=== PATIENT | female | born 1940 | race American Indian/Alaskan Native ===

== ENCOUNTER → 2020-09-19 13:24 | Outpatient (BNVA) | payer MEDICARE, SELFPAY | PROVIDERS: Visit Provider Orthopaedic Surgery | DX: M65.341 Trigger finger, right ring finger (principal); M65.351 Trigger finger, right little finger | CPT/HCPCS: 99202 ==

== ENCOUNTER 2020-12-08 14:17 | Outpatient (REF) | payer MEDICARE, SELFPAY ==
[2020-12-08 15:20] LABS: MANUAL DIFF FLAG NO
[2020-12-08 15:27] LABS: Basophils Percent Auto 0.2 % (0-2); Eosinophils Absolute Auto 0.1 X10*3/uL (0.0-0.4); Eosinophils Percent Auto 1.1 % (0-4); Hemoglobin 10.5 g/dl (12.0-16.0); Imm Gran Abs Auto 0.03 X10*3/uL (0.00-0.03); Imm Gran Pct Auto 0.4 % (0.0-0.4); Lymphocytes Percent Auto 23.7 % (20-40); Mean Corpuscular HGB Conc 31.8 g/dl (31.0-35.0); Mean Corpuscular Hemoglobin 29.5 pg (27.0-33.0); Mean Corpuscular Volume 92.7 fL (80-98); Mean Platelet Volume 10.6 fL (9.4-12.3); Monocytes Absolute Auto 0.6 X10*3/uL (0.1-1.2); Neutrophils Absolute Auto 5.8 X10*3/uL (2.0-8.3); Neutrophils Percent Auto 67.6 % (45-73); Platelet Count 305 X10*3/uL (160-400); Red Blood Count 3.56 X10*6/uL (4.20-5.50); Red Cell Distribution Width 13.3 % (11.0-16.0); White Blood Count 8.5 X10*3/uL (4.8-10.8)
[2020-12-08 16:13] LABS: Anion Gap 11 (12-20); Blood Urea Nitrogen 22 mg/dL (9-16); Calcium 9.2 mg/dL (8.4-10.2); Carbon Dioxide 27 mmol/L (22-29); Chloride 102 mmol/L (96-108); Estimated Glomerular Filt Rate 39; Magnesium 1.9 mg/dL (1.6-2.6); Phosphorus 3.7 mg/dL (2.7-4.5); Potassium 4.8 mmol/L (3.3-5.1); Sodium 135 mmol/L (135-145)
[2020-12-08 16:36] LABS: Vitamin D 25-OH Total 32.1 ng/mL (>30)
[2020-12-08 17:02] LABS: Glucose Urine UA >=1000 MG/DL (NEG); Leukocyte Esterase Urine NEG (NEG); Nitrite Urine NEG (NEG); Urine Blood NEG (NEG); Urine Ketones NEG (NEG); Urine Protein NEG (NEG-TRACE)
[2020-12-08 17:03] LABS: Appearance Urine CLEAR; Color Urine YELLOW
[2020-12-08 17:13] LABS: Creatinine Urine 53.33 mg/dL; Total Protein Urine Random < 7 mg/dL (<12)
[2020-12-08 17:27] LABS: Squamous Epithelial Cell Urine TRACE /LPF
[2020-12-08 17:29] LABS: Renal w Reflex Lab Use Only Order verified
== END 2020-12-08 14:18 | disposition home or self-care (01) ==
LOC: HO.LAB 14:17
PROVIDERS: Absent Provider Internal Medicine Nephrology; PCP Family Medicine; Visit Provider Student in an Organized Health Care Education/Training Program
DX: M19.042 Primary osteoarthritis, left hand (principal); M19.041 Primary osteoarthritis, right hand; M65.321 Trigger finger, right index finger; I12.9 Hypertensive chronic kidney disease with stage 1 through stage 4 chronic kidney disease, or unspecified chronic kidney disease; N18.30 Chronic kidney disease, stage 3 unspecified; E11.22 Type 2 diabetes mellitus with diabetic chronic kidney disease; E11.21 Type 2 diabetes mellitus with diabetic nephropathy; Z79.899 Other long term (current) drug therapy
CPT/HCPCS: 36415; 80051; 81001; 81003; 82040; 82043; 82306; 82310; 82565; 83735; 84100; 84155; 84156; 84520; 85025; 99202

== ENCOUNTER 2021-03-29 11:47 | Outpatient (REF) | payer MEDICARE, SELFPAY ==
--- NOTE | ~2021-03-29 | MM_ITS ---
EXAMINATION: MM SCREENING DIGITAL BREAST TOMOSYNTHESIS, BILATERAL CLINICAL INFORMATION: Screening. Asymptomatic. The lifetime risk of breast cancer based on the Tyrer-Cuzick Model is 2%. COMPARISON: Mammography: 01/06/2020, 07/01/2018, 06/27/2017 TECHNIQUE: Digital breast tomosynthesis is performed in both the craniocaudal and mediolateral oblique views along with computer-aided detection (CAD). Synthesized 2D images are generated from the tomosynthesis. FINDINGS: There are scattered areas of fibroglandular density (ACR BI-RADS breast composition Category b). There are no significant masses, abnormal calcifications, or other abnormalities. Parenchymal pattern is similar to prior exams. No developing density. No significant changes. MM/MM tomosynthesis screening BI IMPRESSION: No mammographic evidence of malignancy. ASSESSMENT: BI-RADS 1: Negative RECOMMENDATION: Routine annual mammography screening. This patient's information was entered into a reminder system with a target due date for their next mammogram.
--- NOTE | ~2021-03-29 | MM_ITS ---
EXAMINATION: BONE DENSITOMETRY CLINICAL INDICATION: Other disorders of bone density. COMPARISON: Previous BD dated 07/04/2012 and baseline BD dated 11/22/2009. TECHNIQUE: Using a Drivable DXA System (software version: 13.1) manufactured by [employer], dual-energy x-ray absorptiometry was performed of the lumbar spine and left hip. The images are of good technical quality. Summary results are attached. FINDINGS: AP SPINE L1-L4: Current: BMD 1.053 g/cm2, Z-score 0.5, T-score -1.1, osteopenia, 0.2% decrease from previous, 4.8% increase from baseline (<5% change is not significant). Prior: BMD 1.055 g/cm2. Baseline: BMD 1.005 g/cm2. LEFT FEMUR, NECK: Current: BMD 0.821 g/cm2, Z-score 0.4, T-score -1.6, osteopenia. Prior: BMD 0.887 g/cm2. Baseline: BMD 0.892 g/cm2. LEFT FEMUR, TOTAL: Current: BMD 0.980 g/cm2, Z-score 1.5, T-score -0.2, normal, 2.9% decrease from previous, 3.5% decrease from baseline (<5% change is not significant). Prior: BMD 1.009 g/cm2. Baseline: BMD 1.016 g/cm2. IDENTIFIED RISK FACTORS: Menopause. HISTORY OF FRACTURE: None listed. MEDICATIONS: Calcium supplements or multivitamin, vitamin D. MM/XR DEXA axial skeleton IMPRESSION: 1. DIAGNOSIS: Osteopenia based on the lowest T-score value of -1.6 in the femoral neck applying World Health Organization criteria. 2. 10-YEAR FRACTURE RISK PREDICTION, FRAX: Major osteoporotic fracture (clinical spine, forearm, hip or shoulder) 7.6%. Hip fracture 1.7%. 3. Treatment Recommendations: NOF guidelines recommend consideration for treatment in postmenopausal women and men age 50 and older presenting with the following: -A hip or vertebral (clinical or morphometric) fracture. -T-score less than or equal to -2.5 at the femoral neck or spine after appropriate evaluation to exclude secondary causes. -Low bone mass at the hip or spine and a 10-year fracture probability by FRAX of greater than or equal to 3% for hip fracture or greater than or equal to 20% for major osteoporotic fracture based on the [place] adapted WHO algorithm. 4. Other Recommendations: All treatment decisions require clinical judgment and consideration of individual patient factors, including patient preferences, comorbidities, previous drug use, risk factors not captured in the FRAX model (e.g. frailty, falls, vitamin D deficiency, increased bone turnover, interval significant decline in bone density) and possible under or overestimation of fracture risk by FRAX. Additional medical evaluation for secondary cause of low bone mineral density may be appropriate. FUTURE SCAN RECOMMENDATION: People with diagnosed cases of osteoporosis or at high risk for fracture should have regular bone mineral density tests. For patients eligible for Medicare, routine testing is allowed once every 2 years. The testing frequency can be increased to one year for patients who have rapidly progressing disease, those who are receiving or discontinuing medical therapy to restore bone mass, or have additional risk factors.
== END 2021-03-29 11:48 | disposition home or self-care (01) ==
LOC: HO.MAMMO 11:47
PROVIDERS: Visit Provider Family Medicine
DX: Z12.31 Encounter for screening mammogram for malignant neoplasm of breast (principal); Z13.820 Encounter for screening for osteoporosis; M85.80 Other specified disorders of bone density and structure, unspecified site; Z78.0 Asymptomatic menopausal state; Z79.899 Other long term (current) drug therapy
CPT/HCPCS: 77063; 77067; 77080

== ENCOUNTER 2021-11-16 13:38 | Outpatient (REF) | payer OTHER, SELFPAY ==
[2021-11-16 14:00] LABS: MANUAL DIFF FLAG NO
[2021-11-16 14:07] LABS: Basophils Percent Auto 0.3 % (0-2); Eosinophils Absolute Auto 0.1 X10*3/uL (0.0-0.4); Eosinophils Percent Auto 1.1 % (0-4); Hematocrit 36.9 % (37.0-47.0); Hemoglobin 11.8 g/dl (12.0-16.0); Imm Gran Abs Auto 0.04 X10*3/uL (0.00-0.03); Imm Gran Pct Auto 0.4 % (0.0-0.4); Lymphocytes Absolute Auto 1.9 X10*3/uL (1.2-4.9); Lymphocytes Percent Auto 19.6 % (20-40); Mean Corpuscular Hemoglobin 28.9 pg (27.0-33.0); Mean Corpuscular Volume 90.4 fL (80.0-98.0); Mean Platelet Volume 10.4 fL (9.4-12.3); Monocytes Absolute Auto 0.5 X10*3/uL (0.1-1.2); Monocytes Percent Auto 5.6 % (2-11); Platelet Count 310 X10*3/uL (160-400); Red Blood Count 4.08 X10*6/uL (4.20-5.50); Red Cell Distribution Width 12.3 % (11.0-16.0); White Blood Count 9.6 X10*3/uL (4.8-10.8)
[2021-11-16 14:30] LABS: Appearance Urine CLEAR; Color Urine YELLOW; Glucose Urine UA >=1000 MG/DL (NEG); Leukocyte Esterase Urine NEG (NEG); Nitrite Urine NEG (NEG); Specific Gravity - Urine 1.015 (1.005-1.025); Urine Blood NEG (NEG); Urine Ketones 5 MG/DL (NEG); Urine Protein NEG (NEG-TRACE)
[2021-11-16 14:33] LABS: Albumin Level 3.8 g/dL (3.5-5.0); Anion Gap 16 (12-20); Blood Urea Nitrogen 23 mg/dL (9-16); Calcium 9.4 mg/dL (8.4-10.2); Carbon Dioxide 23 mmol/L (22-29); Chloride 99 mmol/L (96-108); Estimated Glomerular Filt Rate 32; Magnesium 1.8 mg/dL (1.6-2.6); Phosphorus 3.9 mg/dL (2.7-4.5); Potassium 4.8 mmol/L (3.3-5.1); Sodium 133 mmol/L (135-145)
[2021-11-16 14:54] LABS: Vitamin D 25-OH Total 49.4 ng/mL (>30)
[2021-11-16 15:00] LABS: Creatinine Urine 87.04 mg/dL; Microalbum/Creatinine Ratio Ur 28.7 ug/mg cr; Protein/Creatinine Ratio, Ur 0.17 (<0.2); RBC Urine 0 /HPF (0); Renal Epithelial Cells Urine 2+ /LPF; Squamous Epithelial Cell Urine 1+ /LPF; Total Protein Urine Random 15 mg/dL (<12)
[2021-11-17 12:11] LABS: Calcium (PTHI) 9.5 mg/dL (8.6-10.4); PTHI 43 pg/mL (16-77)
== END 2021-11-16 13:39 | disposition home or self-care (01) ==
LOC: HO.LAB 13:38
PROVIDERS: PCP Family Medicine; Visit Provider Internal Medicine Nephrology
DX: N18.31 Chronic kidney disease, stage 3a (principal); E11.21 Type 2 diabetes mellitus with diabetic nephropathy; N25.0 Renal osteodystrophy
CPT/HCPCS: 36415; 80051; 81001; 82040; 82043; 82306; 82310; 82565; 83735; 83970; 84100; 84156; 84520; 85025; 87086

== ENCOUNTER 2022-03-12 09:43 | Outpatient (REF) | payer OTHER, SELFPAY ==
--- NOTE | ~2022-03-12 | XR_ITS ---
EXAMINATION: XR SHOULDER, LEFT CLINICAL INFORMATION: Left posterior shoulder pain. COMPARISON: None. TECHNIQUE: AP external rotation, Grashey, scapular Y, and axillary views of the left shoulder. FINDINGS: Bones are osteopenic. Mild glenohumeral osteoarthritis with marginal osteophytes at the glenoid rim. There is [id number] acromioclavicular osteoarthritis. Prominent anterior subacromial spur is noted. Degenerative spondylosis is present in the thoracic spine. XR/XR shoulder LT min 2V IMPRESSION: Mild glenohumeral and [id number] acromioclavicular osteoarthritis Prominent anterior subacromial spur, predisposing to subacromial impingement.
== END 2022-03-12 09:44 | disposition home or self-care (01) ==
LOC: HO.XRAY 09:43
PROVIDERS: PCP Family Medicine; Visit Provider Family Medicine
DX: M25.512 Pain in left shoulder (principal)
CPT/HCPCS: 73030

== ENCOUNTER 2022-04-02 12:57 | Outpatient (REF) | payer OTHER, SELFPAY ==
--- NOTE | ~2022-04-02 | MM_ITS ---
EXAMINATION: MM SCREENING DIGITAL BREAST TOMOSYNTHESIS, BILATERAL CLINICAL INFORMATION: Screening. Asymptomatic. The lifetime risk of breast cancer based on the Tyrer-Cuzick Model is 2%. COMPARISON: Mammography: 03/29/2021, 01/06/2020, 07/01/2018. TECHNIQUE: Digital breast tomosynthesis is performed in both the craniocaudal and mediolateral oblique views along with computer-aided detection (CAD). Synthesized 2D images are generated from the tomosynthesis. FINDINGS: There are scattered areas of fibroglandular density (ACR BI-RADS breast composition Category b). There are no significant masses, abnormal calcifications, or other abnormalities. Parenchymal pattern is similar to prior studies. No architectural abnormality. The axilla and skin contours are unremarkable. MM/MM tomosynthesis screening BI IMPRESSION: No mammographic evidence of malignancy. ASSESSMENT: BI-RADS 1: Negative RECOMMENDATION: Routine annual mammography screening. This patient's information was entered into a reminder system with a target due date for their next mammogram.
== END 2022-04-02 12:58 | disposition home or self-care (01) ==
LOC: HO.MAMMO 12:57
PROVIDERS: PCP Family Medicine; Visit Provider Family Medicine
DX: Z12.31 Encounter for screening mammogram for malignant neoplasm of breast (principal)
CPT/HCPCS: 77063; 77067

== ENCOUNTER → 2022-04-13 13:06 | Outpatient (BNVA) | payer OTHER, SELFPAY | PROVIDERS: PCP Family Medicine; Visit Provider Physician Assistant | DX: M19.012 Primary osteoarthritis, left shoulder (principal); M75.82 Other shoulder lesions, left shoulder | CPT/HCPCS: 99212; J1020 ==

== ENCOUNTER → 2022-08-13 12:57 | Outpatient (BNVA) | payer OTHER, SELFPAY | PROVIDERS: PCP Family Medicine; Referring Provider Family Medicine; Visit Provider Internal Medicine Cardiovascular Disease | DX: I25.5 Ischemic cardiomyopathy (principal); I25.10 Atherosclerotic heart disease of native coronary artery without angina pectoris | CPT/HCPCS: 93005; 99202 ==

== ENCOUNTER 2022-08-15 09:11 | Outpatient (REF) | payer OTHER, SELFPAY ==
[2022-08-15 10:06] LABS: Anion Gap 14 (12-20); Blood Urea Nitrogen 21 mg/dL (9-16); Carbon Dioxide 25 mmol/L (22-29); Chloride 107 mmol/L (96-108); Cholesterol 248 mg/dL; Estimated Glomerular Filt Rate 36; Glucose Random 166 mg/dL (60-115); HDL Cholesterol 38 mg/dL; LDL Cholesterol Calculated 176 mg/dl; Potassium 4.6 mmol/L (3.3-5.1); Sodium 141 mmol/L (135-145); Triglycerides 172 mg/dL
[2022-08-15 10:11] LABS: B Type Natriuretic Peptide 510 pg/mL (<100)
[2022-08-16 14:44] LABS: CRP High Sensitivity 4.7 mg/L
== END 2022-08-15 09:12 | disposition home or self-care (01) ==
LOC: HO.LAB 09:11
PROVIDERS: PCP Family Medicine; Visit Provider Internal Medicine Cardiovascular Disease
DX: E78.5 Hyperlipidemia, unspecified (principal); I25.10 Atherosclerotic heart disease of native coronary artery without angina pectoris; I25.5 Ischemic cardiomyopathy
CPT/HCPCS: 36415; 80048; 80061; 83880; 86141

== ENCOUNTER → 2022-08-28 15:06 | Outpatient (REF) | payer OTHER, SELFPAY ==
--- NOTE | 2022-08-28 15:09 | CA_ITS ---
Transthoracic Echocardiogram Patient (Last, First, Middle): Veronique Westfall A Gender: Female Date of : 1940 Age: 82 Procedure Date: 08/28/2022 Procedure Type: Transthoracic Echocardiogram Location: OP Height: 152.4 cm Weight: 70.31 kg BSA: 1.67 m2 Heart Rate: bpm BP: 118 / 60 mmHg Offset Plate Maker: Referring MD: Blade Vargas MD Factory Worker: Blade Vargas MD Symptoms: I25.5 - Ischemic cardiomyopathy Study Quality: Fair, Good w Definity ECG Rhythm: Sinus Conclusions: - 1. Severe LV systolic dysfunction with LVEF of 15-20% with LAD territory wall motion abnormality consistent with prior myocardial infarction, consistent with ischemic cardiomyopathy with impaired relaxation filling pattern 2. Mild aortic regurgitation 3. Normal RV systolic pressure 4. No gross pericardial effusion Findings Procedure Information Contrast agent, definity, is being given per protocol without apparent complications. Left Ventricle Normal left ventricular cavity size. There is normal left ventricular wall thickness. The left ventricular systolic function is severely decreased. The visually estimated ejection fraction is between 15-20%. Spectral Doppler is indicative of an impaired relaxation filling pattern. E/E prime ratio is between 8 and 15 consistent with indeterminate filling pressures. There is no evidence of a thrombus in the left ventricle. Wall Motion Rest Echo Findings The basal anterior and basal anteroseptal segments are hypokinetic. The apical anterior, apical inferior, mid anterior, apical lateral, apical septum, mid inferoseptal, and mid anteroseptal segments are akinetic. The apex segment is dyskinetic. All other scored wall segments showed normal motion. Right Ventricle Normal right ventricular cavity size and systolic function. Atria The left atrium is normal in size. There is no evidence of interatrial shunt. The right atrium is normal in size. Aortic Valve The aortic valve structure and function is likely normal. There is no aortic valve stenosis. There is mild aortic valve regurgitation. Mitral Valve There is mild anterior and posterior mitral leaflet thickening. Pulmonic Valve The pulmonic valve was not well visualized. Tricuspid Valve Likely normal tricuspid valve structure and function. There is trace tricuspid valve regurgitation. The right ventricular systolic pressure is normal. Normal right atrial pressure. There is no evidence of pulmonary hypertension. Great Vessels All visible segments of the aorta are normal in size. The pulmonary artery was not well visualized. Venous The inferior vena cava is normal in size and collapses greater than 50% with inspiration. Pericardium/Pleural There is no evidence of pericardial effusion. Prior Study Comparison No prior study available for comparison. Measurements 2D Linear Measurements IVSd: 1.04 0.6-0.9/0.6-1.0 cm LVIDd: 4.16 3.9-5.3/4.2-5.9 cm LVIDd Index: 2.49 2.4-3.2/2.2-3.1 cm/m2 LVIDs: 3.83 2.0-3.6 cm LVPWd: 0.93 0.7-1.1 cm Ao Root: 2.70 2.1-3.5 cm LA Diam: 3.10 2.7-3.8/3.0-4.0 cm LAIDs Index: 1.86 1.5-2.3 cm/m2 LV Mass: 164.57 67-162/88-224 g LV Mass Index: 98.55 43-95/49-115 g/m2 LVOT Diam: 1.90 3.0+(-)1.3 cm 2D Systolic Function EF 4C: 19.70 >55% EF 2C: 20.80 >55% EF BiP: 17.50 >55% Mitral Valve MV Pk E: 0.58 MV PK A: 1.10 MV Decel Time: 107.00 E/A: 0.50 E'Lateral: 4.03 E'Medial: 4.46 E/E' Med: 13.00 E/E' Lat: 14.40 PHT: 31.00 MVA PHT: 7.10 Decel [place]: 5.45 Aortic Valve AoV Pk Td: 1.17 AoV Mn Td: 0.76 AoV VTI: 0.24 AoV Pk Grad: 5.00 Aov Mn Grad: 3.00 IFEOMA Cont.VTI: 1.50 AI Pk Td: 3.85 AI [place]: 4.98 LVOT LVOT Pk Td: 0.66 LVOT Mn Td: 0.43 LVOT VTI: 0.13 LVOT Pk Grad: 2.00 LVOT Mn Grad: 1.00 LVOT Diam: 1.90 LVOT Area: 2.84 Diastolic Function MV Pk E: 0.58 MV Pk A: 1.10 E/A: 0.50 E'Medial: 4.46 E/E' Med: 13.00 E' Laterial: 4.03 E/E' Lat: 14.40 Right Ventricle TAPSE (mm): 18.00 TVS' Td: 10.00 Tricuspid Valve TR Pk Td: 2.02 TR Pk Grad: 16.00 RA Press: 3.00 RVSP: 19.00 Great Vessels Aorta Ao Root-2D: 2.70 2.0-3.7 cm Ao Asc: 2.90 2.1-3.4 cm Pulmonary Valve PV Pk Td: 0.93 Peak PV Grad: 3.00 Updated in Other Vendor System with Status of Final Blade Vargas MD electronically signed on 08/29/2022 9:37:37 AM with status of Final
== END ==
LOC: HO.CARD 15:06
PROVIDERS: PCP Family Medicine; Visit Provider Internal Medicine Cardiovascular Disease
DX: I25.5 Ischemic cardiomyopathy (principal)
CPT/HCPCS: 93306; Q9957

== ENCOUNTER → 2022-09-07 14:57 | Outpatient (BNVA) | payer OTHER, SELFPAY | PROVIDERS: PCP Family Medicine; Visit Provider Internal Medicine Cardiovascular Disease ==

== ENCOUNTER → 2022-09-20 15:09 | Outpatient (BNVA) | payer OTHER, SELFPAY | PROVIDERS: PCP Family Medicine; Referring Provider Family Medicine; Visit Provider Internal Medicine Cardiovascular Disease | DX: I25.5 Ischemic cardiomyopathy (principal); I25.10 Atherosclerotic heart disease of native coronary artery without angina pectoris | CPT/HCPCS: 93005; 99212 ==

== ENCOUNTER 2022-10-04 11:55 | Outpatient (REF) | payer OTHER, SELFPAY ==
[2022-10-04 12:51] LABS: Anion Gap 15 (12-20); Blood Urea Nitrogen 25 mg/dL (9-16); Calcium 9.3 mg/dL (8.4-10.2); Carbon Dioxide 21 mmol/L (22-29); Chloride 110 mmol/L (96-108); Cholesterol 173 mg/dL; Estimated Glomerular Filt Rate 28; Glucose Random 211 mg/dL (60-115); HDL Cholesterol 36 mg/dL; LDL Cholesterol Calculated 108 mg/dl; Potassium 5.1 mmol/L (3.3-5.1); Sodium 141 mmol/L (135-145); Triglycerides 147 mg/dL
[2022-10-04 12:58] LABS: B Type Natriuretic Peptide 322 pg/mL (<100)
== END 2022-10-04 11:56 | disposition home or self-care (01) ==
LOC: HO.LAB 11:55
PROVIDERS: Visit Provider Internal Medicine Cardiovascular Disease
DX: I25.5 Ischemic cardiomyopathy (principal); I25.10 Atherosclerotic heart disease of native coronary artery without angina pectoris
CPT/HCPCS: 36415; 80048; 80061; 83880

== ENCOUNTER 2023-01-01 15:06 | Outpatient (AMB) | payer OTHER, SELFPAY ==
[2022-11-29 12:51] VITALS: BP 118/58; BP 118/64
[2022-12-24 12:41] VITALS: BP 110/44; BMI 29.1
--- NOTE | 2023-01-01 15:08 | A.OFFVIS_ITS ---
Intake Vital Signs 01/01/23 15:09 Height 5 ft Weight 156 lb 8.451 oz BMI 30.6 BP 110/70 Blood Pressure Location Lt brachial Position Sitting Pulse 92 Intake Visit Reasons: 3 mth f/up Intake Note: 3 month follow-up feeling good Nuclear Worker Technician Required: Yes Nuclear Worker Technician Name: Adnres viera Director Of Consulting Services: Director Of Consulting Services Present Accompanied by: Family/Other Allergies procaine [From NOVOCAIN] Allergy (Severe, Verified 04/13/22 13:14) SWELLING LOCALIZED TO INJECTION SITE alirocumab [From Praluent Pen] Allergy (Mild, Verified 01/01/23 15:18) Itching Aspirin Allergy (Unknown, Uncoded 04/13/22 13:14) rash full strength Aspirin Allergy (Unknown, Uncoded 04/13/22 13:14) rash Medication List - Last Reconciled 01/01/23 by Blade Vargas MD acetaminophen 325 mg PO QID PRN albuterol sulfate 4 mg PO TID aspirin (Adult Aspirin Regimen) 81 mg PO DAILY baclofen 5 mg PO BID PRN bisacodyl 5 mg PO BEDTIME carvedilol (Coreg) 3.125 mg PO BID diclofenac sodium 75 mg PO BID 30 days dulaglutide (Trulicity) 0.75 mg subcut QWEEK empagliflozin (Jardiance) 10 mg PO DAILY metformin 500 mg PO DAILY rosuvastatin 40 mg PO QAM sacubitril-valsartan 49-51 mg (Entresto) 1 tab PO BID sertraline (Zoloft) 25 mg PO DAILY ticagrelor (Brilinta) 90 mg PO BID 90 days tramadol 50 mg PO DAILY HPI HPI Comments History of Present Illness Details Veronique comes for follow-up. History was obtained with help of a certified office services assistant. Patient is doing well. Since cardiac rehab, she feels stronger. She denies any heart failure symptoms. Denies any anginal symptoms. No lightheadedness, palpitations, syncope. Taking all her medications. Could not tolerate Praluent therapy, air conditioning technician generalized itchiness. This has resolved since stopping the injections. [facility] Medical History Active asthma Anxiety CAD (coronary artery disease) High cholesterol Hypertension Surgical History Stented coronary artery Social History Patient Tobacco Use Status: Never used Tobacco e-Cigarette/Vaping Use: Never Used Current occupational status: retired and disabled Current occupation: rt hand Review of Systems Const Denies chills, Denies fatigue, Denies fever(s), Denies frequent falls, Denies weakness, Denies weight gain and Denies weight loss ENT Denies dizziness Card Denies chest pain, Denies leg edema, Denies lightheadedness, Denies palpitations, Denies dyspnea, Denies dyspnea on exertion, Denies orthopnea and Denies other (loss of consciousness) Resp Denies cough, Denies dyspnea and Denies dyspnea on exertion GI Denies hematochezia and Denies change in stool character Musc Denies abnormal gait, Denies muscle weakness, Denies numbness, Denies radiating pain into limb and Denies tingling Neuro Denies Abnormal speech present, Denies abnormal gait, Denies dizziness, Denies frequent falls, Denies numbness, Denies tingling and Denies weakness Endo Denies fatigue and Denies palpitations Physical Exam Vital Signs: Last Vital Signs Pulse 92 01/01/23 15:09 BP 110/70 01/01/23 15:09 BMI result Body Mass Index 30.6 Const General: cooperative, comfortable, no acute distress, alert, awake and Physically active Nutritional Appearance: well nourished and overweight Orientation/consciousness: patient oriented x3 Limitations: no limitations HEENT Head: Yes normocephalic and Yes atraumatic Neck Neck: Yes trachea midline, Yes supple and Yes no JVD Resp Effort & Inspection: normal respiratory effort Auscultation: clear to auscultation bilaterally Cardio Jugular venous distension: no JVD Palpation: abnormal PMI displaced PMI Rate: regular rate Rhythm: regular rhythm Heart sounds: S1 normal heart sound present, S2 normal heart sound present, no click, no gallops, no murmurs and no rubs GI Auscultation: normal bowel sounds Skin General skin exam: no rashes or lesions noted Neuro General: patient oriented x3 and no focal motor deficits Speech: No Abnormal speech present Extrem General: Yes no clubbing, cyanosis or edema Assessment & Plan Assessment & Plan (1) Ischemic cardiomyopathy: Code(s): I25.5 - Ischemic cardiomyopathy Plan: Severe ischemic cardiomyopathy without any overt signs of heart failure. She is doing well from that perspective. Signs and symptoms of heart failure were discussed. Continue current neurohormonal modulation with Entresto, carvedilol and Jardiance therapy. Advised to avoid salt loading. Continue to maintain activity level as tolerated. We discussed about placement of ICD for primary prevention. She declines placement of ICD understanding risk of sudden cardiac that. Both the daughters were present and accompanying her understands well. (2) CAD (coronary artery disease): Comment: Status post anterior STEMI, April 2022 with LAD stent Code(s): I25.10 - Atherosclerotic heart disease of [place] coronary artery without angina pectoris Plan: CAD status post anterior STEMI with LAD stent with drug-eluting stent. Continue dual antiplatelet therapy total for 1 year. Continue aggressive blood pressure control which is currently well optimized advised to maintain activity level as tolerated. Could not tolerate any lipid lowering therapy with side effects to both statins and PCSK9 inhibitor therapy. Will follow up in the clinic in 6 months time. Coding Level of Care Code Est Pt Level 4 (43478) Diagnoses Ischemic cardiomyopathy I25.5 CAD (coronary artery disease) I25.10
[2023-01-01 15:09] VITALS: BP 110/70; PULSE 92; BMI 30.6
== END 2023-01-01 15:29 | disposition home or self-care (01) ==
PROVIDERS: Visit Provider Internal Medicine Cardiovascular Disease
DX: I25.5 Ischemic cardiomyopathy (principal); I25.10 Atherosclerotic heart disease of native coronary artery without angina pectoris
CPT/HCPCS: 99214

== ENCOUNTER → 2023-01-01 15:06 | Outpatient (BNVA) | payer OTHER, SELFPAY ==
[2022-11-29 12:51] VITALS: BP 118/58; BP 118/64
[2022-12-24 12:41] VITALS: BP 110/44; BMI 29.1
== END ==
PROVIDERS: Visit Provider Internal Medicine Cardiovascular Disease
DX: I25.5 Ischemic cardiomyopathy (principal); I25.10 Atherosclerotic heart disease of native coronary artery without angina pectoris
CPT/HCPCS: 99212

== ENCOUNTER → 2023-01-11 10:02 | Outpatient (REF) | payer OTHER, SELFPAY ==
[2022-11-29 12:51] VITALS: BP 118/58; BP 118/64
[2022-12-24 12:41] VITALS: BP 110/44; BMI 29.1
--- NOTE | ~2023-01-11 | NM_ITS ---
Myocardial perfusion study Indication: Atherosclerotic cardiovascular disease to evaluate for myocardial ischemia Technique: The patient was brought in for a Lexiscan perfusion study on 01/11/2023. Patient performed low-level exercise and was injected 0.4 mg of Lexiscan intravenously. Within a minute of injection, 25 mCi of sestamibi was given intravenously. Images were obtained using the SPECT gamma camera interlaced with the gating device. Images were obtained in supine position. Resting perfusion study was performed on 01/14/2023. Patient was administered 25 mCi of sestamibi intravenously at rest. Images were then obtained in supine position. Images obtained with and without CT attenuation. Total DLP 138 mGy-cm. Images were processed with the software and compared side to side in short axis, horizontal long axis and vertical long axis views. Findings: The stress perfusion study showed non attenuated images show moderately large area of absent uptake in the mid to distal anterior, apical and inferoapical wall of the LV myocardium with severely reduced uptake in the inferoseptum as well as distal septum showing absent uptake.. The gated study shows reduced LV systolic function with calculated LVEF of 42%. LV cavity is mildly dilated size. The gated study shows absent wall thickening and contraction of distal anterior, apical and inferoapical wall of the LV myocardium segments. Resting study shows no change in perfusion pattern compared to stress perfusion study. Gating at rest reveals distal anterior and apical wall motion abnormality with ejection fraction at 43%. The findings are consistent with no evidence reversible ischemia with transmural infarct of moderate to large area of mid to distal anterior, apical and inferoapical as well as distal septal wall of the LV myocardium with nontransmural infarct of the atrial septum of the LV myocardium. NM/NM cardiolite stress test Impression: 1. Myocardial perfusion imaging study shows infarct in the LAD territory without reversible ischemia 2. Gated LVEF is 42% 3. Transient ischemic dilatation not present EKG is nondiagnostic for ischemia
--- NOTE | 2023-01-11 10:09 | CA_ITS ---
Acquisition Time: 2023-01-11 10:20:50 Total Exercise Time: 00:02:52 Test Indications: CAD Medications: SEE H Protocol: ALISHA Max HR: 137 BPM 97% of Pred: 140 BPM Max BP: 142/058 mmHG Max Work Load: 4.6 METS Exercise stress test exercise 2 min 52 sec of Alisha protocol achieivng 95% MPHR briskly, request to stop as she could not go anymore due to fatuge and right jaw pain 3-4/10, without anginal symptoms, without arrhythmias, brisk heart rate response, with normotensive response to exercise, with non-diagostic EKGs. Jaw pain resolved with 8 mins 30 sec of recovery. Test changed to pharmacological stress test with Lexiscan injection while sitting and kicking her legs, without anginal symptoms, without arrhythmias, with normotensive response to injection, with non-diagnostic EKGs. Amionophylline 75mg IVP given to reverse Lexiscan. Nuclear images pending. Test reviewed with Dr. Vargas. Referred By: Blade Vargas Overread By: Kasandra Kingston
== END ==
LOC: HO.CARD 10:02
PROVIDERS: PCP Family Medicine; Visit Provider Internal Medicine Cardiovascular Disease
DX: R07.9 Chest pain, unspecified (principal); I25.10 Atherosclerotic heart disease of native coronary artery without angina pectoris; I25.5 Ischemic cardiomyopathy
CPT/HCPCS: 78452; 93017; A9500; J0280; J2785

== ENCOUNTER → 2023-01-11 10:09 | Outpatient (BNV) | payer OTHER, SELFPAY ==
[2022-11-29 12:51] VITALS: BP 118/58; BP 118/64
[2022-12-24 12:41] VITALS: BP 110/44; BMI 29.1
== END ==
PROVIDERS: PCP Family Medicine; Visit Provider Nurse Practitioner
DX: I25.10 Atherosclerotic heart disease of native coronary artery without angina pectoris (principal)
CPT/HCPCS: 78452; 93016; 93018

== ENCOUNTER 2023-01-16 13:10 | Outpatient (REF) | payer OTHER, SELFPAY ==
[2022-11-29 12:51] VITALS: BP 118/58; BP 118/64
[2022-12-24 12:41] VITALS: BP 110/44; BMI 29.1
[2023-01-16 16:20] LABS: Estimated Average Glucose 180 mg/dL; Hemoglobin A1c % 7.9 %
[2023-01-16 16:34] LABS: Anion Gap 15 (12-20); Blood Urea Nitrogen 17 mg/dL (9-16); Calcium 9.2 mg/dL (8.4-10.2); Carbon Dioxide 22 mmol/L (22-29); Chloride 107 mmol/L (96-108); Estimated Glomerular Filt Rate 32; Glucose Random 315 mg/dL (60-115); Potassium 4.6 mmol/L (3.3-5.1); Sodium 139 mmol/L (135-145)
== END 2023-01-16 13:11 | disposition home or self-care (01) ==
LOC: HO.HHCL 13:10
PROVIDERS: Visit Provider Family Medicine
DX: E11.22 Type 2 diabetes mellitus with diabetic chronic kidney disease (principal); N18.30 Chronic kidney disease, stage 3 unspecified
CPT/HCPCS: 36415; 80048; 83036

== ENCOUNTER 2023-04-08 13:45 | Outpatient (REF) | payer OTHER, SELFPAY ==
[2022-11-29 12:51] VITALS: BP 118/58; BP 118/64
[2022-12-24 12:41] VITALS: BMI 29.1
[2023-03-08 13:00] VITALS: BP 90/48
== END 2023-04-08 13:46 | disposition home or self-care (01) ==
LOC: HO.MAMMO 13:45
PROVIDERS: PCP Family Medicine; Visit Provider Family Medicine
DX: Z12.31 Encounter for screening mammogram for malignant neoplasm of breast (principal)
CPT/HCPCS: 77063; 77067

== ENCOUNTER → 2023-04-08 13:45 | Outpatient (BNV) | payer OTHER, SELFPAY ==
[2022-11-29 12:51] VITALS: BP 118/58; BP 118/64
[2022-12-24 12:41] VITALS: BMI 29.1
[2023-04-08 14:16] VITALS: BP 110/60
== END ==
PROVIDERS: PCP Family Medicine; Visit Provider Radiology Diagnostic Radiology
DX: Z12.31 Encounter for screening mammogram for malignant neoplasm of breast (principal)
CPT/HCPCS: 77063; 77067

== ENCOUNTER 2023-05-03 14:09 | Outpatient (REF) | payer OTHER, SELFPAY ==
[2022-11-29 12:51] VITALS: BP 118/58; BP 118/64
[2022-12-24 12:41] VITALS: BMI 29.1
[2023-04-08 14:16] VITALS: BP 110/60
[2023-05-03 14:26] LABS: MANUAL DIFF FLAG NO
[2023-05-03 15:23] LABS: Basophils Percent Auto 0.4 % (0-2); Eosinophils Absolute Auto 0.2 X10*3/uL (0.0-0.4); Hemoglobin 11.4 g/dl (12.0-16.0); Imm Gran Abs Auto 0.05 X10*3/uL (0.00-0.03); Imm Gran Pct Auto 0.5 % (0.0-0.4); Lymphocytes Absolute Auto 2.2 X10*3/uL (1.2-4.9); Lymphocytes Percent Auto 21.6 % (20-40); Mean Corpuscular HGB Conc 31.7 g/dl (31.0-35.0); Mean Corpuscular Hemoglobin 28.9 pg (27.0-33.0); Mean Corpuscular Volume 91.1 fL (80.0-98.0); Mean Platelet Volume 11.8 fL (9.4-12.3); Monocytes Absolute Auto 0.7 X10*3/uL (0.1-1.2); Monocytes Percent Auto 6.9 % (2-11); Neutrophils Absolute Auto 6.8 x10*3/uL (2.0-8.3); Neutrophils Percent Auto 68.6 % (45-73); Platelet Count 294 X10*3/uL (160-400); Red Blood Count 3.95 X10*6/uL (4.20-5.50); Red Cell Distribution Width 12.5 % (11.0-16.0)
[2023-05-03 15:39] LABS: Appearance Urine Clear; Color Urine Yellow; Glucose Urine UA Negative (Negative); Leukocyte Esterase Urine Moderate (2+) (Negative); Nitrite Urine Negative (Negative); UMIC TRIGGER UA YES; Urine Blood Negative (Negative); Urine Ketones Negative (Negative); Urine Protein Negative (Neg-Trace)
[2023-05-03 15:41] LABS: Bacteria Urine Trace (None Seen); Hyaline Casts Urine 0-2 /LPF (0-2); RBC Urine 0-2 /HPF (0-2); WBC Urine >50 /HPF (0-5)
[2023-05-03 15:54] LABS: Albumin Level 3.8 g/dL (3.5-5.0); Anion Gap 10 (12-20); Blood Urea Nitrogen 24 mg/dL (9-16); Calcium 9.1 mg/dL (8.4-10.2); Carbon Dioxide 26 mmol/L (22-29); Chloride 106 mmol/L (96-108); Estimated Glomerular Filt Rate 42; Magnesium 1.9 mg/dL (1.6-2.6); Phosphorus 3.6 mg/dL (2.7-4.5); Potassium 4.3 mmol/L (3.3-5.1); Sodium 138 mmol/L (135-145)
[2023-05-03 16:03] LABS: Creatinine Urine 91.61 mg/dL; Microalbum/Creatinine Ratio Ur 20.7 ug/mg cr (<30); Protein/Creatinine Ratio, Ur 0.13 (<0.2); Total Protein Urine Random 12 mg/dL (<12)
[2023-05-06 11:53] LABS: Calcium (PTHI) 9.2 mg/dL (8.6-10.4); PTHI 64 pg/mL (16-77)
== END 2023-05-03 14:10 | disposition home or self-care (01) ==
LOC: HO.LAB 14:09
PROVIDERS: PCP Family Medicine; Visit Provider Internal Medicine Nephrology
DX: N18.4 Chronic kidney disease, stage 4 (severe) (principal); E11.21 Type 2 diabetes mellitus with diabetic nephropathy; N25.0 Renal osteodystrophy; R82.90 Unspecified abnormal findings in urine
CPT/HCPCS: 36415; 80051; 81001; 82040; 82043; 82306; 82310; 82565; 82570; 83735; 83970; 84100; 84156; 84520; 85025; 87086

== ENCOUNTER 2023-05-21 12:08 | Outpatient (REF) | payer OTHER, SELFPAY ==
[2022-11-29 12:51] VITALS: BP 118/58; BP 118/64
[2022-12-24 12:41] VITALS: BMI 29.1
[2023-04-08 14:16] VITALS: BP 110/60
[2023-05-21 13:27] LABS: MANUAL DIFF FLAG NO
[2023-05-21 13:33] LABS: Basophils Percent Auto 0.3 % (0-2); Eosinophils Absolute Auto 0.1 X10*3/uL (0.0-0.4); Eosinophils Percent Auto 1.3 % (0-4); Hematocrit 35.4 % (37.0-47.0); Hemoglobin 11.4 g/dl (12.0-16.0); Imm Gran Abs Auto 0.04 X10*3/uL (0.00-0.03); Imm Gran Pct Auto 0.4 % (0.0-0.4); Lymphocytes Percent Auto 21.5 % (20-40); Mean Corpuscular HGB Conc 32.2 g/dl (31.0-35.0); Mean Corpuscular Hemoglobin 29.6 pg (27.0-33.0); Mean Corpuscular Volume 91.9 fL (80.0-98.0); Mean Platelet Volume 11.3 fL (9.4-12.3); Monocytes Absolute Auto 0.7 X10*3/uL (0.1-1.2); Monocytes Percent Auto 7.3 % (2-11); Neutrophils Absolute Auto 6.3 x10*3/uL (2.0-8.3); Neutrophils Percent Auto 69.2 % (45-73); Platelet Count 259 X10*3/uL (160-400); Red Blood Count 3.85 X10*6/uL (4.20-5.50); Red Cell Distribution Width 12.3 % (11.0-16.0); White Blood Count 9.1 X10*3/uL (4.8-10.8)
[2023-05-21 13:41] LABS: Estimated Average Glucose 200 mg/dL; Hemoglobin A1c % 8.6 % (<6.0)
[2023-05-21 14:25] LABS: Alanine Aminotransferase 8 U/L (0-31); Albumin Level 3.9 g/dL (3.5-5.0); Alkaline Phosphatase 96 U/L (39-117); Anion Gap 13 (12-20); Aspartate Amino Transferase 11 U/L (5-31); Bilirubin Direct 0.1 mg/dL (0.0-0.5); Bilirubin Total 0.5 mg/dL (0.0-1.0); Blood Urea Nitrogen 23 mg/dL (9-16); Calcium 9.2 mg/dL (8.4-10.2); Carbon Dioxide 22 mmol/L (22-29); Chloride 107 mmol/L (96-108); Cholesterol 249 mg/dL (<200); Estimated Glomerular Filt Rate 38; Free T4 (Free Thyroxine) 0.91 ng/dL (0.71-1.85); Glucose Random 188 mg/dL (60-115); HDL Cholesterol 38 mg/dL (>40); LDL Cholesterol Calculated 180 mg/dL (<100); Potassium 4.1 mmol/L (3.3-5.1); Sodium 138 mmol/L (135-145); Thyroid Stimulating Hormone 1.75 uIU/mL (0.32-4.0); Total Protein 7.6 g/dL (6.5-8.0); Triglycerides 156 mg/dL (<150); Vitamin D 25-OH Total 47.2 ng/mL (>30)
[2023-05-21 14:36] LABS: Creatinine Urine 241.66 mg/dL; Microalbum/Creatinine Ratio Ur 11.5 ug/mg cr (<30)
== END 2023-05-21 12:09 | disposition home or self-care (01) ==
LOC: HO.HHCL 12:08
PROVIDERS: Visit Provider Family Medicine
DX: E11.22 Type 2 diabetes mellitus with diabetic chronic kidney disease (principal); N18.30 Chronic kidney disease, stage 3 unspecified
CPT/HCPCS: 36415; 80048; 80061; 80076; 82043; 82306; 82570; 83036; 84439; 84443; 85025

== ENCOUNTER 2023-07-11 14:52 | Outpatient (AMB) | payer OTHER, SELFPAY ==
[2022-11-29 12:51] VITALS: BP 118/58; BP 118/64
[2022-12-24 12:41] VITALS: BP 110/44; BMI 29.1
[2023-04-08 14:16] VITALS: BP 110/60
[2023-07-11 15:05] VITALS: BP 142/70; PULSE 96; BMI 31.9
--- NOTE | 2023-07-11 15:05 | MHC.OFFVIS ---
Intake Vital Signs 07/11/23 15:05 Height 5 ft Weight 163 lb 2.273 oz BMI 31.9 BP 142/70 H Blood Pressure Location Lt brachial Position Sitting Pulse 96 Intake Visit Reasons: 6 MON FUP Intake Note: 6 month follow-up feeling good Screen Printing Equipment Setter Required: Yes Screen Printing Equipment Setter Name: Dominic viera Supervisor Propellant Charge Loading: Supervisor Propellant Charge Loading Present Accompanied by: Daughter Allergies procaine [From NOVOCAIN] Allergy (Severe, Verified 04/13/22 13:14) SWELLING LOCALIZED TO INJECTION SITE alirocumab [From Praluent Pen] Allergy (Mild, Verified 01/01/23 15:18) Itching Aspirin Allergy (Unknown, Uncoded 04/13/22 13:14) rash full strength Aspirin Allergy (Unknown, Uncoded 04/13/22 13:14) rash Medication List - Last Reconciled 07/11/23 by Blade Vargas MD acetaminophen 325 mg PO QID PRN albuterol sulfate 4 mg PO TID amlodipine 2.5 mg PO DAILY aspirin (Adult Aspirin Regimen) 81 mg PO DAILY baclofen 5 mg PO BID PRN bisacodyl 5 mg PO BEDTIME canagliflozin (Invokana) 100 mg PO DAILY dulaglutide (Trulicity) 0.75 mg subcut QWEEK metformin 500 mg PO DAILY metoprolol tartrate 25 mg PO BID pioglitazone (Actos) 45 mg PO DAILY rosuvastatin 40 mg PO QAM sertraline (Zoloft) 25 mg PO DAILY spironolactone 25 mg PO DAILY ticagrelor (Brilinta) 90 mg PO BID 90 days tramadol 50 mg PO DAILY HPI HPI Comments History of Present Illness Details Veronique comes for follow-up, accompanied by her daughter. History was obtained with help of a certified maintenance specialist. Compared to last time a lot of her medications are change. She has no longer on Entresto carvedilol or Jardiance. These were changed as per her by the member service specialist. I am not clear. Probably related to elevated creatinine. However as per the daughter she is doing better. She has been more active. She denies any exertional chest pain or shortness of breath. No heart failure symptoms. As per the daughter the blood pressure is also better controlled at this point in time. [facility] Medical History CAD (coronary artery disease) Anxiety High cholesterol Hypertension Active asthma Surgical History Stented coronary artery Social History Patient Tobacco Use Status: Never used Tobacco e-Cigarette/Vaping Use: Never Used Current occupational status: retired and disabled Current occupation: rt hand Review of Systems Const Denies chills, Denies fatigue, Denies fever(s), Denies frequent falls, Denies weakness, Denies weight gain and Denies weight loss ENT Denies dizziness Card Denies chest pain, Denies leg edema, Denies lightheadedness, Denies palpitations, Denies dyspnea, Denies dyspnea on exertion, Denies orthopnea and Denies other (loss of consciousness) Resp Denies cough, Denies dyspnea and Denies dyspnea on exertion GI Denies hematochezia and Denies change in stool character Musc Denies abnormal gait, Denies muscle weakness, Denies numbness, Denies radiating pain into limb and Denies tingling Neuro Denies Abnormal speech present, Denies abnormal gait, Denies dizziness, Denies frequent falls, Denies numbness, Denies tingling and Denies weakness Endo Denies fatigue and Denies palpitations Physical Exam Vital Signs: Last Vital Signs Pulse 96 07/11/23 15:05 BP 142/70 H 07/11/23 15:05 BMI result Body Mass Index 31.9 Const General: cooperative, comfortable, no acute distress, alert, awake and Physically active Nutritional Appearance: well nourished and overweight Orientation/consciousness: patient oriented x3 Limitations: no limitations HEENT Head: Yes normocephalic and Yes atraumatic Neck Neck: Yes trachea midline, Yes supple and Yes no JVD Resp Effort & Inspection: normal respiratory effort Auscultation: clear to auscultation bilaterally Cardio Jugular venous distension: no JVD Palpation: abnormal PMI displaced PMI Rate: regular rate Rhythm: regular rhythm Heart sounds: S1 normal heart sound present, S2 normal heart sound present, no click, no gallops, no murmurs and no rubs GI Auscultation: normal bowel sounds Skin General skin exam: no rashes or lesions noted Neuro General: patient oriented x3 and no focal motor deficits Speech: No Abnormal speech present Extrem General: Yes no clubbing, cyanosis or edema Assessment & Plan Assessment & Plan (1) Ischemic cardiomyopathy: Code(s): I25.5 - Ischemic cardiomyopathy Plan: Patient with severe ischemic cardiomyopathy due to anterior myocardial infarction with no signs or symptoms of heart failure. She has not on ideal neurohormonal modulation at this point time. Will discuss with Nephrology about changing her medications. I would like to switch her metoprolol to carvedilol as well as incentive spironolactone pursue Entresto therapy. This was discussed with the patient. Will discuss with Nephrology for further management plan. She is clinically without any signs or symptoms of heart failure. Advised to continue monitor daily weights and avoidance of salt loading. Monitor blood pressure at home. Maintain activity level as tolerated. They continued to decline ICD placement. (2) CAD (coronary artery disease): Comment: Status post anterior STEMI, April 2022 with LAD stent Code(s): I25.10 - Atherosclerotic heart disease of [place] coronary artery without angina pectoris Plan: CAD status post anterior STEMI with drug-eluting stent to LAD. More than a year since her stent. Will discontinue dual antiplatelet therapy continue lifelong aspirin therapy beyond that. Advised to continue high-intensity statin therapy with target goal LDL less than 70 mg/dL. Continue maintain activity level as tolerated. Will follow up in the clinic in 6 months time, sooner p.r.n.. Thank you for allowing me to partake in her care Medications: Discontinued ticagrelor (Brilinta) You need to take this daily to keep your stent in your heart open Discontinued Reason: Doctor's Order 90 mg PO BID 90 days 180 tabs 2RF Coding Level of Care Code Est Pt Level 4 (55139) Diagnoses Ischemic cardiomyopathy I25.5 CAD (coronary artery disease) I25.10
== END 2023-07-11 15:32 | disposition home or self-care (01) ==
PROVIDERS: PCP Family Medicine; Visit Provider Internal Medicine Cardiovascular Disease
DX: I25.5 Ischemic cardiomyopathy (principal); I25.10 Atherosclerotic heart disease of native coronary artery without angina pectoris
CPT/HCPCS: 99214

== ENCOUNTER → 2023-07-11 14:52 | Outpatient (BNVA) | payer OTHER, SELFPAY ==
[2022-11-29 12:51] VITALS: BP 118/58; BP 118/64
[2022-12-24 12:41] VITALS: BMI 29.1
[2023-04-08 14:16] VITALS: BP 110/60
== END ==
PROVIDERS: PCP Family Medicine; Visit Provider Internal Medicine Cardiovascular Disease
DX: I25.5 Ischemic cardiomyopathy (principal); I25.10 Atherosclerotic heart disease of native coronary artery without angina pectoris
CPT/HCPCS: 99212

== ENCOUNTER 2023-08-28 13:30 | Outpatient (RCR) | payer OTHER, SELFPAY ==
[2022-11-29 12:51] VITALS: BP 118/58; BP 118/64
[2022-12-24 12:41] VITALS: BMI 29.1
[2023-04-08 14:16] VITALS: BP 110/60
== END 2023-11-18 07:30 | disposition home or self-care (01) ==
LOC: HO.CR 13:30
PROVIDERS: PCP Family Medicine; Visit Provider Internal Medicine Cardiovascular Disease
DX: I25.5 Ischemic cardiomyopathy (principal); Z95.2 Presence of prosthetic heart valve; Z95.5 Presence of coronary angioplasty implant and graft
CPT/HCPCS: 93798

== ENCOUNTER 2023-11-28 15:06 | Outpatient (REF) | payer OTHER, SELFPAY ==
[2022-11-29 12:51] VITALS: BP 118/58; BP 118/64
[2022-12-24 12:41] VITALS: BMI 29.1
[2023-04-08 14:16] VITALS: BP 110/60
[2023-11-28 16:14] LABS: Anion Gap 10 (12-20); Blood Urea Nitrogen 29 mg/dL (9-16); Calcium 9.1 mg/dL (8.4-10.2); Carbon Dioxide 26 mmol/L (22-29); Chloride 102 mmol/L (96-108); Estimated Glomerular Filt Rate 29; Glucose Random 449 mg/dL (60-115); Potassium 4.8 mmol/L (3.3-5.1); Sodium 133 mmol/L (135-145)
== END 2023-11-28 15:07 | disposition home or self-care (01) ==
LOC: HO.HHCL 15:06
PROVIDERS: Visit Provider Family Medicine
DX: E11.22 Type 2 diabetes mellitus with diabetic chronic kidney disease (principal); N18.32 Chronic kidney disease, stage 3b; N18.30 Chronic kidney disease, stage 3 unspecified
CPT/HCPCS: 36415; 80048

== ENCOUNTER 2023-12-23 14:49 | Outpatient (AMB) | payer OTHER, SELFPAY ==
[2022-11-29 12:51] VITALS: BP 118/58; BP 118/64
[2022-12-24 12:41] VITALS: BMI 29.1
[2023-04-08 14:16] VITALS: BP 110/60
--- NOTE | 2023-12-23 14:55 | A.OFFVIS_ITS ---
Vital Signs 12/23/23 14:56 Height 5 ft Weight 160 lb 14.999 oz BMI 31.4 BP 114/68 Blood Pressure Location Lt brachial Position Sitting Pulse 92 Pulse Source Monitor Intake Visit Reasons: f/up Intake Note: PT IS HERE FOR FOLLOW UP WITH EKG PT FEELS GOOD It Security Consultant Required: Yes It Security Consultant Name: JEREMI [id number] Allergies procaine [From NOVOCAIN] Allergy (Severe, Verified 04/13/22 13:14) SWELLING LOCALIZED TO INJECTION SITE alirocumab [From Praluent Pen] Allergy (Mild, Verified 01/01/23 15:18) Itching Aspirin Allergy (Unknown, Uncoded 04/13/22 13:14) rash full strength Aspirin Allergy (Unknown, Uncoded 04/13/22 13:14) rash Medication List - Last Reconciled 12/23/23 by Blade Vargas MD acetaminophen 325 mg PO QID PRN albuterol sulfate 4 mg PO TID aspirin (Adult Aspirin Regimen) 81 mg PO DAILY baclofen 5 mg PO BID PRN bisacodyl 5 mg PO BEDTIME carvedilol 3.125 mg PO BID empagliflozin (Jardiance) 25 mg PO DAILY fluticasone propionate 50 mcg/actuation (Flonase Allergy Relief) 1 spray intranasal DAILY glipizide 5 mg PO BID ketotifen fumarate 0.025%(0.035%) ([facility]) 1 drp ophthalmic (eye) BID melatonin 5 mg PO BEDTIME PRN nitroglycerin 0.4 mg sublingual Q5M PRN rosuvastatin 40 mg PO QAM sacubitril-valsartan 49-51 mg (Entresto) 1 tab PO BID semaglutide 1 mg subcut QWEEK sertraline (Zoloft) 25 mg PO DAILY tramadol 50 mg PO DAILY HPI Comments Details: Veronique comes for follow-up, accompanied by her daughter. History was obtained with help of raw stock drier tender. Patient has been doing well from cardiac perspective. Very functional at home. Denies any exertional chest pain or shortness of gilberto th. Says she takes all her medications. Denies any orthopnea PND, leg edema. No prolonged palpitations, lightheadedness, syncope. [facility] Medical History CAD (coronary artery disease) Anxiety High cholesterol Hypertension Active asthma Surgical History Stented coronary artery Social History Patient Tobacco Use Status: Never used Tobacco e-Cigarette/Vaping Use: Never Used Current occupational status: retired and disabled Current occupation: rt hand Review of Systems Const Denies weakness ENT Denies dizziness Card Denies chest pain, Denies chest pain with activity, Denies syncope, Denies rapid heart rate, Denies pedal edema, Denies edema, Denies leg edema, Denies lightheadedness, Denies palpitations, Denies dyspnea, Denies dyspnea on exertion and Denies orthopnea Resp Denies cough, Denies dyspnea and Denies dyspnea on exertion GI Denies hematochezia and Denies change in stool character Musc Denies abnormal gait, Denies muscle cramps, Denies muscle weakness, Denies num bness, Denies radiating pain into limb and Denies tingling Neuro Denies Abnormal speech present, Denies abnormal gait, Denies dizziness, Denies syncope, Denies numbness, Denies tingling and Denies weakness Endo Denies palpitations Physical Exam Vital Signs: Last Vital Signs Pulse 92 12/23/23 14:56 BP 114/68 12/23/23 14:56 BMI result Body Mass Index 31.4 Const General: cooperative, comfortable, no acute distress, alert, awake and Ph ysically active Nutritional Appearance: well nourished and overweight Orientation/consciousness: patient oriented x3 Limitations: no limitations HEENT Head: Yes normocephalic and Yes atraumatic Neck Neck: Yes trachea midline, Yes supple and Yes no JVD Resp Effort & Inspection: normal respiratory effort Auscultation: clear to auscultation bilaterally Cardio Jugular venous distension: no JVD Palpation: abnormal PMI displaced PMI Rate: regular rate Rhythm: regular rhythm Heart sounds: S1 normal heart sound present, S2 normal heart sound present, no click, no gallops, no murmurs and no rubs GI Auscultation: normal bowel sounds Skin General skin exam: no rashes or lesions noted Neuro General: patient oriented x3 and no focal motor deficits Speech: No Abnormal speech present Extrem General: Yes no clubbing, cyanosis or edema Office Procedures EKG Details: EKG shows normal sinus rhythm with low-voltage QRS with poor R-[place] [id number], Complete Assessment & Plan Assessment & Plan (1) CAD (coronary artery disease): Comment: Status post anterior STEMI, April 2022 with LAD stent Code(s): I25.10 - Atherosclerotic heart disease of [place] coronary artery without angina pectoris Category: Medical Plan: CAD with anterior STEMI with no current symptoms. Her risk factors well optimized. Continue lifelong low-dose aspirin therapy. Continue aggressive blood pressure control which is currently well optimized. Continue high- intensity statin therapy with target goal LDL less than 70 mg/dL. Advise at least annual lipid check. Continue aggressive diabetes management goal hemoglobin A1c less than 7% being followed through your office. Encouraged to continue to participate in physical activity as tolerated. Advised to call me with any new symptoms. (2) Ischemic cardiomyopathy: Code(s): I25.5 - Ischemic cardiomyopathy Category: Medical Plan: Severe ischemic cardiomyopathy without any overt signs of heart failure. Continue current neurohormonal modulation with Entresto as well as carvedilol therapy. Signs and symptoms of heart failure were discussed. Importance of medical therapy was discussed. Advised to maintain activity level as tolerated. Follow-up echocardiogram near future. She has refused ICD therapy. Will follow up in the clinic in 6 months time, sooner p.r.n.. Thank you for allowing me to partake in the care Coding Level of Care Code Est Pt Level 4 (86631) Diagnoses CAD (coronary artery disease) I25.10 Ischemic cardiomyopathy I25.5 CPT Codes EKG - CPT: 60056-[id number], Complete ([id number])
[2023-12-23 14:56] VITALS: BP 114/68; PULSE 92; BMI 31.4
== END 2023-12-23 15:20 | disposition home or self-care (01) ==
PROVIDERS: PCP Family Medicine; Visit Provider Internal Medicine Cardiovascular Disease
DX: I25.10 Atherosclerotic heart disease of native coronary artery without angina pectoris (principal); I25.5 Ischemic cardiomyopathy
CPT/HCPCS: 93010; 99214

== ENCOUNTER → 2023-12-23 14:49 | Outpatient (BNVA) | payer OTHER, SELFPAY ==
[2022-11-29 12:51] VITALS: BP 118/58; BP 118/64
[2022-12-24 12:41] VITALS: BMI 29.1
[2023-04-08 14:16] VITALS: BP 110/60
== END ==
PROVIDERS: PCP Family Medicine; Visit Provider Internal Medicine Cardiovascular Disease
DX: I25.10 Atherosclerotic heart disease of native coronary artery without angina pectoris (principal); I25.5 Ischemic cardiomyopathy; I25.2 Old myocardial infarction; Z79.82 Long term (current) use of aspirin
CPT/HCPCS: 93005; 99212

== ENCOUNTER → 2024-01-07 13:01 | Outpatient (REF) | payer OTHER, SELFPAY ==
[2022-11-29 12:51] VITALS: BP 118/58; BP 118/64
[2022-12-24 12:41] VITALS: BMI 29.1
[2023-04-08 14:16] VITALS: BP 110/60
--- NOTE | 2024-01-07 13:04 | CA_ITS ---
Transthoracic Echocardiogram Patient (Last, First, Middle): Veronique Westfall A Gender: Female Date of : 1940 Age: 83 Procedure Date: 01/07/2024 Procedure Type: Transthoracic Echocardiogram Location: OP Height: 152.4 cm Weight: 75.3 kg BSA: 1.72 m2 Heart Rate: bpm BP: 118 / 68 mmHg Auto Detailer: Referring MD: Blade Vargas MD Symptoms: I25.5 - Ischemic cardiomyopathy Study Quality: Adequate ECG Rhythm: Sinus Conclusions: - The left ventricular systolic function is severely decreased. The visually estimated ejection fraction is between 15-20%. - The inferoseptal wall, the apex, apical inferior, basal inferior, apical septum, and mid anteroseptal segments are akinetic. 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 - No obvious valvular pathology seen on this study. Findings Procedure Information Contrast agent, definity, is being given per protocol without apparent complications. Left Ventricle Normal left ventricular cavity size. The left ventricular systolic function is severely decreased. The visually estimated ejection fraction is between 15-20%. There is evidence of regional wall motion abnormalities. Evidence suggests grade I (mild) diastolic dysfunction. There is mild septal and mild basal asymmetric hypertrophy. Wall Motion Rest Echo Findings The inferoseptal wall, the apex, apical inferior, basal inferior, apical septum, and mid anteroseptal segments are akinetic. Right Ventricle Normal right ventricular cavity size. There is low normal right ventricular systolic function. Atria Both atria are normal in size. Aortic Valve There is a normal trileaflet aortic valve. There is no aortic valve stenosis. There is trace (trivial) aortic valve regurgitation. Mitral Valve The mitral valve appears normal. There is no mitral valve regurgitation. There is no mitral valve stenosis. Pulmonic Valve The pulmonic valve is likely normal. Tricuspid Valve Normal tricuspid valve structure. There is no tricuspid valve regurgitation. Tricuspid regurgitation envelope is inadequate for calculation of right ventricular systolic pressure. Great Vessels The asc aorta is normal in size. Venous The inferior vena cava is normal in size and collapses greater than 50% with inspiration. Pericardium/Pleural There is no evidence of pericardial effusion. Prior Study Comparison No significant change compared to prior study dated: 08/28/2022. Recommendations, Care & Conclusions No obvious valvular pathology seen on this study. Measurements 2D Linear Measurements IVSd: 1.05 0.6-0.9/0.6-1.0 cm LVIDd: 4.34 3.9-5.3/4.2-5.9 cm LVIDd Index: 2.52 2.4-3.2/2.2-3.1 cm/m2 LVIDs: 3.40 2.0-3.6 cm LVPWd: 0.98 0.7-1.1 cm Ao Root: 2.90 2.1-3.5 cm LA Diam: 2.80 2.7-3.8/3.0-4.0 cm LAIDs Index: 1.63 1.5-2.3 cm/m2 LV Mass: 183.92 67-162/88-224 g LV Mass Index: 106.93 43-95/49-115 g/m2 LVOT Diam: 2.00 3.0+(-)1.3 cm 2D Systolic Function EF 4C: 28.10 >55% EF 2C: 23.20 >55% EF BiP: 24.20 >55% Mitral Valve MV Pk E: 0.83 MV PK A: 1.20 MV Decel Time: 94.00 E/A: 0.70 E'Lateral: 4.46 E'Medial: 5.22 E/E' Med: 15.90 E/E' Lat: 18.60 PHT: 28.00 MVA PHT: 7.86 Decel Lares: 8.81 Aortic Valve AoV Pk Td: 1.20 AoV Mn Td: 0.81 AoV VTI: 0.27 AoV Pk Grad: 6.00 Aov Mn Grad: 3.00 IFEOMA Cont.VTI: 1.90 LVOT LVOT Pk Td: 0.69 LVOT Mn Td: 0.49 LVOT VTI: 0.16 LVOT Pk Grad: 2.00 LVOT Mn Grad: 1.00 LVOT Diam: 2.00 LVOT Area: 3.14 Diastolic Function MV Pk E: 0.83 MV Pk A: 1.20 E/A: 0.70 E'Medial: 5.22 E/E' Med: 15.90 E' Laterial: 4.46 E/E' Lat: 18.60 Right Ventricle TAPSE (mm): 16.00 TVS' Td: 10.00 Tricuspid Valve TR Pk Td: 2.00 TR Pk Grad: 16.00 RA Press: 3.00 RVSP: 19.00 Great Vessels Aorta Ao Root-2D: 2.90 2.0-3.7 cm Ao Asc: 2.90 2.1-3.4 cm Pulmonary Valve PV Pk Td: 0.99 Peak PV Grad: 4.00 Updated in Other Vendor System with Status of Final Kevyn Becker MD electronically signed on 01/08/2024 10:44:11 AM with status of Final
== END ==
LOC: HO.CARD 13:01
PROVIDERS: PCP Family Medicine; Visit Provider Internal Medicine Cardiovascular Disease
DX: I25.5 Ischemic cardiomyopathy (principal)
CPT/HCPCS: 93306; Q9957

== ENCOUNTER → 2024-01-07 13:04 | Outpatient (BNV) | payer OTHER, SELFPAY ==
[2022-11-29 12:51] VITALS: BP 118/58; BP 118/64
[2022-12-24 12:41] VITALS: BMI 29.1
[2023-04-08 14:16] VITALS: BP 110/60
== END ==
PROVIDERS: PCP Family Medicine; Visit Provider Internal Medicine
DX: I25.5 Ischemic cardiomyopathy (principal); I42.2 Other hypertrophic cardiomyopathy; R93.1 Abnormal findings on diagnostic imaging of heart and coronary circulation
CPT/HCPCS: 93306

== ENCOUNTER → 2024-04-09 13:15 | Outpatient (BNV) | payer OTHER, SELFPAY ==
[2022-11-29 12:51] VITALS: BP 118/58; BP 118/64
[2022-12-24 12:41] VITALS: BMI 29.1
[2023-04-08 14:16] VITALS: BP 110/60
== END ==
PROVIDERS: PCP Family Medicine; Visit Provider Internal Medicine
DX: Z12.31 Encounter for screening mammogram for malignant neoplasm of breast (principal)
CPT/HCPCS: 77063; 77067

== ENCOUNTER 2024-04-09 13:23 | Outpatient (REF) | payer OTHER, SELFPAY ==
[2022-11-29 12:51] VITALS: BP 118/58; BP 118/64
[2022-12-24 12:41] VITALS: BMI 29.1
[2023-04-08 14:16] VITALS: BP 110/60
--- NOTE | ~2024-04-09 | MM_ITS ---
EXAMINATION: MM SCREENING DIGITAL BREAST TOMOSYNTHESIS, BILATERAL CLINICAL INFORMATION: Screening. Asymptomatic. COMPARISON: Mammography: Comparison is made with available priors TECHNIQUE: Digital breast mammography with tomosynthesis is performed in both the craniocaudal and mediolateral oblique views along with computer-aided detection (CAD). FINDINGS: The breasts are heterogeneously dense, which may obscure small masses (ACR BI-RADS breast composition Category c). There are no significant masses, abnormal calcifications, or other abnormalities. MM/MM tomosynthesis screening BI IMPRESSION: No mammographic evidence of malignancy. ASSESSMENT: BI-RADS BI-RADS 1 - Negative RECOMMENDATION: Routine annual mammography screening. 1 year F/U This examination should not preclude the clinical evaluation of a suspicious palpable abnormality. This patient's information was entered into a reminder system with a target due date for their next mammogram. Electronically signed by: Keila Reid DO 04/20/2024 04:15 PM [facility]
== END 2024-04-09 13:24 | disposition home or self-care (01) ==
LOC: HO.MAMMO 13:23
PROVIDERS: PCP Family Medicine; Visit Provider Family Medicine
DX: Z12.31 Encounter for screening mammogram for malignant neoplasm of breast (principal)
CPT/HCPCS: 77063; 77067

== ENCOUNTER 2024-05-07 12:12 | Outpatient (REF) | payer OTHER, SELFPAY ==
[2022-11-29 12:51] VITALS: BP 118/58; BP 118/64
[2022-12-24 12:41] VITALS: BMI 29.1
[2023-04-08 14:16] VITALS: BP 110/60
--- NOTE | ~2024-05-07 | XR_ITS ---
EXAMINATION: XR WRIST, LEFT CLINICAL INFORMATION: L wrist pain and swelling COMPARISON: Radiographs 04/01/2019 TECHNIQUE: PA, lateral, oblique, and scaphoid views of the left wrist. FINDINGS: The scapholunate interval is widened and there is prominent degenerative change of the radius scaphoid articulation suggesting a chronic scapholunate ligament tear. No acute abnormality. 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 No acute osseous abnormality. 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 Electronically signed by: Jose Billy MD 05/07/2024 04:39 PM [facility]
== END 2024-05-07 12:13 | disposition home or self-care (01) ==
LOC: HO.HHCX 12:12
PROVIDERS: Visit Provider Family Medicine
DX: M25.532 Pain in left wrist (principal)
CPT/HCPCS: 73110

== ENCOUNTER 2024-05-25 13:43 | Outpatient (AMB) | payer OTHER, SELFPAY ==
[2022-11-29 12:51] VITALS: BP 118/58; BP 118/64
[2022-12-24 12:41] VITALS: BMI 29.1
[2023-04-08 14:16] VITALS: BP 110/60
--- NOTE | 2024-05-25 13:50 | A.OFFVIS_ITS ---
Vital Signs 05/25/24 13:51 Height 5 ft Weight 158 lb 11.725 oz BMI 31.0 BP 122/64 Blood Pressure Location Lt brachial Position Sitting Pulse 88 Pulse Source Pulse Oximeter Intake Visit Reasons: 6 mth f/up Labourers Required: Yes Labourers Name: [facility] [place] Allergies procaine [From NOVOCAIN] Allergy (Severe, Verified 04/13/22 13:14) SWELLING LOCALIZED TO INJECTION SITE alirocumab [From Praluent Pen] Allergy (Mild, Verified 01/01/23 15:18) Itching Aspirin Allergy (Unknown, Uncoded 04/13/22 13:14) rash full strength Aspirin Allergy (Unknown, Uncoded 04/13/22 13:14) rash Medication List - Last Reconciled 05/25/24 by Blade Vargas MD acetaminophen 325 mg PO QID PRN albuterol sulfate 4 mg PO TID aspirin (Adult Aspirin Regimen) 81 mg PO DAILY baclofen 5 mg PO BID PRN bisacodyl 5 mg PO BEDTIME carvedilol 3.125 mg PO BID empagliflozin (Jardiance) 25 mg PO DAILY fluticasone propionate 50 mcg/actuation (Flonase Allergy Relief) 1 spray intranasal DAILY glipizide 5 mg PO BID ketotifen fumarate 0.025%(0.035%) ([facility]) 1 drp ophthalmic (eye) BID melatonin 5 mg PO BEDTIME PRN nitroglycerin 0.4 mg sublingual Q5M PRN rosuvastatin 40 mg PO QAM sacubitril-valsartan 49-51 mg (Entresto) 1 tab PO BID semaglutide 1 mg subcut QWEEK sertraline (Zoloft) 25 mg PO DAILY tramadol 50 mg PO DAILY HPI Comments Details: Veronique comes for follow-up. Patient denies any new cardiac symptoms. History was obtained with help of aerial photograph interpreter in the room. Patient was accompanied by her daughter. She has no new cardiac symptoms. Denies any exertional chest pain. Denies any shortness of breath, orthopnea, PND, leg edema. No palpitations, lightheadedness, syncope. She takes all her medications she was. She says she remains very active and able to do activity of daily living without any clear limitations. [facility] Medical History CAD (coronary artery disease) Anxiety High cholesterol Hypertension Active asthma Surgical History Stented coronary artery Social History Patient Tobacco Use Status: Never used Tobacco e-Cigarette/Vaping Use: Never Used Current occupational status: retired and disabled Current occupation: rt hand Review of Systems Const Denies weakness ENT Denies dizziness Card Denies chest pain, Denies chest pain with activity, Denies syncope, Denies rapid heart rate, Denies pedal edema, Denies edema, Denies leg edema, Denies lightheadedness, Denies palpitations, Denies dyspnea, Denies dyspnea on exertion and Denies orthopnea Resp Denies cough, Denies dyspnea and Denies dyspnea on exertion GI Denies hematochezia and Denies change in stool character Musc Denies abnormal gait, Denies muscle cramps, Denies muscle weakness, Denies numbness, Denies radiating pain into limb and Denies tingling Neuro Denies Abnormal speech present, Denies abnormal gait, Denies dizziness, Denies syncope, Denies numbness, Denies tingling and Denies weakness Endo Denies palpitations Physical Exam Vital Signs: Last Vital Signs Pulse 88 05/25/24 13:51 BP 122/64 05/25/24 13:51 BMI result Body Mass Index 31.0 Const General: cooperative, comfortable, no acute distress, alert, awake and Physically active Nutritional Appearance: well nourished and overweight Orientation/consciousness: patient oriented x3 Limitations: no limitations HEENT Head: Yes normocephalic and Yes atraumatic Neck Neck: Yes trachea midline, Yes supple and Yes no JVD Resp Effort & Inspection: normal respiratory effort Auscultation: clear to auscultation bilaterally Cardio Jugular venous distension: no JVD Palpation: abnormal PMI displaced PMI Rate: regular rate Rhythm: regular rhythm Heart sounds: S1 normal heart sound present, S2 normal heart sound present, no click, no gallops, no murmurs and no rubs GI Auscultation: normal bowel sounds Skin General skin exam: no rashes or lesions noted Neuro General: patient oriented x3 and no focal motor deficits Speech: No Abnormal speech present Extrem General: Yes no clubbing, cyanosis or edema Assessment & Plan Assessment & Plan (1) Ischemic cardiomyopathy: Code(s): I25.5 - Ischemic cardiomyopathy Category: Medical Plan: Severe ischemic cardiomyopathy without any signs or symptoms of heart failure at this point time. She is functionally doing well. At this point time will continue with neurohormonal modulation with carvedilol, Jardiance as well as Entresto. Her elevated creatinine is concerning. Will suggest repeat blood work at this point time. If there remained stable, will refer to Nephrology. Signs and symptoms of heart failure were discussed. We discussed about again need for ICD therapy and she declines. (2) CAD (coronary artery disease): Comment: Status post anterior STEMI, April 2022 with LAD stent Code(s): I25.10 - Atherosclerotic heart disease of [place] coronary artery without angina pectoris Category: Medical Plan: CAD status post anterior STEMI with LAD stent. Continue aggressive medical therapy. Continue low-dose aspirin therapy for life. Continue high-intensity statin therapy, target goal LDL less than 70 mg/dL. Blood pressure is currently well optimized. Diabetes management as per your office. Will follow up in the clinic in 6 months time, sooner p.r.n.. Thank you for allowing me to partake in her care Orders: Orders Basic Metabolic Panel Today I25.5 - Ischemic cardiomyopathy Coding Level of Care Code Est Pt Level 4 (14192) Diagnoses Ischemic cardiomyopathy I25.5 CAD (coronary artery disease) I25.10
[2024-05-25 13:51] VITALS: BP 122/64; PULSE 88; BMI 31.0
== END 2024-05-25 14:14 | disposition home or self-care (01) ==
PROVIDERS: PCP Family Medicine; Visit Provider Internal Medicine Cardiovascular Disease
DX: I25.5 Ischemic cardiomyopathy (principal); I25.10 Atherosclerotic heart disease of native coronary artery without angina pectoris
CPT/HCPCS: 99214

== ENCOUNTER 2024-06-30 06:18 | Outpatient (REF) | payer OTHER, SELFPAY ==
[2022-11-29 12:51] VITALS: BP 118/58; BP 118/64
[2022-12-24 12:41] VITALS: BMI 29.1
[2023-04-08 14:16] VITALS: BP 110/60
--- NOTE | 2024-06-30 | EMG_ITS ---
Right median and ulnar motor and sensory studies were performed. Right radial sensory and median and lateral antecubital brachial sensory studies were performed and paraspinal muscles were tested with a needle. IMPRESSION: Mild to moderate right median neuropathy across carpal tunnel. MD NAYELI Harrison/SANTHOSH / [id number]
== END 2024-06-30 06:19 | disposition home or self-care (01) ==
LOC: HO.NEURO 06:18
PROVIDERS: PCP Family Medicine; Visit Provider Family Medicine
DX: R29.898 Other symptoms and signs involving the musculoskeletal system (principal)
CPT/HCPCS: 95886; 95910

== ENCOUNTER 2024-11-26 10:43 | Outpatient (REF) | payer OTHER, SELFPAY ==
[2022-11-29 12:51] VITALS: BP 118/58; BP 118/64
[2022-12-24 12:41] VITALS: BMI 29.1
[2023-04-08 14:16] VITALS: BP 110/60
--- OUTSIDE RECORDS SUMMARY | 2024-11-26 12:33 | XMS_ITS | Clinical Summary ---
Author Organization [facility] Facility Address [address] [place] [id number] Care Team Providers Care Commercial Manager Name Role Phone Unavailable Primary Care Provider Unavailabl e Allergies Active Allergy Reactions Criticality Noted Date Comments Aspirin Other (see comments) 12/06/2020 Medications sertraline (ZOLOFT) 25 MG tablet Take 1 tablet by mouth 1 (one) time each day Active aspirin (ST RAFFAELE) 81 MG EC tablet Take 1 tablet by mouth 1 (one) time each day Active Melatonin Maximum Strength 5 MG tablet TOME NORMA TABLETA POR V A ORAL 2 TO 3 HOURS BEFORE BEDTIME 1 Active FREESTYLE LITE test strip TEST BLOOD SUGARS TWICE A DAY 1 Active docusate sodium (COLACE) 100 MG capsule TOME NORMA C PSULA DOS VECES AL D A 1 Active Calcium + Vitamin D3 600-5 MG-MCG tablet TOME NORMA TABLETA DOS VECES AL D A 1 Active traMADol (ULTRAM) 50 MG tablet Take 50 mg by mouth every 6 (six) hours if needed for moderate pain Active Rosuvastatin Calcium 40 MG capsule sprinkle Take 40 mg by mouth 1 (one) time each day Active Dulaglutide 3 MG/0.5ML solution pen-injector Inject under the skin Active baclofen (LIORESAL) 10 MG tablet Take 10 mg by mouth in the morning and 10 mg in the evening and 10 mg before bedtime. Active fluticasone (FLONASE) 50 MCG/ACT nasal spray Administer 1 spray into each nostril 1 (one) time each day Active Empagliflozin (Jardiance) 25 MG tablet Take 10 mg by mouth 1 (one) time each day in the morning Active ticagrelor (Brilinta) 90 MG tablet Take 90 mg by mouth in the morning and 90 mg in the evening. Active carvedilol (COREG) 3.125 MG tablet Take 3.125 mg by mouth in the morning and 3.125 mg in the evening. Take with meals. Active sacubitril-vals roddy (Entresto) 49-51 MG per tablet Take 1 tablet by mouth in the morning and 1 tablet in the evening. Active glipiZIDE (GLUCOTROL) 5 MG tablet Take 5 mg by mouth 4 Active Active Problems Problem Noted Date Diagnosed Date Type 1 diabetes mellitus wit h diabetic chronic kidney disease 03/12/2024 Chronic kidney disease, stage 4 (severe) 023 Chronic systolic heart failure 05/22/2022 Ischemic cardiomyopathy 05/22/2022 Old myocardial infarction 05/22/2022 Stage 3b chronic kidney disease 07/10/2021 Stage 3a chronic kidney disease 12/20/2020 Renal osteodystrophy 12/20/2020 Chronic kidney disease stage 3 12/06/2020 Essential hypertension 12/06/2020 Renal disorder due to type 2 diabetes mellitus 0 12/06/2020 Dizziness 11/13/2017 Alopecia 05/04/2015 Gastroesophageal reflux disease 05/04/2015 Hyperlipidemia 05/04/2015 Mixed urinary incontinence 05/04/2015 Osteoarthritis 05/04/2015 Type 2 diabetes mellitus 05/04/2015 Encounters Date Type Department Care Team Description 11/09/2024 Orders Only [facility] [address] [place] [address] Aristides Huizar MD Stage 3b chronic kidney disease (HCC); Renal osteodystrophy from Last 3 Months Immunizations Immunization Administration Dates Next Due Hepatitis B 11/15/2016,11/24/2015,08/04/2015 Influenza Split 05/12/2013,07/15/2012 Influenza, Quadrivalent, Preservative Free 08/15 Influenza, Quadrivalent, With Preservative 05/04 Influenza, Unspecified 03/20/2011 Pneumococcal Conjugate 13-Valent 08/15/2016 Pneumococcal Polysaccharide 05/04/2015, 1 Td 04/17/2001 Tdap 11/18/2012 Zoster 11/24/2015 Family History Medical History Relation Comments Diabetes Child 1 Kidney disease Child 2 Hypertension Sibling Relation Status Comments Child 1 Child 2 Sibling Social History Tobacco Use Types Packs/Day Years Used Date Smoking Tobacco: Never Alcohol Use Standard Drinks/Week Comments No 0 (1 standard drink = 0.6 oz pur e alcohol) Comments Unknown Sex and Gender Information Value Date Recorded Sex Assigned at Not on file Legal Sex Female 4:48 PM EST Gender Identity Not on file Sexual Orientation Not on file Last Filed Vital Signs Vital Sign Reading Time Taken Comments Blood Pressure 120/66 03/12/2024 2:05 PM EDT Pulse 66 03/12/2024 2:05 PM EDT Temperature - - Respiratory Rate - - Oxygen Saturation 98% 03/12/2024 2:05 PM EDT Inhaled Oxygen Concentration - - Weight 74.6 kg (164 lb 6.4 oz) 03/12/2024 2:05 P M EDT Height 152.4 cm (5') 07/24/2018 12:00 PM EST Body Mass Index 32.11 07/24/2018 12:00 PM EST Plan of Treatment Upcoming Encounters Date Type Department Care Team (Late st Contact Info) Description 01/04/2025 1:45 PM EDT Office Visit [facility] [address] [place] [address] Aristides Huizar MD [address] [facility] [address] [place] [address] Health Maintenance Due Date Last Done Comments Diabetes: Ophthalmology Exam 07/17/2020 Diabetes: Pedal Pulse Checked 07/17/2020 Diabetes: Sensory Foot Exam 07/17/2020 Diabetes: Visual Foot Exam 07/17/2020 Diabetes: Hemoglobin A1C 12/23/2024 025, 01/09/2024, 10/07/2023, Additional history exists Influenza Vaccine (Season Ended) 2025 08/15/2016, 05/04/2015, 05/12/2013, Additional history exists Pneumococcal Vaccine: 50+ Years Completed 08/15/2016, 05/04/2015, 04/17/2001 Pneumococcal Vaccine: Peds (0 to 5 Years) and At-Risk Patients (6 to 49 Years) Discontinued 08/15/2016, 05/04/2015, 04/17/2001 Hepatitis B Vaccine Aged Out 11/15/2016, 11/24/2015, 08/04/2015 No longer eligible based on patient's age to complete this topic Insurance (A2793) ([id number])
[2024-11-26 13:27] LABS: Hematocrit 39.8 % (37.0-47.0); Hemoglobin 12.5 g/dl (12.0-16.0); Mean Corpuscular HGB Conc 31.4 g/dl (31.0-35.0); Mean Corpuscular Hemoglobin 28.9 pg (27.0-33.0); Mean Corpuscular Volume 92.1 fL (80.0-98.0); Mean Platelet Volume 12.3 fL (9.4-12.3); Platelet Count 275 X10*3/uL (160-400); Red Blood Count 4.32 X10*6/uL (4.20-5.50); Red Cell Distribution Width 12.9 % (11.0-16.0); White Blood Count 9.2 X10*3/uL (4.8-10.8)
[2024-11-26 13:36] LABS: Estimated Average Glucose 194 mg/dL; Hemoglobin A1c % 8.4 % (<6.0)
[2024-11-26 13:45] LABS: Alanine Aminotransferase 14 U/L (0-31); Alkaline Phosphatase 75 U/L (39-117); Anion Gap 10 (12-20); Aspartate Amino Transferase 17 U/L (5-31); Bilirubin Direct 0.2 mg/dL (0.0-0.5); Bilirubin Total 0.4 mg/dL (0.0-1.0); Blood Urea Nitrogen 30 mg/dL (9-16); Calcium 9.1 mg/dL (8.4-10.2); Carbon Dioxide 24 mmol/L (22-29); Chloride 111 mmol/L (96-108); Cholesterol 182 mg/dL (<200); Estimated Glomerular Filt Rate 34; Glucose Random 183 mg/dL (60-115); HDL Cholesterol 35 mg/dL (>40); Iron 66 mcg/dL (30-160); LDL Cholesterol Calculated 126 mg/dL (<100); Percent Iron Saturation 24 % (15-50); Potassium 4.9 mmol/L (3.3-5.1); Sodium 140 mmol/L (135-145); Total Iron Binding Capacity 270 mcg/dL (228-428); Total Protein 7.4 g/dL (6.5-8.0); Triglycerides 108 mg/dL (<150); Unsaturated Iron Binding 204 ug/dL
[2024-11-26 13:48] LABS: Creatinine Urine 269.04 mg/dL; Microalbum/Creatinine Ratio Ur 14.1 ug/mg cr (<30)
[2024-11-26 14:05] LABS: Ferritin 78 ng/mL (10-250); Free T4 (Free Thyroxine) 1.04 ng/dL (0.71-1.85); Vitamin D 25-OH Total 44.6 ng/mL (>30)
[2024-11-26 14:14] LABS: Folate 8.1 ng/mL (> or = 4.0); Vitamin B12 456 pg/mL (200-900)
== END 2024-11-26 10:44 | disposition home or self-care (01) ==
LOC: HO.HHCL 10:43
PROVIDERS: Visit Provider Family Medicine
DX: E11.22 Type 2 diabetes mellitus with diabetic chronic kidney disease (principal); N18.30 Chronic kidney disease, stage 3 unspecified
CPT/HCPCS: 36415; 80048; 80061; 80076; 82043; 82306; 82570; 82607; 82728; 82746; 83036; 83540; 84439; 84443; 85027; 99212

== ENCOUNTER 2024-11-26 13:49 | Outpatient (AMB) | payer OTHER, SELFPAY ==
[2022-11-29 12:51] VITALS: BP 118/58; BP 118/64
[2022-12-24 12:41] VITALS: BMI 29.1
[2023-04-08 14:16] VITALS: BP 110/60
--- NOTE | 2024-11-26 14:09 | MHC.OFFVIS ---
Vital Signs 11/26/24 14:10 Height 5 ft Weight 169 lb 12.095 oz BMI 33.1 BP 130/80 Blood Pressure Location Lt brachial Position Sitting Pulse 88 Intake Visit Reasons: 6 mth f/up Intake Note: 6 month follow-up feeling good Customer Account Specialist Required: Yes Customer Account Specialist Services: Customer Account Specialist Present Customer Account Specialist Name: sanket Estevez Odd Piece Checker: Odd Piece Checker Present Accompanied by: Family/Other Allergies procaine [From NOVOCAIN] Allergy (Severe, Verified 04/13/22 13:14) SWELLING LOCALIZED TO INJECTION SITE alirocumab [From Praluent Pen] Allergy (Mild, Verified 01/01/23 15:18) Itching Aspirin Allergy (Unknown, Uncoded 04/13/22 13:14) rash full strength Aspirin Allergy (Unknown, Uncoded 04/13/22 13:14) rash Medication List - Last Reconciled 11/26/24 by Blade Vargas MD acetaminophen 325 mg PO QID PRN albuterol sulfate 4 mg PO TID aspirin (Adult Aspirin Regimen) 81 mg PO DAILY baclofen 5 mg PO BID PRN bisacodyl 5 mg PO BEDTIME carvedilol 3.125 mg PO BID empagliflozin (Jardiance) 25 mg PO DAILY fluticasone propionate 50 mcg/actuation (Flonase Allergy Relief) 1 spray intranasal DAILY glipizide 5 mg PO BID ketotifen fumarate 0.025%(0.035%) ([facility]) 1 drp ophthalmic (eye) BID melatonin 5 mg PO BEDTIME PRN nitroglycerin 0.4 mg sublingual Q5M PRN rosuvastatin 40 mg PO QAM sacubitril-valsartan 49-51 mg (Entresto) 1 tab PO BID sertraline (Zoloft) 25 mg PO DAILY tirzepatide (Mounjaro) 2.5 mg subcut QWEEK tramadol 50 mg PO DAILY HPI Comments Details: Veronique comes for follow-up, accompanied by her daughter. History was obtained with help of engineer byproduct. She has been doing well from cardiac perspective. She has no symptoms of angina. Denies any heart failure symptoms. Remains active. Denies any worsening shortness of breath. No orthopnea, PND, leg edema. Taking all her medications. No lightheadedness, syncope, prolonged palpitations. [facility] Medical History CAD (coronary artery disease) Anxiety High cholesterol Hypertension Active asthma Surgical History Stented coronary artery Social History Patient Tobacco Use Status: Never used Tobacco e-Cigarette/Vaping Use: Never Used Current occupational status: retired and disabled Current occupation: rt hand Review of Systems Const Denies chills, Denies fatigue, Denies fever(s), Denies frequent falls, Denies weakness, Denies weight gain and Denies weight loss ENT Denies dizziness Card Denies chest pain, Denies leg edema, Denies lightheadedness, Denies palpitations, Denies dyspnea, Denies dyspnea on exertion, Denies orthopnea and Denies other (loss of consciousness) Resp Denies cough, Denies dyspnea and Denies dyspnea on exertion GI Denies hematochezia and Denies change in stool character Musc Denies abnormal gait, Denies muscle weakness, Denies numbness, Denies radiating pain into limb and Denies tingling Neuro Denies Abnormal speech present, Denies abnormal gait, Denies dizziness, Denies frequent falls, Denies numbness, Denies tingling and Denies weakness Endo Denies fatigue and Denies palpitations Physical Exam Vital Signs: Last Vital Signs Pulse 88 11/26/24 14:10 BP 130/80 11/26/24 14:10 BMI result Body Mass Index 33.1 Const General: cooperative, comfortable, no acute distress, alert, awake and Physically active Nutritional Appearance: well nourished and overweight Orientation/consciousness: patient oriented x3 Limitations: no limitations HEENT Head: Yes normocephalic and Yes atraumatic Neck Neck: Yes trachea midline, Yes supple and Yes no JVD Resp Effort & Inspection: normal respiratory effort Auscultation: clear to auscultation bilaterally Cardio Jugular venous distension: no JVD Palpation: abnormal PMI displaced PMI Rate: regular rate Rhythm: regular rhythm Heart sounds: S1 normal heart sound present, S2 normal heart sound present, no click, no gallops, no murmurs and no rubs GI Auscultation: normal bowel sounds Skin General skin exam: no rashes or lesions noted Neuro General: patient oriented x3 and no focal motor deficits Speech: No Abnormal speech present Extrem General: Yes no clubbing, cyanosis or edema Assessment & Plan Assessment & Plan (1) Ischemic cardiomyopathy: Code(s): I25.5 - Ischemic cardiomyopathy Category: Medical Plan: Ischemic cardiomyopathy with severe LV systolic dysfunction related to anterior myocardial infarction. At this point time she has no signs or symptoms of heart failure. Continue current neurohormonal modulation with Entresto as well as carvedilol therapy. Continue Jardiance therapy. Signs and symptoms of heart failure were discussed. Encouraged to continue maintain activity level as tolerated. Advised to call me with worsening symptoms. (2) CAD (coronary artery disease): Comment: Status post anterior STEMI, April 2022 with LAD stent Code(s): I25.10 - Atherosclerotic heart disease of pala coronary artery without angina pectoris Category: Medical Plan: CAD with anterior STEMI with LAD stent. Currently not having any symptoms. Continue aspirin therapy. Continue high-intensity statin therapy with target goal LDL less than 70 mg/dL. Encouraged to maintain activity level. Advised to call me with any symptoms. Will follow up in the clinic in 6 months time, sooner p.r.n.. Thank you for allowing me to partake in her care Coding Level of Care Code Est Pt Level 4 (42627) Complex EM visit Add On G2211 Diagnoses Ischemic cardiomyopathy I25.5 CAD (coronary artery disease) I25.10
[2024-11-26 14:10] VITALS: BP 130/80; PULSE 88; BMI 33.1
== END 2024-11-26 14:29 | disposition home or self-care (01) ==
LOC: HO.HCS 13:50
PROVIDERS: PCP Family Medicine; Visit Provider Internal Medicine Cardiovascular Disease
DX: I25.5 Ischemic cardiomyopathy (principal); I25.10 Atherosclerotic heart disease of native coronary artery without angina pectoris
CPT/HCPCS: 99214; G2211

== ENCOUNTER 2024-12-23 21:47 | Inpatient (IN) | payer OTHER, SELFPAY ==
[2022-11-29 12:51] VITALS: BP 118/58; BP 118/64
[2022-12-24 12:41] VITALS: BMI 29.1
[2023-04-08 14:16] VITALS: BP 110/60
[2024-12-23] VITALS (12 sets, daily range): BP systolic 125–218; BP diastolic 71–107; PULSE 106–132; RESP 15–31; TEMP 32–36.7; O2SAT 67–100; BMI 33.1
--- NOTE | ~2024-12-23 | CT_ITS ---
CLINICAL HISTORY: ams CT head without contrast Comparison: None provided Findings: 3.5 cm area of rendon-white differentiation loss left temporal lobe image 17. Mild atrophy like change. The visualized paranasal sinuses and mastoid air cells are normal. The orbits are unremarkable. No skull fracture. 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 This document has been electronically signed by: Maya Enriquez MD on 12/24/2024 01:48:20
--- NOTE | ~2024-12-23 | US_ITS ---
EXAMINATION: BILATERAL CAROTID ULTRASOUND WITH DOPPLER HISTORY: stroke COMPARISON: There are no prior studies available for comparison. TECHNIQUE: Real time and Color and Spectral doppler ultrasonography of the carotid and vertebral arteries was performed in multiple planes. FINDINGS: No significant plaque is identified. VERTEBRAL FLOW DIRECTION: Antegrade bilaterally. PEAK SYSTOLIC VELOCITIES (in cm/sec): RIGHT: CCA: Prox: 80.1 Dist: 71.4 ICA: Prox: 60.3 Mid: 77.3 Dist: 109 ICA/CCA Ratio: 1.36 ECA: 103 Peak ICA end diastolic velocity (EDV): 19.3 LEFT: CCA: Prox: 78.3 Dist: 61.9 ICA: Prox: 52.7 Mid: 79.1 Dist: 80.1 ICA/CCA Ratio: 1.03 ECA: 82.1 Peak ICA end diastolic velocity (EDV): 18.7 US/US carotid duplex BI IMPRESSION: Unremarkable carotid ultrasound. No hemodynamically significant stenosis. Electronically signed by: George Parker MD 12/24/2024 08:53 AM EDT
--- NOTE | ~2024-12-23 | XR_ITS ---
CLINICAL HISTORY: diff breathing 1 view chest x-ray Comparison: None provided Findings: There are perihilar patchy opacities throughout both lungs. Normal size heart. No acute fracture. NG tube beyond the inferior margin of the exam. IMPRESSION: 1. Perihilar lung opacities bilaterally. Consider edema. 2. ET tube 3.5 cm above the sean. This document has been electronically signed by: Maya Enriquez MD on 12/23/2024 22:59:33
--- NOTE | ~2024-12-23 | CT_ITS ---
CLINICAL HISTORY: sob CT angiography chest with contrast. 3D Postprocessing. Comparison: None provided Findings: Heart size at the upper limits. Hepatic venous reflux of IV contrast suggesting right heart dysfunction. The thoracic aorta is normal caliber. No acute pulmonary embolus. The visualized thyroid and mediastinum are unremarkable. NG tube in the body of stomach. ET tube 2 cm above the sean. Large right and moderate left pleural effusions. Perihilar ground-glass and patchy lung opacities. Cholecystectomy. No acute fractures. IMPRESSION: 1. No acute pulmonary embolus. 2. Findings suggesting heart failure. Recommend follow-up. 3. Additional findings as above. This document has been electronically signed by: Maya Enriquez MD on 12/24/2024 01:54:36
--- NOTE | 2024-12-23 21:50 | ECG_ITS ---
Test Reason : DYSPNEA Blood Pressure : */* mmHG Vent. Rate : 138 BPM Atrial Rate : 138 BPM P-R Int : 112 ms QRS Dur : 84 ms QT Int : 372 ms P-R-T Axes : 52 -2 45 degrees QTcB Int : 563 ms Sinus tachycardia Nonspecific ST and T wave abnormality Abnormal ECG When compared with ECG of 02-Mar-2017 22:05, Vent. rate has increased by [address] now depressed in Inferior leads T wave inversion now evident in Lateral leads Referred By: Generic ED Physician Electronically Signed By: Nino Clifton
[2024-12-23 22:10] LABS: Hematocrit 42.2 % (37.0-47.0); Hemoglobin 13.2 g/dl (12.0-16.0); Imm Gran Abs Auto 0.06 X10*3/uL (0.00-0.03); Imm Gran Pct Auto 0.4 % (0.0-0.4); Lymphocytes Absolute Auto 5.9 X10*3/uL (1.2-4.9); Mean Corpuscular HGB Conc 31.3 g/dl (31.0-35.0); Mean Corpuscular Hemoglobin 28.9 pg (27.0-33.0); Mean Corpuscular Volume 92.5 fL (80.0-98.0); NRBC Abs Auto 0.000 X10*3/uL (0.0-0.012); NRBC Pct Auto 0.0 /100WBC (0.0-0.2); Platelet Count 280 X10*3/uL (160-400); Red Blood Count 4.56 X10*6/uL (4.20-5.50); SCAN SMEAR FLAG 1; White Blood Count 16.9 X10*3/uL (4.8-10.8)
[2024-12-23 22:14] LABS: MANUAL DIFF FLAG SCAN
[2024-12-23 22:15] LABS: INTERNATIONAL NORM RATIO 1.0 (0.9-1.1); Prothrombin Time 10.9 SEC (10.9-12.4)
--- NOTE | 2024-12-23 22:18 | ED.AMS ---
HPI - Altered Mental Status General Chief Complaint: Respiratory Arrest Stated Complaint: difficulty breathing, diabetic Time Seen by Provider: 12/23/24 21:58 History of Present Illness HPI narrative: Patient is a 84-year-old female with a history of ischemic cardiomyopathy history of coronary artery disease history of having stents in the past. Has a low ejection fraction of 15-20% in the past. Presents today with having increasing shortness of breath. Sent in in extremis. Unable to obtain history. Family member does not know her past medical history. Related Data Home Medications ?Medication ?Instructions ?Recorded ?Confirmed acetaminophen 325 mg capsule 325 mg PO QID PRN 09/19/20 11/26/24 albuterol sulfate 4 mg tablet 4 mg PO TID 09/19/20 11/26/24 bisacodyl 5 mg tablet,delayed 5 mg PO BEDTIME 09/19/20 11/26/24 release tramadol 50 mg tablet 50 mg PO DAILY 09/19/20 11/26/24 baclofen 10 mg tablet 5 mg PO BID PRN muscle spasm 04/13/22 11/26/24 rosuvastatin 40 mg tablet 40 mg PO QAM 08/13/22 11/26/24 empagliflozin 25 mg tablet 25 mg PO DAILY 11/05/23 11/26/24 (Jardiance) fluticasone propionate 50 1 spray intranasal DAILY 11/05/23 11/26/24 mcg/actuation nasal spray,suspension (Flonase Allergy Relief) glipizide 5 mg tablet 5 mg PO BID 11/05/23 11/26/24 ketotifen fumarate 0.025 % (0.035 1 drp ophthalmic (eye) BID 11/05/23 11/26/24 %) eye drops ([facility]) melatonin 5 mg tablet 5 mg PO BEDTIME PRN 11/05/23 11/26/24 nitroglycerin 0.4 mg sublingual 0.4 mg sublingual Q5M PRN 11/05/23 11/26/24 tablet sertraline 25 mg tablet (Zoloft) 25 mg PO DAILY 11/05/23 11/26/24 tirzepatide 2.5 mg/0.5 mL 2.5 mg subcut QWEEK 11/26/24 11/26/24 subcutaneous pen injector (Pedro) Previous Rx's ?Medication ?Instructions ?Recorded carvedilol 3.125 mg tablet 3.125 mg PO BID #180 tabs 02/04/24 sacubitril 49 mg-valsartan 51 mg 1 tab PO BID #180 tabs 05/04/24 tablet (Entresto) aspirin 81 mg tablet,delayed 81 mg PO DAILY #90 tabs 05/05/24 release (Adult Aspirin Regimen) ezetimibe 10 mg tablet 10 mg PO DAILY #30 tabs 11/27/24 Allergies Allergy/AdvReac Type Severity Reaction Status Date / Time procaine (From NOVOCAIN) Allergy Severe SWELLING Verified 12/23/24 22:19 LOCALIZED TO INJECTION SITE alirocumab (From Praluent Allergy Mild Itching Verified 12/23/24 22:19 Pen) Aspirin Allergy Unknown rash Uncoded 04/13/22 13:14 full strength Aspirin Allergy Unknown rash Uncoded 04/13/22 13:14 Review of Systems Review of Systems: Unable to obtain review of systems secondary to patient's condition PMFSH Past Medical History Medical History CAD (coronary artery disease) Anxiety High cholesterol Hypertension Active asthma Surgical History Stented coronary artery Social History Social History Patient Tobacco Use Status: Never used Tobacco e-Cigarette/Vaping Use: Never Used Advance Directives: No Advance Directives Information Provided: Yes Current occupational status: retired and disabled Current occupation: rt hand Physical Exam ED Vital Signs: Vital Signs - 24 hr 12/23/24 21:52 12/23/24 22:00 12/23/24 22:00 Pulse Rate 132 H 132 H Respiratory Rate 15 15 Blood Pressure 218/105 H 218/105 H Pulse Oximetry 67 L 100 100 Oxygen Delivery Method Room Air Mechanical Ventilation Mechanical Ventilation Fraction of Inspired Oxygen 12/23/24 22:12 12/23/24 22:16 12/23/24 22:36 Pulse Rate Respiratory Rate Blood Pressure 208/107 H 171/92 H Pulse Oximetry Oxygen Delivery Method Fraction of Inspired Oxygen 100 12/23/24 22:44 12/23/24 22:47 12/23/24 23:02 Pulse Rate 106 H 109 H Respiratory Rate 31 H Blood Pressure 162/86 H 153/82 H 162/90 H Pulse Oximetry 99 Oxygen Delivery Method Mechanical Ventilation Fraction of Inspired Oxygen 12/23/24 23:12 Pulse Rate 111 H Respiratory Rate 29 H Blood Pressure 125/71 Pulse Oximetry 92 Oxygen Delivery Method Mechanical Ventilation Fraction of Inspired Oxygen BMI result Body Mass Index 33.1 Toxic appearing female about ready to code Appearance: Pale cyanotic Eyes: Pupils equal, round and reactive to light. ENT: Pharynx normal. Neck: Normal inspection. Neck supple. No lymph nodes noted. No crepitus CVS: Normal heart rate and rhythm. Pulses normal. Normal S1 and S2 Respiratory: Positive breath sounds on bagging Abdomen: Soft nontender Skin: Skin warm and dry. Normal skin color. Normal skin turgor. Extremities: No lower extremity edema. Cyanotic Neuro: Minimal respiratory drive no response to painful stimuli Medications Administered Generic Name Dose Route Start Last Admin Trade Name Freq PRN Reason Stop Dose Admin Propofol 1,000 mg in 100 mls @ 0 mls/hr 12/23/24 22:15 12/23/24 22:44 Diprivan IVCONT 108.37 mcg/kg/min .Q0M JN 50 mls/hr Protocol Titration Per Protocol Nitroglycerin/Dextrose 100 mg in 250 mls @ 0 mls/hr 12/23/24 22:15 12/23/24 22:47 Nitroglycerin/D5w IVCONT 20 mcg/min .Q0M JN 3 mls/hr Protocol Administration Per Protocol Dexmedetomidine HCl 400 mcg in 100 mls @ 0 mls/hr 12/24/24 00:15 12/24/24 00:14 Precedex IVCONT 1 mcg/kg/hr .Q0M JN 19.23 mls/hr Protocol Administration Per Protocol Sodium Bicarbonate 100 meq 12/24/24 01:00 12/24/24 00:09 Sodium Bicarbonate 8.4% 50 Meq/50 Ml Syringe IVPUSH 12/24/24 01:01 100 meq ONCE ONE Administration Discontinued Medications Generic Name Dose Route Start Last Admin Trade Name Freq PRN Reason Stop Dose Admin Furosemide 40 mg 12/23/24 22:08 12/23/24 22:36 Furosemide 40 Mg/4 Ml Vial IVPUSH 12/23/24 22:09 40 mg ONCE ONE Administration Protocol Cefepime HCl 2 gm in 50 mls @ 100 mls/hr 12/23/24 23:19 12/24/24 00:26 Maxipime IV 12/23/24 23:48 100 mls/hr ONCE ONE Administration Medical Decision Making Medical Decision Making MDM Narrative: Extreme shortness of breath cyanotic diaphoretic. Noted to have a low O2 sat in the 60s and 70s. Sugar was over 100 there is no evidence for hypoglycemia. Because of patient's respiratory status she was immediately intubated using RSI technique. Please see procedure note. Patient's chest x-ray by my interpretation showed evidence for congestive heart failure with bilateral infiltrates noted. ET tube to be in place. OG tube in place. Patient's blood pressure this is a 200/100. Lasix and nitro drip started for congestive heart failure. Blood culture and lactate was obtained. Although patient's history not consistent with sepsis more consistent with congestive heart failure respiratory failure. My interpretation is blood gas showed a pH of 7.0. With a pCO2 about 70. This is consistent with acute respiratory failure. Patient will be placed on the ventilator. With increased PEEP for likely congestive heart failure. Lasix nitro given. Will monitor very carefully. Patient's case discussed with family. Will be going to the intensive care unit. We consider sepsis. Patient did have an elevated white count we think more likely from stress. Lactate was 9. I think that is more from stress and respiratory failure. Nevertheless patient has profound congestive heart failure I do not feel comfortable giving patient IV fluids. Lasix was given. We will nevertheless cover her with cefepime. I discussed this with the derrick boat lever operator team agree with plan. Awaiting electrolytes to determine if we can do in the additional CTA to rule out the possibility of PE. Patient is in critical condition. Differential Diagnosis Differential Diagnoses: The differential diagnosis associated with the presentation includes Congestive heart failure, pneumonia respiratory failure intracranial bleed Admission/Observation Consideration of admission/observation: Escalation of care including admission/observation considered Consult Healthcare Provider Management of the patient was discussed with: Regulatory Affairs Director (Career Law Clerk) Lab Data [facility] Lab Attestation statement: I reviewed the patient's lab results. 12/23/24 22:01 12/23/24 22:01 Labs: Lab Results 12/23/24 12/23/24 12/23/24 Range/Units 22:01 22:09 22:11 WBC 16.9 H (4.8-10.8) X10*3/uL RBC 4.56 (4.20-5.50) X10*6/uL Hgb 13.2 (12.0-16.0) g/dl Hct 42.2 (37.0-47.0) % MCV 92.5 (80.0-98.0) fL MCH 28.9 (27.0-33.0) pg MCHC 31.3 (31.0-35.0) g/dl RDW 12.4 (11.0-16.0) % Plt Count 280 (160-400) X10*3/uL MPV 11.9 (9.4-12.3) fL Immature Gran % (Auto) 0.4 (0.0-0.4) % Neut % (Auto) 55.2 (45-73) % Lymph % (Auto) 35.2 (20-40) % Power % (Auto) 7.3 (2-11) % Eos % (Auto) 1.7 (0-4) % Baso % (Auto) 0.2 (0-2) % Lymph # (Auto) 5.9 H (1.2-4.9) X10*3/uL Power # (Auto) 1.2 (0.1-1.2) X10*3/uL Eos # (Auto) 0.3 (0.0-0.4) X10*3/uL Baso # (Auto) 0.0 (0.0-0.2) X10*3/uL Abs Immat Gran (auto) 0.06 H (0.00-0.03) X10*3/uL Absolute Neuts (auto) 9.3 H (2.0-8.3) x10*3/uL Absolute Nucleated RBC 0.000 (0.0-0.012) X10*3/uL Nucleated RBC % (auto) 0.0 (0.0-0.2) /100WBC Smear Tech's Comments VERIFIED PT 10.9 (10.9-12.4) SEC INR 1.0 (0.9-1.1) O2 Saturation % ABG pH at Pt Temp (7.35-7.45) ABG pCO2 at Pt Temp (32-45) mmHg ABG pO2 at Pt Temp (83-108) mmHg ABG HCO3 (22-26) mmol/L ABG Base Excess (Actual) mmol/L VBG pH 7.00 L* (7.32-7.43) VBG pCO2 69 mmHg VBG pO2 36 mmHg VBG HCO3 17 L (22-26) mmol/L VBG O2 Saturation 32.0 % VBG Base Excess -15.0 mmol/L Sodium 142 (135-145) mmol/L Potassium 3.9 D (3.3-5.1) mmol/L Chloride 111 H (96-108) mmol/L Carbon Dioxide 15 L (22-29) mmol/L Anion Gap 20 (12-20) BUN 20 H (9-16) mg/dL Creatinine 1.36 (0.5-1.4) mg/dL Estim Creat Clear Calc 29.2 Estimated GFR 37 Random Glucose 260 H (60-115) mg/dL Lactic Acid 9.0 H* (0.5-2.0) mmol/L Calcium 9.6 (8.4-10.2) mg/dL Total Bilirubin 0.4 (0.0-1.0) mg/dL AST 31 (5-31) U/L ALT 28 (0-31) U/L Alkaline Phosphatase 113 (39-117) U/L Troponin I High Sens 10.8 (<3.5-17.0) ng/L B-Natriuretic Peptide 747 H (<100) pg/mL Total Protein 8.4 H (6.5-8.0) g/dL Albumin 4.4 (3.5-5.0) g/dL Urine Opiates Screen (Not Detect) Ur Buprenorphine Scrn (Not Detect) ng/mL Ur Oxycodone Screen (Not Detect) ng/mL Urine Methadone Screen (Not Detect) ng/mL Urine Fentanyl Screen (Not Detect) Ur Barbiturates Screen (Not Detect) Ur Phencyclidine Scrn (Not Detect) Ur Amphetamines Screen (Not Detect) U Benzodiazepines Scrn (Not Detect) Urine Cocaine Screen (Not Detect) U Marijuana (THC) Screen (Not Detect) Ethyl Alcohol 10 mg/dL Influenza Type A (PCR) NEGATIVE (Negative) Influenza Type B (PCR) NEGATIVE (Negative) RSV RNA Qual (PCR) NEGATIVE (Negative) SARS-CoV-2 RNA (RT-PCR) NEGATIVE (Negative) 12/23/24 12/23/24 Range/Units 22:37 23:19 WBC (4.8-10.8) X10*3/uL RBC (4.20-5.50) X10*6/uL Hgb (12.0-16.0) g/dl Hct (37.0-47.0) % MCV (80.0-98.0) fL MCH (27.0-33.0) pg MCHC (31.0-35.0) g/dl RDW (11.0-16.0) % Plt Count (160-400) X10*3/uL MPV (9.4-12.3) fL Immature Gran % (Auto) (0.0-0.4) % Neut % (Auto) (45-73) % Lymph % (Auto) (20-40) % Power % (Auto) (2-11) % Eos % (Auto) (0-4) % Baso % (Auto) (0-2) % Lymph # (Auto) (1.2-4.9) X10*3/uL Power # (Auto) (0.1-1.2) X10*3/uL Eos # (Auto) (0.0-0.4) X10*3/uL Baso # (Auto) (0.0-0.2) X10*3/uL Abs Immat Gran (auto) (0.00-0.03) X10*3/uL Absolute Neuts (auto) (2.0-8.3) x10*3/uL Absolute Nucleated RBC (0.0-0.012) X10*3/uL Nucleated RBC % (auto) (0.0-0.2) /100WBC Smear Tech's Comments PT (10.9-12.4) SEC INR (0.9-1.1) O2 Saturation 94.0 % ABG pH at Pt Temp 7.17 L* (7.35-7.45) ABG pCO2 at Pt Temp 32 (32-45) mmHg ABG pO2 at Pt Temp 92 (83-108) mmHg ABG HCO3 12 L (22-26) mmol/L ABG Base Excess (Actual) -15.0 mmol/L VBG pH (7.32-7.43) VBG pCO2 mmHg VBG pO2 mmHg VBG HCO3 (22-26) mmol/L VBG O2 Saturation % VBG Base Excess mmol/L Sodium (135-145) mmol/L Potassium (3.3-5.1) mmol/L Chloride (96-108) mmol/L Carbon Dioxide (22-29) mmol/L Anion Gap (12-20) BUN (9-16) mg/dL Creatinine (0.5-1.4) mg/dL Estim Creat Clear Calc Estimated GFR Random Glucose (60-115) mg/dL Lactic Acid (0.5-2.0) mmol/L Calcium (8.4-10.2) mg/dL Total Bilirubin (0.0-1.0) mg/dL AST (5-31) U/L ALT (0-31) U/L Alkaline Phosphatase (39-117) U/L Troponin I High Sens (<3.5-17.0) ng/L B-Natriuretic Peptide (<100) pg/mL Total Protein (6.5-8.0) g/dL Albumin (3.5-5.0) g/dL Urine Opiates Screen Not Detected (Not Detect) Ur Buprenorphine Scrn Not Detected (Not Detect) ng/mL Ur Oxycodone Screen Not Detected (Not Detect) ng/mL Urine Methadone Screen Not Detected (Not Detect) ng/mL Urine Fentanyl Screen Not Detected (Not Detect) Ur Barbiturates Screen Not Detected (Not Detect) Ur Phencyclidine Scrn Not Detected (Not Detect) Ur Amphetamines Screen Not Detected (Not Detect) U Benzodiazepines Scrn Not Detected (Not Detect) Urine Cocaine Screen Not Detected (Not Detect) U Marijuana (THC) Screen Not Detected (Not Detect) Ethyl Alcohol mg/dL Influenza Type A (PCR) (Negative) Influenza Type B (PCR) (Negative) RSV RNA Qual (PCR) (Negative) SARS-CoV-2 RNA (RT-PCR) (Negative) ABG Data Attestation ABG: I personally reviewed and interpreted this ABG as follows: Interpretation: VBG showed respiratory acidosis. However the ABG showed a metabolic acidosis Independent Interpretation I performed an independent interpretation of an: Plain X-Ray (Congestive heart failure) Radiology Impression Discussion of test interpretation with radiology: I have reviewed the radiologist's reading. Independent Historian Clinical information obtained from an independent historian. History obtained from or confirmed by: Other (Family) External Record Review External record reviewed: Inpatient record Chronic Conditions Patient?s care impacted by: Diabetes and Hypertension ACS Social Determinants Patient?s care significantly limited by Social Determinants of Health including: Problems related to primary support group Procedures Central Line Placement r femor: Time Out Performed: Yes Patient Placed on Monitor/Pulse Ox: Yes MD Prep: mask, gown and gloves Central Line Prep: Chlorhexidine scrub Local Anesthetic: lidocaine 1% Amount of anesthesia used (mL): 3 Ultrasound Used for Placement: Yes Central Line Lumen Inserted: triple Post Procedure: sutured in place, good blood return, all ports aspirated, flushed, capped and sterile dressing applied Patient Tolerated Procedure: well and no complications Complications: none Intubation Intubation Type:: Endotracheal Tube Insertion Intubation Date:: 12/23/24 Time out performed: Yes sedative: Etomidate Mg Given: 20 paralytic: Succinylcholine Mg Given: 100 Laryngoscope: Andrew Assist Device Used: fiber optic device ET Tube Size: 7.5 ET Tube Uncuffed: Yes Tube Secured Depth (cm): 22 Tube Secured Location: lips Tube Placement Confirmation: visualized tube passing through cords, equal breath sounds bilaterally, no breath sounds over epigastrium and confirmation by capnometry Patient Tolerated Procedure: well Intubation Complications: none Critical Care Time Critical Care Time Critical Care Time: Yes Total Critical Care Time: 80 Attestation: I have personally provided 80 minutes of critical care time exclusive of time spent on separately billable procedures. ?Time includes review of lab data, radiology results, discussion with consultants, and monitoring for potential decompensation. ?Interventions were performed as documented above Discharge Plan Discharge Clinical Impression: Congestive heart failure Patient Disposition: Admitted As Inpatient Discharge Date/Time: 12/24/24 00:56
[2024-12-23 22:19] LABS: VBG HCO3 17 mmol/L (22-26); VBG O2 % Saturation 32.0 %
[2024-12-23 22:19] LABS: Venous Blood Gas Refer to POC result
--- OUTSIDE RECORDS SUMMARY | 2024-12-23 22:28 | XMS_ITS | Clinical Summary ---
Author Organization [facility] Facility Address [address] [place] [id number] Care Team Providers Care Substance Abuse Therapist Name Role Phone Unavailable Primary Care Provider Unavailabl e Allergies Active Allergy Reactions Criticality Noted Date Comments Aspirin Other (see comments) 12/06/2020 Medications sertraline (ZOLOFT) 25 MG tablet Take 1 tablet by mouth 1 (one) time each day Active aspirin ([place]) 81 MG EC tablet Take 1 tablet [...] Only [facility] [address] [place] [address] Aristides Huizar MD Stage 3b chronic kidney [...] Visit [facility] [address] [place] [address] Aristides Huizar MD [address] [facility] [address] [place] [address] Health Maintenance Due Date Last Done Comments Diabetes: Ophthalmology Exam 07/17/2020 Diabetes: Pedal Pulse Checked 07/17/2020 Diabetes: Sensory Foot Exam 07/17/2020 Diabetes: Visual Foot Exam 07/17/2020 Diabetes: Hemoglobin A1C 12/23/2024 025, 01/09/2024, 10/07/2023, Additional history exists Influenza Vaccine (#1) 2025 7, 05/04/2015, 05/12/2013, Additional history exists Pneumococcal Vaccine: 50+ Years Completed 08/15/2016, 05/04/2015, 04/17/2001 Pneumococcal Vaccine: Peds (0 to 5 Years) and At-Risk Patients (6 to 49 Years) Discontinued 08/15/2016, 05/04/2015, 04/17/2001 Hepatitis B Vaccine Aged Out 11/15/2016, 11/24/2015, 08/04/2015 No longer eligible based on patient's age to complete this topic Insurance ([id number]) [facility] ([id number])
[2024-12-23 22:30] LABS: Troponin-I High Sensitivity 10.8 ng/L (<3.5-17.0)
[2024-12-23] MEDS: Furosemide 40 MG/4 ML VIAL IVPUSH (22:36)
[2024-12-23 22:41] LABS: ABG HCO3 12 mmol/L (22-26); ABG O2 % Saturation 94.0 %
[2024-12-23 22:43] LABS: B Type Natriuretic Peptide 747 pg/mL (<100)
[2024-12-23 22:46] LABS: Resp Syncy Virus RNA Qual PCR NEGATIVE (Negative); SARS COV2 PCR INHOUSE NEGATIVE (Negative)
[2024-12-23] MEDS: Nitroglycerin/D5W 100 MG/250 ML INFUS..BTL IVCONT (22:47)
--- NOTE | 2024-12-23 22:48 | PC.NURSE ---
Dr. Lopez at bedside for central line placement.
--- NOTE | 2024-12-23 22:50 | PC.NURSE ---
Pt brought in unresponsive through triage by family, family reports pt was having SOB, SPO2 at 67% on RA, pt unresponsive, 18g IV line obatained to Debbie PATRICIA, labs drawn sent to lab 2151 RT at bedside, pt bagging began 2152 RSI kit obtained, pt given 20mg etomidate 2153 100 mg succ given [address] Lopez, 22 at the lip, 7.5 ETT, + color change, o2 99% 2156 OG tube placed by Dr. Lopez, 18 fr Vent settings: rate 18, volume 300, peep of 5, 70%
--- NOTE | 2024-12-23 23:13 | PC.NURSE ---
pt BP 125/71, per Dr. Lopez keep nitro drip
[2024-12-23 23:33] LABS: Alanine Aminotransferase 28 U/L (0-31); Albumin Level 4.4 g/dL (3.5-5.0); Alkaline Phosphatase 113 U/L (39-117); Anion Gap 20 (12-20); Aspartate Amino Transferase 31 U/L (5-31); Blood Urea Nitrogen 20 mg/dL (9-16); Calcium 9.6 mg/dL (8.4-10.2); Carbon Dioxide 15 mmol/L (22-29); Chloride 111 mmol/L (96-108); Creatinine Clr Calc Pharmacy 29.2; Estimated Glomerular Filt Rate 37; Potassium 3.9 mmol/L (3.3-5.1); Sodium 142 mmol/L (135-145); Total Protein 8.4 g/dL (6.5-8.0)
--- NOTE | 2024-12-23 23:35 | PC.NURSE ---
16 fr temp sensing dailey placed in pt, urine sample collected and sent to lab, draining clear and pale yellow urine
[2024-12-23 23:38] LABS: ABG Refer to POC result
[2024-12-23 23:42] LABS: Cannabinoid Screen Urine Not Detected (Not Detect)
[2024-12-24] VITALS (46 sets, daily range): BP systolic 52–157; BP diastolic 25–85; PULSE 77–116; RESP 15–28; TEMP 32–38.4; O2SAT 90–100; BMI 32.5
[2024-12-24] MEDS: dexmedeTOMIDine HCL/NS 400 MCG/100 ML PLAST..BAG 19.23 MCG IVCONT (00:14)
--- NOTE | 2024-12-24 00:15 | PC.NURSE ---
pt bucking vent, provider Dr. Lopez made aware, new order given per MAR
[2024-12-24 00:21] LABS: Reflex Lactate? Lactic Acid Added
--- NOTE | 2024-12-24 00:23 | PC.NURSE ---
verbal report given to Elisha in ICU pt will be going to CT scan prior to transfer
[2024-12-24] MEDS: cefEPime HCl/D5W 2 GM/50 ML PIGGYBACK IV ×2 (00:26→08:23)
--- NOTE | 2024-12-24 01:01 | PM.SEPBOLA4 ---
Sepsis Bolus Exclusion Sepsis Bolus Exclusion CHF/Renal Failure Date of Occurrence: 12/24/24 Time of Occurrence:: 01:01 This patient met severe sepsis criteria due to the following condition(s):: Hypotension and Lactate>=4mmol/L In my clinical judgement the administration of 30 ml/kg of crystalloid would be detrimental to this patient due to the patient's following conditions:: NYHA class III or IV Heart Failure(symptoms with low exertion or rest) and Concern for fluid overload Other (must be specific):: in CHF with EF 15% Replace the 30 mls/kg with (Zero amount not acceptable and all fluids for severe sepsis must be given at GREATER than 125 mls/hr) *Note: One of the alas must be documented Colloids amount given in mls:: 200 At a rate of (must be > 125 cchr):: 133
[2024-12-24] MEDS: Albumin Human 25 % 100 ML 133.33 ML IV ×2 (01:15→02:00)
[2024-12-24] MEDS: Furosemide 200 MG in 0.9 % Sodium Chloride 80 ML IVCONT (01:20)
[2024-12-24 04:41] LABS: Glucose, Whole Blood 286 mg/dL (60-115)
[2024-12-24 05:03] LABS: MANUAL DIFF FLAG NO
[2024-12-24 05:12] LABS: VBG HCO3 25 mmol/L (22-26); VBG O2 % Saturation 64.0 %
[2024-12-24 05:20] LABS: Venous Blood Gas Refer to POC result
[2024-12-24 05:26] LABS: Hematocrit 32.7 % (37.0-47.0); Hemoglobin 10.6 g/dl (12.0-16.0); Imm Gran Abs Auto 0.06 X10*3/uL (0.00-0.03); Imm Gran Pct Auto 0.5 % (0.0-0.4); Lymphocytes Absolute Auto 1.5 X10*3/uL (1.2-4.9); Mean Corpuscular HGB Conc 32.4 g/dl (31.0-35.0); Mean Corpuscular Hemoglobin 28.9 pg (27.0-33.0); Mean Corpuscular Volume 89.1 fL (80.0-98.0); NRBC Abs Auto 0.000 X10*3/uL (0.0-0.012); NRBC Pct Auto 0.0 /100WBC (0.0-0.2); Platelet Count 253 X10*3/uL (160-400); Red Blood Count 3.67 X10*6/uL (4.20-5.50); White Blood Count 13.0 X10*3/uL (4.8-10.8)
[2024-12-24 05:32] LABS: ~Lactic Acid-LAB USE ONLY 2.3 mmol/L (0.5-2.0)
[2024-12-24 06:01] LABS: Glucose, Whole Blood 317 mg/dL (60-115)
--- NOTE | 2024-12-24 06:09 | PC.NURSE ---
pt arrived to ICU 010, intubated in ED sedated per aug, nitro running per aug, bp 57/33,PA at bedside, pause Nitro, levo started and titrated per aug albuminx2 given, lasix gtt started pale yellow urine draining in dailey cath. precedex paused due to over sedation. Core temp 94.8 barre alexandragger applied. plan of care continues
[2024-12-24 06:16] LABS: Alanine Aminotransferase 68 U/L (0-31); Albumin Level 4.8 g/dL (3.5-5.0); Alkaline Phosphatase 89 U/L (39-117); Anion Gap 20 (12-20); Aspartate Amino Transferase 92 U/L (5-31); Blood Urea Nitrogen 23 mg/dL (9-16); Calcium 9.2 mg/dL (8.4-10.2); Carbon Dioxide 22 mmol/L (22-29); Chloride 104 mmol/L (96-108); Creatinine Clr Calc Pharmacy 26.4; Estimated Glomerular Filt Rate 34; Magnesium 2.0 mg/dL (1.6-2.6); Potassium 4.6 mmol/L (3.3-5.1); Sodium 141 mmol/L (135-145); Total Protein 7.8 g/dL (6.5-8.0)
--- NOTE | 2024-12-24 06:17 | PM.CCHP ---
History of Present Illness Date of Service: 12/24/24 <[facility] - Last Filed: 12/24/24 07:18> Attending physician on admission: Jude Garcia <[facility] - Last Filed: 12/24/24 07:18> Chief Complaint: Acute hypoxic respiratory failure <[facility] - Last Filed: 12/24/24 07:18> 84-year-old female with underlying history of coronary disease post stents and ischemic cardiomyopathy, CHF with ejection fraction 15-20% with severe left ventricular systolic dysfunction and mild diastolic dysfunction per echo on December 2022., hypertension, asthma, hyperlipidemia, asthma among others whose fa,elisha drove her to the ED and presented with complaints of sudden shortness of breath, reportedly the patient was cyanotic and diaphoretic on arrival with an O2 sat of 60-70% on RA. According to the family the patient had complained of a sudden headache sometime in the afternoon but was doing well until last night around 10:00 when she developed shortness of breath and almost collapsed at home, they drove her to the ER because they live close the ambulance was taking too lung. Given the significant respiratory distress, the patient was intubated.? Her workup reveals a white count of 16.9, H and H of 13.2 and 42 point 2 platelets 280.? Her ABG shows metabolic acidosis with pH of 7.23, pCO2 32, bicarb of 12.? Lactic acid 9, BNP of 747. ?Electrolytes and renal function are normal. ?Based on their exam it was thought the patient is in CHF and she was given Lasix. Respiratory panel negative. ?The patient will be admitted to the ICU for further care. ?Head, CT angiogram of the chest are pending. <GT [facility] - Last Filed: 12/24/24 07:18> Review of Systems Review of Systems: Yes Unobtainable due to mental status <GT [facility] - Last Filed: 12/24/24 07:18> FORMERLY [facility], [facility] Past Medical History Medical History: Medical History CAD (coronary artery disease) Anxiety High cholesterol Hypertension Active asthma <GT Heart Last Filed: 12/24/24 07:18> Surgical History Surgical History: Surgical History Stented coronary artery <GT [facility] - Last Filed: 12/24/24 07:18> Social History Social History: Social History Household Members: Unknown / Unable to assess Housing: Unknown / Unable to assess Patient Tobacco Use Status: Never used Tobacco e-Cigarette/Vaping Use: Never Used Currently Displaying Signs/Symptoms of Drug Intoxication Withdrawal: No Advance Directives: No Advance Directives Information Provided: Yes Do you have a plan to hurt others: No Plan Recently lost weight without trying: Unsure How much weight loss: Unsure Nutrition Risks: No Nutritional Risk Patient : No : No Poor oral hygiene: No Current occupational status: retired and disabled Current occupation: rt hand <GT Heart - Last Filed: 12/24/24 07:18> Meds Allergies/Adverse reactions: Allergies Allergy/AdvReac Type Severity Reaction Status Date / Time procaine (From NOVOCAIN) Allergy Severe SWELLING Verified 12/23/24 22:19 LOCALIZED TO INJECTION SITE alirocumab (From Praluent Allergy Mild Itching Verified 12/23/24 22:19 Pen) Aspirin Allergy Unknown rash Uncoded 04/13/22 13:14 full strength Aspirin Allergy Unknown rash Uncoded 04/13/22 13:14 <GT Heart - Last Filed: 12/24/24 07:18> Active Medications: Current Medications Acetaminophen (Acetaminophen 325 Mg Tablet) 650 mg PO Q6H PRN PRN Reason: Fever >101 Dextrose (Dextrose 50 % 25 Gm/50 Ml Syringe) 25 gm IVPUSH Q15M PRN; Protocol PRN Reason: per Hypoglycemia Standing Ord. Glucose (Glucose Gel 15 Gm Gel..Gram.) 15 gm PO Q15M PRN; Protocol PRN Reason: per Hypoglycemia Standing Ord. Heparin Sodium (Porcine) (Heparin Sodium,Porcine 5,000 Unit/Ml Vial) 5,000 unit SUBCUT BID JN Last Admin: 12/24/24 00:54 Dose: 5,000 unit Propofol (Diprivan) 1,000 mg in 100 mls @ 0 mls/hr IVCONT .Q0M JN; Protocol Last Titration: 12/24/24 04:20 Dose: 50 mcg/kg/min, 23.07 mls/hr Nitroglycerin/Dextrose (Nitroglycerin/D5w) 100 mg in 250 mls @ 0 mls/hr IVCONT .Q0M JN; Protocol Last Titration: 12/24/24 00:59 Dose: 0 mcg/min, 0 mls/hr Dexmedetomidine HCl (Precedex) 400 mcg in 100 mls @ 0 mls/hr IVCONT .Q0M JN; Protocol Last Titration: 12/24/24 02:45 Dose: 0 mcg/kg/hr, 0 mls/hr Cefepime HCl (Maxipime) 2 gm in 50 mls @ 100 mls/hr IV Q12H JN Insulin Human Lispro (Insulin Lispro 100 Unit/Ml 3 Ml Vial) 0 unit SUBCUT Q6H JN; Protocol Last Admin: 12/24/24 06:02 Dose: 8 unit Pantoprazole Sodium (Pantoprazole Sodium 40 Mg/10 Ml Vial) 40 mg IVPUSH DAILY@0630 JN Last Admin: 12/24/24 06:02 Dose: 40 mg <GT Heart - Last Filed: 12/24/24 07:18> Home medications: Home Medications ?Medication ?Instructions ?Recorded ?Confirmed ?Last Taken ?Type acetaminophen 325 mg capsule 325 mg PO QID PRN 09/19/20 11/26/24 Unknown History albuterol sulfate 4 mg tablet 4 mg PO TID 09/19/20 11/26/24 Unknown History bisacodyl 5 mg tablet,delayed 5 mg PO BEDTIME 09/19/20 11/26/24 Unknown History release tramadol 50 mg tablet 50 mg PO DAILY 09/19/20 11/26/24 Unknown History baclofen 10 mg tablet 5 mg PO BID PRN muscle spasm 04/13/22 11/26/24 Unknown History rosuvastatin 40 mg tablet 40 mg PO DAILY 08/13/22 11/26/24 Unknown History empagliflozin 25 mg tablet 25 mg PO DAILY 11/05/23 11/26/24 Unknown History (Jardiance) fluticasone propionate 50 1 spray intranasal DAILY 11/05/23 11/26/24 Unknown History mcg/actuation nasal spray,suspension (Flonase Allergy Relief) glipizide 5 mg tablet 5 mg PO BID 11/05/23 11/26/24 Unknown History ketotifen fumarate 0.025 % (0.035 1 drp ophthalmic (eye) BID 11/05/23 11/26/24 Unknown History %) eye drops ([facility]) melatonin 5 mg tablet 5 mg PO BEDTIME PRN 11/05/23 11/26/24 Unknown History nitroglycerin 0.4 mg sublingual 0.4 mg sublingual Q5M PRN 11/05/23 11/26/24 Unknown History tablet sertraline 25 mg tablet (Zoloft) 25 mg PO DAILY 11/05/23 11/26/24 Unknown History calcium 600 mg (as 1 tab PO BID 12/24/24 Unknown History carbonate)-vitamin D3 5 mcg (200 unit) tablet docusate sodium 100 mg capsule 100 mg PO BID 12/24/24 Unknown History tirzepatide 7.5 mg/0.5 mL 7.5 mg subcut QWEEK 12/24/24 Unknown History subcutaneous pen injector (Pedro) <GT [facility] - Last Filed: 12/24/24 07:18> Physical Exam Vital Signs: Vital Signs: Last Vital Signs Temp 98.1 F 12/23/24 23:38 Pulse 78 12/24/24 04:20 Resp 18 12/24/24 04:20 BP 157/60 H 12/24/24 04:20 Pulse Ox 100 12/24/24 04:20 O2 Del Method Mechanical Ventil ation 12/24/24 00:27 FiO2 30 12/24/24 04:00 BMI result Body Mass Index 32.5 <GT [facility] - Last Filed: 12/24/24 07:18> Sepsis exam done at 0125 am on 12/24/2024 General:? Sedated and intubated Skin:? Thin, Intact, no lesions, edema, erythema, clubbing or cyanosis.? No ulcers. HEENT:? Bald, Head is normocephalic, atraumatic, pupils equal. Buccal mucosa is dry. Cardiac:? Clear S1-S2, no murmurs rubs or gallops. Pulmonary:? Diminished lung sounds bilaterally crackles at both bases right more than left, prominent rhonchi or of the right middle and upper lobes.? No wheezing. Abdomen:? Protuberant, positive bowel sounds in all 4 quadrants.? Soft, nontender, no rebound or guarding.? Boogie catheter in place, clear urine.? Right groin femoral central line. Musculoskeletal:? Passive range of motion of the upper and lower extremities at the major joints reveal no cogwheeling, no crepitus. ?2+ pitting edema from the toes all the way up to distal thighs area bilaterally; ?no calf tenderness , no leg asymmetry.? Gait not assessed at this point. Neurologic:? As above.? No focal deficits noted. Vascular:? 2+ pulses upper and lower extremities distally.? Less than 2nd capillary refill of fingers and toes bilaterally upper and lower extremities <GT [facility] - Last Filed: 12/24/24 07:18> Results Labs CBC and Chem 7: 12/24/24 04:55 12/24/24 04:55 <GT Heart - Last Filed: 12/24/24 07:18> Labs: Laboratory Results - last 24 hr 12/23/24 12/23/24 12/23/24 22:01 22:09 22:11 MCV 92.5 MCH 28.9 MCHC 31.3 RDW 12.4 Plt Count 280 MPV 11.9 Immature Gran % (Auto) 0.4 Neut % (Auto) 55.2 Lymph % (Auto) 35.2 Mccone % (Auto) 7.3 Eos % (Auto) 1.7 Baso % (Auto) 0.2 Lymph # (Auto) 5.9 H Mccone # (Auto) 1.2 Eos # (Auto) 0.3 Baso # (Auto) 0.0 Abs Immat Gran (auto) 0.06 H Absolute Neuts (auto) 9.3 H Absolute Nucleated RBC 0.000 Nucleated RBC % (auto) 0.0 Smear Tech's Comments VERIFIED PT 10.9 INR 1.0 O2 Saturation ABG pH at Pt Temp ABG pCO2 at Pt Temp ABG pO2 at Pt Temp ABG HCO3 ABG Base Excess (Actual) VBG pH 7.00 L* VBG pCO2 69 VBG pO2 36 VBG HCO3 17 L VBG O2 Saturation 32.0 VBG Base Excess -15.0 Anion Gap 20 Estim Creat Clear Calc 29.2 Estimated GFR 37 POC Glucose Random Glucose 260 H Lactic Acid 9.0 H* Lactic Acid F/U @ 2Hr Calcium 9.6 Phosphorus Magnesium Total Bilirubin 0.4 AST 31 ALT 28 Alkaline Phosphatase 113 B-Natriuretic Peptide 747 H Total Protein 8.4 H Albumin 4.4 Urine Opiates Screen Ur Buprenorphine Scrn Ur Oxycodone Screen Urine Methadone Screen Urine Fentanyl Screen Ur Barbiturates Screen Ur Phencyclidine Scrn Ur Amphetamines Screen U Benzodiazepines Scrn Urine Cocaine Screen U Marijuana (THC) Screen Ethyl Alcohol 10 Influenza Type A (PCR) NEGATIVE Influenza Type B (PCR) NEGATIVE RSV RNA Qual (PCR) NEGATIVE SARS-CoV-2 RNA (RT-PCR) NEGATIVE 12/23/24 12/23/24 12/24/24 22:37 23:19 01:06 MCV MCH MCHC RDW Plt Count MPV Immature Gran % (Auto) Neut % (Auto) Lymph % (Auto) Mccone % (Auto) Eos % (Auto) Baso % (Auto) Lymph # (Auto) Mccone # (Auto) Eos # (Auto) Baso # (Auto) Abs Immat Gran (auto) Absolute Neuts (auto) Absolute Nucleated RBC Nucleated RBC % (auto) Smear Tech's Comments PT INR O2 Saturation 94.0 ABG pH at Pt Temp 7.17 L* ABG pCO2 at Pt Temp 32 ABG pO2 at Pt Temp 92 ABG HCO3 12 L ABG Base Excess (Actual) -15.0 VBG pH VBG pCO2 VBG pO2 VBG HCO3 VBG O2 Saturation VBG Base Excess Anion Gap Estim Creat Clear Calc Estimated GFR POC Glucose 286 H Random Glucose Lactic Acid Lactic Acid F/U @ 2Hr Calcium Phosphorus Magnesium Total Bilirubin AST ALT Alkaline Phosphatase B-Natriuretic Peptide Total Protein Albumin Urine Opiates Screen Not Detected Ur Buprenorphine Scrn Not Detected Ur Oxycodone Screen Not Detected Urine Methadone Screen Not Detected Urine Fentanyl Screen Not Detected Ur Barbiturates Screen Not Detected Ur Phencyclidine Scrn Not Detected Ur Amphetamines Screen Not Detected U Benzodiazepines Scrn Not Detected Urine Cocaine Screen Not Detected U Marijuana (THC) Screen Not Detected Ethyl Alcohol Influenza Type A (PCR) Influenza Type B (PCR) RSV RNA Qual (PCR) SARS-CoV-2 RNA (RT-PCR) 12/24/24 12/24/24 12/24/24 01:40 04:55 05:05 MCV 89.1 MCH 28.9 MCHC 32.4 RDW 12.4 Plt Count 253 MPV 12.1 Immature Gran % (Auto) 0.5 H Neut % (Auto) 79.7 H Lymph % (Auto) 11.8 L Mccone % (Auto) 7.5 Eos % (Auto) 0.3 Baso % (Auto) 0.2 Lymph # (Auto) 1.5 Mccone # (Auto) 1.0 Eos # (Auto) 0.0 Baso # (Auto) 0.0 Abs Immat Gran (auto) 0.06 H Absolute Neuts (auto) 10.4 H Absolute Nucleated RBC 0.000 Nucleated RBC % (auto) 0.0 Smear Tech's Comments PT INR O2 Saturation ABG pH at Pt Temp ABG pCO2 at Pt Temp ABG pO2 at Pt Temp ABG HCO3 ABG Base Excess (Actual) VBG pH 7.47 H VBG pCO2 34 VBG pO2 38 VBG HCO3 25 VBG O2 Saturation 64.0 VBG Base Excess 2.0 Anion Gap 20 Estim Creat Clear Calc 26.4 Estimated GFR 34 POC Glucose Random Glucose 360 H* Lactic Acid Lactic Acid F/U @ 2Hr 2.3 H* Calcium 9.2 Phosphorus 2.9 Magnesium 2.0 Total Bilirubin 1.0 AST 92 H ALT 68 H Alkaline Phosphatase 89 B-Natriuretic Peptide Total Protein 7.8 Albumin 4.8 Urine Opiates Screen Ur Buprenorphine Scrn Ur Oxycodone Screen Urine Methadone Screen Urine Fentanyl Screen Ur Barbiturates Screen Ur Phencyclidine Scrn Ur Amphetamines Screen U Benzodiazepines Scrn Urine Cocaine Screen U Marijuana (THC) Screen Ethyl Alcohol Influenza Type A (PCR) Influenza Type B (PCR) RSV RNA Qual (PCR) SARS-CoV-2 RNA (RT-PCR) 12/24/24 05:57 MCV MCH MCHC RDW Plt Count MPV Immature Gran % (Auto) Neut % (Auto) Lymph % (Auto) Mccone % (Auto) Eos % (Auto) Baso % (Auto) Lymph # (Auto) Mccone # (Auto) Eos # (Auto) Baso # (Auto) Abs Immat Gran (auto) Absolute Neuts (auto) Absolute Nucleated RBC Nucleated RBC % (auto) Smear Tech's Comments PT INR O2 Saturation ABG pH at Pt Temp ABG pCO2 at Pt Temp ABG pO2 at Pt Temp ABG HCO3 ABG Base Excess (Actual) VBG pH VBG pCO2 VBG pO2 VBG HCO3 VBG O2 Saturation VBG Base Excess Anion Gap Estim Creat Clear Calc Estimated GFR POC Glucose 317 H Random Glucose Lactic Acid Lactic Acid F/U @ 2Hr Calcium Phosphorus Magnesium Total Bilirubin AST ALT Alkaline Phosphatase B-Natriuretic Peptide Total Protein Albumin Urine Opiates Screen Ur Buprenorphine Scrn Ur Oxycodone Screen Urine Methadone Screen Urine Fentanyl Screen Ur Barbiturates Screen Ur Phencyclidine Scrn Ur Amphetamines Screen U Benzodiazepines Scrn Urine Cocaine Screen U Marijuana (THC) Screen Ethyl Alcohol Influenza Type A (PCR) Influenza Type B (PCR) RSV RNA Qual (PCR) SARS-CoV-2 RNA (RT-PCR) <GT [facility] - Last Filed: 12/24/24 07:18> Assessment and Plan (1) Acute hypoxic respiratory failure: Status: Acute <GT [facility] - Last Filed: 12/24/24 07:18> ASSESSMENT : 1. Acute hypoxic respiratory failure which appears to be multifactorial 2. Hypertensive Crisis likely from Stroke 3. CHF exacerbation Superimposed Bilateral lung pneumonia 4. Acute metabolic acidosis and lactic acidosis due to the above 5. Acute sepsis due to superimpossed PNA 6. 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 Acute pulmonary edema in the setting of uncontrolled hypertension 8. 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 Given her underlying CHF and risk of making it worse, the patient is not able to receive 30 mL/kilos of IV fluids, the patient was initially hypertensive, placed on nitroglycerin IV and became hypotensive, albumin salt at 133 cc/hour times 200 cc will be given. ?I do not think the patient is in septic shock. ?If needed we will support her with Levophed while diuresing her with Lasix drip. ?echo ordered for tomorrow morning.?Blood cultures will be obtained, sputum culture Gram stain, I have kinddy asked the ED doctor to start antibiotics and will continue the patient on broad-spectrum antibiotics; continue with ventilation support.? Replete electrolytes. ?Insulin sliding scale. Sodium bicarb push, unable to do a gtt as pt is fluiod overloaded. I discussed the case with the neurologist Dr. Clements regarding the findings of the head CT scan, last well known time was about 21:00 last night (about 5 hours ago), he recommended medical treatment only.? Aspirin 81 mg via OG tube and statin 80 mg p.o. x1 given, we will continue with this.? We will order ultrasound of the carotids. GI PROPHYLAXIS:? IV Protonix DVT PROPHYLAXIS:? heparin subQ Critical care time used for critical evaluation of this patient, diagnosis, treatment and coordination of care, review her records and documentation TOTAL CRITICAL CARE TIME? 60? MIN . discussion and coordination with consultants, completely separate from any procedures performed. Patient's care was discussed in detail with Dr. Garcia who is aware of all the above as well as the plan of care for this patient. <GT [facility] - Last Filed: 12/24/24 07:18> ASSESSMENT : 1. Acute hypoxic respiratory failure which appears to be multifactorial 2. Hypertensive Crisis likely from Stroke 3. CHF exacerbation Superimposed Bilateral lung pneumonia 4. Acute metabolic acidosis and lactic acidosis due to the above 5. Acute sepsis due to superimpossed PNA 6. 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 Acute pulmonary edema in the setting of uncontrolled hypertension 8. 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 Given her underlying CHF and risk of making it worse, the patient is not able to receive 30 mL/kilos of IV fluids, the patient was initially hypertensive, placed on nitroglycerin IV and became hypotensive, albumin salt at 133 cc/hour times 200 cc will be given. ?I do not think the patient is in septic shock. ?If needed we will support her with Levophed while diuresing her with Lasix drip. ?echo ordered for tomorrow morning.?Blood cultures will be obtained, sputum culture Gram stain, I have kindly asked the ED doctor to start antibiotics and will continue the patient on broad-spectrum antibiotics; continue with ventilation support.? Replete electrolytes. ?Insulin sliding scale. Sodium bicarb push, unable to do a gtt as pt is fluiod overloaded. I discussed the case with the neurologist Dr. Clements regarding the findings of the head CT scan, last well known time was about 21:00 last night (about 5 hours ago), he recommended medical treatment only.? Aspirin 81 mg via OG tube and statin 80 mg p.o. x1 given, we will continue with this.? We will order ultrasound of the carotids. GI PROPHYLAXIS:? IV Protonix DVT PROPHYLAXIS:? heparin subQ Critical care time used for critical evaluation of this patient, diagnosis, treatment and coordination of care, review her records and documentation TOTAL CRITICAL CARE TIME? 60? MIN . discussion and coordination with consultants, completely separate from any procedures performed. Patient's care was discussed in detail with Dr. Garcia who is aware of all the above as well as the plan of care for this patient. <Jude Garcia MD - Last Filed: 12/24/24 15:17>
--- NOTE | 2024-12-24 07:00 | CA_ITS ---
Transthoracic Echocardiogram Patient (Last, First, Middle): Veronique Westfall A Gender: Female Date of : 1940 Age: 84 Procedure Date: 12/24/2024 Procedure Type: Transthoracic Echocardiogram Location: ICU Height: 152.4 cm Weight: 75.3 kg BSA: 1.72 m2 Heart Rate: 89 bpm BP: 136 / 61 mmHg Aoc Director Intelligence Officer: SB Referring MD: Adrian DEL REAL Symptoms: chf Study Quality: Adequate w contrast ECG Rhythm: Sinus Conclusions: - Normal left ventricular cavity size. There is normal left ventricular wall thickness. The left ventricular systolic function is severely decreased. The visually estimated ejection fraction is between 15-20%. - The apical anterior, apical inferior, mid anterior, and mid inferior segments are hypokinetic. - The inferoseptal wall, the apical septum, and mid anteroseptal segments are akinetic. - The apex and basal anteroseptal segments are dyskinetic. - There is mild to moderate aortic valve regurgitation. Findings Procedure Information Contrast agent, definity, is being given per protocol without apparent complications. The quality of the study was technically difficult. The study quality is limited by the presence of a ventilator. Left Ventricle Normal left ventricular cavity size. There is normal left ventricular wall thickness. The left ventricular systolic function is severely decreased. The visually estimated ejection fraction is between 15-20%. Abnormal diastolic function is noted. Spectral Doppler is indicative of a pseudonormal filling pattern. Elevated filling pressures. Wall Motion Rest Echo Findings The apical anterior, apical inferior, mid anterior, and mid inferior segments are hypokinetic. The inferoseptal wall, the apical septum, and mid anteroseptal segments are akinetic. The apex and basal anteroseptal segments are dyskinetic. Right Ventricle Normal right ventricular cavity size and systolic function. Atria The left atrium is normal in size. The right atrium is normal in size. Aortic Valve Normal aortic valve structure and function. There is no aortic valve stenosis. There is mild to moderate aortic valve regurgitation. Mitral Valve The mitral valve appears normal. There is no mitral valve regurgitation. There is no mitral valve stenosis. Pulmonic Valve The pulmonic valve is likely normal. Tricuspid Valve There is no tricuspid valve regurgitation. Tricuspid regurgitation envelope is inadequate for calculation of right ventricular systolic pressure. Indeterminate right atrial pressure. Great Vessels All visible segments of the aorta are normal in size. The visualized portions of the pulmonary artery and branches are normal. Venous The inferior vena cava is normal in size and collapses less than 50% with inspiration. Pericardium/Pleural There is no evidence of pericardial effusion. Prior Study Comparison Changes noted compared to prior study dated: 01/07/2024. Mild to moderate AR Measurements 2D Linear Measurements IVSd: 0.51 0.6-0.9/0.6-1.0 cm LVIDd: 5.45 3.9-5.3/4.2-5.9 cm LVIDd Index: 3.17 2.4-3.2/2.2-3.1 cm/m2 LVIDs: 4.54 2.0-3.6 cm LVPWd: 0.54 0.7-1.1 cm LA Diam: 3.10 2.7-3.8/3.0-4.0 cm LAIDs Index: 1.80 1.5-2.3 cm/m2 LV Mass: 117.65 67-162/88-224 g LV Mass Index: 68.40 43-95/49-115 g/m2 LVOT Diam: 1.90 3.0+(-)1.3 cm 2D Systolic Function EF 4C: 20.90 >55% EF 2C: 24.20 >55% EF BiP: 19.60 >55% Mitral Valve MV Pk E: 1.11 MV PK A: 1.11 MV Decel Time: 99.00 E/A: 1.00 E'Lateral: 6.20 E'Medial: 3.05 E/E' Med: 36.40 E/E' Lat: 17.90 PHT: 29.00 MVA PHT: 7.59 Decel Bibb: 11.26 Aortic Valve AoV Pk Td: 1.18 AoV Pk Grad: 6.00 IFEOMA: 2.01 AI Pk Td: 3.81 AI Bibb: 4.52 LVOT LVOT Pk Td: 0.89 LVOT Mn Td: 0.61 LVOT VTI: 0.16 LVOT Pk Grad: 3.00 LVOT Mn Grad: 2.00 LVOT Diam: 1.90 LVOT Area: 2.84 Diastolic Function MV Pk E: 1.11 MV Pk A: 1.11 E/A: 1.00 E'Medial: 3.05 E/E' Med: 36.40 E' Laterial: 6.20 E/E' Lat: 17.90 Right Ventricle TAPSE (mm): 18.00 Tricuspid Valve RA Press: 8.00 Great Vessels Aorta Sinus of Valsalva: 3.20 2.0-3.5 cm Ao Asc: 2.80 2.1-3.4 cm Pulmonary Veins Pulm Vein S/D 1.40 Pulmonary Valve PV Pk Td: 0.83 Peak PV Grad: 3.00 Updated in Other Vendor System with Status of Final Nino Clifton MD electronically signed on 12/24/2024 9:08:47 PM with status of Final
[2024-12-24 07:27] LABS: Reflex Lactate? 2 Y
[2024-12-24 09:02] LABS: ~Lactic Acid-LAB USE ONLY 3.3 mmol/L (0.5-2.0)
[2024-12-24 10:03] LABS: Glucose, Whole Blood 224 mg/dL (60-115)
[2024-12-24] MEDS: Chlorhexidine Gluc Oral Rinse 15 ML MOUTHWASH BUCCAL (11:21)
--- NOTE | 2024-12-24 11:29 | MHC.STROKE ---
Met with family in room 252, plant custodian utilized. Pt remains sedated and intubated. Family reports patient felt fairly well over the past couple of days. Daughter reports that while shopping patient c/o sharp head pain for a few minutes and then had no other complaints. This occurred around 1730 Later in the evening patient started to c/o SOB. Family reports that she started to have increased difficulty breathing and they pushed the lifeline button but it was taking too long to have someone call back. Family assisted patient into the car and brought her to the ED. Pt was then immediately intubated upon arrival. A further workup was completed and patient was found to have a Stroke on CT. Stroke Education provided to family. Stroke pamphlet reviewed and given in French version. Risk factors/medical hx/meds reviewed. Family reports hx of hypertension, diabetes and kidney problems . Pt sees providers regularly per family. Denies any smoking or alcohol. Family reports that they take her on walks and engage in physical activity daily. Plan of care reviewed with family. All questions answered. Will continue to assist as needed.
--- NOTE | 2024-12-24 11:43 | PC.RT ---
patient extubated per MD order. positive cuff leak. patient able to speak with weak voice. RA SpO2 94-99%. will continue to monitor.
[2024-12-24 13:29] LABS: Glucose, Whole Blood 305 mg/dL (60-115)
--- NOTE | 2024-12-24 13:42 | P.CNNE_ITS ---
History of Present Illness Data of Consult Service Date: 12/24/24 Primary Care Provider: Unknown Physician HPI Reason for consult: Stroke 84 years old woman with cardiomyopathy with reported ejection fraction of 15-20% was admitted in hospital for respiratory failure and was intubated. A CTA of the head was performed that revealed a finding prompting this consultation. Patient did not volunteer any neurological symptoms. I saw her while she was intubated and then again when she was extubated. Other than slight hoarseness of voice after extubation, family and nursing has not noted any significant issues or stroke-like symptom or finding with her. There was no complaint of headache or any sign of seizure-like episode Review of Systems 2 Review of Systems: Shortness of breath leading to intubation PMFSH Past Medical History Medical History CAD (coronary artery disease) Anxiety High cholesterol Hypertension Active asthma Surgical History Surgical History Stented coronary artery Social History Social History Household Members: Unknown / Unable to assess Housing: Unknown / Unable to assess Patient Tobacco Use Status: Never used Tobacco e-Cigarette/Vaping Use: Never Used Currently Displaying Signs/Symptoms of Drug Intoxication Withdrawal: No Advance Directives: No Advance Directives Information Provided: Yes Do you have a plan to hurt others: No Plan Recently lost weight without trying: Unsure How much weight loss: Unsure Nutrition Risks: No Nutritional Risk Patient : No : No Poor oral hygiene: No Current occupational status: retired and disabled Current occupation: rt hand Meds Allergies Allergy/AdvReac Type Severity Reaction Status Date / Time procaine (From NOVOCAIN) Allergy Severe SWELLING Verified 12/23/24 22:19 LOCALIZED TO INJECTION SITE alirocumab (From Praluent Allergy Mild Itching Verified 12/23/24 22:19 Pen) Aspirin Allergy Unknown rash Uncoded 04/13/22 13:14 full strength Aspirin Allergy Unknown rash Uncoded 04/13/22 13:14 Active Medications: Current Medications Acetaminophen (Acetaminophen 325 Mg Tablet) 650 mg PO Q6H PRN PRN Reason: Fever >101 Aspirin (Aspirin 81 Mg Tab.Chew) 81 mg PO DAILY JN Last Admin: 12/24/24 08:23 Dose: 81 mg Chlorhexidine Gluconate (Chlorhexidine Gluc Oral Rinse 15 Ml Mouthwash) 15 ml BUCCAL TID [facility] Last Admin: 12/24/24 11:21 Dose: 15 ml Dextrose (Dextrose 50 % 25 Gm/50 Ml Syringe) 25 gm IVPUSH Q15M PRN; Protocol PRN Reason: per Hypoglycemia Standing Ord. Glucose (Glucose Gel 15 Gm Gel..Gram.) 15 gm PO Q15M PRN; Protocol PRN Reason: per Hypoglycemia Standing Ord. Heparin Sodium (Porcine) (Heparin Sodium,Porcine 5,000 Unit/Ml Vial) 5,000 unit SUBCUT BID [facility] Last Admin: 12/24/24 08:23 Dose: 5,000 unit Propofol (Diprivan) 1,000 mg in 100 mls @ 0 mls/hr IVCONT .Q0M JN; Protocol Last Titration: 12/24/24 13:30 Dose: Infused Dexmedetomidine HCl (Precedex) 400 mcg in 100 mls @ 0 mls/hr IVCONT .Q0M JN; Protocol Last Titration: 12/24/24 11:42 Dose: 0 mcg/kg/hr, 0 mls/hr Norepinephrine Bitartrate (Levophed) 8 mg in 250 mls @ 0 mls/hr IVCONT .Q0M JN; Protocol Last Titration: 12/24/24 11:01 Dose: 0.14 mcg/kg/min, 19.85 mls/hr Furosemide 200 mg/ Sodium (Chloride) 100 mls @ 5 mls/hr IVCONT .Q20H [facility] Last Admin: 12/24/24 01:20 Dose: 10 mg/hr, 5 mls/hr Cefepime HCl 1 gm/ Sodium (Chloride) 50 mls @ 100 mls/hr IV Q12H [facility] Insulin Human Lispro (Insulin Lispro 100 Unit/Ml 3 Ml Vial) 0 unit SUBCUT Q6H [facility]; Protocol Last Admin: 12/24/24 13:28 Dose: 8 unit Pantoprazole Sodium (Pantoprazole Sodium 40 Mg/10 Ml Vial) 40 mg IVPUSH DAILY@0630 [facility] Last Admin: 12/24/24 06:02 Dose: 40 mg Home Medications ?Medication ?Instructions ?Recorded ?Confirmed ?Last Taken ?Type acetaminophen 325 mg capsule 325 mg PO QID PRN 1 11/26/24 Unknown History albuterol sulfate 4 mg tablet 4 mg PO TID 09/19/2006/10 Unknown History bisacodyl 5 mg tablet,delayed 5 mg PO BEDTIME 09/19/20 11/26/24 Unknown History release tramadol 50 mg tablet 50 mg PO DAILY 09/19/2011/15 Unknown History baclofen 10 mg tablet 5 mg PO BID PRN muscle spasm 04/13/22 11/26/24 Unknown History rosuvastatin 40 mg tablet 40 mg PO DAILY 08/13/2211/15 Unknown History empagliflozin 25 mg tablet 25 mg PO DAILY 11/05/2306/10 Unknown History (Jardiance) fluticasone propionate 50 1 spray intranasal DAILY 11/26/24 Unknown History mcg/actuation nasal spray,suspension (Flonase Allergy Relief) glipizide 5 mg tablet 5 mg PO BID 11/05/23 5 Unknown History ketotifen fumarate 0.025 % (0.035 1 drp ophthalmic (ey e) BID 11/05/23 11/26/24 Unknown History %) eye drops ([facility]) melatonin 5 mg tablet 5 mg PO BEDTIME PRN 11/05/23 11/26/24 Unknown History nitroglycerin 0.4 mg sublingual 0.4 mg sublingual Q5M PRN 11/05/23 11/26/24 Unknown History tablet sertraline 25 mg tablet (Zoloft) 25 mg PO DAILY 11/26/24 Unknown History calcium 600 mg (as 1 tab PO BID 12/24/24 Unkno wn History carbonate)-vitamin D3 5 mcg (200 unit) tablet docusate sodium 100 mg capsule 100 mg PO BID 12/24/24 Unknown History tirzepatide 7.5 mg/0.5 mL 7.5 mg subcut QWEEK 12/24/24 Unknown History subcutaneous pen injector (Pedro) Physical Exam 2 Vital Signs: Vital Signs: Last Vital Signs Temp 99.7 F 12/24/24 12:00 Pulse 99 12/24/24 12:00 Resp 28 H 12/24/24 12:00 BP 148/58 H 12/24/24 12:00 Pulse Ox 94 12/24/24 12:00 O2 Del Method Mechanical Ventil ation 12/24/24 12:00 FiO2 30 12/24/24 12:00 BMI result Body Mass Index 32.5 Neuro: Other: Now she is alert and awake with normal spontaneity and fluency of speech. She has following commands. Face is symmetrical. Visual alas are full. There was no focal arm or leg weakness. Plantars are flexor. Results Labs 12/24/24 04:55 12/24/24 04:55 Labs: Short CBC 12/23/24 12/24/24 Range/Units 22:01 04:55 WBC 16.9 H 13.0 H (4.8-10.8) X10*3/uL Hgb 13.2 10.6 L (12.0-16.0) g/dl Hct 42.2 32.7 L D (37.0-47.0) % Plt Count 280 253 (160-400) X10*3/uL BMP 12/23/24 12/24/24 22:01 04:55 Sodium 142 141 Potassium 3.9 D 4.6 Chloride 111 H 104 Carbon Dioxide 15 L 22 BUN 20 H 23 H Creatinine 1.36 1.49 H Calcium 9.6 9.2 Liver Function 12/23/24 12/24/24 Range/Units 22:01 04:55 Total Bilirubin 0.4 1.0 (0.0-1.0) mg/dL AST 31 92 H (5-31) U/L ALT 28 68 H (0-31) U/L Alkaline Phosphatase 113 89 (39-117) U/L Albumin 4.4 4.8 (3.5-5.0) g/dL Noncontrast head CT revealed a small cortical left temporal subacute ischemic infarction Assessment and Plan (1) Embolic cerebral infarction: Qualifiers: Precerebral and cerebral artery: middle cerebral artery Laterality of affected vessel: left Qualified Code(s): I63.412 - Cerebral infarction due to embolism of left middle cerebral artery Status: Acute 84 years old woman with severe cardiomyopathy was admitted with respiratory failure and a head CT done revealed a cortical subacute embolic looking ischemic infarction. Likely etiologies cardiac source of embolism. Carotid ultrasound was okay. My recommendation is lifelong anticoagulation Procedures Date of Service Date of Service: 12/24/24
--- NOTE | 2024-12-24 14:28 | MHC.CM.PN ---
Pt is presently on ventilatory support in ICU: Information obtained from EMR and family. 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 Family not aware of pt's medical issues: D/C planning ongoing and will be dependent on pt's functional abilities once medically stable. Referred back to [facility] at this time. IMM in chart, No HCP found. CM to follow.
--- NOTE | 2024-12-24 16:57 | PHA.MEDREC ---
Addendum entered by Porfirio Vanessa PharmD 12/24/24 17:06: reviewed Original Note: Pharmacy Consult ? Medication Reconciliation Pharmacy has completed the medication reconciliation. Spoke to patient daughter at bedside to confirm med list. patient daughter had a list of patients medications with her. Daughter confirmed Mounjato 7.5 mg every Saturday last dose 12/18/24, Jardiance was changes to 10 mg from 25 mg. Patient last had her medications yesterday.
[2024-12-24 17:27] LABS: Glucose, Whole Blood 198 mg/dL (60-115)
--- NOTE | 2024-12-24 18:26 | PC.NURSE ---
Addendum entered by Tiana Griffith RN 12/24/24 18:46: 16:40 Lasix gtt paused per MD. Family discussion with pt daughter and water manager regarding patient history: DM, HTN, no cancer history, no smoking and no ETOH history. Original Note: Assume care of patient 07. 729 Patient ventilator settings changed to PSV 15/PEEP 5/FiO2 30%. Patient tolerating well with volumes 250-300. Q1HR neuro checks done with patient on Propofol gtt sedation. This RN communicated with Stroke RN. Approx 08:30 Dr. Clements Neurologist to bedside. Per MD Propofol gtt paused for neuro check. Approx 08:35 Patient sitting up in bed, agitated RASS 2+, attempting to pull ETT. VILLEGAS. Propofol gtt resumed pending daily rounds and goals of care discussion with ICU MD. Approx 11:00 Precedex gtt started per MD, plan to titrate off Propofol and assess for readiness for extubation. RT changed vent settings to PSV 10/PEEP 5/FiO2 30%. 11:30 Precedex gtt @0.4, Propofol gtt off. Patient able to open eyes, lift head off pillow, squeezes hands to follow commands. 11:40 Patient extubated to room air. See shift assessments and Neuro assessments. Patient has no neuro defecits, soft but clear speech. Patient NPO awaiting Speech therapy swallow eval 24 hours after extubation. Pt tolerating sponge swabs by mouth. High fall precautions in place, patient repositioned Q2HR.
[2024-12-24 23:31] LABS: Glucose, Whole Blood 212 mg/dL (60-115)
[2024-12-25] VITALS (22 sets, daily range): BP systolic 104–162; BP diastolic 50–94; PULSE 90–107; RESP 18–28; TEMP 36.1–37.9; O2SAT 92–98; BMI 30.9
--- NOTE | 2024-12-25 05:25 | PC.NURSE ---
CARE ASSUMED 7PM..FAMILY AT BEDSIDE..ALERT...ORIENTED TO PERSON/PLACE..VAGUE TO RECENT EVENTS..SPEECH CLEAR..VILLEGAS WITH GOOD STRENGTH SPONTANEOUSLY AND TO COMMAND..REPOSITIONS SELF IN BED..DENIES PAIN/HEADACHE OR VISUAL DIFFICULTY...LEVOPHED DRIP INITIALLY 0.04 MCG/KG/MIN...ICU PA STATED SBP GOAL 120-140 D/T STROKE...LEVOPHED TITRATED TO 0.07 MCG/KG/MIN WITH SBP 120'S-140'S...S.TACH HR 90'S-100'S..RARE PVC...PER SHIFT REPORT LASIX DRIP PREVIOUSLY D/C'D BY PROVIDER APPROX 4:30PM...PANTOJA WITH DECREASED OUTPUT OVERNIGHT...FLUID BALANCE > (-) 6 LITERS...PROVIDER AWARE..AM LABS DRAWN/PENDING
[2024-12-25 05:37] LABS: MANUAL DIFF FLAG NO
[2024-12-25 05:38] LABS: Hematocrit 33.2 % (37.0-47.0); Hemoglobin 11.3 g/dl (12.0-16.0); Imm Gran Abs Auto 0.09 X10*3/uL (0.00-0.03); Imm Gran Pct Auto 0.6 % (0.0-0.4); Lymphocytes Absolute Auto 2.5 X10*3/uL (1.2-4.9); Mean Corpuscular HGB Conc 34.0 g/dl (31.0-35.0); Mean Corpuscular Hemoglobin 29.3 pg (27.0-33.0); Mean Corpuscular Volume 86.0 fL (80.0-98.0); NRBC Abs Auto 0.000 X10*3/uL (0.0-0.012); NRBC Pct Auto 0.0 /100WBC (0.0-0.2); Platelet Count 259 X10*3/uL (160-400); Red Blood Count 3.86 X10*6/uL (4.20-5.50); White Blood Count 15.5 X10*3/uL (4.8-10.8)
[2024-12-25 06:09] LABS: Alanine Aminotransferase 41 U/L (0-31); Albumin Level 4.4 g/dL (3.5-5.0); Alkaline Phosphatase 100 U/L (39-117); Anion Gap 18 (12-20); Aspartate Amino Transferase 31 U/L (5-31); Blood Urea Nitrogen 27 mg/dL (9-16); Calcium 9.0 mg/dL (8.4-10.2); Carbon Dioxide 26 mmol/L (22-29); Chloride 102 mmol/L (96-108); Creatinine Clr Calc Pharmacy 19.8; Estimated Glomerular Filt Rate 25; Magnesium 1.8 mg/dL (1.6-2.6); Potassium 2.7 mmol/L (3.3-5.1); Sodium 143 mmol/L (135-145); Total Protein 7.4 g/dL (6.5-8.0)
[2024-12-25 06:21] LABS: Glucose, Whole Blood 189 mg/dL (60-115)
[2024-12-25] MEDS: Potassium Chloride/H20 40 MEQ/100 ML PIGGYBACK 100 MEQ IV (06:29)
--- NOTE | 2024-12-25 08:27 | PM.CCPN ---
Subjective Subjective Date of Service: 12/25/24 Interval History: Extubated yesterday, tolerating liberation from ventilator well. No significant neuro deficit, patient alert and oriented Blood pressure is under control Critical Care Time (minutes): 35 Physical Exam Vital Signs: Vital Signs: Last Vital Signs Temp 99.1 F 12/25/24 07:00 Pulse 98 12/25/24 07:00 Resp 24 H 12/25/24 07:00 BP 141/66 H 12/25/24 07:00 Pulse Ox 96 12/25/24 07:00 O2 Del Method Room Air 12/25/24 07:00 O2 Flow Rate 1 12/25/24 02:00 FiO2 30 12/24/24 12:00 BMI result Body Mass Index 30.9 General: Elderly lady, comfortable not in any acute distress sitting in the bed Nutritional Appearance: well nourished and overweight Eyes: appearance normal, both eyes and all related structures; Alignment and Position: alignment normal and position normal Neck: No lymphadenopathy, no thyromegaly Resp: bilateral air entry equal, occasional added sounds present Cardio: Regular rate, regular rhythm; Heart sounds: S1 normal heart sound present and S2 normal heart sound present GI: soft, nontender, no guarding, no hepatosplenomegaly : bladder normal to inspection, bladder normal to palpation, no renal angle tenderness Skin: no rashes or lesions noted and elasticity normal Neuro: oriented to person, oriented to place, oriented to time and moves all extremities Objective Data Labs 12/25/24 04:43 12/25/24 04:43 Labs: Laboratory Results - last 24 hr 12/23/24 12/24/24 12/24/24 21:46 08:36 13:26 WBC RBC Hgb Hct MCV MCH MCHC RDW Plt Count MPV Immature Gran % (Auto) Neut % (Auto) Lymph % (Auto) [place] % (Auto) Eos % (Auto) Baso % (Auto) Lymph # (Auto) [place] # (Auto) Eos # (Auto) Baso # (Auto) Abs Immat Gran (auto) Absolute Neuts (auto) Absolute Nucleated RBC Nucleated RBC % (auto) Sodium Potassium Chloride Carbon Dioxide Anion Gap BUN Creatinine Estim Creat Clear Calc Estimated GFR POC Glucose 224 H 305 H Random Glucose Lactic Acid F/U @ 4Hr 3.3 H* Calcium Phosphorus Magnesium Total Bilirubin AST ALT Alkaline Phosphatase Total Protein Albumin 12/24/24 12/24/24 12/25/24 17:22 23:27 04:43 WBC 15.5 H RBC 3.86 L Hgb 11.3 L Hct 33.2 L MCV 86.0 MCH 29.3 MCHC 34.0 RDW 12.8 Plt Count 259 MPV 12.1 Immature Gran % (Auto) 0.6 H Neut % (Auto) 74.3 H Lymph % (Auto) 16.3 L [place] % (Auto) 7.9 Eos % (Auto) 0.6 Baso % (Auto) 0.3 Lymph # (Auto) 2.5 [place] # (Auto) 1.2 Eos # (Auto) 0.1 Baso # (Auto) 0.0 Abs Immat Gran (auto) 0.09 H Absolute Neuts (auto) 11.5 H Absolute Nucleated RBC 0.000 Nucleated RBC % (auto) 0.0 Sodium 143 Potassium 2.7 L* D Chloride 102 Carbon Dioxide 26 Anion Gap 18 BUN 27 H Creatinine 1.93 H Estim Creat Clear Calc 19.8 Estimated GFR 25 POC Glucose 198 H 212 H Random Glucose 194 H Lactic Acid F/U @ 4Hr Calcium 9.0 Phosphorus 3.3 Magnesium 1.8 Total Bilirubin 1.2 H AST 31 ALT 41 H Alkaline Phosphatase 100 Total Protein 7.4 Albumin 4.4 12/25/24 06:16 WBC RBC Hgb Hct MCV MCH MCHC RDW Plt Count MPV Immature Gran % (Auto) Neut % (Auto) Lymph % (Auto) [place] % (Auto) Eos % (Auto) Baso % (Auto) Lymph # (Auto) [place] # (Auto) Eos # (Auto) Baso # (Auto) Abs Immat Gran (auto) Absolute Neuts (auto) Absolute Nucleated RBC Nucleated RBC % (auto) Sodium Potassium Chloride Carbon Dioxide Anion Gap BUN Creatinine Estim Creat Clear Calc Estimated GFR POC Glucose 189 H Random Glucose Lactic Acid F/U @ 4Hr Calcium Phosphorus Magnesium Total Bilirubin AST ALT Alkaline Phosphatase Total Protein Albumin Microbiology Microbiology Results: Microbiology 12/23/24 22:11 Blood - Venous Blood Culture - Preliminary No growth after 24 hours. 12/23/24 22:11 Blood - Venous Blood Culture - Preliminary No growth after 24 hours. Progress Note: A&P Assessment and plan (1) Congestive heart failure: Status: Acute (2) CAD (coronary artery disease): Status: Acute (3) Embolic cerebral infarction: Status: Acute (4) Acute hypoxic respiratory failure: Status: Acute Plan Acute ischemic stroke: Patient presented with sudden onset neurological status change along with hypertension possibly suggestive of acute ischemic stroke. CT of the head suggestive of acute to subacute left temporal infarct, no acute findings on carotid doppler. Neurology thinks this is embolic advised lifelong anticoagulation. No significant neuro deficit Neurology on board, continue aspirin, statin will add apixaban. Ischemic cardiomyopathy: Patient has a history of underlying ischemic cardiomyopathy with EF around 15% She is 4litres fluid balance net negative We will hold off on her home medications Entresto, carvedilol given low blood pressures and need for permissive hypertension in the setting of acute ischemic stroke. Hypertensive urgency: Patient presented with hypertensive urgency possibly secondary to stroke, later on after positive pressure ventilation she was hypotensive needing Levophed support. Currently her blood pressures are stable, she is on Levophed support to allow permissive hypertension for the 1st 24 hours. We will taper Levophed off as tolerated Acute hypokalemia: Magnesium levels normal Possibly secondary to diuresis, we will replace as per protocol Diabetes mellitus: On sliding scale insulin On glipizide, SGLT2 inhibitors at home Lines: will take off left Femoral TLC when off of levophed peripherals Prophylaxis: apixaban, pantoprazole Quality Stroke Does the patient have a stroke diagnosis?: No VTE Prior VTE?: No VTE Risk Level:: Medical - moderate - high VTE Device Contraindication: N/A - Device Ordered VTE Drug Contraindication: N/A - Med Ordered
[2024-12-25] MEDS: Potassium Chloride Packet 20 MEQ PACKET 40 MEQ PO (08:54)
[2024-12-25 13:22] LABS: Glucose, Whole Blood 282 mg/dL (60-115)
[2024-12-25 16:22] LABS: Glucose, Whole Blood 177 mg/dL (60-115)
[2024-12-25 21:26] LABS: Glucose, Whole Blood 248 mg/dL (60-115)
[2024-12-26] VITALS (7 sets, daily range): BP systolic 107–163; BP diastolic 58–76; PULSE 95–103; RESP 16–18; TEMP 36.1–36.6; O2SAT 94–99
[2024-12-26 07:28] LABS: Glucose, Whole Blood 198 mg/dL (60-115)
--- NOTE | 2024-12-26 08:16 | HO.PM.IMPN ---
Subjective Subjective Date of Service: 12/26/24 Interval History: Seen and examined this morning Interval history: Comfortable, no complaints. No dyspnea. Blood pressures stable Review of Systems Review of Systems: Yes all other systems are reviewed and are negative Physical Exam Vital Signs: Vital Signs: Last Vital Signs Temp 97.8 F 12/26/24 07:20 Pulse 97 12/26/24 07:20 Resp 16 12/26/24 07:20 BP 129/60 12/26/24 07:20 Pulse Ox 96 12/26/24 07:20 O2 Del Method Room Air 12/26/24 07:20 O2 Flow Rate 1 12/25/24 02:00 FiO2 30 12/24/24 12:00 BMI result Body Mass Index 30.9 EXAM: Constitutional - Awake and Alert, No apparent distress Eyes - PERRL Cardiovascular - S1S2, RRR, No edema Respiratory - Normal lung expansion, Normal respiratory effort, No respiratory distress, CTA bilaterally Extremities - no calf tenderness bilaterally, no swelling Skin - Warm/Dry Neurological - Alert & oriented x3, moving all extremities Psychological - Appropriate affect Objective Data Active Medications Acetaminophen (Acetaminophen 325 Mg Tablet) 650 mg PO Q6H PRN PRN Reason: Fever >101 Apixaban (Apixaban 2.5 Mg Tablet) 2.5 mg PO BID [facility] Last Admin: 12/25/24 21:44 Dose: 2.5 mg Documented By: RICKIE Aspirin (Aspirin 81 Mg Tab.Chew) 81 mg PO DAILY [facility] Last Admin: 12/25/24 08:55 Dose: 81 mg Documented By: BAUDILIO Atorvastatin Calcium (Atorvastatin Calcium 80 Mg Tablet) 80 mg PO DAILY [facility] Last Admin: 12/25/24 10:12 Dose: 80 mg Documented By: VERONICA Baclofen (Baclofen 10 Mg Tablet) 10 mg PO BID PRN PRN Reason: Muscle Spasm Dextrose (Dextrose 50 % 25 Gm/50 Ml Syringe) 25 gm IVPUSH Q15M PRN; Protocol PRN Reason: per Hypoglycemia Standing Ord. Ezetimibe (Ezetimibe 10 Mg Tablet) 10 mg PO DAILY [facility] Last Admin: 12/25/24 10:12 Dose: 10 mg Documented By: VERONICA Glucose (Glucose Gel 15 Gm Gel..Gram.) 15 gm PO Q15M PRN; Protocol PRN Reason: per Hypoglycemia Standing Ord. Insulin Human Lispro (Insulin Lispro 100 Unit/Ml 3 Ml Vial) 0 unit SUBCUT QIDACHS [facility]; Protocol Last Admin: 12/25/24 21:44 Dose: 4 unit Documented By: RICKIE Omeprazole (Omeprazole 20 Mg Capsule.Dr) 20 mg PO DAILY@0630 [facility] Last Admin: 12/26/24 06:39 Dose: 20 mg Documented By: RICKIE Sertraline HCl (Sertraline Hcl 25 Mg Tablet) 25 mg PO DAILY [facility] Last Admin: 12/25/24 10:12 Dose: 25 mg Documented By: VERONICA Tramadol HCl (Tramadol Hcl 50 Mg Tablet) 50 mg PO DAILY PRN PRN Reason: Pain, Severe Labs 12/25/24 04:43 12/25/24 04:43 Labs: Laboratory Results - last 24 hr 12/25/24 12/25/24 12/25/24 13:18 16:10 21:19 POC Glucose 282 H 177 H 248 H 12/26/24 07:23 POC Glucose 198 H Microbiology Microbiology Results: Microbiology 12/23/24 22:11 Blood Culture - Preliminary Blood - Venous No growth after 48 hours. 12/23/24 22:11 Blood Culture - Preliminary Blood - Venous No growth after 48 hours. Assessment and Plan (1) Embolic cerebral infarction: Status: Acute (2) Ischemic cardiomyopathy: Status: Acute (3) Congestive heart failure: Status: Acute (4) Acute hypoxic respiratory failure: Status: Acute Plan 84-year-old female with history of ischemic cardiomyopathy, coronary artery disease, hypertension, type 2 diabetes, hyperlipidemia admitted to the ICU acute ischemic stroke likely embolic, CHF exacerbation with acute hypoxemic respiratory failure, hypertensive urgency, acute metabolic acidosis and lactic acidosis with sepsis due to superimposed pneumonia. She had presented to the hospital due to sudden onset headache, was reportedly cyanotic and diaphoretic on arrival with oxygen saturations 60-70% on room air. She was not given 30cc/kg bolus due to volume overload. She did require intubation due to significant respiratory distress and was extubated 12/24. She was diuresed wtih IV lasix drip and given levophed for blood pressure support given diuresis while on positive pressure ventilation. Neurology was following in ICU. [facility] 12/25. Acute ischemic CVA Presented with sudden onset neurological status change/confusion as well as hypertensive urgency thought to possibly suggestive of ischemic stroke CT head showed probable acute to subacute left temporal infarct. Carotid Doppler negative for acute changes Neurology consulted-likely embolic and needs lifelong anticoagulation Neuro checks Resume aspirin, statin. Apixaban added PT eval Ischemic cardiomyopathy with acute hypoxemic respiratory failure Required intubation due to respiratory distress, extubated 12/24, now on room air Reduced LV systolic function with EF around 15% -4L following lasix drip in ICU Continue holding Entresto and Coreg due to low normal blood pressures, resume as bp allows Monitor I&O Cardiac diet Hypertensive urgency r/t CVA Hold Coreg and Entresto due to low normal blood pressures Monitor blood pressures closely Acute hypokalemia Likely secondary to diuresis Replete and monitor [id number] type 2 diabetes Sliding scale insulin POC glucose, diabetic diet DVT prophylaxis-Eliquis Full code Patient requires ongoing inpatient stay awaiting PT eval and probable placement Quality Stroke Does the patient have a stroke diagnosis?: No VTE Prior VTE?: No VTE Risk Level:: Medical - moderate - high VTE Device Contraindication: N/A - Device Ordered VTE Drug Contraindication: N/A - Med Ordered
[2024-12-26 11:36] LABS: Glucose, Whole Blood 265 mg/dL (60-115)
--- NOTE | 2024-12-26 14:28 | MHC.CM.PN ---
PT is recommending STR; CM will continue to follow.
[2024-12-26 16:12] LABS: Glucose, Whole Blood 235 mg/dL (60-115)
[2024-12-26 20:11] LABS: Glucose, Whole Blood 259 mg/dL (60-115)
[2024-12-27 03:27] VITALS: BP 126/60; PULSE 93; RESP 16; TEMP 36.4; O2SAT 97
[2024-12-27 07:02] LABS: MANUAL DIFF FLAG NO
[2024-12-27 07:06] LABS: Hematocrit 34.1 % (37.0-47.0); Hemoglobin 11.5 g/dl (12.0-16.0); Imm Gran Abs Auto 0.07 X10*3/uL (0.00-0.03); Imm Gran Pct Auto 0.5 % (0.0-0.4); Lymphocytes Absolute Auto 2.7 X10*3/uL (1.2-4.9); Mean Corpuscular HGB Conc 33.7 g/dl (31.0-35.0); Mean Corpuscular Hemoglobin 29.3 pg (27.0-33.0); Mean Corpuscular Volume 87.0 fL (80.0-98.0); NRBC Abs Auto 0.000 X10*3/uL (0.0-0.012); NRBC Pct Auto 0.0 /100WBC (0.0-0.2); Platelet Count 257 X10*3/uL (160-400); Red Blood Count 3.92 X10*6/uL (4.20-5.50); White Blood Count 12.9 X10*3/uL (4.8-10.8)
[2024-12-27 07:19] VITALS: BP 119/57; PULSE 89; RESP 18; TEMP 36.2; O2SAT 98
[2024-12-27 07:25] LABS: Anion Gap 14 (12-20); Blood Urea Nitrogen 32 mg/dL (9-16); Calcium 8.7 mg/dL (8.4-10.2); Carbon Dioxide 21 mmol/L (22-29); Chloride 107 mmol/L (96-108); Creatinine Clr Calc Pharmacy 24.4; Estimated Glomerular Filt Rate 32; Potassium 4.0 mmol/L (3.3-5.1); Sodium 138 mmol/L (135-145)
[2024-12-27 07:34] LABS: Glucose, Whole Blood 193 mg/dL (60-115)
--- NOTE | 2024-12-27 10:27 | P.PNIM_ITS ---
Subjective Subjective Date of Service: 12/27/24 Interval History: Seen and examined this morning Interval history: No new complaint, vitals stable, Review of Systems Review of Systems: Yes all other systems are reviewed and are negative Physical Exam 2 Vital Signs: Vital Signs: Last Vital Signs Temp 97.2 F 12/27/24 07:19 Pulse 89 12/27/24 07:19 Resp 18 12/27/24 07:19 BP 119/57 L 12/27/24 07:19 Pulse Ox 98 12/27/24 07:19 O2 Del Method Room Air 12/27/24 07:19 O2 Flow Rate 1 12/25/24 02:00 FiO2 30 12/24/24 12:00 BMI result Body Mass Index 30.9 EXAM: Constitutional - Awake and Alert, No apparent distress Eyes - PERRL Cardiovascular - S1S2, RRR, No edema Respiratory - Normal lung expansion, Normal respiratory effort, No respiratory distress, CTA bilaterally Extremities - no calf tenderness bilaterally, no swelling Skin - Warm/Dry Neurological - Alert & oriented x3, moving all extremities Psychological - Appropriate affect Objective Data Active Medications Acetaminophen (Acetaminophen 325 Mg Tablet) 650 mg PO Q6H PRN PRN Reason: Fever >101 Last Admin: 12/26/24 20:28 Dose: 650 mg Documented By: RICKIE Apixaban (Apixaban 2.5 Mg Tablet) 2.5 mg PO BID [facility] Last Admin: 12/27/24 08:10 Dose: 2.5 mg Documented By: RONEY Aspirin (Aspirin 81 Mg Tab.Chew) 81 mg PO DAILY [facility] Last Admin: 12/27/24 08:10 Dose: 81 mg Documented By: RONEY Atorvastatin Calcium (Atorvastatin Calcium 80 Mg Tablet) 80 mg PO DAILY [facility] Last Admin: 12/27/24 08:10 Dose: 80 mg Documented By: RONEY Baclofen (Baclofen 10 Mg Tablet) 10 mg PO BID PRN PRN Reason: Muscle Spasm Dextrose (Dextrose 50 % 25 Gm/50 Ml Syringe) 25 gm IVPUSH Q15M PRN; Protocol PRN Reason: per Hypoglycemia Standing Ord. Ezetimibe (Ezetimibe 10 Mg Tablet) 10 mg PO DAILY [facility] Last Admin: 12/27/24 08:10 Dose: 10 mg Documented By: RONEY Glucose (Glucose Gel 15 Gm Gel..Gram.) 15 gm PO Q15M PRN; Protocol PRN Reason: per Hypoglycemia Standing Ord. Insulin Human Lispro (Insulin Lispro 100 Unit/Ml 3 Ml Vial) 0 unit SUBCUT QIDACHS [facility]; Protocol Last Admin: 12/27/24 08:10 Dose: 2 unit Documented By: RONEY Omeprazole (Omeprazole 20 Mg Capsule.Dr) 20 mg PO DAILY@0630 [facility] Last Admin: 12/27/24 07:19 Dose: 20 mg Documented By: RICKIE Sertraline HCl (Sertraline Hcl 25 Mg Tablet) 25 mg PO DAILY [facility] Last Admin: 12/27/24 08:10 Dose: 25 mg Documented By: RONEY Tramadol HCl (Tramadol Hcl 50 Mg Tablet) 50 mg PO DAILY PRN PRN Reason: Pain, Severe Labs 12/27/24 06:52 12/27/24 06:52 Labs: Laboratory Results - last 24 hr 12/26/24 12/26/24 12/26/24 11:29 16:05 19:46 MCV MCH MCHC RDW Plt Count MPV Immature Gran % (Auto) Neut % (Auto) Lymph % (Auto) Pettis % (Auto) Eos % (Auto) Baso % (Auto) Lymph # (Auto) Pettis # (Auto) Eos # (Auto) Baso # (Auto) Abs Immat Gran (auto) Absolute Neuts (auto) Absolute Nucleated RBC Nucleated RBC % (auto) Anion Gap Estim Creat Clear Calc Estimated GFR POC Glucose 265 H 235 H 259 H Random Glucose Calcium 12/27/24 12/27/24 06:52 07:26 MCV 87.0 MCH 29.3 MCHC 33.7 RDW 12.4 Plt Count 257 MPV 11.3 Immature Gran % (Auto) 0.5 H Neut % (Auto) 67.6 Lymph % (Auto) 20.5 Pettis % (Auto) 8.8 Eos % (Auto) 2.2 Baso % (Auto) 0.4 Lymph # (Auto) 2.7 Pettis # (Auto) 1.1 Eos # (Auto) 0.3 Baso # (Auto) 0.1 Abs Immat Gran (auto) 0.07 H Absolute Neuts (auto) 8.7 H Absolute Nucleated RBC 0.000 Nucleated RBC % (auto) 0.0 Anion Gap 14 Estim Creat Clear Calc 24.4 Estimated GFR 32 POC Glucose 193 H Random Glucose 192 H Calcium 8.7 Microbiology Microbiology Results: Microbiology 12/23/24 22:11 Blood Culture - Preliminary Blood - Venous No growth after 48 hours. 12/23/24 22:11 Blood Culture - Preliminary Blood - Venous No growth after 48 hours. Assessment and Plan (1) Embolic cerebral infarction: Status: Acute (2) Ischemic cardiomyopathy: Status: Acute (3) Congestive heart failure: Status: Acute (4) Acute hypoxic respiratory failure: Status: Acute Plan 84-year-old female with history of ischemic cardiomyopathy, coronary artery disease, hypertension, type 2 diabetes, hyperlipidemia admitted to the ICU acute ischemic stroke likely embolic, CHF exacerbation with acute hypoxemic respiratory failure, hypertensive urgency, acute metabolic acidosis and lactic acidosis with sepsis due to superimposed pneumonia. She had presented to the hospital due to sudden onset headache, was reportedly cyanotic and diaphoretic on arrival with oxygen saturations 60-70% on room air. She was not given 30cc/kg bolus due to volume overload. She did require intubation due to significant respiratory distress and was extubated 12/24. She was diuresed wtih IV lasix drip and given levophed for blood pressure support given diuresis while on positive pressure ventilation. Neurology was following in ICU. Downgraded to med [facility] 12/25. Acute ischemic CVA Presented with sudden onset neurological status change/confusion as well as hypertensive urgency thought to possibly suggestive of ischemic stroke CT head showed probable acute to subacute left temporal infarct. Carotid Doppler negative for acute changes Neurology consulted-likely embolic and needs lifelong anticoagulation Neuro checks continue aspirin, statin. Apixaban added PT eval tommorrow, last assessment was not completed d/t increased HR Ischemic cardiomyopathy with acute hypoxemic respiratory failure Required intubation due to respiratory distress, extubated 12/24, now on room air Reduced LV systolic function with EF around 15% -4L following lasix drip in ICU Continue holding Entresto and Coreg due to low normal blood pressures, resume as bp allows Monitor I&O Cardiac diet Hypertensive urgency r/t CVA Hold Coreg and Entresto due to low normal blood pressures Monitor blood pressures closely Acute hypokalemia Likely secondary to diuresis Replete and monitor Hft-[id number] type 2 diabetes Sliding scale insulin POC glucose, diabetic diet DVT prophylaxis-Eliquis Full code Patient requires ongoing inpatient stay awaiting PT eval and probable placement Quality Stroke Does the patient have a stroke diagnosis?: No VTE Prior VTE?: No VTE Risk Level:: Medical - moderate - high VTE Device Contraindication: N/A - Device Ordered VTE Drug Contraindication: N/A - Med Ordered
[2024-12-27 11:13] VITALS: BP 111/76; PULSE 79; RESP 16; TEMP 36.1; O2SAT 98
[2024-12-27 11:32] LABS: Glucose, Whole Blood 255 mg/dL (60-115)
[2024-12-27 15:14] VITALS: BP 142/72; PULSE 92; RESP 18; TEMP 36.2; O2SAT 97
[2024-12-27 15:58] LABS: Glucose, Whole Blood 257 mg/dL (60-115)
[2024-12-27 19:48] VITALS: BP 116/57; PULSE 83; RESP 16; TEMP 36.7; O2SAT 97
[2024-12-27 20:49] LABS: Glucose, Whole Blood 235 mg/dL (60-115)
[2024-12-28] VITALS: BP 133/62; PULSE 90; RESP 16; TEMP 36.7; O2SAT 98
[2024-12-28 04:00] VITALS: BP 127/60; PULSE 97; RESP 16; TEMP 36.7; O2SAT 98
[2024-12-28 07:03] VITALS: BP 126/62; PULSE 96; RESP 18; TEMP 36.9; O2SAT 97
[2024-12-28 07:09] LABS: Glucose, Whole Blood 191 mg/dL (60-115)
--- NOTE | 2024-12-28 10:53 | MHC.CM.PN ---
Addendum entered by Laury Hodgson 12/28/24 15:40: PT CLEARED TO DC HOME TODAY WITH [facility] Original Note: CM MET WITH PT AND FAMILY WITH A AUCTION ASSISTANT THEY ARE ARE STR WAS RECOMMENDED, HOWEVER PT IS DECLINING THEY ARE REQUESTING PT AT HOME [facility] REFERRAL MADE
[2024-12-28 11:15] VITALS: BP 123/61; PULSE 87; RESP 18; TEMP 36.1; O2SAT 96
[2024-12-28 11:18] LABS: Glucose, Whole Blood 250 mg/dL (60-115)
[2024-12-28 14:47] VITALS: BP 123/61; PULSE 87; O2SAT 96
--- NOTE | 2024-12-28 15:11 | PM.DS ---
DS: Providers Provider Date of Service: 12/28/24 Date of admission: 12/23/24 23:21 Date of discharge: 12/28/24 Primary care physician: Unknown Physician Consults: 12/24/24 09:30 Consult to Neurology Routine Consulting Provider: [facility] Reason for consultation: acute stroke Has provider been notified: Yes DS: Diagnosis Discharge Diagnosis (1) Embolic cerebral infarction: Status: Acute (2) Ischemic cardiomyopathy: Status: Acute (3) Congestive heart failure: Status: Acute (4) Acute hypoxic respiratory failure: Status: Acute DS: Summary Hospital Course Hospital Course: admission hpi 84-year-old female with history of ischemic cardiomyopathy, coronary artery disease, hypertension, type 2 diabetes, hyperlipidemia admitted to the ICU on 12/24with acute ischemic stroke likely embolic, CHF exacerbation with acute hypoxemic respiratory failure, hypertensive urgency, acute metabolic acidosis and lactic acidosis with sepsis due to superimposed pneumonia. She had presented to the hospital due to sudden onset headache, was reportedly cyanotic and diaphoretic on arrival with oxygen saturations 60-70% on room air. She was not given 30cc/kg bolus due to volume overload. She did require intubation due to significant respiratory distress and was extubated 12/24. She was diuresed wtih IV lasix drip and given levophed for blood pressure support given diuresis while on positive pressure ventilation. Neurology was following in ICU. Downgraded to [facility] 12/25. Acute ischemic CVA Presented with sudden onset neurological status change/confusion as well as hypertensive urgency thought to possibly suggestive of ischemic stroke CT head showed probable acute to subacute left temporal infarct. Carotid Doppler was negative for acute changes. Neuruology was consulted and recommended lifelong anticoagulation for likely embolic strokes and therefore has been started on eliquis. PT has been following, initially recommended for STR but given signficant improvment is now recommended for home with services Ischemic cardiomyopathy with acute hypoxemic respiratory failure which required intubation due to respiratory distress, extubated 12/24, now on room Echo showed Reduced LV systolic function with EF around 15%. She is negative 4L following lasix drip in ICU. Entrestoi and Coreg were on hold due to low BP but will restart Hypertensive urgency initially but then BP dropped and required levo Hold Coreg and Entresto due to low normal blood pressures Monitor blood pressures closely Acute hypOkalemia, resolved. DM resume jardiance, glipizide and ozempic Time Attestation Discharge Coordination Time (in mins): 45 Quality: Safe Use of Opioids Does Pt have an Active Cancer Diagnosis on the Problem List?: No Quality: Stroke Does the patient have a stroke diagnosis?: Yes Reason for No Anti-thrombotic at DC: N/A - Med Ordered Reason for No Anticoagulant at DC: N/A - Med Ordered Reason Not Initiating IV-Tpa: Contraindicated Reason for No Anti-thrombotic by Day Two: N/A - Med Ordered Reason for No Statin at DC: N/A - Med Ordered Physical Exam Vital Signs: Vital Signs: Last Vital Signs Temp 97.0 F 12/28/24 11:15 Pulse 87 12/28/24 14:47 Resp 18 12/28/24 11:15 BP 123/61 12/28/24 14:47 Pulse Ox 96 12/28/24 14:47 O2 Del Method Room Air 12/28/24 11:15 O2 Flow Rate 1 12/25/24 02:00 FiO2 30 12/24/24 12:00 BMI result Body Mass Index 30.9 DS: Data Data Completed and Pending Labs on day of discharge: Laboratory Results - last 24 hr 12/27/24 12/27/24 12/28/24 15:53 20:34 07:05 POC Glucose 257 H 235 H 191 H 12/28/24 11:15 POC Glucose 250 H Preliminary micro results at discharge 12/23/24 22:11 Blood Culture - Preliminary Blood - Venous No growth after 48 hours. 12/23/24 22:11 Blood Culture - Preliminary Blood - Venous No growth after 48 hours. Discharge Plan Discharge Anticipated Discharge Date/Time: 12/28/24 15:09 Patient Disposition: Home Health Service Discharge Diagnosis: Stroke Referrals: [facility] [Outside] - 1 Week Physician,Unknown J [Primary Care Provider, Medical] - 1 Week Discharge Medications: New Eliquis 2.5 mg Tablet 2.5 mg PO BID Qty: 180 0RF Continued nitroglycerin 0.4 mg tablet, sublingual 0.4 mg sublingual Q5M PRN (Reason: Chest Pain) Rx Instructions: do not exceed 3 doses per episode glipizide 5 mg tablet 5 mg PO BID sertraline [Zoloft] 25 mg tablet 25 mg PO DAILY fluticasone propionate [Flonase Allergy Relief] 50 mcg/actuation spray,suspension 1 spray intranasal DAILY PRN (Reason: Allergy Symptoms) Rx Instructions: administer into each nostril melatonin 5 mg tablet 5 mg PO BEDTIME PRN (Reason: Sleep) carvedilol 3.125 mg tablet 3.125 mg PO BID Qty: 180 3RF Entresto 49-51 mg tablet 1 tab PO BID Qty: 180 3RF aspirin [Adult Aspirin Regimen] 81 mg tablet,delayed release (DR/EC) 81 mg PO DAILY Qty: 90 3RF ezetimibe 10 mg tablet 10 mg PO DAILY Qty: 30 5RF calcium carbonate-vitamin D3 600 mg-5 mcg (200 unit) tablet 1 tab PO BID docusate sodium 100 mg capsule 100 mg PO BID Mounjaro 7.5 mg/0.5 mL pen injector 7.5 mg subcut FR ketotifen fumarate [Alaway] 0.025 % (0.035 %) Drops 1 drp OPHTHALMIC (EYE) BID PRN (Reason: allergies) Rx Instructions: administer at least 8 hours apart Jardiance 10 mg tablet 10 mg PO DAILY acetaminophen 325 mg capsule 650 mg PO Q8H PRN (Reason: Pain) tramadol 50 mg tablet 50 mg PO DAILY PRN (Reason: Pain, Severe) baclofen 10 mg tablet 10 mg PO BID PRN (Reason: muscle spasm) rosuvastatin 40 mg tablet 40 mg PO DAILY Discharge Orders: Discharge Order (Routine); Ordered 12/28/24 Ordered By: Alfonzo Raya Diet: Advance to usual diet Activity on Discharge: As tolerated Stand Alone Forms: Patient Portal Discharge page Print Language: Namibian Care Plan Goals: recovery from stroke, heart failure and respiratory failure Health Concerns: stroke, heart failure and respiatory failure Plan of Treatment: Continue all your medication in addition to eliquis (new) Assessment: see above
[2024-12-28 15:18] VITALS: BP 119/60; PULSE 88; RESP 14; TEMP 36.3; O2SAT 98
[2024-12-28 15:25] LABS: Glucose, Whole Blood 264 mg/dL (60-115)
--- NOTE | 2024-12-28 15:36 | W.MHC.F2F ---
Service Date Service Date: 12/28/24 Encounter Date of encounter: 12/28/24 Reasons for Services Signs and symptoms assessed: stroke, heart failure with respriatory failure Reason for group home: CV/CP assess and/or care, medication management and teach disease management Homebound: Leaving the home is medically contraindicated at this time without the asist of a device and/or another person due th the listed conditions above and below. Reason homebound: fall risk related to blood pressure changes, weakness related to hospital stay and unable to drive Homebound supporting statement: homebound due to weakness from stroke and hospitalization and therefore needs the assistance of another person Certification: Based on the above findings, I certify that this patient is confined to the home and needs intermittent group home care, physical therapy and/or speech therapy, or continues to need occupational therapy. The patient is under my care, and I have initiated the establishment of the plan of care. The patient will be followed by a physician who will periodically review the plan of care. Time Spent With Patient Time: Total time managing care of this patient today ____ minutes.
== END 2024-12-28 16:54 | disposition home health service (06) | DRG 871 ==
LOC: HO.ED 23:16 → HO.EDOVER 23:34 → HO.ICU 23:36 → HO.IMC 12-25 13:40
PROVIDERS: Physician Assistant; Admitting Provider Physician Assistant Medical; Emergency Provider Emergency Medicine Emergency Medical Services; Visit Provider Internal Medicine
DX: A41.9 Sepsis, unspecified organism (principal); I50.43 Acute on chronic combined systolic (congestive) and diastolic (congestive) heart failure; I63.423 Cerebral infarction due to embolism of bilateral anterior cerebral arteries; J96.01 Acute respiratory failure with hypoxia; J18.9 Pneumonia, unspecified organism; I25.10 Atherosclerotic heart disease of native coronary artery without angina pectoris; I16.0 Hypertensive urgency; E11.9 Type 2 diabetes mellitus without complications; E87.6 Hypokalemia; Z20.822 Contact with and (suspected) exposure to COVID-19; I25.5 Ischemic cardiomyopathy; Z95.5 Presence of coronary angioplasty implant and graft; Z79.84 Long term (current) use of oral hypoglycemic drugs; Z79.85 Long-term (current) use of injectable non-insulin antidiabetic drugs; Z79.899 Other long term (current) drug therapy
CPT/HCPCS: 36415; 70450; 71045; 71275; 80048; 80053; 80307; 82803; 82947; 83605; 83735; 83880; 84100; 84484; 85025; 85610; 87040; 87637; 93005; 93306; 93880; 94002; 94003; 97162; 97530; 99284; J0330; J0692; J1644; J1938; J2305; J2470; J2704; J3480; P9047; Q9957

== ENCOUNTER → 2024-12-23 21:50 | Outpatient (BNV) | payer OTHER, SELFPAY ==
[2022-11-29 12:51] VITALS: BP 118/58; BP 118/64
[2022-12-24 12:41] VITALS: BMI 29.1
[2023-04-08 14:16] VITALS: BP 110/60
== END ==
PROVIDERS: Admitting Provider Physician Assistant Medical; Emergency Provider Emergency Medicine Emergency Medical Services; Visit Provider Internal Medicine Cardiovascular Disease
DX: R00.0 Tachycardia, unspecified (principal)
CPT/HCPCS: 93010

== ENCOUNTER → 2024-12-23 21:51 | Outpatient (BNV) | payer OTHER, SELFPAY ==
[2022-11-29 12:51] VITALS: BP 118/58; BP 118/64
[2022-12-24 12:41] VITALS: BMI 29.1
[2023-04-08 14:16] VITALS: BP 110/60
== END ==
PROVIDERS: Admitting Provider Physician Assistant Medical; Emergency Provider Emergency Medicine Emergency Medical Services; Visit Provider Radiology Diagnostic Radiology
DX: R91.8 Other nonspecific abnormal finding of lung field (principal)
CPT/HCPCS: 71045

== ENCOUNTER 2024-12-23 23:21 | Outpatient (BNV) | payer OTHER, SELFPAY ==
[2022-11-29 12:51] VITALS: BP 118/58; BP 118/64
[2022-12-24 12:41] VITALS: BMI 29.1
[2023-04-08 14:16] VITALS: BP 110/60
== END 2024-12-24 07:00 ==
PROVIDERS: Admitting Provider Physician Assistant Medical; Emergency Provider Emergency Medicine Emergency Medical Services; Visit Provider Internal Medicine Cardiovascular Disease
DX: I50.1 Left ventricular failure, unspecified (principal); I35.1 Nonrheumatic aortic (valve) insufficiency
CPT/HCPCS: 93306

== ENCOUNTER 2024-12-23 23:21 | Outpatient (BNV) | payer OTHER, SELFPAY ==
[2022-11-29 12:51] VITALS: BP 118/58; BP 118/64
[2022-12-24 12:41] VITALS: BMI 29.1
[2023-04-08 14:16] VITALS: BP 110/60
== END 2024-12-24 ==
PROVIDERS: Admitting Provider Physician Assistant Medical; Emergency Provider Emergency Medicine Emergency Medical Services; Visit Provider Radiology Diagnostic Radiology
DX: R06.02 Shortness of breath (principal); I63.532 Cerebral infarction due to unspecified occlusion or stenosis of left posterior cerebral artery; I63.9 Cerebral infarction, unspecified
CPT/HCPCS: 70450; 71275; 93880

== ENCOUNTER → 2024-12-23 23:21 | Outpatient (BNV) | payer OTHER, SELFPAY ==
[2022-11-29 12:51] VITALS: BP 118/58; BP 118/64
[2022-12-24 12:41] VITALS: BMI 29.1
[2023-04-08 14:16] VITALS: BP 110/60
== END ==
PROVIDERS: Admitting Provider Physician Assistant Medical; Emergency Provider Emergency Medicine Emergency Medical Services; Visit Provider Physician Assistant
DX: I63.412 Cerebral infarction due to embolism of left middle cerebral artery (principal); I25.5 Ischemic cardiomyopathy; I50.9 Heart failure, unspecified; J96.01 Acute respiratory failure with hypoxia
CPT/HCPCS: 99232

== ENCOUNTER → 2024-12-23 23:21 | Outpatient (BNV) | payer OTHER, SELFPAY ==
[2022-11-29 12:51] VITALS: BP 118/58; BP 118/64
[2022-12-24 12:41] VITALS: BMI 29.1
[2023-04-08 14:16] VITALS: BP 110/60
== END ==
PROVIDERS: Admitting Provider Physician Assistant Medical; Emergency Provider Emergency Medicine Emergency Medical Services; Visit Provider Psychiatry & Neurology Neurology
DX: I63.412 Cerebral infarction due to embolism of left middle cerebral artery (principal)
CPT/HCPCS: 99222

== ENCOUNTER → 2024-12-23 23:21 | Outpatient (BNV) | payer OTHER, SELFPAY ==
[2022-11-29 12:51] VITALS: BP 118/58; BP 118/64
[2022-12-24 12:41] VITALS: BMI 29.1
[2023-04-08 14:16] VITALS: BP 110/60
== END ==
PROVIDERS: Admitting Provider Physician Assistant Medical; Emergency Provider Emergency Medicine Emergency Medical Services; Visit Provider Physician Assistant Medical
DX: J96.01 Acute respiratory failure with hypoxia (principal)
CPT/HCPCS: 99223

== ENCOUNTER 2025-01-09 03:02 | Inpatient (IN) | payer OTHER, SELFPAY ==
[2022-11-29 12:51] VITALS: BP 118/58; BP 118/64
[2022-12-24 12:41] VITALS: BMI 29.1
[2023-04-08 14:16] VITALS: BP 110/60
[2025-01-09] VITALS (45 sets, daily range): BP systolic 85–220; BP diastolic 30–114; PULSE 70–145; RESP 11–19; TEMP 33–37.5; O2SAT 88–100; BMI 30.2
--- NOTE | ~2025-01-09 | XR_ITS ---
CLINICAL HISTORY: ogt placement 1 view chest x-ray Comparison: CR - XR CHEST 1V - 01/09/25 03:14 EDT Findings: Well-positioned enteric and endotracheal tubes. Mild central vascular and interstitial prominence. No acute fracture. IMPRESSION: Well-positioned enteric and endotracheal tubes. Mild interstitial edema. This document has been electronically signed by: Ajay Pop MD on 01/09/2025 05:18:03
--- NOTE | ~2025-01-09 | CT_ITS ---
CLINICAL HISTORY: non focal encephalopathy CT head without contrast Comparison: CT/SR - CT HEAD/BRAIN WO IV CON - 12/24/24 00:34 EDT Findings: 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 There is patchy low density in the periventricular and subcortical white matter. Mild volume loss is noted. No hydrocephalus. No hemorrhage, mass effect, mass lesion or midline shift. No abnormal extra-axial fluid. No calvarial fracture. Paranasal sinuses and mastoid air cells are clear. Impression: Small evolving left temporal infarct. No new infarct. Additional chronic changes. This document has been electronically signed by: Ajay Pop MD on 01/09/2025 05:02:48
--- NOTE | ~2025-01-09 | CT_ITS ---
CLINICAL HISTORY: Hypoxia CT chest without contrast Comparison: CR/RI - XR CHEST 1V - 01/09/25 03:[address]/SR - CT ANGIO CHEST PE PROTOCOL - 12/24/24 00:38 EDT Findings: The endotracheal tube tip has been advanced and is currently within the right mainstem bronchus. This should be repositioned. The enteric tube is well-positioned. Multiple mildly enlarged lymph nodes within the mediastinum. Atherosclerotic disease of the coronary arteries. Trace pericardial effusion. No significant cardiomegaly. Diffuse multifocal airspace opacity with additional interstitial edema. Small bilateral effusions with overlying consolidation. No pneumothorax. Visualized upper abdomen is unremarkable. The osseous structures demonstrate no acute process. Impression: The endotracheal tube has been advanced and is currently within the right mainstem bronchus. This should be repositioned. Multifocal pneumonia with moderate interstitial edema. This document has been electronically signed by: Ajay Pop MD on 01/09/2025 06:13:02
--- NOTE | ~2025-01-09 | XR_ITS ---
CLINICAL HISTORY: sob 1 view chest x-ray Comparison: CR - XR CHEST 1V - 12/23/24 22:01 EDT Findings: The endotracheal and enteric tubes are well-positioned. Persistent central vascular and interstitial prominence. No acute fracture. IMPRESSION: Well-positioned enteric and endotracheal tubes. Mild interstitial edema. This document has been electronically signed by: Ajay Pop MD on 01/09/2025 04:45:46
--- NOTE | 2025-01-09 03:06 | ECG_ITS ---
Test Reason : sob Blood Pressure : */* mmHG Vent. Rate : 133 BPM Atrial Rate : * BPM P-R Int : * ms QRS Dur : 88 ms QT Int : 392 ms P-R-T Axes : * 20 66 degrees QTcB Int : 583 ms Sinus tachycardia Otherwise normal ECG When compared with ECG of 23-Dec-2024 21:44, T wave inversion no longer evident in Lateral leads Referred By: Generic ED Physician Electronically Signed By: Nino Clifton
[2025-01-09 03:13] LABS: Glucose, Whole Blood 211 mg/dL (60-115)
[2025-01-09] MEDS: Furosemide 100 MG/10 ML VIAL 80 MG IVPUSH (03:14)
[2025-01-09 03:26] LABS: MANUAL DIFF FLAG NO
[2025-01-09 03:27] LABS: Hematocrit 40.1 % (37.0-47.0); Hemoglobin 12.7 g/dl (12.0-16.0); Imm Gran Abs Auto 0.11 X10*3/uL (0.00-0.03); Imm Gran Pct Auto 0.5 % (0.0-0.4); Mean Corpuscular HGB Conc 31.7 g/dl (31.0-35.0); Mean Corpuscular Hemoglobin 28.6 pg (27.0-33.0); Mean Corpuscular Volume 90.3 fL (80.0-98.0); NRBC Abs Auto 0.000 X10*3/uL (0.0-0.012); NRBC Pct Auto 0.0 /100WBC (0.0-0.2); Platelet Count 361 X10*3/uL (160-400); Red Blood Count 4.44 X10*6/uL (4.20-5.50); SCAN SMEAR FLAG 1; White Blood Count 21.5 X10*3/uL (4.8-10.8)
[2025-01-09 03:28] LABS: Venous Blood Gas Refer to POC result
[2025-01-09 03:31] LABS: Lymphocytes Absolute Auto 7.1 X10*3/uL (1.2-4.9)
[2025-01-09 03:31] LABS: VBG HCO3 20 mmol/L (22-26); VBG O2 % Saturation 50.0 %
[2025-01-09 03:53] LABS: Alanine Aminotransferase 18 U/L (0-31); Albumin Level 4.6 g/dL (3.5-5.0); Alkaline Phosphatase 119 U/L (39-117); Anion Gap 20 (12-20); Aspartate Amino Transferase 29 U/L (5-31); Blood Urea Nitrogen 19 mg/dL (9-16); Calcium 9.5 mg/dL (8.4-10.2); Carbon Dioxide 19 mmol/L (22-29); Chloride 106 mmol/L (96-108); Creatinine Clr Calc Pharmacy 28.1; Estimated Glomerular Filt Rate 34; Potassium 4.5 mmol/L (3.3-5.1); Sodium 140 mmol/L (135-145); Total Protein 8.7 g/dL (6.5-8.0)
--- NOTE | 2025-01-09 03:53 | ED.SOB ---
HPI - SOB/Dyspnea General Chief Complaint: Dyspnea Stated Complaint: dyspnea Time Seen by Provider: 01/09/25 03:35 History of Present Illness ED Provider: Adrián Kelley MD HPI Narrative: History provided only by family members as patient is clinical presentation precluded any additional history from her Daughters who brought the patient by private vehicle from home after the patient was complaining of fatigue throughout the night she did not sleep and had an abrupt onset just prior to arrival here of for respiratory distress labored breathing and ill appearance per the family. She did not complain of chest pain , headache focal neurologic symptoms and had no vomiting cough or fever over the past few days she has been improving some from her recent hospital admission here. Related Data Home Medications ?Medication ?Instructions ?Recorded ?Confirmed acetaminophen 325 mg capsule 650 mg PO Q8H PRN Pain 09/19/20 12/24/24 tramadol 50 mg tablet 50 mg PO DAILY PRN Pain, Severe 09/19/20 12/24/24 baclofen 10 mg tablet 10 mg PO BID PRN muscle spasm 04/13/22 12/24/24 rosuvastatin 40 mg tablet 40 mg PO DAILY 08/13/22 12/24/24 fluticasone propionate 50 1 spray intranasal DAILY PRN 11/05/23 12/24/24 mcg/actuation nasal Allergy Symptoms spray,suspension (Flonase Allergy Relief) glipizide 5 mg tablet 5 mg PO BID 11/05/23 12/24/24 melatonin 5 mg tablet 5 mg PO BEDTIME PRN Sleep 11/05/23 12/24/24 nitroglycerin 0.4 mg sublingual 0.4 mg sublingual Q5M PRN Chest 11/05/23 12/24/24 tablet Pain sertraline 25 mg tablet (Zoloft) 25 mg PO DAILY 11/05/23 12/24/24 calcium 600 mg (as 1 tab PO BID 12/24/24 12/24/24 carbonate)-vitamin D3 5 mcg (200 unit) tablet docusate sodium 100 mg capsule 100 mg PO BID 12/24/24 12/24/24 empagliflozin 10 mg tablet 10 mg PO DAILY 12/24/24 12/24/24 (Jardiance) ketotifen fumarate 0.025 % (0.035 1 drp ophthalmic (eye) BID PRN 12/24/24 12/24/24 %) eye drops ([place]away) allergies tirzepatide 7.5 mg/0.5 mL 7.5 mg subcut FR 12/24/24 12/24/24 subcutaneous pen injector (Pedro) Previous Rx's ?Medication ?Instructions ?Recorded carvedilol 3.125 mg tablet 3.125 mg PO BID #180 tabs 02/04/24 sacubitril 49 mg-valsartan 51 mg 1 tab PO BID #180 tabs 05/04/24 tablet (Entresto) aspirin 81 mg tablet,delayed 81 mg PO DAILY #90 tabs 05/05/24 release (Adult Aspirin Regimen) ezetimibe 10 mg tablet 10 mg PO DAILY #30 tabs 11/27/24 apixaban 2.5 mg tablet (Eliquis) 2.5 mg PO BID #180 tabs 12/28/24 Allergies Allergy/AdvReac Type Severity Reaction Status Date / Time procaine (From NOVOCAIN) Allergy Severe SWELLING Verified 01/09/25 03:37 LOCALIZED TO INJECTION SITE alirocumab (From Praluent Allergy Mild Itching Verified 01/09/25 03:37 Pen) Aspirin Allergy Unknown rash Uncoded 04/13/22 13:14 full strength Aspirin Allergy Unknown rash Uncoded 04/13/22 13:14 [facility] Past Medical History Medical History (Updated 01/09/25 @ 05:39 by Harry Phillip NP) Diabetes mellitus Embolic cerebral infarction Chronic kidney disease CAD (coronary artery disease) Anxiety High cholesterol Hypertension Active asthma Surgical History Stented coronary artery Social History Social History Household Members: Family Housing: House Do you presently have visiting nurse or other home services: No Unable to assess alcohol history related to: Unable to respond Patient Tobacco Use Status: Never used Tobacco e-Cigarette/Vaping Use: Never Used Use of substances other than those prescribed or required for medical reasons: Unknown Advance Directives: No Advance Directives Information Provided: Yes Do you have a plan to hurt others: No Plan Recently lost weight without trying: Unsure Nutrition Risks: No Nutritional Risk Patient : No Current occupational status: retired and disabled Current occupation: rt hand Physical Exam Exam: Exam: EXAM: Gen: Drowsy clammy cool extremities tachypnea but shallow breathing. Difficult to arouse Head: Atraumatic Eyes: Anicteric, Normal conjunctiva. ENT: Pale dry oral mucosa Skin: Cool and clammy Respiratory: Decreased air entry, shallow agonal respirations Cardiovascular: Irregular rhythm? Bigeminy PACs. No murmurs or rub. Well perfused periphery, warm extremities. No edema. ? Abdominal: Obese. No focal tenderness. Soft, no objective distension. No palpable masses or obvious organomegaly. ?No guarding, no rebound tenderness or other peritoneal findings. Neuro: Drowsy, she does have spontaneous movements of all of her extremities but not following commands MSK: No grossly visible deformity. Vital signs: See flowsheet Vital Signs: Vital Signs: Last Vital Signs Temp 98.1 F 01/09/25 06:00 Pulse 116 H 01/09/25 06:00 Resp 16 01/09/25 06:00 BP 120/59 L 01/09/25 06:00 Pulse Ox 89 L 01/09/25 06:00 O2 Del Method Mechanical Ventil ation 01/09/25 06:00 FiO2 100 01/09/25 06:00 BMI result Body Mass Index 30.2 Medications Administered Generic Name Dose Route Start Last Admin Trade Name Freq PRN Reason Stop Dose Admin Propofol 1,000 mg in 100 mls @ 0 mls/hr 01/09/25 04:15 01/09/25 05:35 Diprivan IVCONT 50 mcg/kg/min .Q0M JN 22.47 mls/hr Protocol Titration Per Protocol Nitroglycerin/Dextrose 100 mg in 250 mls @ 0 mls/hr 01/09/25 05:00 01/09/25 05:35 Nitroglycerin/D5w IVCONT 0 mcg/min .Q0M JN 0 mls/hr Protocol Titration Per Protocol Ampicillin Sodium/Sulbactam 100 mls @ 200 mls/hr 01/09/25 05:00 01/09/25 06:01 Sodium 3 gm/ Sodium Chloride IV 200 mls/hr Q8H JN Administration Fentanyl 1,000 mcg in 100 mls @ 0 mls/hr 01/09/25 05:45 01/09/25 05:53 Sublimaze/Ns IVCONT 50 mcg/hr .Q0M JN 5 mls/hr Protocol Administration Per Protocol Insulin Human Lispro 0 unit 01/09/25 06:00 01/09/25 06:02 Insulin Lispro 100 Unit/Ml 3 Ml Vial SUBCUT Not Given Q6H [facility] Protocol Pantoprazole Sodium 40 mg 01/09/25 06:30 01/09/25 06:03 Pantoprazole Sodium 40 Mg/10 Ml Vial IVPUSH 40 mg DAILY@0630 [facility] Administration Discontinued Medications Generic Name Dose Route Start Last Admin Trade Name Alistair PRN Reason Stop Dose Admin Diazepam 5 mg 01/09/25 04:11 01/09/25 04:20 Diazepam 10 Mg/2 Ml Cartridge IVPUSH 01/09/25 04:12 5 mg STAT STA Administration Etomidate 20 mg 01/09/25 04:11 01/09/25 04:24 Etomidate 20 Mg/10 Ml Vial IVPUSH 01/09/25 04:12 20 mg ONCE ONE Administration Furosemide 80 mg 01/09/25 04:11 01/09/25 03:14 Furosemide 100 Mg/10 Ml Vial IVPUSH 01/09/25 04:12 80 mg ONCE ONE Administration Protocol Midazolam HCl 2 mg 01/09/25 05:57 01/09/25 06:01 Midazolam Hcl 2 Mg/2 Ml Vial IVPUSH 01/09/25 05:58 2 mg ONCE ONE Administration Nitroglycerin 0.4 mg 01/09/25 04:11 01/09/25 04:21 Nitroglycerin 0.4 Mg Tab.Subl SUBLINGUAL 01/09/25 04:12 0.4 mg ONCE ONE Administration Rocuronium [place] 50 mg 01/09/25 04:11 01/09/25 04:22 Rocuronium [place] 50 Mg/5 Ml Vial IVPUSH 01/09/25 04:12 50 mg ONCE ONE Administration Medical Decision Making Medical Decision Making MDM Narrative: Medical Decision Makin-year-old female with ischemic cardiomyopathy, stroke history with abrupt onset dyspnea. Immediate bedside echo showed poor LV function no tamponade, she did have bilateral B-lines and pleural effusions. The patient was clammy with agonal and rapidly worsening respirations. She was intubated for airway protection and hypoxic respiratory failure. Lasix was given , intubation was successful, nitroglycerin x1 given for presumed flash pulmonary edema. Preliminary Favored Differential Diagnosis: Severe acute decompensation of HFrEF with flash pulmonary edema, COPD, pleural effusion, pneumothorax, less likely PE, among additional considered etiologies Testing Interpreted Independently: See my point of care ultrasound interpretation the attached procedure note X-ray chest initial: ET tube slightly shallow. NG tube in good position. Presence of pulmonary edema bilateral pleural effusions X-ray chest repeat: More appropriate positioning between the sean and thoracic inlet of the ET tube tip. OG tube in good position. Pulmonary edema seen once again ECG narrow complex regular tachycardia SVT versus sinus tachycardia no ischemic changes no RV strain. Radiology or Lab testing Results Reviewed: Elevated lactate nonspecific given the patient's extremis at presentation this is not surprising. Leukocytosis 21 this is nonspecific. There was no fever Consults:[employer] Megan aware of and agreable to admit the pt to ICU. Independent Historians/External Chart Reviews: Daughter at the bedsid, I got additional history from them as well as chart review of the patient's recent ICU medical admission and internal salesperson notes from that time Social Determinants of Health Impacting MDM/Planning: Not Applicable Lab Data 01/09/25 03:19 01/09/25 03:19 Labs: Lab Results 01/09/25 01/09/25 01/09/25 Range/Units 03:08 03:19 03:27 WBC 21.5 H (4.8-10.8) X10*3/uL RBC 4.44 (4.20-5.50) X10*6/uL Hgb 12.7 (12.0-16.0) g/dl Hct 40.1 (37.0-47.0) % MCV 90.3 (80.0-98.0) fL MCH 28.6 (27.0-33.0) pg MCHC 31.7 (31.0-35.0) g/dl RDW 12.8 (11.0-16.0) % Plt Count 361 D (160-400) X10*3/uL MPV 12.2 (9.4-12.3) fL Immature Gran % (Auto) 0.5 H (0.0-0.4) % Neut % (Auto) 59.5 (45-73) % Lymph % (Auto) 33.0 (20-40) % [place] % (Auto) 5.4 (2-11) % Eos % (Auto) 1.3 (0-4) % Baso % (Auto) 0.3 (0-2) % Lymph # (Auto) 7.1 H (1.2-4.9) X10*3/uL [place] # (Auto) 1.2 (0.1-1.2) X10*3/uL Eos # (Auto) 0.3 (0.0-0.4) X10*3/uL Baso # (Auto) 0.1 (0.0-0.2) X10*3/uL Abs Immat Gran (auto) 0.11 H (0.00-0.03) X10*3/uL Absolute Neuts (auto) 12.8 H (2.0-8.3) x10*3/uL Absolute Nucleated RBC 0.000 (0.0-0.012) X10*3/uL Nucleated RBC % (auto) 0.0 (0.0-0.2) /100WBC VBG pH 7.27 L (7.32-7.43) VBG pCO2 43 mmHg VBG pO2 37 mmHg VBG HCO3 20 L (22-26) mmol/L VBG O2 Saturation 50.0 % VBG Base Excess -6.0 mmol/L Sodium 140 (135-145) mmol/L Potassium 4.5 (3.3-5.1) mmol/L Chloride 106 (96-108) mmol/L Carbon Dioxide 19 L (22-29) mmol/L Anion Gap 20 (12-20) BUN 19 H (9-16) mg/dL Creatinine 1.46 H (0.5-1.4) mg/dL Estim Creat Clear Calc 28.1 Estimated GFR 34 POC Glucose 211 H (60-115) mg/dL Random Glucose 204 H (60-115) mg/dL Lactic Acid 4.3 H* (0.5-2.0) mmol/L Calcium 9.5 D (8.4-10.2) mg/dL Total Bilirubin 0.6 (0.0-1.0) mg/dL AST 29 (5-31) U/L ALT 18 (0-31) U/L Alkaline Phosphatase 119 H (39-117) U/L Troponin I High Sens 11.0 (<3.5-17.0) ng/L B-Natriuretic Peptide 480 H (<100) pg/mL Total Protein 8.7 H (6.5-8.0) g/dL Albumin 4.6 (3.5-5.0) g/dL TSH 5.54 H (0.32-4.0) uIU/mL Free T4 1.18 (0.71-1.85) ng/dL Urine Color Urine Appearance Urine pH (5.0-9.0) Ur Specific [place] (1.005-1.025) Urine Protein (Neg-Trace) mg/dL Urine Glucose (UA) (Negative) mg/dL Urine Ketones (Negative) mg/dL Urine Blood (Negative) Urine Nitrite (Negative) Ur Leukocyte Esterase (Negative) Urine RBC (0-2) /HPF Urine WBC (0-5) /HPF Ur Squamous Epith Cells (0-2) /HPF Urine Bacteria (None Seen) Hyaline Casts (0-2) /LPF 01/09/25 Range/Units 04:01 WBC (4.8-10.8) X10*3/uL RBC (4.20-5.50) X10*6/uL Hgb (12.0-16.0) g/dl Hct (37.0-47.0) % MCV (80.0-98.0) fL MCH (27.0-33.0) pg MCHC (31.0-35.0) g/dl RDW (11.0-16.0) % Plt Count (160-400) X10*3/uL MPV (9.4-12.3) fL Immature Gran % (Auto) (0.0-0.4) % Neut % (Auto) (45-73) % Lymph % (Auto) (20-40) % Gulf % (Auto) (2-11) % Eos % (Auto) (0-4) % Baso % (Auto) (0-2) % Lymph # (Auto) (1.2-4.9) X10*3/uL [place] # (Auto) (0.1-1.2) X10*3/uL Eos # (Auto) (0.0-0.4) X10*3/uL Baso # (Auto) (0.0-0.2) X10*3/uL Abs Immat Gran (auto) (0.00-0.03) X10*3/uL Absolute Neuts (auto) (2.0-8.3) x10*3/uL Absolute Nucleated RBC (0.0-0.012) X10*3/uL Nucleated RBC % (auto) (0.0-0.2) /100WBC VBG pH (7.32-7.43) VBG pCO2 mmHg VBG pO2 mmHg VBG HCO3 (22-26) mmol/L VBG O2 Saturation % VBG Base Excess mmol/L Sodium (135-145) mmol/L Potassium (3.3-5.1) mmol/L Chloride (96-108) mmol/L Carbon Dioxide (22-29) mmol/L Anion Gap (12-20) BUN (9-16) mg/dL Creatinine (0.5-1.4) mg/dL Estim Creat Clear Calc Estimated GFR POC Glucose (60-115) mg/dL Random Glucose (60-115) mg/dL Lactic Acid (0.5-2.0) mmol/L Calcium (8.4-10.2) mg/dL Total Bilirubin (0.0-1.0) mg/dL AST (5-31) U/L ALT (0-31) U/L Alkaline Phosphatase (39-117) U/L Troponin I High Sens (<3.5-17.0) ng/L B-Natriuretic Peptide (<100) pg/mL Total Protein (6.5-8.0) g/dL Albumin (3.5-5.0) g/dL TSH (0.32-4.0) uIU/mL Free T4 (0.71-1.85) ng/dL Urine Color Yellow Urine Appearance Clear Urine pH 6.0 (5.0-9.0) Ur Specific [place] 1.010 (1.005-1.025) Urine Protein 30 (1+) H (Neg-Trace) mg/dL Urine Glucose (UA) 500 H (Negative) mg/dL Urine Ketones Negative (Negative) mg/dL Urine Blood Trace H (Negative) Urine Nitrite Negative (Negative) Ur Leukocyte Esterase Trace H (Negative) Urine RBC 0-2 (0-2) /HPF Urine WBC 6-10 H (0-5) /HPF Ur Squamous Epith Cells 0-2 (0-2) /HPF Urine Bacteria None Seen (None Seen) Hyaline Casts 0-2 (0-2) /LPF Procedures Procedure Narrative Procedure Narrative: EMERGENCY ULTRASOUND INTERPRETATION-Limited Echocardiography This study was ordered, performed, and interpreted by myself. The study reveals: Impression: Poor LV FUNCTION, NO RV DYSFUNCTION, NO PERICARDIAL EFFUSION Emergent Cardiac for Indication: Views Used: PLAX, PSSA, A4, SX, IVC Pericardial Effusion/Tamponade Findings: NONE RV Dilation (> LV diam in 4ch apical): NONE Global LV Fxn: Poor LV function IVC Dilation and Resp Variation: Plethoric Performed by: MD Warren Images were stored CPT:16894 EMERGENCY ULTRASOUND INTERPRETATION-Point of Care Thoracic: IMPRESSION: NO FOCAL CONSILDATION, bilateral B-lines, bilateral small/moderate pleural effusions Indication: Dyspnea Findings: Right Pleural 2ICS: ?POSITIVE SLIDING, bilateral B-lines Right PLAPS: Effusion present Left Pleural 2ICS: POSITIVE SLIDING, bilateral B-lines Left PLAPS: Effusion present Performed by: Adrián Kelley MD ? Images were stored CPT: 93308,[id number]]___ PROCEDURE NOTE Procedure: OG Placement Performed by: Adrián Kelley MD Indication: gastric decompression ? Procedure: A 14 Fr OG tube was placed in the stomach through the mouth.? Position of the tube was confirmed by auscultating over the stomach during insufflation of air through the tube.? Gastric contents were aspirated. Complications: none Intubation Intubation Date:: 01/09/25 sedative: Etomidate paralytic: Rocuronium Assist Device Used: fiber optic device ET Tube Size: 7.5 ET Tube Uncuffed: Yes Tube Placement Confirmation: visualized tube passing through cords, equal breath sounds bilaterally, no breath sounds over epigastrium and confirmation by capnometry Patient Tolerated Procedure: well Intubation Complications: none Critical Care Time Critical Care Time Critical Care Time: Yes Total Critical Care Time: 100 Attestation: ED Critical Care: Authorized and Performed by: Adrián Kelley MD Total critical care time: Approximately 100 Due to a high probability of clinically significant, life threatening deterioration, the patient required my highest level of preparedness to intervene emergently and I personally spent this critical care time directly and personally managing the patient. This critical care time included obtaining a history; examining the patient; pulse oximetry; ordering and review of studies; arranging urgent treatment with development of a management plan; evaluation of patient's response to treatment; frequent reassessment; and, discussions with other providers. This critical care time was performed to assess and manage the high probability of imminent, life-threatening deterioration that could result in multi-organ failure. It was exclusive of separately billable procedures and treating other patients and teaching time. Discharge Plan Discharge Clinical Impression: Congestive heart failure Patient Disposition: Admitted As Inpatient Interventions: Admission Worksheet (ED) Last Done: 01/09/25 05:04 Discharge Date/Time: 01/09/25 05:05
[2025-01-09 03:54] LABS: Troponin-I High Sensitivity 11.0 ng/L (<3.5-17.0)
[2025-01-09 03:58] LABS: B Type Natriuretic Peptide 480 pg/mL (<100)
[2025-01-09 04:09] LABS: Appearance Urine Clear; Glucose Urine UA 500 mg/dL (Negative); PH 6.0 (5.0-9.0); Specific Gravity - Urine 1.010 (1.005-1.025); UMIC TRIGGER UACC YES
--- NOTE | 2025-01-09 04:10 | PC.NURSE ---
around 303, pt arrived in wheelchair pushed by family member. daughter reported that patient became suddenly SOB at home and is worsening. eyes open on arrival, flat affect. 304 placed on NRB at 15L, IV to left arm. 030 BVM unable to obtain oximetry. 0310 20mg etomidate, 98% SpO2 reading obtained. 0313 rocuronium 50mg. 0314 intubated, lasix 80mg IV, 100% SPO2. 7.5mm tube, 23cm at lip, positive color change, b/l LS auscultated, rhonchi and crackles bilaterally per RT Fuentes.0318 etCO2 47. 0319 OGT placed. 0321 SL nitro 0.4mg given, valium 5mg IV given. 0323 advanced to 25cm per MD Ealine to RT. 0325 ventilator rate 18, TV 300, Fi02 50%, PEEP 8. 0328 propofol started at 30mcg/kg/min
[2025-01-09 04:14] LABS: UACC Culture Trigger YES
[2025-01-09] MEDS: diazePAM 10 MG/2 ML CARTRIDGE 5 MG IVPUSH (04:20)
[2025-01-09] MEDS: Etomidate 20 MG/10 ML VIAL IVPUSH (04:24)
--- NOTE | 2025-01-09 04:33 | PC.NURSE ---
This RN scanned medication for primarily nurse Dalton, Notified RN Dalton.
--- NOTE | 2025-01-09 04:41 | PM.CCHP ---
History of Present Illness Date of Service: 01/09/25 Attending physician on admission: Jimy Guzman Chief Complaint: Dyspnea The patient is a 84-year-old female with a past medical history of ischemic cardiomyopathy with EF around 15%,? coronary? artery disease s/p stents,? hypertension, diabetes mellitus, asthma,? chronic kidney disease, hyperlipidemia and? recent admission 12/23/24 to 12/28/24? for flash pulmonary edema and acute ischemic stroke placed on eliquis.? Patient presented to the emergency department from home after the patient was complaining of fatigue throughout the night she did not sleep and had an abrupt respiratory distress with labored breathing.?? On arrival to the emergency department patient in significant respiratory distress, Hypoxic, clammy with agonal breathing,? requiring emergent intubation.? ED physician, bedside echo showed poor LV function no tamponade, she did have bilateral B-lines and pleural effusions.? ?Laboratory data? significant for WBC 21.5,? serum bicarb 19,? BUN 19, creatinine 1.46, lactic 4.3, BNP 480.? ?Venous gas:? 7./43/37/20 ?Imaging:? Chest Xray:? consistent with flash pulmonary edema ?ED course:? ?Patient received 80mg? of IV Lasix and? nitroglycerin 0.4 mg sublingual tab x1.? Review of Systems Review of Systems: Yes unobtainable due to endotracheal tube PMFSH Past Medical History Medical History (Updated 01/09/25 @ 05:39 by Harry Phillip NP) Diabetes mellitus Embolic cerebral infarction Chronic kidney disease CAD (coronary artery disease) Anxiety High cholesterol Hypertension Active asthma Surgical History Surgical History Stented coronary artery Social History Social History Household Members: Family Housing: House Do you presently have visiting nurse or other home services: No Unable to assess alcohol history related to: Unable to respond Patient Tobacco Use Status: Never used Tobacco e-Cigarette/Vaping Use: Never Used Use of substances other than those prescribed or required for medical reasons: Unknown Currently Displaying Signs/Symptoms of Drug Intoxication Withdrawal: No Advance Directives: No Advance Directives Information Provided: Yes Do you have a plan to hurt others: No Plan Recently lost weight without trying: Unsure Nutrition Risks: No Nutritional Risk Patient : No Current occupational status: retired and disabled Current occupation: rt hand Meds Allergies Allergy/AdvReac Type Severity Reaction Status Date / Time procaine (From NOVOCAIN) Allergy Severe SWELLING Verified 01/09/25 03:37 LOCALIZED TO INJECTION SITE alirocumab (From Praluent Allergy Mild Itching Verified 01/09/25 03:37 Pen) Aspirin Allergy Unknown rash Uncoded 04/13/22 13:14 full strength Aspirin Allergy Unknown rash Uncoded 04/13/22 13:14 Active Medications: Current Medications Propofol (Diprivan) 1,000 mg in 100 mls @ 0 mls/hr IVCONT .Q0M JN; Protocol Last Admin: 01/09/25 04:27 Dose: 30 mcg/kg/min, 13.48 mls/hr Home Medications ?Medication ?Instructions ?Recorded ?Confirmed ?Last Taken ?Type acetaminophen 325 mg capsule 650 mg PO Q8H PRN Pain 09/19/20 01/09/25 Unknown History tramadol 50 mg tablet 50 mg PO DAILY PRN Pain, Severe 09/19/20 01/09/25 Unknown History baclofen 10 mg tablet 10 mg PO BID PRN muscle spasm 04/13/22 01/09/25 Unknown History rosuvastatin 40 mg tablet 40 mg PO DAILY 08/13/22 01/09/25 01/08/25 History fluticasone propionate 50 1 spray intranasal DAILY PRN 11/05/23 01/09/25 Unknown History mcg/actuation nasal Allergy Symptoms spray,suspension (Flonase Allergy Relief) glipizide 5 mg tablet 5 mg PO BID 11/05/23 01/09/25 01/08/25 History melatonin 5 mg tablet 5 mg PO BEDTIME PRN Sleep 11/05/23 01/09/25 Unknown History nitroglycerin 0.4 mg sublingual 0.4 mg sublingual Q5M PRN Chest 11/05/23 01/09/25 Unknown History tablet Pain sertraline 25 mg tablet (Zoloft) 25 mg PO DAILY 11/05/23 01/09/25 01/08/25 History calcium 600 mg (as 1 tab PO BID 12/24/24 01/09/25 01/08/25 History carbonate)-vitamin D3 5 mcg (200 unit) tablet docusate sodium 100 mg capsule 100 mg PO BID 12/24/24 01/09/25 01/08/25 History empagliflozin 10 mg tablet 10 mg PO DAILY 12/24/24 01/09/25 01/08/25 History (Jardiance) ketotifen fumarate 0.025 % (0.035 1 drp ophthalmic (eye) BID PRN 12/24/24 01/09/25 Unknown History %) eye drops ([place]away) allergies tirzepatide 7.5 mg/0.5 mL 7.5 mg subcut FR 12/24/24 01/09/25 01/08/25 History subcutaneous pen injector (Mounchiquita) Physical Exam Exam: Exam: ?General:? Patient intubated ?HEENT:? Head is normocephalic, atraumatic, pupils equal round reactive to light accommodation bilaterally.? Buccal mucosa is moist, Neck is supple ?Cardiac:? Sinus tach, Clear S1-S2, no murmurs rubs or gallops. ?Pulmonary:? Rhonchus throughout, no wheezing, vent settings: AC 18/300/8/50% ?Abdomen:? ?Abdomen soft, non-tender, non-distended. Normal bowel sounds. No pulsatile mass. No hepatosplenomegaly. ?Musculoskeletal:? Moving all 4 extremities randomly.?Gait not assessed at this point. ?Neurologic:? cranial nerves 2-12 are grossly intact.? No focal deficits noted.Motor strength as above.?? ?Skin:? Intact, no lesions, edema, erythema, clubbing or cyanosis.? No ulcers. Vascular:? 2+ pulses upper and lower extremities distally.? Vital Signs: Vital Signs: Last Vital Signs Temp 98.1 F 01/09/25 04:02 Pulse 125 H 01/09/25 04:02 Resp 18 01/09/25 04:02 BP 200/105 H 01/09/25 04:22 Pulse Ox 93 01/09/25 04:02 O2 Del Method Mechanical Ventil ation 01/09/25 04:02 FiO2 50 01/09/25 04:02 BMI result Body Mass Index 30.2 Results Labs 01/09/25 03:19 01/09/25 03:19 Labs: Laboratory Results - last 24 hr 01/09/25 01/09/25 01/09/25 03:08 03:19 03:27 MCV 90.3 MCH 28.6 MCHC 31.7 RDW 12.8 Plt Count 361 D MPV 12.2 Immature Gran % (Auto) 0.5 H Neut % (Auto) 59.5 Lymph % (Auto) 33.0 [place] % (Auto) 5.4 Eos % (Auto) 1.3 Baso % (Auto) 0.3 Lymph # (Auto) 7.1 H [place] # (Auto) 1.2 Eos # (Auto) 0.3 Baso # (Auto) 0.1 Abs Immat Gran (auto) 0.11 H Absolute Neuts (auto) 12.8 H Absolute Nucleated RBC 0.000 Nucleated RBC % (auto) 0.0 VBG pH 7.27 L VBG pCO2 43 VBG pO2 37 VBG HCO3 20 L VBG O2 Saturation 50.0 VBG Base Excess -6.0 Anion Gap 20 Estim Creat Clear Calc 28.1 Estimated GFR 34 POC Glucose 211 H Random Glucose 204 H Lactic Acid 4.3 H* Calcium 9.5 D Total Bilirubin 0.6 AST 29 ALT 18 Alkaline Phosphatase 119 H B-Natriuretic Peptide 480 H Total Protein 8.7 H Albumin 4.6 TSH 5.54 H Urine Color Urine Appearance Urine pH Ur Specific [place] Urine Protein Urine Glucose (UA) Urine Ketones Urine Blood Urine Nitrite Ur Leukocyte Esterase Urine RBC Urine WBC Ur Squamous Epith Cells Urine Bacteria Hyaline Casts 01/09/25 04:01 MCV MCH MCHC RDW Plt Count MPV Immature Gran % (Auto) Neut % (Auto) Lymph % (Auto) [place] % (Auto) Eos % (Auto) Baso % (Auto) Lymph # (Auto) [place] # (Auto) Eos # (Auto) Baso # (Auto) Abs Immat Gran (auto) Absolute Neuts (auto) Absolute Nucleated RBC Nucleated RBC % (auto) VBG pH VBG pCO2 VBG pO2 VBG HCO3 VBG O2 Saturation VBG Base Excess Anion Gap Estim Creat Clear Calc Estimated GFR POC Glucose Random Glucose Lactic Acid Calcium Total Bilirubin AST ALT Alkaline Phosphatase B-Natriuretic Peptide Total Protein Albumin TSH Urine Color Yellow Urine Appearance Clear Urine pH 6.0 Ur Specific [place] 1.010 Urine Protein 30 (1+) H Urine Glucose (UA) 500 H Urine Ketones Negative Urine Blood Trace H Urine Nitrite Negative Ur Leukocyte Esterase Trace H Urine RBC 0-2 Urine WBC 6-10 H Ur Squamous Epith Cells 0-2 Urine Bacteria None Seen Hyaline Casts 0-2 Assessment and Plan (1) Acute hypoxic respiratory failure: Status: Resolved (2) Ischemic cardiomyopathy: Status: Resolved (3) Pulmonary edema: Status: Acute (4) Congestive heart failure: Status: Resolved (5) Chronic kidney disease: Status: Acute (6) Hypertensive urgency: Status: Acute (7) Diabetes mellitus: Status: Acute Plan 84-year-old female with a past medical history of? recent ischemic stroke on eliquis,? ischemic cardiomyopathy with EF around 15%, coronary? artery disease s/p stents,? hypertension, diabetes mellitus, asthma,? chronic kidney disease and? hyperlipidemia admitted to ICU for acute hypoxic respiratory failure from pulmonary edema Plan: Neuro: ?Recent history of ischemic stroke,? no neurological deficits, ? on aspirin and Eliquis. Will cont? Cardiac:?? ?Pulmonary edema,? patient has underlying history of ischemic cardiomyopathy with the EF around 15% on recent admission to the ICU requiring emergent intubation for flash pulmonary edema.? ED provider bedside echo shows significant bilateral B-lines and pleural effusion, ? BNP elevated. Patient? presentation consistent with flash pulmonary edema,? received 80 of Lasix in the emergency department. Neg trop. Continue to monitor? diuresis.? We will place Cardiology consult for the morning.? ?Hypertensive urgency:? patient?s systolic blood pressures in the 200s, ? related to pulmonary edema, shortly placed on nitro drip, but later became hypotensive, due to vent sedation? Hypotension: related to vent sedation ?Elevated lactic acid: ? no evidence of ? septic shock,? elevated lactate/? hypertensive urgency due to pulmonary edema.? Pulmonary: ?Acute hypoxic respiratory failure: ? from pulmonary edema,? requiring emergent intubation.? Continue diuresing.? Wean off ventilator as tolerated.?? Renal:? ?Underlying history of CKD:? patient is at baseline ? Endo:?? ?Underlying diabetes mellitus: ? on Jardiance, Ozempic and glipizide at home. Will start on lispro, Q6 POC GI:?? ?Transaminitis:? will add PT and INR to labs. But this likely from shock? ID: ?Leukocytosis:? no evidence of active infection at this time patient is not febrile,? but high chances of aspiration during intubation.? We will cover with Unasyn.? Heme/Onc:? No acute issues. Psych:? No acute issues. Miscellaneous:? No acute issues. Prophylaxis:? DVT:? home Eliquis/? GI: IV push Protonix CODE:? ? Full code,? confirmed with daughters at bedside Critical care time: X 90 minutes of critical care time?
[2025-01-09 04:45] LABS: Free T4 (Free Thyroxine) 1.18 ng/dL (0.71-1.85)
--- NOTE | 2025-01-09 04:48 | PC.NURSE ---
16Fr Boogie cath placed around 0400 with immediate output of pale yellow clear urine. balloon inflated, secured. unmeasured initial output
[2025-01-09] MEDS: Nitroglycerin/D5W 100 MG/250 ML INFUS..BTL IVCONT (05:08)
[2025-01-09 05:24] LABS: Reflex Lactate? Lactic Acid Added
[2025-01-09 05:27] LABS: VBG HCO3 19 mmol/L (22-26); VBG O2 % Saturation 66.0 %
[2025-01-09] MEDS: fentaNYL citrate/NS 1,000 MCG/100 ML PLAST..BAG 5 MCG IVCONT (05:53)
[2025-01-09 06:11] LABS: ~Lactic Acid-LAB USE ONLY 3.2 mmol/L (0.5-2.0)
[2025-01-09 06:15] LABS: Troponin-I High Sensitivity 13.5 ng/L (<3.5-17.0)
--- NOTE | 2025-01-09 07:02 | PC.ADMIT ---
Pt admitted to ICU from ED at approx 0445. Brought to CT scan prior with this RN without incident. Upon initial assessment- pt sedated on propofol gtt, pt becoming increasingly restless, reaching for lines/tubes despite maximum propofol dose. FUNCTIONAL SUPPORT ANALYST Marjan notified- new order for versed 2 mg IVP x1 and fentanyl gtt ordered and started per AUG. NSR/ST on tele, HR 90-120s. SBP 200s, briefly started on nitroglycerin gtt but titrated off per AUG. LS with coarse crackles bilaterally. ETT #7.5, 25 cm at lip. On ACVC settings. ETT pulled back to 23 cm at lip by RT per FUNCTIONAL SUPPORT ANALYST s/p CT scan report. OGT clamped. No BM. Indwelling catheter placed in ED, UOP as charted. Skin overall intact. Full CHG bath given. Repositioned in bed q2hr with wedges/pillows. Family at bedside and updated on pt status/plan of care. See EMR/flowsheet for further details.
[2025-01-09 07:47] LABS: Reflex Lactate? 2 Y
[2025-01-09] MEDS: 0.9 % Sodium Chloride Flush 3 ML SYRINGE IVFLUSH ×3 (08:00→19:59)
[2025-01-09] MEDS: Chlorhexidine Gluc Oral Rinse 15 ML MOUTHWASH BUCCAL ×2 (08:00→15:15)
[2025-01-09 09:03] LABS: ~Lactic Acid-LAB USE ONLY 3.8 mmol/L (0.5-2.0)
--- NOTE | 2025-01-09 10:03 | PHA.MEDREC ---
Pharmacy Consult ? Medication Reconciliation Pharmacy has completed the medication reconciliation. Patient was recently discharged on 12/28/24, utilized discharge packet for med rec. Also spoke to daughter Perla via phone and she said all meds are the same and confirmed pt is taking eliquis 2.5 mg bid. Last dose of meds was yesterday 01/08/25.
[2025-01-09 11:36] LABS: Venous Blood Gas Refer to POC result
[2025-01-09 12:12] LABS: Glucose, Whole Blood 244 mg/dL (60-115)
--- NOTE | 2025-01-09 12:37 | PM.CNCAR ---
History of Present Illness History of Present Illness Date of Service: 01/09/25 Requesting physician: Jimy Guzman Chief complaint: Acute Respiratory Failure Narrative: [age] year female with background history of anterior wall VA and severe cardiomyopathy who is presenting with elevated blood pressure and pulmonary edema. She was intubated. Currently awake and quite comfortable and will be extubated soon. She was on nitroglycerin drip earlier but due to hypotension with sedation nitroglycerin was stopped and she required low-dose Levophed which has been stopped 2. Reviewing echocardiography and previous notes she has known history of ischemic cardiomyopathy with EF 10-15% and was on Entresto, Jardiance and carvedilol. Blood pressure currently is elevated. [facility] Past Medical History Medical History (Updated 01/09/25 @ 05:39 by Harry Phillip NP) Diabetes mellitus Embolic cerebral infarction Chronic kidney disease CAD (coronary artery disease) Anxiety High cholesterol Hypertension Active asthma Surgical History Surgical History Stented coronary artery Social History Social History Household Members: Family Housing: House Do you presently have visiting nurse or other home services: No Unable to assess alcohol history related to: Unable to respond Patient Tobacco Use Status: Never used Tobacco e-Cigarette/Vaping Use: Never Used Use of substances other than those prescribed or required for medical reasons: Unknown Currently Displaying Signs/Symptoms of Drug Intoxication Withdrawal: No Advance Directives: No Advance Directives Information Provided: Yes Do you have a plan to hurt others: No Plan Recently lost weight without trying: Unsure Nutrition Risks: No Nutritional Risk Patient : No Current occupational status: retired and disabled Current occupation: rt hand Meds Allergies Allergy/AdvReac Type Severity Reaction Status Date / Time procaine (From NOVOCAIN) Allergy Severe SWELLING Verified 01/09/25 03:37 LOCALIZED TO INJECTION SITE alirocumab (From Praluent Allergy Mild Itching Verified 01/09/25 03:37 Pen) Aspirin Allergy Unknown rash Uncoded 04/13/22 13:14 full strength Aspirin Allergy Unknown rash Uncoded 04/13/22 13:14 Active Medications: Current Medications Apixaban (Apixaban 2.5 Mg Tablet) 2.5 mg PO BID JN Last Admin: 01/09/25 08:00 Dose: 2.5 mg Chlorhexidine Gluconate (Chlorhexidine Gluc Oral Rinse 15 Ml Mouthwash) 15 ml BUCCAL TID [facility] Last Admin: 01/09/25 08:00 Dose: 15 ml Propofol (Diprivan) 1,000 mg in 100 mls @ 0 mls/hr IVCONT .Q0M [facility]; Protocol Last Titration: 01/09/25 10:09 Dose: 0 mcg/kg/min, 0 mls/hr Fentanyl (Sublimaze/Ns) 1,000 mcg in 100 mls @ 0 mls/hr IVCONT .Q0M [facility]; Protocol Last Titration: 01/09/25 10:08 Dose: 0 mcg/hr, 0 mls/hr Norepinephrine Bitartrate (Levophed) 8 mg in 250 mls @ 0 mls/hr IVCONT .Q0M [facility]; Protocol Last Titration: 01/09/25 10:26 Dose: Infused Ampicillin Sodium/Sulbactam (Sodium 3 gm/ Sodium Chloride) 100 mls @ 200 mls/hr IV Q12H [facility] Insulin Human Lispro (Insulin Lispro 100 Unit/Ml 3 Ml Vial) 0 unit SUBCUT Q6H [facility]; Protocol Last Admin: 01/09/25 06:02 Dose: Not Given Naloxone HCl (Naloxone Hcl 0.4 Mg/Ml Vial) 0.2 mg IVPUSH Q2M PRN PRN Reason: Excessive sedation or RR < 8 Pantoprazole Sodium (Pantoprazole Sodium 40 Mg/10 Ml Vial) 40 mg IVPUSH DAILY@0630 [facility] Last Admin: 01/09/25 06:03 Dose: 40 mg Sodium Chloride (0.9 % Sodium Chloride Flush 3 Ml Syringe) 3 ml IVFLUSH QSHIFT [facility] Last Admin: 01/09/25 08:00 Dose: 3 ml Home Medications ?Medication ?Instructions ?Recorded ?Confirmed ?Last Taken ?Type acetaminophen 325 mg capsule 650 mg PO Q8H PRN Pain 09/19/20 01/09/25 Unknown History tramadol 50 mg tablet 50 mg PO DAILY PRN Pain, Severe 09/19/20 01/09/25 Unknown History baclofen 10 mg tablet 10 mg PO BID PRN muscle spasm 04/13/22 01/09/25 Unknown History rosuvastatin 40 mg tablet 40 mg PO DAILY 08/13/22 01/09/25 01/08/25 History fluticasone propionate 50 1 spray intranasal DAILY PRN 11/05/23 01/09/25 Unknown History mcg/actuation nasal Allergy Symptoms spray,suspension (Flonase Allergy Relief) glipizide 5 mg tablet 5 mg PO BID 11/05/23 01/09/25 01/08/25 History melatonin 5 mg tablet 5 mg PO BEDTIME PRN Sleep 11/05/23 01/09/25 Unknown History nitroglycerin 0.4 mg sublingual 0.4 mg sublingual Q5M PRN Chest 11/05/23 01/09/25 Unknown History tablet Pain sertraline 25 mg tablet (Zoloft) 25 mg PO DAILY 11/05/23 01/09/25 01/08/25 History calcium 600 mg (as 1 tab PO BID 12/24/24 01/09/25 01/08/25 History carbonate)-vitamin D3 5 mcg (200 unit) tablet docusate sodium 100 mg capsule 100 mg PO BID 12/24/24 01/09/25 01/08/25 History empagliflozin 10 mg tablet 10 mg PO DAILY 12/24/24 01/09/25 01/08/25 History (Jardiance) ketotifen fumarate 0.025 % (0.035 1 drp ophthalmic (eye) BID PRN 12/24/24 01/09/25 Unknown History %) eye drops ([place]) allergies tirzepatide 7.5 mg/0.5 mL 7.5 mg subcut FR 12/24/24 01/09/25 01/08/25 History subcutaneous pen injector (Pedro) Physical Exam Vital Signs: Vital Signs: Last Vital Signs Temp 97.9 F 01/09/25 11:00 Pulse 96 01/09/25 11:50 Resp 12 01/09/25 11:00 BP 152/66 H 01/09/25 11:50 Pulse Ox 95 01/09/25 11:00 O2 Del Method Room Air 01/09/25 11:00 FiO2 30 01/09/25 10:00 BMI result Body Mass Index 30.2 GENERAL APPEARANCE: Comfortable. Currently intubated. Awake. NECK: no carotid bruit, + jugular venous distention. SKIN: no suspicious lesions, warm and dry. HEART: no murmurs, regular rate and rhythm. LUNGS: clear to auscultation anteriorly. ABDOMEN: soft, nontender. EXTREMITIES: no edema. PERIPHERAL PULSES: equal. NEUROLOGIC: No gross deficits, AAO X 3 Objective Labs and Meds 01/09/25 03:19 01/09/25 03:19 Lab results: Laboratory Results - last 24 hr 01/09/25 01/09/25 01/09/25 03:08 03:19 03:27 WBC 21.5 H RBC 4.44 Hgb 12.7 Hct 40.1 MCV 90.3 MCH 28.6 MCHC 31.7 RDW 12.8 Plt Count 361 D MPV 12.2 Immature Gran % (Auto) 0.5 H Neut % (Auto) 59.5 Lymph % (Auto) 33.0 [place] % (Auto) 5.4 Eos % (Auto) 1.3 Baso % (Auto) 0.3 Lymph # (Auto) 7.1 H [place] # (Auto) 1.2 Eos # (Auto) 0.3 Baso # (Auto) 0.1 Abs Immat Gran (auto) 0.11 H Absolute Neuts (auto) 12.8 H Absolute Nucleated RBC 0.000 Nucleated RBC % (auto) 0.0 Hold Purple Top VBG pH 7.27 L VBG pCO2 43 VBG pO2 37 VBG HCO3 20 L VBG O2 Saturation 50.0 VBG Base Excess -6.0 Sodium 140 Potassium 4.5 Chloride 106 Carbon Dioxide 19 L Anion Gap 20 BUN 19 H Creatinine 1.46 H Estim Creat Clear Calc 28.1 Estimated GFR 34 POC Glucose 211 H Random Glucose 204 H Lactic Acid 4.3 H* Lactic Acid F/U @ 2Hr Lactic Acid F/U @ 4Hr Calcium 9.5 D Total Bilirubin 0.6 AST 29 ALT 18 Alkaline Phosphatase 119 H Troponin I High Sens 11.0 B-Natriuretic Peptide 480 H Total Protein 8.7 H Albumin 4.6 TSH 5.54 H Free T4 1.18 Urine Color Urine Appearance Urine pH Ur Specific [place] Urine Protein Urine Glucose (UA) Urine Ketones Urine Blood Urine Nitrite Ur Leukocyte Esterase Urine RBC Urine WBC Ur Squamous Epith Cells Urine Bacteria Hyaline Casts 01/09/25 01/09/25 01/09/25 04:01 05:18 05:21 WBC RBC Hgb Hct MCV MCH MCHC RDW Plt Count MPV Immature Gran % (Auto) Neut % (Auto) Lymph % (Auto) [place] % (Auto) Eos % (Auto) Baso % (Auto) Lymph # (Auto) [place] # (Auto) Eos # (Auto) Baso # (Auto) Abs Immat Gran (auto) Absolute Neuts (auto) Absolute Nucleated RBC Nucleated RBC % (auto) Hold Purple Top SEE NOTE VBG pH 7.31 L VBG pCO2 37 VBG pO2 44 VBG HCO3 19 L VBG O2 Saturation 66.0 VBG Base Excess -6.4 Sodium Potassium Chloride Carbon Dioxide Anion Gap BUN Creatinine Estim Creat Clear Calc Estimated GFR POC Glucose Random Glucose Lactic Acid Lactic Acid F/U @ 2Hr Lactic Acid F/U @ 4Hr Calcium Total Bilirubin AST ALT Alkaline Phosphatase Troponin I High Sens 13.5 B-Natriuretic Peptide Total Protein Albumin TSH Free T4 Urine Color Yellow Urine Appearance Clear Urine pH 6.0 Ur Specific [place] 1.010 Urine Protein 30 (1+) H Urine Glucose (UA) 500 H Urine Ketones Negative Urine Blood Trace H Urine Nitrite Negative Ur Leukocyte Esterase Trace H Urine RBC 0-2 Urine WBC 6-10 H Ur Squamous Epith Cells 0-2 Urine Bacteria None Seen Hyaline Casts 0-2 01/09/25 01/09/25 01/09/25 05:28 08:15 12:08 WBC RBC Hgb Hct MCV MCH MCHC RDW Plt Count MPV Immature Gran % (Auto) Neut % (Auto) Lymph % (Auto) [place] % (Auto) Eos % (Auto) Baso % (Auto) Lymph # (Auto) [place] # (Auto) Eos # (Auto) Baso # (Auto) Abs Immat Gran (auto) Absolute Neuts (auto) Absolute Nucleated RBC Nucleated RBC % (auto) Hold Purple Top VBG pH VBG pCO2 VBG pO2 VBG HCO3 VBG O2 Saturation VBG Base Excess Sodium Potassium Chloride Carbon Dioxide Anion Gap BUN Creatinine Estim Creat Clear Calc Estimated GFR POC Glucose 244 H Random Glucose Lactic Acid Lactic Acid F/U @ 2Hr 3.2 H* Lactic Acid F/U @ 4Hr 3.8 H* Calcium Total Bilirubin AST ALT Alkaline Phosphatase Troponin I High Sens B-Natriuretic Peptide Total Protein Albumin TSH Free T4 Urine Color Urine Appearance Urine pH Ur Specific [place] Urine Protein Urine Glucose (UA) Urine Ketones Urine Blood Urine Nitrite Ur Leukocyte Esterase Urine RBC Urine WBC Ur Squamous Epith Cells Urine Bacteria Hyaline Casts Assessment and Plan (1) Hypertensive urgency: Status: Acute (2) Congestive heart failure: Status: Acute Plan [age] year female with known history of coronary artery disease with previous anterior wall VA and ischemic cardiomyopathy with EF 10-15%. She is presenting with elevated blood pressure and pulmonary edema. She was intubated for congestive heart failure. Overall quite comfortable currently and awake. Plan is to extubate her. On physical examination she still has JVD and would benefit from IV diuretics. As she passes speech evaluation her home medications should be resumed. If blood pressure is still elevated then can consider adding spironolactone 25 mg daily. We will follow along with you. Thank you for allowing me to participate in the care of your patient. Please feel free to contact me if you have any questions. Procedures Date of Service Date of Service: 01/09/25
--- NOTE | 2025-01-09 14:32 | PC.NURSE ---
Addendum entered by Nicky Llanos RN 01/09/25 18:53: dailey removed @ 1700, due to void at 2300 Pt complaining of SOB, fine crakles BL bases and expiratory wheezing. Dr. Guzman made aware. Albuterol given per AUG. Original Note: Assumed care @ 0700 Upon initial assessment pt was intubated/sedated, Extubated @1105. Currently? Neuro/Resp/Cardiac: Alert & oriented, RA clear lung sounds, Sinus rhythm on tele GI/: LBM 01/08, NPO, POC Q6 HR, Dailey in place/patent/draining Skin: Skin intact? (repositioning maintained)? Temp: ?Afebrile Infectious:? IV Abx?Lines: peripheral IVs
--- NOTE | 2025-01-09 15:00 | MHC.CM.PN ---
Addendum entered by Brooklynn Stevens 01/09/25 15:15: [facility] is the homecare agency. A referral has been sent to the agency. Original Note: IMM 01/09/25 DX Respiratory failure Admission <30 days for CVA Patient has her own apartment but her dtrs stay with her. She requires assist with adls. Her dtrs are her volunteer services specialist, [facility]. She report SN for daily medication management, name of the agency is not known at this time. DME Cane, walker, wheeled walker, + shower bench PCP Cecile Galindo. DP Home resume [employer] + Daily med management. Her dtr Perla will provide transportation home. A new HCP has been documented and scanned into EMR.
[2025-01-09 17:08] LABS: Glucose, Whole Blood 146 mg/dL (60-115)
[2025-01-09] MEDS: Albuterol Sulfate (0.083%) 2.5 MG/3 ML VIAL.NEB INHALE (18:33)
[2025-01-09 19:59] LABS: Anion Gap 14 (12-20); Blood Urea Nitrogen 23 mg/dL (9-16); Calcium 8.4 mg/dL (8.4-10.2); Carbon Dioxide 23 mmol/L (22-29); Chloride 104 mmol/L (96-108); Creatinine Clr Calc Pharmacy 25.3; Estimated Glomerular Filt Rate 30; Magnesium 2.0 mg/dL (1.6-2.6); Potassium 3.9 mmol/L (3.3-5.1); Sodium 137 mmol/L (135-145)
[2025-01-09] MEDS: Furosemide 40 MG/4 ML VIAL IVPUSH (19:59)
[2025-01-09 23:45] LABS: Glucose, Whole Blood 185 mg/dL (60-115)
[2025-01-10] VITALS (20 sets, daily range): BP systolic 94–147; BP diastolic 43–98; PULSE 91–107; RESP 13–21; TEMP 36.2–37.3; O2SAT 91–98; BMI 30.2
--- NOTE | 2025-01-10 04:42 | PC.NURSE ---
Upon initial assessment- pt A&Ox4, calm/cooperative, [employer]- customer service representative utilized. Afebrile. NSR with PVCs on tele, HR 90s. SBP > 90, MAP > 65. SpO2 > 92% on room air, fine crackles to B/L bases, denies SOB/dyspnea, endorses productive cough. Tolerating small amount of PO intake. No BM. Bladder scan done for 513 mL at approx 0000 d/t no spontaneous void s/p Lasix IVP. Encouraged to use bedpan- able to void, PVR 48 mL. Skin overall intact. Repositioned in bed q2hr with wedges/pillows. Bed locked in lowest position, alarm on, call burger in reach. Pt/family aware of pt status/plan of care. See EMR/flowsheet for further details.
[2025-01-10 05:28] LABS: VBG HCO3 25 mmol/L (22-26); VBG O2 % Saturation 71.0 %
[2025-01-10 05:45] LABS: Hematocrit 33.1 % (37.0-47.0); Hemoglobin 10.5 g/dl (12.0-16.0); Imm Gran Abs Auto 0.05 X10*3/uL (0.00-0.03); Imm Gran Pct Auto 0.4 % (0.0-0.4); Lymphocytes Absolute Auto 2.4 X10*3/uL (1.2-4.9); MANUAL DIFF FLAG NO; Mean Corpuscular HGB Conc 31.7 g/dl (31.0-35.0); Mean Corpuscular Hemoglobin 28.1 pg (27.0-33.0); Mean Corpuscular Volume 88.5 fL (80.0-98.0); NRBC Abs Auto 0.000 X10*3/uL (0.0-0.012); NRBC Pct Auto 0.0 /100WBC (0.0-0.2); Platelet Count 308 X10*3/uL (160-400); Red Blood Count 3.74 X10*6/uL (4.20-5.50); White Blood Count 12.1 X10*3/uL (4.8-10.8)
[2025-01-10 05:45] LABS: Glucose, Whole Blood 175 mg/dL (60-115)
[2025-01-10 06:02] LABS: Alanine Aminotransferase 14 U/L (0-31); Albumin Level 3.6 g/dL (3.5-5.0); Alkaline Phosphatase 93 U/L (39-117); Anion Gap 13 (12-20); Aspartate Amino Transferase 18 U/L (5-31); Blood Urea Nitrogen 25 mg/dL (9-16); Calcium 8.3 mg/dL (8.4-10.2); Carbon Dioxide 23 mmol/L (22-29); Chloride 107 mmol/L (96-108); Creatinine Clr Calc Pharmacy 25.0; Estimated Glomerular Filt Rate 30; Magnesium 2.2 mg/dL (1.6-2.6); Potassium 3.6 mmol/L (3.3-5.1); Sodium 139 mmol/L (135-145); Total Protein 6.7 g/dL (6.5-8.0)
[2025-01-10] MEDS: Potassium Chloride Packet 20 MEQ PACKET 40 MEQ PO (08:33)
[2025-01-10] MEDS: 0.9 % Sodium Chloride Flush 3 ML SYRINGE IVFLUSH ×2 (08:33→16:51)
[2025-01-10] MEDS: Aspirin Enteric Coated 81 MG TABLET.DR PO (08:33)
[2025-01-10] MEDS: Albuterol Sulfate (0.083%) 2.5 MG/3 ML VIAL.NEB INHALE ×3 (11:02→19:21)
--- NOTE | 2025-01-10 11:05 | P.PNCC_ITS ---
Subjective Subjective Date of Service: 01/10/25 Interval History: 4-year-old lady with underlying ischemic cardiomyopathy with EF of approximately 15%, CAD status post stenting, hypotension, diabetes mellitus, CKD, recent admission for flash pulmonary edema admitted on 01/09/2025 with another episodes of flash pulmonary edema resulting in acute hypoxic respiratory failure requiring intubation and ventilatory support, treated with vasodilators and diuretics and extubated on 01/09/2025. Evaluated by Cardiology service with no plans for further intervention. No events overnight. Critical Care Time (minutes): 0 Physical Exam 2 Vital Signs: Vital Signs: Last Vital Signs Temp 97.9 F 01/10/25 08:00 Pulse 96 01/10/25 11:03 Resp 18 01/10/25 11:03 BP 125/98 H 01/10/25 10:00 Pulse Ox 98 01/10/25 10:00 O2 Del Method Room Air 01/10/25 10:00 FiO2 30 01/09/25 10:00 BMI result Body Mass Index 30.2 Const: General: no acute distress, alert and awake Eyes: Sclerae: sclerae normal EOM: EOMs intact bilaterally Neck: Neck: Yes no lymphadenopathy, Yes trachea midline and Yes supple Resp: Effort & Inspection: normal respiratory effort and no respiratory distress Auscultation: clear to auscultation bilaterally Cardio: Rate: regular rate Rhythm: regular rhythm Heart sounds: no gallops, no murmurs and no rubs GI: Palpation (GI): Soft to palpation and Other GI palpation findings present ( Nontender) Auscultation: normal bowel sounds Extrem: General: Yes no pedal edema, No clubbing and No cyanosis Objective Data Labs 01/10/25 05:21 01/10/25 05:21 Labs: Laboratory Results - last 24 hr 01/09/25 01/09/25 01/09/25 12:08 17:00 19:27 WBC RBC Hgb Hct MCV MCH MCHC RDW Plt Count MPV Immature Gran % (Auto) Neut % (Auto) Lymph % (Auto) [place] % (Auto) Eos % (Auto) Baso % (Auto) Lymph # (Auto) [place] # (Auto) Eos # (Auto) Baso # (Auto) Abs Immat Gran (auto) Absolute Neuts (auto) Absolute Nucleated RBC Nucleated RBC % (auto) VBG pH VBG pCO2 VBG pO2 VBG HCO3 VBG O2 Saturation VBG Base Excess Sodium 137 Potassium 3.9 Chloride 104 Carbon Dioxide 23 Anion Gap 14 BUN 23 H Creatinine 1.62 H Estim Creat Clear Calc 25.3 Estimated GFR 30 POC Glucose 244 H 146 H Random Glucose 283 H Calcium 8.4 D Phosphorus 2.9 Magnesium 2.0 Total Bilirubin AST ALT Alkaline Phosphatase Total Protein Albumin 01/09/25 01/10/25 01/10/25 23:31 05:21 05:24 WBC 12.1 H RBC 3.74 L Hgb 10.5 L Hct 33.1 L MCV 88.5 MCH 28.1 MCHC 31.7 RDW 13.0 Plt Count 308 MPV 11.5 Immature Gran % (Auto) 0.4 Neut % (Auto) 69.7 Lymph % (Auto) 20.2 [place] % (Auto) 7.7 Eos % (Auto) 1.7 Baso % (Auto) 0.3 Lymph # (Auto) 2.4 [place] # (Auto) 0.9 Eos # (Auto) 0.2 Baso # (Auto) 0.0 Abs Immat Gran (auto) 0.05 H Absolute Neuts (auto) 8.4 H Absolute Nucleated RBC 0.000 Nucleated RBC % (auto) 0.0 VBG pH 7.47 H VBG pCO2 34 VBG pO2 42 VBG HCO3 25 VBG O2 Saturation 71.0 VBG Base Excess 1.8 Sodium 139 Potassium 3.6 Chloride 107 Carbon Dioxide 23 Anion Gap 13 BUN 25 H Creatinine 1.64 H Estim Creat Clear Calc 25.0 Estimated GFR 30 POC Glucose 185 H Random Glucose 171 H Calcium 8.3 L Phosphorus 3.9 Magnesium 2.2 Total Bilirubin 0.7 AST 18 ALT 14 Alkaline Phosphatase 93 Total Protein 6.7 Albumin 3.6 01/10/25 05:41 WBC RBC Hgb Hct MCV MCH MCHC RDW Plt Count MPV Immature Gran % (Auto) Neut % (Auto) Lymph % (Auto) [place] % (Auto) Eos % (Auto) Baso % (Auto) Lymph # (Auto) [place] # (Auto) Eos # (Auto) Baso # (Auto) Abs Immat Gran (auto) Absolute Neuts (auto) Absolute Nucleated RBC Nucleated RBC % (auto) VBG pH VBG pCO2 VBG pO2 VBG HCO3 VBG O2 Saturation VBG Base Excess Sodium Potassium Chloride Carbon Dioxide Anion Gap BUN Creatinine Estim Creat Clear Calc Estimated GFR POC Glucose 175 H Random Glucose Calcium Phosphorus Magnesium Total Bilirubin AST ALT Alkaline Phosphatase Total Protein Albumin Microbiology Microbiology Results: Microbiology 01/09/25 05:23 Urine clean catch - Clean Catch Midstream Urine Culture - Final No growth. 01/09/25 05:28 Blood - Venous Blood Culture - Preliminary No growth after 24 hours. 01/09/25 05:38 Blood - Venous Blood Culture - Preliminary No growth after 24 hours. Progress Note: A&P Assessment and plan (1) Hypertensive urgency: Status: Acute (2) Congestive heart failure: Status: Acute (3) Diabetes mellitus: Status: Acute (4) Pulmonary edema: Status: Acute (5) Chronic kidney disease: Status: Acute Plan Assessment: 84-year-old lady admitted with acute hypoxic respiratory failure secondary to flash pulmonary edema initially requiring ventilatory support Plan: Neuro: No acute issues. Cardiac: Flash pulmonary edema/exacerbation of underlying systolic congestive heart failure with hypertensive emergency, improved with diuresis. Underlying CAD. Evaluated by Cardiology service. Pulmonary: Acute hypoxic respiratory failure secondary to flash pulmonary edema briefly requiring ventilatory support, extubated on 01/09/2025. Renal: No acute issues. Endo: No acute issues. GI: No acute issues. ID: No acute issues Heme/Onc: No acute issues. Psych: No acute issues. Miscellaneous: No acute issues. Prophylaxis: Heparin Diet: Regular Quality Stroke Does the patient have a stroke diagnosis?: No VTE Prior VTE?: No VTE Risk Level:: Medical - moderate - high VTE Device Contraindication: N/A - Device Ordered VTE Drug Contraindication: N/A - Med Ordered
--- NOTE | 2025-01-10 11:13 | PC.NURSE ---
Assumed care @ 0700 Neuro/Resp/Cardiac: Alert & oriented, RA clear lung sounds, Sinus rhythm on tele GI/: LBM 01/08, Diabetic, POC QIDACHS, urinating on bedside commode Skin: Skin intact? (repositioning maintained)? Temp: ?Afebrile Infectious:? IV Abx? Lines: peripheral IVs Plan to transfer to the medical floor. Not requiring ICU level pf care?
[2025-01-10 12:24] LABS: Glucose, Whole Blood 247 mg/dL (60-115)
[2025-01-10 16:01] LABS: Glucose, Whole Blood 187 mg/dL (60-115)
--- NOTE | 2025-01-10 16:18 | PM.EVENT ---
Event Note Date of Service: 01/10/25 Event Note: 84-year-old lady with underlying ischemic cardiomyopathy with EF of approximately 15%, CAD status post stenting, hypotension, diabetes mellitus, CKD, recent admission for flash pulmonary edema admitted on 01/09/2025 with another episodes of flash pulmonary edema resulting in acute hypoxic respiratory failure requiring intubation and ventilatory support, treated with vasodilators and diuretics and extubated on 01/09/2025. Evaluated by Cardiology service with no plans for further intervention. Acute respiratory failure with hypoxia Secondary to flash pulmonary edema briefly requiring ventilatory support. Extubated January 09 Flash pulmonary edema/exacerbation of underlying systolic CHF in the setting of hypertensive emergency Ischemic cardiomyopathy with acute hypoxemic respiratory failure Required intubation due to respiratory distress, Reduced LV systolic function with EF around 15% Continue holding Entresto and Coreg due to low normal blood pressures, resume as bp allows Monitor I&O Cardiology following Hypertensive emergency Status post nitroglycerin drip Now with low blood pressure Monitor blood pressure closely, resume home blood pressure medications when blood pressure allows Cardiology following [id number]-qgolyudoj type 2 diabetes Sliding scale insulin POC glucose, diabetic diet Mood Continue baseline meds Time Spent With Patient Time: Total time managing care of this patient today ____ minutes.
[2025-01-10 19:51] LABS: Glucose, Whole Blood 207 mg/dL (60-115)
[2025-01-11 01:27] LABS: Venous Blood Gas Refer to POC result
[2025-01-11 03:08] VITALS: BP 121/66; PULSE 97; RESP 18; TEMP 36.9; O2SAT 96
[2025-01-11 07:01] VITALS: BP 130/61; PULSE 95; RESP 17; TEMP 36.3; O2SAT 96
[2025-01-11 07:20] LABS: Glucose, Whole Blood 179 mg/dL (60-115)
[2025-01-11 07:24] LABS: MANUAL DIFF FLAG NO
[2025-01-11 07:26] LABS: Hematocrit 32.0 % (37.0-47.0); Hemoglobin 10.1 g/dl (12.0-16.0); Imm Gran Abs Auto 0.06 X10*3/uL (0.00-0.03); Imm Gran Pct Auto 0.4 % (0.0-0.4); Lymphocytes Absolute Auto 2.2 X10*3/uL (1.2-4.9); Mean Corpuscular HGB Conc 31.6 g/dl (31.0-35.0); Mean Corpuscular Hemoglobin 28.5 pg (27.0-33.0); Mean Corpuscular Volume 90.1 fL (80.0-98.0); NRBC Abs Auto 0.000 X10*3/uL (0.0-0.012); NRBC Pct Auto 0.0 /100WBC (0.0-0.2); Platelet Count 305 X10*3/uL (160-400); Red Blood Count 3.55 X10*6/uL (4.20-5.50); White Blood Count 13.7 X10*3/uL (4.8-10.8)
[2025-01-11 07:40] LABS: Albumin Level 3.7 g/dL (3.5-5.0); Anion Gap 13 (12-20); Blood Urea Nitrogen 20 mg/dL (9-16); Calcium 8.5 mg/dL (8.4-10.2); Carbon Dioxide 25 mmol/L (22-29); Chloride 106 mmol/L (96-108); Creatinine Clr Calc Pharmacy 28.1; Estimated Glomerular Filt Rate 34; Magnesium 2.3 mg/dL (1.6-2.6); Potassium 4.6 mmol/L (3.3-5.1); Sodium 139 mmol/L (135-145)
[2025-01-11] MEDS: 0.9 % Sodium Chloride Flush 3 ML SYRINGE IVFLUSH (07:57)
[2025-01-11] MEDS: Aspirin Enteric Coated 81 MG TABLET.DR PO (07:57)
[2025-01-11] MEDS: Albuterol Sulfate (0.083%) 2.5 MG/3 ML VIAL.NEB INHALE ×2 (08:42→11:18)
[2025-01-11 08:44] VITALS: PULSE 100; O2SAT 97
--- NOTE | 2025-01-11 10:37 | P.PNCA_ITS ---
Subjective Subjective Date of Service: 01/11/25 Principal diagnosis: Congestive heart failure, ischemic cardiomyopathy, uncontrolled hypertensio Interval history: Patient presents with uncontrolled hypertension and pulmonary edema intubated and now extubated. Currently not on any medication blood pressure is generally well controlled over the last 24-48 hours. She does not have prior history of significant ischemic cardiomyopathy secondary to anterior myocardial infarction. His heart failure syndrome. Creatinine is elevated. Noted to have new stroke but has no neurologic limitations. Denies any cardiac symptoms at current time. Review of Systems Review of Systems Yes all other systems are reviewed and are negative Physical Exam Vital Signs: Last Vital Signs Temp 97.3 F 01/11/25 07:01 Pulse 100 01/11/25 08:44 Resp 17 01/11/25 07:01 BP 130/61 01/11/25 07:01 Pulse Ox 96 01/11/25 07:01 O2 Del Method Room Air 01/11/25 07:01 FiO2 30 01/09/25 10:00 BMI result Body Mass Index 30.2 GENERAL APPEARANCE: Comfortable. Currently intubated. Awake. NECK: no carotid bruit, + jugular venous distention. SKIN: no suspicious lesions, warm and dry. HEART: no murmurs, regular rate and rhythm. LUNGS: clear to auscultation anteriorly. ABDOMEN: soft, nontender. EXTREMITIES: no edema. PERIPHERAL PULSES: equal. NEUROLOGIC: No gross deficits, AAO X 3 Objective Labs and Meds 01/11/25 06:59 01/11/25 06:59 Lab results: Laboratory Results - last 24 hr 01/10/25 01/10/25 01/10/25 11:35 15:54 19:37 WBC RBC Hgb Hct MCV MCH MCHC RDW Plt Count MPV Immature Gran % (Auto) Neut % (Auto) Lymph % (Auto) [place] % (Auto) Eos % (Auto) Baso % (Auto) Lymph # (Auto) [place] # (Auto) Eos # (Auto) Baso # (Auto) Abs Immat Gran (auto) Absolute Neuts (auto) Absolute Nucleated RBC Nucleated RBC % (auto) Sodium Potassium Chloride Carbon Dioxide Anion Gap BUN Creatinine Estim Creat Clear Calc Estimated GFR POC Glucose 247 H 187 H 207 H Random Glucose Calcium Phosphorus Magnesium Albumin 01/11/25 01/11/25 06:59 07:13 WBC 13.7 H RBC 3.55 L Hgb 10.1 L Hct 32.0 L MCV 90.1 MCH 28.5 MCHC 31.6 RDW 13.1 Plt Count 305 MPV 11.5 Immature Gran % (Auto) 0.4 Neut % (Auto) 74.1 H Lymph % (Auto) 16.0 L [place] % (Auto) 7.7 Eos % (Auto) 1.5 Baso % (Auto) 0.3 Lymph # (Auto) 2.2 [place] # (Auto) 1.1 Eos # (Auto) 0.2 Baso # (Auto) 0.0 Abs Immat Gran (auto) 0.06 H Absolute Neuts (auto) 10.1 H Absolute Nucleated RBC 0.000 Nucleated RBC % (auto) 0.0 Sodium 139 Potassium 4.6 D Chloride 106 Carbon Dioxide 25 Anion Gap 13 BUN 20 H Creatinine 1.46 H Estim Creat Clear Calc 28.1 Estimated GFR 34 POC Glucose 179 H Random Glucose 198 H Calcium 8.5 Phosphorus 3.0 Magnesium 2.3 Albumin 3.7 Progress Note: A&P Assessment and plan (1) Ischemic cardiomyopathy: Status: Resolved Assessment and Plan: Severe ischemic cardiomyopathy pulmonary edema most likely related to hypertensive urgency. Unclear as to why she had hypertensive urgency. Blood pressure now adequate control. She has no new symptoms. This point time I would start valsartan [address] of Entresto given her some low blood pressure findings as well as metoprolol 25 mg b.i.d.. Continue diuretic regimen. Noted to have new stroke which is suspected to be embolic and currently on Eliquis therapy and will continue the same. Stop aspirin to reduce bleeding risk. Will follow up as outpatient 7-10 days. Thank you for allowing me to partake in her care Time Spent With Patient Time: Total time managing care of this patient today ____ minutes. Progress Note: Quality Stroke Does the patient have a stroke diagnosis?: No Procedures Date of Service Date of Service: 01/11/25
[2025-01-11 11:09] VITALS: BP 127/64; PULSE 95; RESP 18; TEMP 36.2; O2SAT 97
[2025-01-11 11:20] VITALS: PULSE 96; RESP 18; O2SAT 96
[2025-01-11 11:36] LABS: Glucose, Whole Blood 228 mg/dL (60-115)
--- NOTE | 2025-01-11 13:50 | P.DS_ITS ---
DS: Providers Provider Date of Service: 01/11/25 Date of admission: 01/09/25 04:11 Date of discharge: 01/11/25 Primary care physician: Cecile Galindo DO Admitting clinician: Harry Phillip Attending physician on admission: Jimy Guzman Consults: 01/09/25 04:55 Consult to Cardiology Routine Consulting Provider: [facility] Reason for consultation: Pulmonary edema Has provider been notified: No Attending physician on discharge: [facility] Discharging clinician: Shreya Wright DS: Diagnosis Discharge Diagnosis (1) Acute hypoxic respiratory failure: Status: Resolved (2) Pulmonary edema cardiac cause: Start date: 01/09/25 Status: Acute DS: Summary Hospital Course Hospital Course: 84-year-old lady with underlying ischemic cardiomyopathy with EF of approxima tely 15%, CAD status post stenting, history of anterior wall PR, , diabetes mellitus, CKD, recent admission for flash pulmonary edema admitted on 01/09/2025 with another episodes of flash pulmonary edema resulting in acute hypoxic respiratory failure requiring intubation and ventilatory support, treated with vasodilators and diuretics and extubated on 01/09/2025. Evaluated by Cardiology service with no plans for further intervention. She passed speech evaluation. Patient noted to have a new stroke with this suspected to be embolic commonly currently on Eliquis therapy and we will continue this, we will stop aspirin to reduce bleeding risk. Time Attestation Discharge Coordination Time (in mins): 30 Quality: Safe Use of Opioids Does Pt have an Active Cancer Diagnosis on the Problem List?: No Quality: Stroke Does the patient have a stroke diagnosis?: Yes Reason for No Anti-thrombotic at DC: Not indicated Reason for No Anticoagulant at DC: N/A - Med Ordered Reason Not Initiating IV-Tpa: N/A - Med Ordered Reason for No Anti-thrombotic by Day Two: N/A - Med Ordered Reason for No Statin at DC: N/A - Med Ordered Physical Exam Exam: Exam: CONST: Alert and oriented, in NAD. Well nourished HEENT: Normocephalic, atraumatic, MMM, Eyes clear, Neck supple RESP: Lungs clear, RRR even and regular HEART:,RRR, S1, S2. No murmur, no edema GI:Abdomen Soft NT, ND. + BS times four :Deferred SKIN: Warm dry and intact, no visible lesions or rashes NEURO:CN II-XII Intact bilaterally, Sensation intact. Speech clear PSYCH: Normal affect Vital Signs: Vital Signs: Last Vital Signs Temp 97.2 F 01/11/25 11:09 Pulse 96 01/11/25 11:20 Resp 18 01/11/25 11:20 BP 127/64 01/11/25 11:09 Pulse Ox 97 01/11/25 11:09 O2 Del Method Room Air 01/11/25 11:09 FiO2 30 01/09/25 10:00 BMI result Body Mass Index 30.2 DS: Data Data Completed and Pending Labs on day of discharge: Laboratory Results - last 24 hr 01/10/25 01/10/25 01/11/25 15:54 19:37 06:59 WBC 13.7 H RBC 3.55 L Hgb 10.1 L Hct 32.0 L MCV 90.1 MCH 28.5 MCHC 31.6 RDW 13.1 Plt Count 305 MPV 11.5 Immature Gran % (Auto) 0.4 Neut % (Auto) 74.1 H Lymph % (Auto) 16.0 L [place] % (Auto) 7.7 Eos % (Auto) 1.5 Baso % (Auto) 0.3 Lymph # (Auto) 2.2 [place] # (Auto) 1.1 Eos # (Auto) 0.2 Baso # (Auto) 0.0 Abs Immat Gran (auto) 0.06 H Absolute Neuts (auto) 10.1 H Absolute Nucleated RBC 0.000 Nucleated RBC % (auto) 0.0 Sodium 139 Potassium 4.6 D Chloride 106 Carbon Dioxide 25 Anion Gap 13 BUN 20 H Creatinine 1.46 H Estim Creat Clear Calc 28.1 Estimated GFR 34 POC Glucose 187 H 207 H Random Glucose 198 H Calcium 8.5 Phosphorus 3.0 Magnesium 2.3 Albumin 3.7 01/11/25 01/11/25 07:13 11:27 WBC RBC Hgb Hct MCV MCH MCHC RDW Plt Count MPV Immature Gran % (Auto) Neut % (Auto) Lymph % (Auto) [place] % (Auto) Eos % (Auto) Baso % (Auto) Lymph # (Auto) [place] # (Auto) Eos # (Auto) Baso # (Auto) Abs Immat Gran (auto) Absolute Neuts (auto) Absolute Nucleated RBC Nucleated RBC % (auto) Sodium Potassium Chloride Carbon Dioxide Anion Gap BUN Creatinine Estim Creat Clear Calc Estimated GFR POC Glucose 179 H 228 H Random Glucose Calcium Phosphorus Magnesium Albumin Preliminary micro results at discharge 01/09/25 05:28 Blood Culture - Preliminary Blood - Venous No growth after 48 hours. 01/09/25 05:38 Blood Culture - Preliminary Blood - Venous No growth after 48 hours. Discharge Plan Discharge Anticipated Discharge Date/Time: 01/11/25 13:56 Patient Disposition: Home, Self-Care Discharge Diagnosis: Acute Hypoxic respiratory failure Referrals: Cecile Galindo DO [Primary Care Provider, Internal Medicine] - 1 Week Discharge Medications: New valsartan 40 mg Tablet 40 mg PO BID 30 Days Qty: 60 0RF Protocol: Hold for SBP< HOLD for SBP < : 90 metoprolol tartrate 25 mg Tablet 25 mg PO BID Qty: 60 0RF Protocol: Hold for SBP/HR < HOLD for SBP < : 90 HOLD for HR < : 60 Continued nitroglycerin 0.4 mg tablet, sublingual 0.4 mg sublingual Q5M PRN (Reason: Chest Pain) Rx Instructions: do not exceed 3 doses per episode glipizide 5 mg tablet 5 mg PO BID sertraline [Zoloft] 25 mg tablet 25 mg PO DAILY fluticasone propionate [Flonase Allergy Relief] 50 mcg/actuation spray,suspension 1 spray intranasal DAILY PRN (Reason: Allergy Symptoms) Rx Instructions: administer into each nostril melatonin 5 mg tablet 5 mg PO BEDTIME PRN (Reason: Sleep) ezetimibe 10 mg tablet 10 mg PO DAILY Qty: 30 5RF calcium carbonate-vitamin D3 600 mg-5 mcg (200 unit) tablet 1 tab PO BID docusate sodium 100 mg capsule 100 mg PO BID Mounjaro 7.5 mg/0.5 mL pen injector 7.5 mg subcut FR ketotifen fumarate [[place]] 0.025 % (0.035 %) Drops 1 drp OPHTHALMIC (EYE) BID PRN (Reason: allergies) Rx Instructions: administer at least 8 hours apart Jardiance 10 mg tablet 10 mg PO DAILY Eliquis 2.5 mg Tablet 2.5 mg PO BID Qty: 180 0RF acetaminophen 325 mg capsule 650 mg PO Q8H PRN (Reason: Pain) tramadol 50 mg tablet 50 mg PO DAILY PRN (Reason: Pain, Severe) baclofen 10 mg tablet 10 mg PO BID PRN (Reason: muscle spasm) rosuvastatin 40 mg tablet 40 mg PO DAILY Discontinued carvedilol 3.125 mg tablet 3.125 mg PO BID Qty: 180 3RF Entresto 49-51 mg tablet 1 tab PO BID Qty: 180 3RF aspirin [Adult Aspirin Regimen] 81 mg tablet,delayed release (DR/EC) 81 mg PO DAILY Qty: 90 3RF Discharge Orders: Discharge Order (Routine); Ordered 01/11/25 Ordered By: Shreya Wright Diet: Advance to usual diet Activity on Discharge: As tolerated Stand Alone Forms: Patient Portal Discharge page Print Language: Persian Care Plan Goals: Recovery from respiratory failure Pulmonary edema Health Concerns: Acute respiratory failure requiring intubation Pulmonary edema Hypertensive emergency CHF Plan of Treatment: Acute respiratory failure with hypoxia Secondary to flash pulmonary edema briefly requiring ventilatory support. Extubated January 09 Flash pulmonary edema/exacerbation of underlying systolic CHF in the setting of hypertensive emergency Ischemic cardiomyopathy with acute hypoxemic respiratory failure Required intubation due to respiratory distress Reduced LV systolic function with EF around 15% Start Metoprolol 25 mgs BID and Valsartan 40 mgs BID Stop entresto due to low blood pressures. Stop Carvedilol Will need to follow up with cardiology in 7-10 days HLD Continue Rosuvastatin and ezetimibe SP Hypertensive emergency Status post nitroglycerin drip Now with low blood pressure Resumed metoprolol and valsartan, Stop entresto Cardiology FU in 7-10 days Uaf-[id number]-zcpamqusa type 2 diabetes Sliding scale insulin POC glucose, diabetic diet Mood disorder Continue baseline meds History of Embolic stroke Continue eliquis Stop aspirin due to risk of bleeding Assessment: As above
[2025-01-11 14:59] VITALS: BP 107/63; PULSE 85; RESP 18; TEMP 36.4; O2SAT 98
[2025-01-11 16:44] LABS: Glucose, Whole Blood 216 mg/dL (60-115)
== END 2025-01-11 17:42 | disposition home health service (06) | DRG 304 ==
LOC: HO.ED 04:06 → HO.EDOVER 04:20 → HO.ICU 04:22 → HO.IMC 01-10 12:22
PROVIDERS: Internal Medicine Pulmonary Disease; Physician Assistant Medical; Admitting Provider Registered Nurse Community Health; Emergency Provider Emergency Medicine; PCP Family Medicine; Visit Provider Internal Medicine
DX: I16.1 Hypertensive emergency (principal); I50.23 Acute on chronic systolic (congestive) heart failure; J96.01 Acute respiratory failure with hypoxia; R57.9 Shock, unspecified; I13.0 Hypertensive heart and chronic kidney disease with heart failure and stage 1 through stage 4 chronic kidney disease, or unspecified chronic kidney disease; I25.10 Atherosclerotic heart disease of native coronary artery without angina pectoris; I25.5 Ischemic cardiomyopathy; E11.22 Type 2 diabetes mellitus with diabetic chronic kidney disease; N18.9 Chronic kidney disease, unspecified; Z95.5 Presence of coronary angioplasty implant and graft; Z79.01 Long term (current) use of anticoagulants; Z79.899 Other long term (current) drug therapy
CPT/HCPCS: 36415; 70450; 71045; 71250; 80048; 80053; 81001; 82040; 82803; 82947; 83605; 83735; 83880; 84100; 84439; 84443; 84484; 85025; 87040; 87086; 93005; 94002; 94640; 99285; J0295; J1938; J2250; J2305; J2470; J2704; J3010; J3360

== ENCOUNTER → 2025-01-09 03:05 | Outpatient (BNV) | payer OTHER, SELFPAY ==
[2022-11-29 12:51] VITALS: BP 118/58; BP 118/64
[2022-12-24 12:41] VITALS: BMI 29.1
[2023-04-08 14:16] VITALS: BP 110/60
== END ==
PROVIDERS: Admitting Provider Registered Nurse Community Health; Emergency Provider Emergency Medicine; PCP Family Medicine; Visit Provider Radiology Vascular & Interventional Radiology
DX: J18.8 Other pneumonia, unspecified organism (principal); J81.0 Acute pulmonary edema; G93.40 Encephalopathy, unspecified; R06.02 Shortness of breath; R06.00 Dyspnea, unspecified
CPT/HCPCS: 70450; 71045; 71250

== ENCOUNTER → 2025-01-09 04:11 | Outpatient (BNV) | payer OTHER, SELFPAY ==
[2022-11-29 12:51] VITALS: BP 118/58; BP 118/64
[2022-12-24 12:41] VITALS: BMI 29.1
[2023-04-08 14:16] VITALS: BP 110/60
== END ==
PROVIDERS: Admitting Provider Registered Nurse Community Health; Emergency Provider Emergency Medicine; PCP Family Medicine; Visit Provider Internal Medicine Pulmonary Disease
DX: I16.0 Hypertensive urgency (principal); I50.9 Heart failure, unspecified; E11.9 Type 2 diabetes mellitus without complications; J81.1 Chronic pulmonary edema; N18.9 Chronic kidney disease, unspecified
CPT/HCPCS: 99233

== ENCOUNTER → 2025-01-09 04:11 | Outpatient (BNV) | payer OTHER, SELFPAY ==
[2022-11-29 12:51] VITALS: BP 118/58; BP 118/64
[2022-12-24 12:41] VITALS: BMI 29.1
[2023-04-08 14:16] VITALS: BP 110/60
== END ==
PROVIDERS: Admitting Provider Registered Nurse Community Health; Emergency Provider Emergency Medicine; PCP Family Medicine; Visit Provider Registered Nurse Community Health
DX: I50.9 Heart failure, unspecified (principal); J96.01 Acute respiratory failure with hypoxia; I25.5 Ischemic cardiomyopathy; J81.1 Chronic pulmonary edema; N18.9 Chronic kidney disease, unspecified; I16.0 Hypertensive urgency; E11.9 Type 2 diabetes mellitus without complications
CPT/HCPCS: 99291

== ENCOUNTER → 2025-01-09 04:11 | Outpatient (BNV) | payer OTHER, SELFPAY ==
[2022-11-29 12:51] VITALS: BP 118/58; BP 118/64
[2022-12-24 12:41] VITALS: BMI 29.1
[2023-04-08 14:16] VITALS: BP 110/60
== END ==
PROVIDERS: Admitting Provider Registered Nurse Community Health; Emergency Provider Emergency Medicine; PCP Family Medicine; Visit Provider Internal Medicine Cardiovascular Disease
DX: I16.0 Hypertensive urgency (principal); I50.9 Heart failure, unspecified
CPT/HCPCS: 93010; 99223

== ENCOUNTER → 2025-01-09 04:11 | Outpatient (BNV) | payer OTHER, SELFPAY ==
[2022-11-29 12:51] VITALS: BP 118/58; BP 118/64
[2022-12-24 12:41] VITALS: BMI 29.1
[2023-04-08 14:16] VITALS: BP 110/60
== END ==
PROVIDERS: Admitting Provider Registered Nurse Community Health; Emergency Provider Emergency Medicine; PCP Family Medicine; Visit Provider Physician Assistant Medical
DX: J96.01 Acute respiratory failure with hypoxia (principal); I50.1 Left ventricular failure, unspecified
CPT/HCPCS: 99239; 99499

== ENCOUNTER 2025-01-21 03:55 | Inpatient (IN) | payer OTHER, SELFPAY ==
[2022-11-29 12:51] VITALS: BP 118/58; BP 118/64
[2022-12-24 12:41] VITALS: BMI 29.1
[2023-04-08 14:16] VITALS: BP 110/60
[2025-01-21] VITALS (29 sets, daily range): BP systolic 96–193; BP diastolic 40–94; PULSE 80–119; RESP 15–27; TEMP 34–37.3; O2SAT 56–100; BMI 31.2; BMI 33.2
--- NOTE | 2025-01-21 | ECG_ITS ---
Test Reason : SOB Blood Pressure : */* mmHG Vent. Rate : 106 BPM Atrial Rate : 106 BPM P-R Int : 190 ms QRS Dur : 88 ms QT Int : 336 ms P-R-T Axes : 25 0 49 degrees QTcB Int : 446 ms Sinus tachycardia with frequent Premature ventricular complexes Possible Left atrial enlargement Nonspecific T wave abnormality Abnormal ECG When compared with ECG of 09-Jan-2025 03:05, Premature ventricular complexes are now Present Referred By: Jessica Segura Electronically Signed By: KIMBERLEY BRAVO
--- NOTE | ~2025-01-21 | XR_ITS ---
CLINICAL HISTORY: post intubation 1 view chest x-ray Comparison: 01/09/2025 Findings: Progressive right mid/lower predominantly perihilar opacity and mildly evolving hazy left basilar lung opacity. Blunted bilateral costophrenic recesses as before due to pleural effusions. Appropriately positioned endotracheal tube with distal tip projecting 4.7 cm above the sean. Distal tip of subdiaphragmatic tube is out of [id number] of the exam. No significant change in cardiomediastinal silhouette. No acute fracture. IMPRESSION: Progressive right mid/lower predominantly perihilar opacity and mildly evolving hazy left basilar lung opacity due to pulmonary edema +/-pneumonia. Correlate clinically. Blunted bilateral costophrenic recesses as before due to pleural effusions. This document has been electronically signed by: Tanvi Jacques MD on 01/21/2025 06:50:20
[2025-01-21] MEDS: Etomidate 20 MG/10 ML VIAL IVPUSH (04:03)
[2025-01-21 04:20] LABS: Glucose, Whole Blood 210 mg/dL (60-115)
[2025-01-21] MEDS: Nitroglycerin 2 % Oint 1 GM Packet 1 INCH TRANSDERMA (04:25)
[2025-01-21] MEDS: Furosemide 100 MG/10 ML VIAL 80 MG IVPUSH (04:26)
[2025-01-21] MEDS: Magnesium Sulfate/H2O 2 GM/50 ML PIGGYBACK IV (04:26)
[2025-01-21 04:34] LABS: Hematocrit 37.3 % (37.0-47.0); Hemoglobin 11.7 g/dl (12.0-16.0); Imm Gran Abs Auto 0.11 X10*3/uL (0.00-0.03); Imm Gran Pct Auto 0.7 % (0.0-0.4); Lymphocytes Absolute Auto 5.6 X10*3/uL (1.2-4.9); MANUAL DIFF FLAG SCAN; Mean Corpuscular HGB Conc 31.4 g/dl (31.0-35.0); Mean Corpuscular Hemoglobin 29.1 pg (27.0-33.0); Mean Corpuscular Volume 92.8 fL (80.0-98.0); NRBC Abs Auto 0.000 X10*3/uL (0.0-0.012); NRBC Pct Auto 0.0 /100WBC (0.0-0.2); Platelet Count 291 X10*3/uL (160-400); Red Blood Count 4.02 X10*6/uL (4.20-5.50); SCAN SMEAR FLAG 1; Venous Blood Gas Refer to POC result; White Blood Count 14.9 X10*3/uL (4.8-10.8)
--- NOTE | 2025-01-21 04:36 | PC.NURSE ---
pt brought in from home, pt unresponsive/pale/diaphoretic in the waiting room. pt moved over into a stretcher, spo2 57% on RA, provider Colton at the bedside. 0403 etemidate 20mg IV and Adrien 50mg IV given 0405 pt intubated size 7 23@ the lip 0407 HR 128, BP 149/61 SPO2 67% manual bagging 0409 SPO2 96% on vent settings: rate 20, volume 300, 100%, PEEP of 5 , RR 20, BP 157/59 0426 Lasix 80mg IV given and nitro patch applied to R. Chest
[2025-01-21 04:38] LABS: VBG HCO3 17 mmol/L (22-26); VBG O2 % Saturation 89.0 %
--- NOTE | 2025-01-21 04:50 | PC.NURSE ---
soft wrist restraints applied d/t intubation and sedation medication
--- NOTE | 2025-01-21 04:54 | PC.NURSE ---
Addendum entered by Jose De Jesus Lowry 01/21/25 05:05: correction: urine sample obtained, not sent to lab pending orders Original Note: indwelling urinary catheter 16 bulgarian placed at this time, urine sample obtained and sent to lab
[2025-01-21 04:55] LABS: B Type Natriuretic Peptide 865 pg/mL (<100); Troponin-I High Sensitivity 6.9 ng/L (<3.5-17.0)
[2025-01-21 04:56] LABS: Alanine Aminotransferase 34 U/L (0-31); Albumin Level 4.0 g/dL (3.5-5.0); Alkaline Phosphatase 103 U/L (39-117); Anion Gap 20 (12-20); Aspartate Amino Transferase 31 U/L (5-31); Blood Urea Nitrogen 21 mg/dL (9-16); Calcium 8.7 mg/dL (8.4-10.2); Carbon Dioxide 16 mmol/L (22-29); Chloride 107 mmol/L (96-108); Creatinine Clr Calc Pharmacy 26.8; Estimated Glomerular Filt Rate 33; Magnesium 2.5 mg/dL (1.6-2.6); Potassium 3.5 mmol/L (3.3-5.1); Sodium 139 mmol/L (135-145); Total Protein 7.8 g/dL (6.5-8.0)
[2025-01-21 05:16] LABS: Resp Syncy Virus RNA Qual PCR NEGATIVE (Negative); SARS COV2 PCR INHOUSE NEGATIVE (Negative)
--- NOTE | 2025-01-21 05:20 | PC.NURSE ---
urine sample sent to lab
--- NOTE | 2025-01-21 05:26 | ED.GENADULT ---
HPI - General Adult General Chief complaint: Respiratory Arrest Stated complaint: sob Time Seen by Provider: 01/21/25 04:15 Source: family Mode of arrival: wheelchair Limitations: other History of Present Illness ED Provider: Dr. Jessica Segura HPI narrative: Patient comes to the emergency room via private vehicle. Patient arrives to the ED unresponsive, pale, diaphoretic, with pulse. Patient's oxygen saturation 55% on room air. According to the patient's daughters, patient was at home and had sudden onset of severe shortness of breath, respiratory distress and they brought her to the emergency room. Patient has had 2 episodes of flash pulmonary edema last month which required intubation. On arrival, patient is unresponsive Related Data Home Medications ?Medication ?Instructions ?Recorded ?Confirmed acetaminophen 325 mg capsule 650 mg PO Q8H PRN Pain 09/19/20 01/09/25 tramadol 50 mg tablet 50 mg PO DAILY PRN Pain, Severe 09/19/20 01/09/25 baclofen 10 mg tablet 10 mg PO BID PRN muscle spasm 04/13/22 01/09/25 rosuvastatin 40 mg tablet 40 mg PO DAILY 08/13/22 01/09/25 fluticasone propionate 50 1 spray intranasal DAILY PRN 11/05/23 01/09/25 mcg/actuation nasal Allergy Symptoms spray,suspension (Flonase Allergy Relief) glipizide 5 mg tablet 5 mg PO BID 11/05/23 01/09/25 melatonin 5 mg tablet 5 mg PO BEDTIME PRN Sleep 11/05/23 01/09/25 nitroglycerin 0.4 mg sublingual 0.4 mg sublingual Q5M PRN Chest 11/05/23 01/09/25 tablet Pain sertraline 25 mg tablet (Zoloft) 25 mg PO DAILY 11/05/23 01/09/25 calcium 600 mg (as 1 tab PO BID 12/24/24 01/09/25 carbonate)-vitamin D3 5 mcg (200 unit) tablet docusate sodium 100 mg capsule 100 mg PO BID 12/24/24 01/09/25 empagliflozin 10 mg tablet 10 mg PO DAILY 12/24/24 01/09/25 (Jardiance) ketotifen fumarate 0.025 % (0.035 1 drp ophthalmic (eye) BID PRN 12/24/24 01/09/25 %) eye drops (Alaway) allergies tirzepatide 7.5 mg/0.5 mL 7.5 mg subcut FR 12/24/24 01/09/25 subcutaneous pen injector (Pedro) Previous Rx's ?Medication ?Instructions ?Recorded ezetimibe 10 mg tablet 10 mg PO DAILY #30 tabs 11/27/24 apixaban 2.5 mg tablet (Eliquis) 2.5 mg PO BID #180 tabs 12/28/24 metoprolol tartrate 25 mg tablet 25 mg PO BID #60 tabs 01/11/25 valsartan 40 mg tablet 40 mg PO BID 30 days #60 tabs 01/11/25 Allergies Allergy/AdvReac Type Severity Reaction Status Date / Time procaine (From NOVOCAIN) Allergy Severe SWELLING Verified 01/21/25 04:34 LOCALIZED TO INJECTION SITE alirocumab (From Praluent Allergy Mild Itching Verified 01/21/25 04:34 Pen) Aspirin Allergy Unknown rash Uncoded 04/13/22 13:14 full strength Aspirin Allergy Unknown rash Uncoded 04/13/22 13:14 Review of Systems Review of Systems: Yes Other [facility] Past Medical History Medical History Diabetes mellitus Embolic cerebral infarction Chronic kidney disease CAD (coronary artery disease) Anxiety High cholesterol Hypertension Active asthma Surgical History Stented coronary artery Social History Social History Household Members: Family Housing: House Do you presently have visiting nurse or other home services: No Unable to assess alcohol history related to: Unable to respond Patient Tobacco Use Status: Never used Tobacco e-Cigarette/Vaping Use: Never Used Advance Directives: No Advance Directives Information Provided: Yes service: No Current occupational status: retired and disabled Current occupation: rt hand Physical Exam ED Exam Exam: Appearance: Unresponsive Eyes: Pupils equal, round and reactive to light. ENT: Pharynx normal. Neck: Normal inspection. Neck supple. No lymph nodes noted. No crepitus CVS: Normal heart rate and rhythm. Pulses normal. Normal S1 and S2 Respiratory: Agonal breathing Abdomen: Soft and nontender. No rigidity. No distention. Skin: Diaphoretic and pale with perioral cyanosis Extremities: trace pitting edema bilaterally. No Lacerations. No Rash Neuro: Unresponsive Psych: unresponsive Vital Signs: Vital Signs - 24 hr 01/21/25 04:26 01/21/25 04:31 01/21/25 04:55 Temperature Pulse Rate 119 H Respiratory Rate 27 H Blood Pressure 148/69 H 178/94 H Pulse Oximetry 56 L Oxygen Delivery Method Room Air Fraction of Inspired Oxygen 100 01/21/25 04:59 Temperature 98.1 F Pulse Rate 99 Respiratory Rate 20 Blood Pressure 167/77 H Pulse Oximetry 92 Oxygen Delivery Method Mechanical Ventilation Fraction of Inspired Oxygen BMI result Body Mass Index 31.2 Course Course Course Narrative: On arrival, patient is pale, diaphoretic, unresponsive, oxygen saturation 55% on room air , agonal breathing. On arrival, patient was intubated emergently When the ETT was inserted, a large amount of frothy sputum came through the ETT This is the 3rd time in 2 months at patient goes into flash pulmonary edema and requires intubation, patient known to have an ejection fraction of 15%. Patient received IV Lasix, nitro paste and now is intubated. Medications Administered Generic Name Dose Route Start Last Admin Trade Name Freq PRN Reason Stop Dose Admin Magnesium Sulfate 2 gm in 50 mls @ 25 mls/hr 01/21/25 04:18 01/21/25 04:26 Magnesium Sulfate/H2o IV 01/21/25 06:17 25 mls/hr ONCE ONE Administration Discontinued Medications Generic Name Dose Route Start Last Admin Trade Name Freq PRN Reason Stop Dose Admin Etomidate 20 mg 01/21/25 04:16 01/21/25 04:03 Etomidate 20 Mg/10 Ml Vial IVPUSH 01/21/25 04:17 20 mg NOW STA Administration Furosemide 80 mg 01/21/25 04:15 01/21/25 04:26 Furosemide 100 Mg/10 Ml Vial IVPUSH 01/21/25 04:16 80 mg ONCE ONE Administration Protocol Nitroglycerin 1 inch 01/21/25 04:15 01/21/25 04:25 Nitroglycerin 2 % Oint 1 Gm Packet TRANSDERMA 01/21/25 04:16 1 inch ONCE ONE Administration Rocuronium [place] 50 mg 01/21/25 04:16 01/21/25 04:03 Rocuronium [place] 50 Mg/5 Ml Vial IVPUSH 01/21/25 04:17 50 mg ONCE ONE Administration Procedures Intubation Intubation Type:: Endotracheal Tube Insertion Intubation Date:: 01/21/25 sedative: Etomidate Mg Given: 20 paralytic: Rocuronium Mg Given: 50 ET Tube Size: 7 Tube Secured Depth (cm): 23 Tube Secured Location: lips Tube Placement Confirmation: visualized tube passing through cords, equal breath sounds bilaterally, no breath sounds over epigastrium and confirmation by capnometry Patient Tolerated Procedure: well and other (Initially, we attempted passing a 7.5 ET tube. However, it was too big for the patient's) Intubation Complications: none Medical Decision Making Medical Decision Making [facility] Narrative: My interpretation of labs: No significant abnormality in patient's hematology and chemistry. Patient's pH 7.02, pCO2 64, bicarb 17, glucose 358, lactic acid 7.6 Of note, the lactic acid is chronic for the patient. Every time that she comes in flash pulmonary edema, patient's lactic acid is elevated. This is not due to sepsis. Sepsis is not suspected. At this time, patient does not require antibiotics and fluids are contraindicated RSV negative for influenza COVID and flu My interpretation of chest x-ray: OG tube and ET tube in good position, pulmonary edema bilaterally Patient's 2 daughters are in the him family room, discussed the situation with them, both agreeable with plan. I discussed the patient with Dr. Parker from the ICU, patient being admitted Differential Diagnosis Differential Diagnoses: The differential diagnosis associated with the presentation includes (Flash pulmonary edema, CHF, URI) Admission/Observation Consideration of admission/observation: Escalation of care including admission/observation considered Consult Healthcare Provider Management of the patient was discussed with: Cut Off Saw Grader Lab Data [facility] Lab Attestation statement: I reviewed the patient's lab results. 01/21/25 04:21 01/21/25 04:21 Labs: Lab Results 01/21/25 01/21/25 01/21/25 Range/Units 04:03 04:21 04:30 WBC 14.9 H (4.8-10.8) X10*3/uL RBC 4.02 L (4.20-5.50) X10*6/uL Hgb 11.7 L (12.0-16.0) g/dl Hct 37.3 (37.0-47.0) % MCV 92.8 (80.0-98.0) fL MCH 29.1 (27.0-33.0) pg MCHC 31.4 (31.0-35.0) g/dl RDW 13.2 (11.0-16.0) % Plt Count 291 (160-400) X10*3/uL MPV 11.7 (9.4-12.3) fL Immature Gran % (Auto) 0.7 H (0.0-0.4) % Neut % (Auto) 53.4 (45-73) % Lymph % (Auto) 37.1 (20-40) % [place] % (Auto) 6.4 (2-11) % Eos % (Auto) 1.9 (0-4) % Baso % (Auto) 0.5 (0-2) % Lymph # (Auto) 5.6 H (1.2-4.9) X10*3/uL [place] # (Auto) 1.0 (0.1-1.2) X10*3/uL Eos # (Auto) 0.3 (0.0-0.4) X10*3/uL Baso # (Auto) 0.1 (0.0-0.2) X10*3/uL Abs Immat Gran (auto) 0.11 H (0.00-0.03) X10*3/uL Absolute Neuts (auto) 8.0 (2.0-8.3) x10*3/uL Absolute Nucleated RBC 0.000 (0.0-0.012) X10*3/uL Nucleated RBC % (auto) 0.0 (0.0-0.2) /100WBC Smear Tech's Comments VERIFIED VBG pH 7.02 L* (7.32-7.43) VBG pCO2 64 mmHg VBG pO2 87 mmHg VBG HCO3 17 L (22-26) mmol/L VBG O2 Saturation 89.0 % VBG Base Excess -14.5 mmol/L Sodium 139 (135-145) mmol/L Potassium 3.5 D (3.3-5.1) mmol/L Chloride 107 (96-108) mmol/L Carbon Dioxide 16 L (22-29) mmol/L Anion Gap 20 (12-20) BUN 21 H (9-16) mg/dL Creatinine 1.50 H (0.5-1.4) mg/dL Estim Creat Clear Calc 26.8 Estimated GFR 33 POC Glucose 210 H (60-115) mg/dL Random Glucose 358 H* (60-115) mg/dL Lactic Acid 7.6 H* (0.5-2.0) mmol/L Calcium 8.7 (8.4-10.2) mg/dL Magnesium 2.5 (1.6-2.6) mg/dL Total Bilirubin 0.4 (0.0-1.0) mg/dL Direct Bilirubin 0.1 (0.0-0.5) mg/dL AST 31 (5-31) U/L ALT 34 H (0-31) U/L Alkaline Phosphatase 103 (39-117) U/L Troponin I High Sens 6.9 (<3.5-17.0) ng/L B-Natriuretic Peptide 865 H (<100) pg/mL Total Protein 7.8 (6.5-8.0) g/dL Albumin 4.0 (3.5-5.0) g/dL Influenza Type A (PCR) NEGATIVE (Negative) Influenza Type B (PCR) NEGATIVE (Negative) RSV RNA Qual (PCR) NEGATIVE (Negative) SARS-CoV-2 RNA (RT-PCR) NEGATIVE (Negative) Independent Interpretation I performed an independent interpretation of an: EKG and Plain X-Ray Interpretation: My interpretation of EKG: Sinus tachycardia, heart rate 106, frequent PVCs, nonspecific ST changes, QTC 446 Critical Care Time Critical Care Time Critical Care Time: Yes Total Critical Care Time: 90 Attestation: I have personally provided critical care time. Time includes review of lab data, radiology results, discussion with consultants, and monitoring for potential decompensation. Intervention performed as documented. Discharge Plan Discharge Clinical Impression: Flash pulmonary edema Patient Disposition: Admitted As Inpatient Print Language: Uzbek
[2025-01-21 05:40] LABS: Appearance Urine Clear; Glucose Urine UA 500 mg/dL (Negative); PH 6.0 (5.0-9.0); Specific Gravity - Urine 1.010 (1.005-1.025); UMIC TRIGGER UACC YES
[2025-01-21 05:44] LABS: Glucose, Whole Blood 267 mg/dL (60-115)
--- NOTE | 2025-01-21 05:45 | PC.NURSE ---
pt POC obtained, pt medicated per [facility] insulin protocol
[2025-01-21 05:50] LABS: Cannabinoid Screen Urine Not Detected (Not Detect)
--- NOTE | 2025-01-21 06:10 | PC.NURSE ---
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 Pt transported to ICU w/ respiratory, offset machine operator and ELECTRICIAN SUPERVISOR [employer]STATION
[2025-01-21 06:28] LABS: Reflex Lactate? Lactic Acid Added
[2025-01-21] MEDS: fentaNYL citrate/NS 1,000 MCG/100 ML PLAST..BAG 2.5 MCG IVCONT (06:28)
--- NOTE | 2025-01-21 06:39 | PM.CCHP ---
History of Present Illness Date of Service: 01/21/25 Attending physician on admission: Jimy Guzman Chief Complaint: Pulmonary edema Ms. Westfall is an 84-year-old female with a past medical history of ischemic cardiomyopathy with EF 10 - 15%,? coronary? artery disease s/p stents,? hypertension, diabetes mellitus, asthma, chronic kidney disease, hyperlipidemia and multiple admissions over the last month, most recently 01/09/25 to 01/11/25? for flash pulmonary edema and acute ischemic stroke placed on eliquis.? The patient was brought from home by her daughter due to sudden shortness of breath and respiratory distress. On arrival to the emergency department, the patient was unresponsive, pale, diaphoretic with a pulse, O2 sat 55% on room air. She was intubated emergently. This is the patient?s 3rd intubation in the last 2 months for flash pulmonary edema.?? Laboratory data significant for WBC 14.9, serum bicarb 16, BUN 21, creatinine 1.50, glucose 358, lactic acid 7.6,? BNP 865. VBG 7.02 64 87 17. ED course:? The patient received Mag sulfate 2 g, 1 in nitro paste, furosemide 80 mg. Review of Systems Review of Systems: Yes unobtainable due to endotracheal tube PMFSH Past Medical History Medical History Diabetes mellitus Embolic cerebral infarction Chronic kidney disease CAD (coronary artery disease) Anxiety High cholesterol Hypertension Active asthma Surgical History Surgical History Stented coronary artery Social History Social History Household Members: Unknown / Unable to assess Housing: Unknown / Unable to assess Do you presently have visiting nurse or other home services: No Unable to assess alcohol history related to: Unable to respond Patient Tobacco Use Status: Tobacco use Unknown e-Cigarette/Vaping Use: Never Used Have you been hit, kicked, punched, or otherwise hurt by someone within the past year? If so, by whom?: No Is there a partner from a previous relationship who is making you feel unsafe now?: No Are you made to feel afraid or neglected: No [facility] Practices: unknown- intubated/sedated Advance Directives: No Advance Directives Information Provided: Yes Recently lost weight without trying: Unsure Nutrition Risks: On aspiration precautions Patient : No : No Poor oral hygiene: No service: No Current occupational status: retired and disabled Current occupation: rt hand Meds Allergies Allergy/AdvReac Type Severity Reaction Status Date / Time procaine (From NOVOCAIN) Allergy Severe SWELLING Verified 01/21/25 04:34 LOCALIZED TO INJECTION SITE alirocumab (From Praluent Allergy Mild Itching Verified 01/21/25 04:34 Pen) Aspirin Allergy Unknown rash Uncoded 04/13/22 13:14 full strength Aspirin Allergy Unknown rash Uncoded 04/13/22 13:14 Active Medications: Current Medications Chlorhexidine Gluconate (Chlorhexidine Gluc Oral Rinse 15 Ml Mouthwash) 15 ml BUCCAL TID JN Dextrose (Dextrose 50 % 25 Gm/50 Ml Syringe) 25 gm IVPUSH Q15M PRN; Protocol PRN Reason: per Hypoglycemia Standing Ord. Famotidine (Famotidine/Pf 20 Mg/2 Ml Vial) 20 mg IVPUSH BID JN Glucose (Glucose Gel 15 Gm Gel..Gram.) 15 gm PO Q15M PRN; Protocol PRN Reason: per Hypoglycemia Standing Ord. Propofol (Diprivan) 1,000 mg in 100 mls @ 0 mls/hr IVCONT .Q0M JN; Protocol Last Titration: 01/21/25 06:18 Dose: 50 mcg/kg/min, 22.5 mls/hr Fentanyl (Sublimaze/Ns) 1,000 mcg in 100 mls @ 0 mls/hr IVCONT .Q0M JN; Protocol Last Admin: 01/21/25 06:28 Dose: 25 mcg/hr, 2.5 mls/hr Insulin Human Lispro (Insulin Lispro 100 Unit/Ml 3 Ml Vial) 0 unit SUBCUT Q6H [facility]; Protocol Naloxone HCl (Naloxone Hcl 0.4 Mg/Ml Vial) 0.2 mg IVPUSH Q2M PRN PRN Reason: Excessive sedation or RR < 8 Sodium Chloride (0.9 % Sodium Chloride Flush 3 Ml Syringe) 3 ml IVFLUSH QSHIFT [facility] Home Medications ?Medication ?Instructions ?Recorded ?Confirmed ?Last Taken ?Type acetaminophen 325 mg capsule 650 mg PO Q8H PRN Pain 09/19/20 01/09/25 Unknown History tramadol 50 mg tablet 50 mg PO DAILY PRN Pain, Severe 09/19/20 01/09/25 Unknown History baclofen 10 mg tablet 10 mg PO BID PRN muscle spasm 04/13/22 01/09/25 Unknown History rosuvastatin 40 mg tablet 40 mg PO DAILY 08/13/22 01/09/25 01/08/25 History fluticasone propionate 50 1 spray intranasal DAILY PRN 11/05/23 01/09/25 Unknown History mcg/actuation nasal Allergy Symptoms spray,suspension (Flonase Allergy Relief) glipizide 5 mg tablet 5 mg PO BID 11/05/23 01/09/25 01/08/25 History melatonin 5 mg tablet 5 mg PO BEDTIME PRN Sleep 11/05/23 01/09/25 Unknown History nitroglycerin 0.4 mg sublingual 0.4 mg sublingual Q5M PRN Chest 11/05/23 01/09/25 Unknown History tablet Pain sertraline 25 mg tablet (Zoloft) 25 mg PO DAILY 11/05/23 01/09/25 01/08/25 History calcium 600 mg (as 1 tab PO BID 12/24/24 01/09/25 01/08/25 History carbonate)-vitamin D3 5 mcg (200 unit) tablet docusate sodium 100 mg capsule 100 mg PO BID 12/24/24 01/09/25 01/08/25 History empagliflozin 10 mg tablet 10 mg PO DAILY 12/24/24 01/09/25 01/08/25 History (Jardiance) ketotifen fumarate 0.025 % (0.035 1 drp ophthalmic (eye) BID PRN 12/24/24 01/09/25 Unknown History %) eye drops (Alaway) allergies tirzepatide 7.5 mg/0.5 mL 7.5 mg subcut FR 12/24/24 01/09/25 01/08/25 History subcutaneous pen injector (Pedro) Physical Exam Vital Signs: Vital Signs: Last Vital Signs Temp 98.8 F 01/21/25 06:00 Pulse 92 01/21/25 06:28 Resp 18 01/21/25 06:28 BP 193/74 H 01/21/25 06:28 Pulse Ox 99 01/21/25 06:28 O2 Del Method Mechanical Ventil ation 01/21/25 06:00 FiO2 100 01/21/25 04:55 BMI result Body Mass Index 31.2 HEENT: Head: Yes normocephalic and Yes atraumatic General nose exam: Normal external nose present (Nares patent, septum midline, sinuses nontender bilaterally.) Mouth: Normal oral and palatal mucosa present (No thrush, tongue in midline, mucosa moist.) Neck: Neck: Yes supple (no thyromegaly, trachea midline.) Carotids: normal carotid upstroke Resp: Auscultation: diminished lung sounds Cardio: Jugular venous distension: no JVD Rate: regular rate Rhythm: regular rhythm Heart sounds: no gallops, no murmurs and no rubs Peripheral pulses: Peripheral pulses 2+ throughout GI: Palpation (GI): Soft to palpation (nondistended.) and nontender Extrem: General: Yes full ROM, Yes capillary refill normal and Yes edema (bilateral lower extremities) Results Labs 01/21/25 04:21 01/21/25 04:21 Labs: Laboratory Results - last 24 hr 01/21/25 01/21/25 01/21/25 04:03 04:21 04:30 MCV 92.8 MCH 29.1 MCHC 31.4 RDW 13.2 Plt Count 291 MPV 11.7 Immature Gran % (Auto) 0.7 H Neut % (Auto) 53.4 Lymph % (Auto) 37.1 [place] % (Auto) 6.4 Eos % (Auto) 1.9 Baso % (Auto) 0.5 Lymph # (Auto) 5.6 H [place] # (Auto) 1.0 Eos # (Auto) 0.3 Baso # (Auto) 0.1 Abs Immat Gran (auto) 0.11 H Absolute Neuts (auto) 8.0 Absolute Nucleated RBC 0.000 Nucleated RBC % (auto) 0.0 Smear Tech's Comments VERIFIED VBG pH 7.02 L* VBG pCO2 64 VBG pO2 87 VBG HCO3 17 L VBG O2 Saturation 89.0 VBG Base Excess -14.5 Anion Gap 20 Estim Creat Clear Calc 26.8 Estimated GFR 33 POC Glucose 210 H Random Glucose 358 H* Lactic Acid 7.6 H* Calcium 8.7 Magnesium 2.5 Total Bilirubin 0.4 Direct Bilirubin 0.1 AST 31 ALT 34 H Alkaline Phosphatase 103 B-Natriuretic Peptide 865 H Total Protein 7.8 Albumin 4.0 Urine Color Urine Appearance Urine pH Ur Specific [place] Urine Protein Urine Glucose (UA) Urine Ketones Urine Blood Urine Nitrite Ur Leukocyte Esterase Urine RBC Urine WBC Ur Squamous Epith Cells Urine Bacteria Hyaline Casts Urine Opiates Screen Ur Buprenorphine Scrn Ur Oxycodone Screen Urine Methadone Screen Urine Fentanyl Screen Ur Barbiturates Screen Ur Phencyclidine Scrn Ur Amphetamines Screen U Benzodiazepines Scrn Urine Cocaine Screen U Marijuana (THC) Screen Influenza Type A (PCR) NEGATIVE Influenza Type B (PCR) NEGATIVE RSV RNA Qual (PCR) NEGATIVE SARS-CoV-2 RNA (RT-PCR) NEGATIVE 01/21/25 01/21/25 05:18 05:40 MCV MCH MCHC RDW Plt Count MPV Immature Gran % (Auto) Neut % (Auto) Lymph % (Auto) [place] % (Auto) Eos % (Auto) Baso % (Auto) Lymph # (Auto) [place] # (Auto) Eos # (Auto) Baso # (Auto) Abs Immat Gran (auto) Absolute Neuts (auto) Absolute Nucleated RBC Nucleated RBC % (auto) Smear Tech's Comments VBG pH VBG pCO2 VBG pO2 VBG HCO3 VBG O2 Saturation VBG Base Excess Anion Gap Estim Creat Clear Calc Estimated GFR POC Glucose 267 H Random Glucose Lactic Acid Calcium Magnesium Total Bilirubin Direct Bilirubin AST ALT Alkaline Phosphatase B-Natriuretic Peptide Total Protein Albumin Urine Color Yellow Urine Appearance Clear Urine pH 6.0 Ur Specific [place] 1.010 Urine Protein 30 (1+) H Urine Glucose (UA) 500 H Urine Ketones Negative Urine Blood Negative Urine Nitrite Negative Ur Leukocyte Esterase Negative Urine RBC 0-2 Urine WBC 0-5 Ur Squamous Epith Cells 0-2 Urine Bacteria None Seen Hyaline Casts 0-2 Urine Opiates Screen Not Detected Ur Buprenorphine Scrn Not Detected Ur Oxycodone Screen Not Detected Urine Methadone Screen Not Detected Urine Fentanyl Screen Not Detected Ur Barbiturates Screen Not Detected Ur Phencyclidine Scrn Not Detected Ur Amphetamines Screen Not Detected U Benzodiazepines Scrn Not Detected Urine Cocaine Screen Not Detected U Marijuana (THC) Screen Not Detected Influenza Type A (PCR) Influenza Type B (PCR) RSV RNA Qual (PCR) SARS-CoV-2 RNA (RT-PCR) Assessment and Plan (1) Congestive heart failure: Qualifiers: Heart failure type: other Qualified Code(s): I50.9 - Heart failure, unspecified Status: Acute (2) Pulmonary edema cardiac cause: Status: Acute (3) Diabetes mellitus: Qualifiers: Diabetes mellitus type: type 2 Diabetes mellitus bow maker gift wrapping insulin use: unspecified skilled nursing insulin use status Diabetes mellitus complication status: without complication Qualified Code(s): E11.9 - Type 2 diabetes mellitus without complications Status: Acute (4) Chronic kidney disease: Qualifiers: Chronic kidney disease stage: stage 3 (moderate) Chronic kidney disease stage 3 subtype: unspecified whether 3a or 3b Qualified Code(s): N18.30 - Chronic kidney disease, stage 3 unspecified Status: Acute Plan 84-year-old female with a past medical history of ischemic cardiomyopathy with EF 10 - 15%,? coronary? artery disease s/p stents,? hypertension, diabetes mellitus, asthma, chronic kidney disease, hyperlipidemia, stroke? admitted to ICU with acute respiratory failure due to pulmonary edema. Plan: Neuro: Recent history of ischemic stroke with no reported neurological deficits. ? Continue home aspirin and Eliquis. Cardiac:? Underlying history of ischemic cardiomyopathy with the EF 10 -? 15%. ? Presentation consistent with flash pulmonary edema. Lasix given in the emergency department. Neg trop. Monitor? diuresis.? Pulmonary: Acute hypoxic respiratory failure d/t pulmonary edema requiring emergent intubation. Continue? to diurese. Wean off? ventilatory support as tolerated.?? Renal: Underlying CKD:? patient is at baseline Endo:? Underlying diabetes mellitus.? SS insulin per protocol. GI:? ? No acute issues. ID: Leukocytosis;no evidence of active infection at this time. Lactic acidosis likely due to respiratory arrest. Heme/Onc:? No acute issues. Psych:? No acute issues. Miscellaneous:? No acute issues. Prophylaxis: Eliquis Patient's care was discussed in detail with Dr. Guzman.? He is aware of all the above as well as the plan of care for this patient. Total time managing care of this patient today: 60 minutes.
--- NOTE | 2025-01-21 07:05 | PC.NURSE ---
Patient arrived as an admit to the ICU transported by this signwriter at approximately 06:15 with acute respiratory failure due to pulmonary edema. Labs notable for BNP 865, lactic 7.6, and ph on VBG 7.02, resulted prior to assuming care. Patient was intubated in ED 7.0 ETT/22 @the lip in the ED, on ACVC settings as follows and managed by RT: 20/300/5/70% on arrival to the ICU. Propofol gtt infusing on assuming care, RASS +1-2 with patient drowsy/sedate and not following commands though still attempting to reach to lines and ETT. Soft wrist restraints in place for line and tube integrity. Propofol titrated per MAR and fentanyl gtt added shortly after arrival for asynchrony per FREIGHT DELIVERY DRIVER verbal order. +Effect, RASS improved to -2 with these interventions. NSR-ST with PVCs on tele. Hypertensive on initial BP improved with sedation as per previous. OG tube in place, clamped per FREIGHT DELIVERY DRIVER. Temp sensing dailey in place at ED intact and patent of dilute/clear UOP in adequate amounts s/p lasix at ED. POC Q6HR while NPO/intubated, POC was 267 this morning, confirmed to administer ISS as ordered with FREIGHT DELIVERY DRIVER. Skin appears intact. Bed low/locked and safety measures in place. Handoff report given to oncoming RN. Please see EMR and flowsheet for full details.
--- NOTE | 2025-01-21 08:10 | PHA.MEDREC ---
Addendum entered by Negrita Stone RPh 01/21/25 09:21: MED REC REVIEWED BY [facility] Original Note: Pharmacy Consult ? Medication Reconciliation Pharmacy has completed the medication reconciliation. Pt just recently discharged from us 01/11. Spoke with family at bedside and confirmed the medications have not changed from that DC, pt is taking the Metoprolol and Valstartan that was new and they confirmed the Mounjaro once a week on Fridays; pt got it last week and is due for it tomorrow.
[2025-01-21] MEDS: 0.9 % Sodium Chloride Flush 3 ML SYRINGE IVFLUSH ×3 (08:23→20:19)
[2025-01-21 08:33] LABS: ~Lactic Acid-LAB USE ONLY 2.6 mmol/L (0.5-2.0)
[2025-01-21] MEDS: Chlorhexidine Gluc Oral Rinse 15 ML MOUTHWASH BUCCAL (08:45)
[2025-01-21] MEDS: Furosemide 40 MG/4 ML VIAL IVPUSH (09:27)
[2025-01-21] MEDS: Potassium Chloride Packet 20 MEQ PACKET 60 MEQ PO (09:27)
--- NOTE | 2025-01-21 09:56 | MHC.CM.PN ---
Pt intubated in ICU and unable to participate in CM assessment: information obtained from EMR, ICU staff and dtr Perla. Pt resides alone but has extensive family/PLATE SLITTER AND INSPECTOR assistance. She has [facility] for med management, uses a walker, cane and has adaptive equipment in apt. Dtr assists w/appointments and transportation. It is expected that pt will return to home with existing services - referred back to [facility]. Dtr to transport. IMM in chart. CM to follow
[2025-01-21 10:11] LABS: Reflex Lactate? 2 Y
--- NOTE | 2025-01-21 10:34 | PM.CNCAR ---
History of Present Illness History of Present Illness Date of Service: 01/21/25 Chief complaint: Pulmonary Edema Narrative: This is a cardiology consultation regarding congestive heart failure. Generally seen by Dr. Vargas. Last clinic visit was in November of this year. Per notes, it seems that she has got a history of ischemic cardiomyopathy with severe LV dysfunction related to a prior anterior myocardial infarction. During the time of clinic visit, described to have no symptoms or signs of congestive heart failure. She was apparently on carvedilol, Entresto and Jardiance. She has coronary disease history with prior anterior STEMI and LAD stent. It seems that she has had multiple hospitalizations in the last few weeks for acute pulmonary edema. Apparently been, intubated on 3 different occasions. Currently, again admitted for flash pulmonary edema. She had symptoms of sudden shortness of breath and respiratory distress. She was having an oxygen saturation of only 55% on room air. Intubated emergently. Then sent to the ICU for further care. No hypotension. In fact, it has been on the higher side rather. Currently, unable to obtain any history as the patient is intubated. Review of Systems Review of Systems: Unable to obtain review of systems as patient is intubated. [facility] Past Medical History Medical History Diabetes mellitus Embolic cerebral infarction Chronic kidney disease CAD (coronary artery disease) Anxiety High cholesterol Hypertension Active asthma Family History Pertinent family history: Unable to obtain due to intubation. Surgical History Surgical History Stented coronary artery Social History Social History Household Members: Unknown / Unable to assess Housing: Unknown / Unable to assess Do you presently have visiting nurse or other home services: No Unable to assess alcohol history related to: Unable to respond Patient Tobacco Use Status: Tobacco use Unknown e-Cigarette/Vaping Use: Never Used Currently Displaying Signs/Symptoms of Drug Intoxication Withdrawal: No Have you been hit, kicked, punched, or otherwise hurt by someone within the past year? If so, by whom?: No Is there a partner from a previous relationship who is making you feel unsafe now?: No Are you made to feel afraid or neglected: No [facility] Practices: unknown- intubated/sedated Advance Directives: No Advance Directives Information Provided: Yes Recently lost weight without trying: Unsure Nutrition Risks: On aspiration precautions Patient : No : No Poor oral hygiene: No service: No Current occupational status: retired and disabled Current occupation: rt hand Meds Allergies Allergy/AdvReac Type Severity Reaction Status Date / Time procaine (From NOVOCAIN) Allergy Severe SWELLING Verified 01/21/25 04:34 LOCALIZED TO INJECTION SITE alirocumab (From Praluent Allergy Mild Itching Verified 01/21/25 04:34 Pen) Aspirin Allergy Unknown rash Uncoded 04/13/22 13:14 full strength Aspirin Allergy Unknown rash Uncoded 04/13/22 13:14 Active Medications: Current Medications Apixaban (Apixaban 2.5 Mg Tablet) 2.5 mg PO BID [facility] Last Admin: 01/21/25 08:45 Dose: 2.5 mg Chlorhexidine Gluconate (Chlorhexidine Gluc Oral Rinse 15 Ml Mouthwash) 15 ml BUCCAL TID [facility] Last Admin: 01/21/25 08:45 Dose: 15 ml Dextrose (Dextrose 50 % 25 Gm/50 Ml Syringe) 25 gm IVPUSH Q15M PRN; Protocol PRN Reason: per Hypoglycemia Standing Ord. Famotidine (Famotidine/Pf 20 Mg/2 Ml Vial) 20 mg IVPUSH BID [facility] Last Admin: 01/21/25 08:45 Dose: 20 mg Glucose (Glucose Gel 15 Gm Gel..Gram.) 15 gm PO Q15M PRN; Protocol PRN Reason: per Hypoglycemia Standing Ord. Propofol (Diprivan) 1,000 mg in 100 mls @ 0 mls/hr IVCONT .Q0M [facility]; Protocol Last Titration: 01/21/25 08:50 Dose: 0 mcg/kg/min, 0 mls/hr Fentanyl (Sublimaze/Ns) 1,000 mcg in 100 mls @ 0 mls/hr IVCONT .Q0M [facility]; Protocol Last Titration: 01/21/25 08:50 Dose: 0 mcg/hr, 0 mls/hr Insulin Human Lispro (Insulin Lispro 100 Unit/Ml 3 Ml Vial) 0 unit SUBCUT Q6H [facility]; Protocol Last Admin: 01/21/25 06:45 Dose: 6 unit Naloxone HCl (Naloxone Hcl 0.4 Mg/Ml Vial) 0.2 mg IVPUSH Q2M PRN PRN Reason: Excessive sedation or RR < 8 Sodium Chloride (0.9 % Sodium Chloride Flush 3 Ml Syringe) 3 ml IVFLUSH QSHIFT [facility] Last Admin: 01/21/25 08:23 Dose: 3 ml Home Medications ?Medication ?Instructions ?Recorded ?Confirmed ?Last Taken ?Type acetaminophen 325 mg capsule 650 mg PO Q8H PRN Pain 09/19/20 01/21/25 Unknown History tramadol 50 mg tablet 50 mg PO DAILY PRN Pain, Severe 09/19/20 01/21/25 Unknown History baclofen 10 mg tablet 10 mg PO BID PRN muscle spasm 04/13/22 01/21/25 Unknown History rosuvastatin 40 mg tablet 40 mg PO DAILY 08/13/22 01/21/25 01/20/25 History fluticasone propionate 50 1 spray intranasal DAILY PRN 11/05/23 01/21/25 Unknown History mcg/actuation nasal Allergy Symptoms spray,suspension (Flonase Allergy Relief) glipizide 5 mg tablet 5 mg PO BID 11/05/23 01/21/25 01/20/25 History melatonin 5 mg tablet 5 mg PO BEDTIME PRN Sleep 11/05/23 01/21/25 01/20/25 History nitroglycerin 0.4 mg sublingual 0.4 mg sublingual Q5M PRN Chest 11/05/23 01/21/25 Unknown History tablet Pain sertraline 25 mg tablet (Zoloft) 25 mg PO DAILY 11/05/23 01/21/25 01/20/25 History calcium 600 mg (as 1 tab PO BID 12/24/24 01/21/25 01/20/25 History carbonate)-vitamin D3 5 mcg (200 unit) tablet docusate sodium 100 mg capsule 100 mg PO BID 12/24/24 01/21/25 01/20/25 History empagliflozin 10 mg tablet 10 mg PO DAILY 12/24/24 01/21/25 01/20/25 History (Jardiance) ketotifen fumarate 0.025 % (0.035 1 drp ophthalmic (eye) BID PRN 12/24/24 01/21/25 Unknown History %) eye drops ([place]) allergies tirzepatide 7.5 mg/0.5 mL 7.5 mg subcut FR 07/04/1001/21/25 01/15/25 History subcutaneous pen injector (Davidunjadenro) Physical Exam Vital Signs: Vital Signs: Last Vital Signs Temp 98.2 F 01/21/25 10:00 Pulse 80 01/21/25 10:00 Resp 15 01/21/25 10:00 BP 170/77 H 01/21/25 10:00 Pulse Ox 98 01/21/25 10:00 O2 Del Method Mechanical Ventil ation 01/21/25 10:00 FiO2 30 01/21/25 10:00 BMI result Body Mass Index 33.2 Const: General: comfortable and no acute distress Orientation/consciousness: patient oriented x3 HEENT: Other: Unremarkable Head: Yes normal to inspection Neck: Neck: Yes normal visual inspection Chest: Chest palpation & inspection: normal inspection of the chest Resp: Auscultation: clear to auscultation bilaterally Cardio: Palpation: normal PMI Heart sounds: S1 normal heart sound present, S2 normal heart sound present, no gallops, no murmurs and no rubs GI: Palpation (GI): Soft to palpation Back/Spine/Pelvis: Other: unremarkable Skin: General skin exam: no rashes or lesions noted Neuro: General: patient oriented x3 Extrem: General: Yes normal to inspection Psych: Mental Status: mental status grossly normal Objective Labs and Meds 01/21/25 04:21 01/21/25 04:21 Lab results: Laboratory Results - last 24 hr 01/21/25 01/21/25 01/21/25 04:03 04:21 04:30 WBC 14.9 H RBC 4.02 L Hgb 11.7 L Hct 37.3 MCV 92.8 MCH 29.1 MCHC 31.4 RDW 13.2 Plt Count 291 MPV 11.7 Immature Gran % (Auto) 0.7 H Neut % (Auto) 53.4 Lymph % (Auto) 37.1 [place] % (Auto) 6.4 Eos % (Auto) 1.9 Baso % (Auto) 0.5 Lymph # (Auto) 5.6 H [place] # (Auto) 1.0 Eos # (Auto) 0.3 Baso # (Auto) 0.1 Abs Immat Gran (auto) 0.11 H Absolute Neuts (auto) 8.0 Absolute Nucleated RBC 0.000 Nucleated RBC % (auto) 0.0 Smear Tech's Comments VERIFIED VBG pH 7.02 L* VBG pCO2 64 VBG pO2 87 VBG HCO3 17 L VBG O2 Saturation 89.0 VBG Base Excess -14.5 Sodium 139 Potassium 3.5 D Chloride 107 Carbon Dioxide 16 L Anion Gap 20 BUN 21 H Creatinine 1.50 H Estim Creat Clear Calc 26.8 Estimated GFR 33 POC Glucose 210 H Random Glucose 358 H* Lactic Acid 7.6 H* Lactic Acid F/U @ 2Hr Calcium 8.7 Magnesium 2.5 Total Bilirubin 0.4 Direct Bilirubin 0.1 AST 31 ALT 34 H Alkaline Phosphatase 103 Troponin I High Sens 6.9 B-Natriuretic Peptide 865 H Total Protein 7.8 Albumin 4.0 Urine Color Urine Appearance Urine pH Ur Specific [place] Urine Protein Urine Glucose (UA) Urine Ketones Urine Blood Urine Nitrite Ur Leukocyte Esterase Urine RBC Urine WBC Ur Squamous Epith Cells Urine Bacteria Hyaline Casts Urine Opiates Screen Ur Buprenorphine Scrn Ur Oxycodone Screen Urine Methadone Screen Urine Fentanyl Screen Ur Barbiturates Screen Ur Phencyclidine Scrn Ur Amphetamines Screen U Benzodiazepines Scrn Urine Cocaine Screen U Marijuana (THC) Screen Influenza Type A (PCR) NEGATIVE Influenza Type B (PCR) NEGATIVE RSV RNA Qual (PCR) NEGATIVE SARS-CoV-2 RNA (RT-PCR) NEGATIVE 01/21/25 01/21/25 01/21/25 05:18 05:40 08:08 WBC RBC Hgb Hct MCV MCH MCHC RDW Plt Count MPV Immature Gran % (Auto) Neut % (Auto) Lymph % (Auto) [place] % (Auto) Eos % (Auto) Baso % (Auto) Lymph # (Auto) [place] # (Auto) Eos # (Auto) Baso # (Auto) Abs Immat Gran (auto) Absolute Neuts (auto) Absolute Nucleated RBC Nucleated RBC % (auto) Smear Tech's Comments VBG pH VBG pCO2 VBG pO2 VBG HCO3 VBG O2 Saturation VBG Base Excess Sodium Potassium Chloride Carbon Dioxide Anion Gap BUN Creatinine Estim Creat Clear Calc Estimated GFR POC Glucose 267 H Random Glucose Lactic Acid Lactic Acid F/U @ 2Hr 2.6 H* Calcium Magnesium Total Bilirubin Direct Bilirubin AST ALT Alkaline Phosphatase Troponin I High Sens B-Natriuretic Peptide Total Protein Albumin Urine Color Yellow Urine Appearance Clear Urine pH 6.0 Ur Specific [place] 1.010 Urine Protein 30 (1+) H Urine Glucose (UA) 500 H Urine Ketones Negative Urine Blood Negative Urine Nitrite Negative Ur Leukocyte Esterase Negative Urine RBC 0-2 Urine WBC 0-5 Ur Squamous Epith Cells 0-2 Urine Bacteria None Seen Hyaline Casts 0-2 Urine Opiates Screen Not Detected Ur Buprenorphine Scrn Not Detected Ur Oxycodone Screen Not Detected Urine Methadone Screen Not Detected Urine Fentanyl Screen Not Detected Ur Barbiturates Screen Not Detected Ur Phencyclidine Scrn Not Detected Ur Amphetamines Screen Not Detected U Benzodiazepines Scrn Not Detected Urine Cocaine Screen Not Detected U Marijuana (THC) Screen Not Detected Influenza Type A (PCR) Influenza Type B (PCR) RSV RNA Qual (PCR) SARS-CoV-2 RNA (RT-PCR) ECG Interpretation: EKG with sinus tachycardia at 106/Min; PVCs in couplets; Possible left atrial enlargement; nonspecific ST-T changes; normal DE and corrected QT. Assessment and Plan (1) Flash pulmonary edema: Status: Acute (2) Acute on chronic systolic and diastolic heart failure, NYHA class 4: Status: Acute (3) Ischemic cardiomyopathy: Status: Resolved (4) CAD (coronary artery disease): Status: Resolved Plan Per recent echocardiogram, LVEF is 15-20%. Wall motion abnormalities from underlying coronary disease. [id number] aortic regurgitation. Chest x-ray again consistent with pulmonary edema plus/minus pneumonia. High sensitivity troponins unremarkable. Cardiac BNP 865. Previously, 480. Overall, up and down but no dramatic change. Overall, recurring acute pulmonary edema leading to intubation. There is no clear arrhythmia or mitral regurgitation causing this. Not clear if she is intermittently getting hypertensive causing acute LV dysfunction/pulmonary edema. However, during the cardiology consult note from 01/11, she was rather described to have lowish blood pressures. At that time, it seems that valsartan was put in place of Entresto. Also per office note, she was on carvedilol but then switched to metoprolol. Once she is extubated, we will need to carefully monitor her blood pressure and then plan the oral regimen for cardiomyopathy and hypertension. Overall, difficult case. We will follow up with you. Procedures Date of Service Date of Service: 01/21/25
--- NOTE | 2025-01-21 11:33 | MHC.CLN ---
PT MAY REQUIRE TF FOR NUTRITION SUPPORT R/T PROLONGED NPO STATUS PT IS INTUBATED AND SEDATED CURRENTLY NPO DISCUSSED AT ROUNDS WITH MD IF TF NEEDED; RECOMMEND TF GLUCERNA 1.2 AT MAX GOAL RATE 25ML/HR WITH 30ML PROSOURCE BID AND 240ML FREE WATER FLUSHES Q 6 HRS TO PROVIDE 840KCALS (1434KCALS WITH SEDATION; 25KCALS/KG), 66G PROTEIN (1.1G/KG), 1443ML TOTAL WATER FROM FORMULA AND FLUSHES (25ML/KG) MONITOR TOLERANCE AND LYTES SEE FULL ASSESSMENT
[2025-01-21 11:46] LABS: Glucose, Whole Blood 163 mg/dL (60-115)
[2025-01-21 14:38] LABS: Anion Gap 13 (12-20); Blood Urea Nitrogen 21 mg/dL (9-16); Calcium 8.9 mg/dL (8.4-10.2); Carbon Dioxide 25 mmol/L (22-29); Chloride 106 mmol/L (96-108); Creatinine Clr Calc Pharmacy 27.8; Estimated Glomerular Filt Rate 34; Potassium 4.5 mmol/L (3.3-5.1); Sodium 139 mmol/L (135-145)
[2025-01-21 16:22] LABS: Glucose, Whole Blood 180 mg/dL (60-115)
--- NOTE | 2025-01-21 18:45 | PC.NURSE ---
Assumed care at 0700- pt. intubated and sedated per MA- sedation vacation initiated at 0850. Pt. extubated at 1115 to RA. Pt. A&Ox4, c/o sore throat. SR on tele with BBB and PVCs, HR 80s-90s. Passed nursing swallow screen, tolerating diabetic diet. Boogie removed at 1430, purewick in place. DTV by 2029. Q2 repositioning performed. Family at bedside, updated by this RN. Plan of care ongoing.
[2025-01-21 20:42] LABS: Glucose, Whole Blood 167 mg/dL (60-115)
[2025-01-22] VITALS (12 sets, daily range): BP systolic 110–145; BP diastolic 39–91; PULSE 83–96; RESP 13–22; TEMP 36–37.2; O2SAT 93–100; BMI 33.2
--- NOTE | 2025-01-22 02:30 | PC.NURSE ---
Addendum entered by Irena Fierro RN 01/22/25 06:40: Transfer orders for M/T placed at this time- report given to RN and brought to floor by nursing mine engineering supervisor and CARNIVAL WORKER. Original Note: Upon initial assessment at 1999- pt A&Ox4, calm/cooperative, V[place]. blind lacer utilized. Afebrile. NSR on tele, HR 80-90s. SBP WNL. SpO2 > 92% on room air, endorses nonproductive cough but denies SOB/dyspnea. Tolerating PO intake. No BM. Purewick in place, bladder scanned at approx 0000 for 241 mL. Skin intact. Able to reposition self in bed. Call burger in reach, bed locked in lowest position with alarm on. Pt/family updated on plan of care/pt status. See EMR/flowsheet for further details.
[2025-01-22 04:48] LABS: VBG HCO3 26 mmol/L (22-26); VBG O2 % Saturation < 30.0 %
[2025-01-22 05:01] LABS: Venous Blood Gas Refer to POC result
[2025-01-22 05:14] LABS: MANUAL DIFF FLAG NO
[2025-01-22 05:18] LABS: Hematocrit 34.0 % (37.0-47.0); Hemoglobin 11.0 g/dl (12.0-16.0); Imm Gran Abs Auto 0.06 X10*3/uL (0.00-0.03); Imm Gran Pct Auto 0.5 % (0.0-0.4); Lymphocytes Absolute Auto 2.2 X10*3/uL (1.2-4.9); Mean Corpuscular HGB Conc 32.4 g/dl (31.0-35.0); Mean Corpuscular Hemoglobin 28.7 pg (27.0-33.0); Mean Corpuscular Volume 88.8 fL (80.0-98.0); NRBC Abs Auto 0.000 X10*3/uL (0.0-0.012); NRBC Pct Auto 0.0 /100WBC (0.0-0.2); Platelet Count 260 X10*3/uL (160-400); Red Blood Count 3.83 X10*6/uL (4.20-5.50); White Blood Count 12.0 X10*3/uL (4.8-10.8)
[2025-01-22 05:39] LABS: Albumin Level 3.8 g/dL (3.5-5.0); Anion Gap 13 (12-20); Blood Urea Nitrogen 27 mg/dL (9-16); Calcium 8.8 mg/dL (8.4-10.2); Carbon Dioxide 24 mmol/L (22-29); Chloride 107 mmol/L (96-108); Creatinine Clr Calc Pharmacy 21.3; Estimated Glomerular Filt Rate 25; Magnesium 2.5 mg/dL (1.6-2.6); Potassium 4.4 mmol/L (3.3-5.1); Sodium 140 mmol/L (135-145)
[2025-01-22 07:11] LABS: Glucose, Whole Blood 171 mg/dL (60-115)
[2025-01-22] MEDS: 0.9 % Sodium Chloride Flush 3 ML SYRINGE IVFLUSH ×2 (08:17→22:01)
[2025-01-22] MEDS: Furosemide 20 MG/2 ML VIAL IVPUSH ×2 (08:44→17:27)
--- NOTE | 2025-01-22 11:04 | PM.PNCARD ---
Subjective Subjective Date of Service: 01/22/25 Interval history: She states she feels well. Not short of breath anymore. Discussed using adoption agent. Review of Systems Review of Systems Yes all other systems are reviewed and are negative Constitutional: Reports as per HPI and Reports no additional constitutional complaints Eyes: Reports as per HPI and Denies no additional eye complaints Denies system reviewed and no additional complaints, except as documented and Reports as per HPI Cardiovascular: Reports as per HPI, Reports no additional cardiovascular complaints, Denies acrocyanosis, Denies cool extremities, Denies chest pain, Denies leg edema, Denies lightheadedness, Denies palpitations and Denies dyspnea Respiratory: Reports as per HPI, Denies no additional respiratory complaints and Denies dyspnea Gastrointestinal: Reports as per HPI and Denies no additional gastrointestinal complaints Genitourinary: Reports as per HPI Musculoskeletal: Reports no additional musculoskeletal complaints and Reports as per HPI Skin/Breast: Reports system reviewed and no additional complaints, except as docu Reports system reviewed and no additional complaints, except as documented and Reports as per HPI Psychiatric: Reports no additional psychiatric complaints and Reports as per HPI Endocrine: Reports no additional endocrine complaints, Reports as per HPI and Denies palpitations Hematologic/Lymphatic: Reports no additional hematologic/lymphatic complaints and Reports as per HPI Allergic/Immunologic: Reports no additional allergic/immunologic complaints and Reports as per HPI Physical Exam Vital Signs: Last Vital Signs Temp 97.5 F 01/22/25 07:02 Pulse 94 01/22/25 07:02 Resp 18 01/22/25 07:02 BP 140/65 H 01/22/25 07:02 Pulse Ox 100 01/22/25 07:02 O2 Del Method Room Air 01/22/25 07:02 FiO2 30 01/21/25 12:00 BMI result Body Mass Index 33.2 Const General: comfortable and no acute distress Orientation/consciousness: patient oriented x3 HEENT Other: Unremarkable Head: Yes normal to inspection Neck Neck: Yes normal visual inspection Chest Chest palpation & inspection: normal inspection of the chest Resp Auscultation: clear to auscultation bilaterally Cardio Palpation: normal PMI Heart sounds: S1 normal heart sound present, S2 normal heart sound present, no gallops, no murmurs and no rubs GI Palpation (GI): Soft to palpation Back/Spine/Pelvis Other: unremarkable Skin General skin exam: no rashes or lesions noted Neuro General: patient oriented x3 Extrem General: Yes normal to inspection Psych Mental Status: mental status grossly normal Objective Labs and Meds 01/22/25 04:29 01/22/25 04:29 Lab results: Laboratory Results - last 24 hr 01/21/25 01/21/25 01/21/25 11:43 14:01 16:19 WBC RBC Hgb Hct MCV MCH MCHC RDW Plt Count MPV Immature Gran % (Auto) Neut % (Auto) Lymph % (Auto) [place] % (Auto) Eos % (Auto) Baso % (Auto) Lymph # (Auto) [place] # (Auto) Eos # (Auto) Baso # (Auto) Abs Immat Gran (auto) Absolute Neuts (auto) Absolute Nucleated RBC Nucleated RBC % (auto) VBG pH VBG pCO2 VBG pO2 VBG HCO3 VBG O2 Saturation VBG Base Excess Sodium 139 Potassium 4.5 D Chloride 106 Carbon Dioxide 25 Anion Gap 13 BUN 21 H Creatinine 1.49 H Estim Creat Clear Calc 27.8 Estimated GFR 34 POC Glucose 163 H 180 H Random Glucose 202 H Calcium 8.9 Phosphorus Magnesium Albumin 01/21/25 01/22/25 01/22/25 20:24 04:29 04:43 WBC 12.0 H RBC 3.83 L Hgb 11.0 L Hct 34.0 L MCV 88.8 MCH 28.7 MCHC 32.4 RDW 13.6 Plt Count 260 MPV 11.5 Immature Gran % (Auto) 0.5 H Neut % (Auto) 73.6 H Lymph % (Auto) 18.1 L [place] % (Auto) 6.4 Eos % (Auto) 1.2 Baso % (Auto) 0.2 Lymph # (Auto) 2.2 [place] # (Auto) 0.8 Eos # (Auto) 0.1 Baso # (Auto) 0.0 Abs Immat Gran (auto) 0.06 H Absolute Neuts (auto) 8.9 H Absolute Nucleated RBC 0.000 Nucleated RBC % (auto) 0.0 VBG pH 7.39 VBG pCO2 42 VBG pO2 32 VBG HCO3 26 VBG O2 Saturation < 30.0 VBG Base Excess 1.2 Sodium 140 Potassium 4.4 Chloride 107 Carbon Dioxide 24 Anion Gap 13 BUN 27 H Creatinine 1.94 H Estim Creat Clear Calc 21.3 Estimated GFR 25 POC Glucose 167 H Random Glucose 181 H Calcium 8.8 Phosphorus 3.8 Magnesium 2.5 Albumin 3.8 01/22/25 07:08 WBC RBC Hgb Hct MCV MCH MCHC RDW Plt Count MPV Immature Gran % (Auto) Neut % (Auto) Lymph % (Auto) [place] % (Auto) Eos % (Auto) Baso % (Auto) Lymph # (Auto) [place] # (Auto) Eos # (Auto) Baso # (Auto) Abs Immat Gran (auto) Absolute Neuts (auto) Absolute Nucleated RBC Nucleated RBC % (auto) VBG pH VBG pCO2 VBG pO2 VBG HCO3 VBG O2 Saturation VBG Base Excess Sodium Potassium Chloride Carbon Dioxide Anion Gap BUN Creatinine Estim Creat Clear Calc Estimated GFR POC Glucose 171 H Random Glucose Calcium Phosphorus Magnesium Albumin Progress Note: A&P Assessment and plan (1) Flash pulmonary edema: Status: Acute (2) Acute on chronic systolic and diastolic heart failure, NYHA class 4: Status: Acute (3) Ischemic cardiomyopathy: Status: Resolved (4) CAD (coronary artery disease): Status: Resolved Plan Per recent echocardiogram, LVEF is 15-20%. Wall motion abnormalities from underlying coronary disease. [id number] aortic regurgitation. Chest x-ray again consistent with pulmonary edema plus/minus pneumonia. High sensitivity troponins unremarkable. Cardiac BNP 865. Previously, 480. Overall, up and down but no dramatic change. Overall, recurring acute pulmonary edema leading to intubation. Discussed with the patient and she is denying any excessive salt intake or fluid intake. Also there is no clear evidence of any atrial fibrillation or other arrhythmias contributing to recurrent pulmonary edema. She does not have any obvious mitral valve disease either. Hence etiology for the recurrent heart failure admissions not clear. With regard to blood pressure, it seems that she has had both high as well as low readings last few weeks. But do not see any markedly high readings. For meds, she is on metoprolol and valsartan; also on Jardiance. However, she is not getting any of these medications here. We will need to administer and assess blood pressure response. Meds will need to be up titrate accordingly. Follow up in clinic. Time Spent With Patient Time: Total time managing care of this patient today ____ minutes. Procedures Date of Service Date of Service: 01/22/25
[2025-01-22 11:18] LABS: Glucose, Whole Blood 253 mg/dL (60-115)
--- NOTE | 2025-01-22 12:32 | MHC.CLN ---
F/U PT EXTUBATED PT TRANSFERRED TO MEDICAL FLOOR DIET ADVANCED TO 2200DM-RECOMMEND 1500DM FOR WT LOSS MONITOR PO INTAKE RD TO FOLLOW WEEKLY
--- NOTE | 2025-01-22 15:12 | MHC.CM.PN ---
Per rounds, pt. is not ready to DC, she requires further tx for CHF. CM to follow for DC needs.
[2025-01-22 15:14] LABS: Glucose, Whole Blood 108 mg/dL (60-115)
--- NOTE | 2025-01-22 16:55 | HO.PM.IMPN ---
Subjective Subjective Date of Service: 01/22/25 Interval History: Very pleasant 84 year old female. Samoan speaking. Supervising Editor Trailer was utilized by bedside to translate. The patient has some persistent respiratory difficulty, however feels improved compared to yesterday. Review of Systems Review of Systems: Yes all other systems are reviewed and are negative Physical Exam Exam: Exam: General: A&O x3, oriented to time place person and siutaion, comfortable, no pain Cardiac: S1, S2 auscultated with no S3/4, no MRG. Well perfused. Respiratory: Decreased bibasilar breath sounds with crackles at the bases, some wheezing auscultated mid zones bilaterally. The patient has no respiraotry distress, tachypnoea, cyanosis. GI/ : No abdominal pain on palpation, no masses or distentions. MSK: Normal ambulation without pain at bony prominences or musculature. NO pitting edema at lower extremities. Neurological: Normal neurological examination on overview, without obvious CN II-XII abnormalities. Vital Signs: Vital Signs: Last Vital Signs Temp 98.9 F 01/22/25 15:00 Pulse 93 01/22/25 15:00 Resp 18 01/22/25 15:00 BP 114/55 L 01/22/25 15:00 Pulse Ox 98 01/22/25 15:00 O2 Del Method Room Air 01/22/25 15:00 FiO2 30 01/21/25 12:00 BMI result Body Mass Index 33.2 Objective Data Active Medications Acetaminophen (Acetaminophen 325 Mg Tablet) 650 mg PO Q6H PRN PRN Reason: Pain, Mild (Pain Scale 1-3) Last Admin: 01/21/25 16:22 Dose: 650 mg Documented By: VERONICA Apixaban (Apixaban 2.5 Mg Tablet) 2.5 mg PO BID [facility] [place] Last Admin: 01/22/25 08:15 Dose: 2.5 mg Documented By: DAYANNA Ceftriaxone Sodium (Ceftriaxone Sodium 1 Gm Vial) 1 gm IVPUSH Q24H [facility] [place] Last Admin: 01/22/25 08:44 Dose: 1 gm Documented By: DAYANNA Dextrose (Dextrose 50 % 25 Gm/50 Ml Syringe) 25 gm IVPUSH Q15M PRN; Protocol PRN Reason: per Hypoglycemia Standing Ord. Doxycycline Monohydrate (Doxycycline Monohydrate 100 Mg Capsule) 100 mg PO Q12H [facility] [place] Last Admin: 01/22/25 08:43 Dose: 100 mg Documented By: DAYANNA Famotidine (Famotidine/Pf 20 Mg/2 Ml Vial) 20 mg IVPUSH BID [facility] [place] Last Admin: 01/22/25 08:15 Dose: 20 mg Documented By: DAYANNA Furosemide (Furosemide 20 Mg/2 Ml Vial) 20 mg IVPUSH BID@0900,1800 [facility] [place]; Protocol Last Admin: 01/22/25 08:44 Dose: 20 mg Documented By: DAYANNA Glucose (Glucose Gel 15 Gm Gel..Gram.) 15 gm PO Q15M PRN; Protocol PRN Reason: per Hypoglycemia Standing Ord. Insulin Human Lispro (Insulin Lispro 100 Unit/Ml 3 Ml Vial) 0 unit SUBCUT QIDACHS [facility] [place]; Protocol Last Admin: 01/22/25 15:23 Dose: Not Given Documented By: DAYANNA Non-Admin Reason: No Insulin Coverage Naloxone HCl (Naloxone Hcl 0.4 Mg/Ml Vial) 0.2 mg IVPUSH Q2M PRN PRN Reason: Excessive sedation or RR < 8 Sodium Chloride (0.9 % Sodium Chloride Flush 3 Ml Syringe) 3 ml IVFLUSH QSHIFT [facility] [place] Last Admin: 01/22/25 08:17 Dose: 3 ml Documented By: DAYANNA Labs 01/22/25 04:29 01/22/25 04:29 Labs: Laboratory Results - last 24 hr 01/21/25 01/22/25 01/22/25 20:24 04:29 04:43 MCV 88.8 MCH 28.7 MCHC 32.4 RDW 13.6 Plt Count 260 MPV 11.5 Immature Gran % (Auto) 0.5 H Neut % (Auto) 73.6 H Lymph % (Auto) 18.1 L [place] % (Auto) 6.4 Eos % (Auto) 1.2 Baso % (Auto) 0.2 Lymph # (Auto) 2.2 [place] # (Auto) 0.8 Eos # (Auto) 0.1 Baso # (Auto) 0.0 Abs Immat Gran (auto) 0.06 H Absolute Neuts (auto) 8.9 H Absolute Nucleated RBC 0.000 Nucleated RBC % (auto) 0.0 VBG pH 7.39 VBG pCO2 42 VBG pO2 32 VBG HCO3 26 VBG O2 Saturation < 30.0 VBG Base Excess 1.2 Anion Gap 13 Estim Creat Clear Calc 21.3 Estimated GFR 25 POC Glucose 167 H Random Glucose 181 H Calcium 8.8 Phosphorus 3.8 Magnesium 2.5 Albumin 3.8 01/22/25 01/22/25 01/22/25 07:08 11:15 15:11 MCV MCH MCHC RDW Plt Count MPV Immature Gran % (Auto) Neut % (Auto) Lymph % (Auto) [place] % (Auto) Eos % (Auto) Baso % (Auto) Lymph # (Auto) [place] # (Auto) Eos # (Auto) Baso # (Auto) Abs Immat Gran (auto) Absolute Neuts (auto) Absolute Nucleated RBC Nucleated RBC % (auto) VBG pH VBG pCO2 VBG pO2 VBG HCO3 VBG O2 Saturation VBG Base Excess Anion Gap Estim Creat Clear Calc Estimated GFR POC Glucose 171 H 253 H 108 Random Glucose Calcium Phosphorus Magnesium Albumin Microbiology Microbiology Results: Microbiology 01/21/25 04:43 Blood Culture - Preliminary Blood - Venous No growth after 24 hours. 01/21/25 04:21 Blood Culture - Preliminary Blood - Venous No growth after 24 hours. Assessment and Plan (1) Acute hypoxemic respiratory failure: Status: Acute (2) Acute on chronic systolic and diastolic heart failure, NYHA class 4: Status: Acute (3) Flash pulmonary edema: Status: Acute (4) Chronic kidney disease: Status: Acute Plan Very pleasant 84 year old Samoan speaking female, with a background history of ischemic cardiomyopathy with biventricular failure (EF 10-15%), CAD s/p DARRIN, HTN, type II DM, CKD, HLD, prior CVA, presents to hospital with acute respiratory distress, admitted to hospital with acute hypoxic respiratory failure requiring intubation and MICU transfer for same, in the setting of acute flash pulmonary edema in the setting of acute CHFrEF exacerbation. Acute hypoxic respiratory failure Intubation s/p Extubation (01/22/25) Flash pulmonary edema Possible multifocal PNA Acute on chronic ischemic CHFrEF 10-15% Possibility of multifocal PNA was identified on XR. Will empirically treat with antibiotics. If no signiticant improvement or clearance, would warrant CT chest at some stage (inpt/outpt) PLAN - I/O monitor - Fluid restrict 1.5-2L - Furosemide 40mg BID IV - Cardiac telemetry - K and Mg monitoring - Cardiology reccs greatly appreciated - Started doxycycline 100mg BID PO - Started Ceftriaxone 1g IV OD - Procalcitonin - BNP Ischemic cardiomyopathy CAD s/p DARRIN Prior CVA Atrial fibrillation on apixaban HTN HLD PLAN - Continue apixaban 2.5mg BID PO - Need to clarify with Caridology medication regimen, as currently home meds on hold. - Currently held: rosuvastatin, metoprolol, ezetimibe, valsartan - Clarify additional supportive medications with Cardiology; eg. Jardiance Type II DM PLAN - Holding mounjaro - Holding Jardiance CKD (hypertensive/diabetic) Monitor BMP Monitor BNP Diurese patient QUALITY METRICS: - FULL CODE - DVT PROPHYLAXIS: apixaban 2.5mg BID PO (renal dose) Total time managing care of this patient today: 45 minutes. Quality Stroke Does the patient have a stroke diagnosis?: No VTE Prior VTE?: No VTE Risk Level:: Medical - moderate - high VTE Device Contraindication: N/A - Device Ordered VTE Drug Contraindication: N/A - Med Ordered
--- NOTE | 2025-01-22 17:34 | HO.PM.IMPN ---
Subjective Subjective Date of Service: 01/22/25 Review of Systems Review of Systems: Yes all other systems are reviewed and are negative Physical Exam Vital Signs: Vital Signs: Last Vital Signs Temp 98.9 F 01/22/25 15:00 Pulse 93 01/22/25 15:00 Resp 18 01/22/25 15:00 BP 114/55 L 01/22/25 15:00 Pulse Ox 98 01/22/25 15:00 O2 Del Method Room Air 01/22/25 15:00 FiO2 30 01/21/25 12:00 BMI result Body Mass Index 33.2 Objective Data Active Medications Acetaminophen (Acetaminophen 325 Mg Tablet) 650 mg PO Q6H PRN PRN Reason: Pain, Mild (Pain Scale 1-3) Last Admin: 01/21/25 16:22 Dose: 650 mg Documented By: VERONICA Apixaban (Apixaban 2.5 Mg Tablet) 2.5 mg PO BID [facility] Last Admin: 01/22/25 08:15 Dose: 2.5 mg Documented By: DAYANNA Ceftriaxone Sodium (Ceftriaxone Sodium 1 Gm Vial) 1 gm IVPUSH Q24H [facility] Last Admin: 01/22/25 08:44 Dose: 1 gm Documented By: DAYANNA Dextrose (Dextrose 50 % 25 Gm/50 Ml Syringe) 25 gm IVPUSH Q15M PRN; Protocol PRN Reason: per Hypoglycemia Standing Ord. Doxycycline Monohydrate (Doxycycline Monohydrate 100 Mg Capsule) 100 mg PO Q12H [facility] Last Admin: 01/22/25 08:43 Dose: 100 mg Documented By: DAYANNA Famotidine (Famotidine/Pf 20 Mg/2 Ml Vial) 20 mg IVPUSH BID [facility] Last Admin: 01/22/25 08:15 Dose: 20 mg Documented By: DAYANNA Furosemide (Furosemide 20 Mg/2 Ml Vial) 20 mg IVPUSH BID@0900,1800 [facility]; Protocol Last Admin: 01/22/25 08:44 Dose: 20 mg Documented By: DAYANNA Glucose (Glucose Gel 15 Gm Gel..Gram.) 15 gm PO Q15M PRN; Protocol PRN Reason: per Hypoglycemia Standing Ord. Insulin Human Lispro (Insulin Lispro 100 Unit/Ml 3 Ml Vial) 0 unit SUBCUT QIDACHS [facility]; Protocol Last Admin: 01/22/25 15:23 Dose: Not Given Documented By: DAYANNA Non-Admin Reason: No Insulin Coverage Naloxone HCl (Naloxone Hcl 0.4 Mg/Ml Vial) 0.2 mg IVPUSH Q2M PRN PRN Reason: Excessive sedation or RR < 8 Sodium Chloride (0.9 % Sodium Chloride Flush 3 Ml Syringe) 3 ml IVFLUSH QSHIFT [facility] Last Admin: 01/22/25 08:17 Dose: 3 ml Documented By: DAYANNA Labs 01/22/25 04:29 01/22/25 04:29 Labs: Laboratory Results - last 24 hr 01/21/25 01/22/25 01/22/25 20:24 04:29 04:43 MCV 88.8 MCH 28.7 MCHC 32.4 RDW 13.6 Plt Count 260 MPV 11.5 Immature Gran % (Auto) 0.5 H Neut % (Auto) 73.6 H Lymph % (Auto) 18.1 L [place] % (Auto) 6.4 Eos % (Auto) 1.2 Baso % (Auto) 0.2 Lymph # (Auto) 2.2 [place] # (Auto) 0.8 Eos # (Auto) 0.1 Baso # (Auto) 0.0 Abs Immat Gran (auto) 0.06 H Absolute Neuts (auto) 8.9 H Absolute Nucleated RBC 0.000 Nucleated RBC % (auto) 0.0 VBG pH 7.39 VBG pCO2 42 VBG pO2 32 VBG HCO3 26 VBG O2 Saturation < 30.0 VBG Base Excess 1.2 Anion Gap 13 Estim Creat Clear Calc 21.3 Estimated GFR 25 POC Glucose 167 H Random Glucose 181 H Calcium 8.8 Phosphorus 3.8 Magnesium 2.5 Albumin 3.8 01/22/25 01/22/25 01/22/25 07:08 11:15 15:11 MCV MCH MCHC RDW Plt Count MPV Immature Gran % (Auto) Neut % (Auto) Lymph % (Auto) [place] % (Auto) Eos % (Auto) Baso % (Auto) Lymph # (Auto) [place] # (Auto) Eos # (Auto) Baso # (Auto) Abs Immat Gran (auto) Absolute Neuts (auto) Absolute Nucleated RBC Nucleated RBC % (auto) VBG pH VBG pCO2 VBG pO2 VBG HCO3 VBG O2 Saturation VBG Base Excess Anion Gap Estim Creat Clear Calc Estimated GFR POC Glucose 171 H 253 H 108 Random Glucose Calcium Phosphorus Magnesium Albumin Microbiology Microbiology Results: Microbiology 01/21/25 04:43 Blood Culture - Preliminary Blood - Venous No growth after 24 hours. 01/21/25 04:21 Blood Culture - Preliminary Blood - Venous No growth after 24 hours. Quality VTE VTE Risk Level:: Medical - moderate - high VTE Device Contraindication: N/A - Device Ordered VTE Drug Contraindication: N/A - Med Ordered
[2025-01-22 21:07] LABS: Glucose, Whole Blood 229 mg/dL (60-115)
[2025-01-23] VITALS (8 sets, daily range): BP systolic 117–165; BP diastolic 58–94; PULSE 83–92; RESP 16–20; TEMP 36.1–36.8; O2SAT 96–99; BMI 33.2
[2025-01-23 06:57] LABS: Glucose, Whole Blood 171 mg/dL (60-115)
[2025-01-23] MEDS: Furosemide 20 MG/2 ML VIAL IVPUSH ×2 (08:25→18:50)
[2025-01-23] MEDS: 0.9 % Sodium Chloride Flush 3 ML SYRINGE IVFLUSH ×3 (08:28→21:15)
[2025-01-23 10:16] LABS: B Type Natriuretic Peptide 98 pg/mL (<100)
[2025-01-23 10:19] LABS: Anion Gap 15 (12-20); Blood Urea Nitrogen 31 mg/dL (9-16); Calcium 8.5 mg/dL (8.4-10.2); Carbon Dioxide 23 mmol/L (22-29); Chloride 104 mmol/L (96-108); Creatinine Clr Calc Pharmacy 21.7; Estimated Glomerular Filt Rate 25; Magnesium 1.8 mg/dL (1.6-2.6); Potassium 3.7 mmol/L (3.3-5.1); Sodium 138 mmol/L (135-145)
[2025-01-23 10:33] LABS: Procalcitonin 0.11 ng/mL
[2025-01-23 10:55] LABS: Glucose, Whole Blood 151 mg/dL (60-115)
--- NOTE | 2025-01-23 15:45 | P.PNIM_ITS ---
Subjective Subjective Date of Service: 01/23/25 Interval History: Very pleasant 84 year old female. The patient is close to her clinical baseline. She has no new complaints or issues to endorse today. She is eating and drinking well. Stooling and urinating well. Review of Systems Review of Systems: Yes all other systems are reviewed and are negative Physical Exam 2 Exam: Exam: General: A&O x3, oriented to time place person and siutaion, comfortable, no pain Cardiac: S1, S2 auscultated with no S3/4, no MRG. Well perfused. Respiratory: Decreased bibasilar breath sounds with crackles at the bases, some wheezing auscultated mid zones bilaterally. The patient has no respiraotry distress, tachypnoea, cyanosis. GI/ : No abdominal pain on palpation, no masses or distentions. MSK: Normal ambulation without pain at bony prominences or musculature. NO pitting edema at lower extremities. Neurological: Normal neurological examination on overview, without obvious CN II-XII abnormalities. Vital Signs: Vital Signs: Last Vital Signs Temp 97.1 F 01/23/25 15:27 Pulse 88 01/23/25 15:27 Resp 18 01/23/25 15:27 BP 117/59 L 01/23/25 15:27 Pulse Ox 98 01/23/25 15:27 O2 Del Method Room Air 01/23/25 15:27 FiO2 30 01/21/25 12:00 BMI result Body Mass Index 33.2 Objective Data Active Medications Acetaminophen (Acetaminophen 325 Mg Tablet) 650 mg PO Q6H PRN PRN Reason: Pain, Mild (Pain Scale 1-3) Last Admin: 01/21/25 16:22 Dose: 650 mg Documented By: VERONICA Apixaban (Apixaban 2.5 Mg Tablet) 2.5 mg PO BID [facility] Last Admin: 01/23/25 08:24 Dose: 2.5 mg Documented By: PAULA Ceftriaxone Sodium (Ceftriaxone Sodium 1 Gm Vial) 1 gm IVPUSH Q24H [facility] Last Admin: 01/23/25 08:36 Dose: 1 gm Documented By: PAULA Dextrose (Dextrose 50 % 25 Gm/50 Ml Syringe) 25 gm IVPUSH Q15M PRN; Protocol PRN Reason: per Hypoglycemia Standing Ord. Doxycycline Monohydrate (Doxycycline Monohydrate 100 Mg Capsule) 100 mg PO Q12H [facility] Last Admin: 01/23/25 08:24 Dose: 100 mg Documented By: PAULA Famotidine (Famotidine/Pf 20 Mg/2 Ml Vial) 20 mg IVPUSH BID [facility] Last Admin: 01/23/25 08:36 Dose: 20 mg Documented By: PAULA Furosemide (Furosemide 20 Mg/2 Ml Vial) 20 mg IVPUSH BID@0900,1800 [facility]; Protocol Last Admin: 01/23/25 08:25 Dose: 20 mg Documented By: PAULA Glucose (Glucose Gel 15 Gm Gel..Gram.) 15 gm PO Q15M PRN; Protocol PRN Reason: per Hypoglycemia Standing Ord. Insulin Human Lispro (Insulin Lispro 100 Unit/Ml 3 Ml Vial) 0 unit SUBCUT QIDACHS [facility]; Protocol Last Admin: 01/23/25 12:09 Dose: 2 unit Documented By: PAULA Naloxone HCl (Naloxone Hcl 0.4 Mg/Ml Vial) 0.2 mg IVPUSH Q2M PRN PRN Reason: Excessive sedation or RR < 8 Sodium Chloride (0.9 % Sodium Chloride Flush 3 Ml Syringe) 3 ml IVFLUSH QSHIFT [facility] Last Admin: 01/23/25 08:28 Dose: 3 ml Documented By: PAULA Labs 01/22/25 04:29 01/23/25 09:40 Labs: Laboratory Results - last 24 hr 01/22/25 01/23/25 01/23/25 21:03 06:53 09:40 Anion Gap 15 Estim Creat Clear Calc 21.7 Estimated GFR 25 POC Glucose 229 H 171 H Random Glucose 205 H Calcium 8.5 Magnesium 1.8 B-Natriuretic Peptide 98 Procalcitonin 0.11 01/23/25 10:47 Anion Gap Estim Creat Clear Calc Estimated GFR POC Glucose 151 H Random Glucose Calcium Magnesium B-Natriuretic Peptide Procalcitonin Microbiology Microbiology Results: Microbiology 01/21/25 04:43 Blood Culture - Preliminary Blood - Venous No growth after 48 hours. 01/21/25 04:21 Blood Culture - Preliminary Blood - Venous No growth after 48 hours. Assessment and Plan (1) Hypertension: Status: Acute (2) Congestive heart failure: Status: Acute (3) Pulmonary edema cardiac cause: Status: Acute (4) Acute on chronic systolic and diastolic heart failure, NYHA class 4: Status: Acute (5) CAD (coronary artery disease): Status: Acute (6) High cholesterol: Status: Acute (7) Diabetes mellitus: Status: Acute (8) Chronic kidney disease: Status: Acute (9) Flash pulmonary edema: Status: Acute Plan Very pleasant 84 year old Danish speaking female, with a background history of ischemic cardiomyopathy with biventricular failure (EF 10-15%), CAD s/p DARRIN, HTN, type II DM, CKD, HLD, prior CVA, presents to hospital with acute respiratory distress, admitted to hospital with acute hypoxic respiratory failure requiring intubation and MICU transfer for same, in the setting of acute flash pulmonary edema in the setting of acute CHFrEF exacerbation. Acute hypoxic respiratory failure Intubation s/p Extubation (01/22/25) Flash pulmonary edema Possible multifocal PNA Acute on chronic ischemic CHFrEF 10-15% Possibility of multifocal PNA was identified on XR. Will empirically treat with antibiotics. If no signiticant improvement or clearance, would warrant CT chest at some stage (inpt/outpt) PLAN - I/O monitor - Fluid restrict 1.5-2L - Furosemide 40mg BID IV - Cardiac telemetry - K and Mg monitoring - Cardiology reccs greatly appreciated - Started doxycycline 100mg BID PO - Started Ceftriaxone 1g IV OD - Procalcitonin - BNP Ischemic cardiomyopathy CAD s/p DARRIN Prior CVA Atrial fibrillation on apixaban HTN HLD PLAN - Continue apixaban 2.5mg BID PO - Need to clarify with Caridology medication regimen, as currently home meds on hold. - Currently held: rosuvastatin, metoprolol, ezetimibe, valsartan - Clarify additional supportive medications with Cardiology; eg. Jardiance Type II DM PLAN - Holding mounjaro - resume Jardiance - DISCONTINUE OUTPATIENT GLIPIZIDE given history of CHF CKD (hypertensive/diabetic) Monitor BMP Monitor BNP Diurese patient QUALITY METRICS: - FULL CODE - DVT PROPHYLAXIS: apixaban 2.5mg BID PO (renal dose) Total time managing care of this patient today: 35 minutes. Quality Stroke Does the patient have a stroke diagnosis?: No VTE Prior VTE?: No VTE Risk Level:: Medical - moderate - high VTE Device Contraindication: N/A - Device Ordered VTE Drug Contraindication: N/A - Med Ordered
[2025-01-23 16:31] LABS: Glucose, Whole Blood 227 mg/dL (60-115)
--- NOTE | 2025-01-23 18:53 | PC.NURSE ---
patient resting in bed ,family at bedside,has no complaints
[2025-01-23 20:44] LABS: Glucose, Whole Blood 181 mg/dL (60-115)
[2025-01-24 03:48] VITALS: BP 139/65; PULSE 79; RESP 20; TEMP 36.7; O2SAT 98
[2025-01-24 06:00] VITALS: BMI 29.6
[2025-01-24 06:43] LABS: MANUAL DIFF FLAG NO
[2025-01-24 06:56] VITALS: BP 121/62; PULSE 72; RESP 18; TEMP 36.4; O2SAT 97
[2025-01-24 06:59] LABS: Glucose, Whole Blood 173 mg/dL (60-115)
[2025-01-24 07:16] LABS: Hematocrit 33.0 % (37.0-47.0); Hemoglobin 10.5 g/dl (12.0-16.0); Imm Gran Abs Auto 0.03 X10*3/uL (0.00-0.03); Imm Gran Pct Auto 0.3 % (0.0-0.4); Lymphocytes Absolute Auto 2.3 X10*3/uL (1.2-4.9); Mean Corpuscular HGB Conc 31.8 g/dl (31.0-35.0); Mean Corpuscular Hemoglobin 28.8 pg (27.0-33.0); Mean Corpuscular Volume 90.4 fL (80.0-98.0); NRBC Abs Auto 0.000 X10*3/uL (0.0-0.012); NRBC Pct Auto 0.0 /100WBC (0.0-0.2); Platelet Count 259 X10*3/uL (160-400); Red Blood Count 3.65 X10*6/uL (4.20-5.50); White Blood Count 10.3 X10*3/uL (4.8-10.8)
[2025-01-24] MEDS: Furosemide 20 MG/2 ML VIAL IVPUSH ×2 (08:21→18:34)
[2025-01-24] MEDS: 0.9 % Sodium Chloride Flush 3 ML SYRINGE IVFLUSH ×3 (08:22→20:43)
[2025-01-24 08:32] LABS: Anion Gap 13 (12-20); Blood Urea Nitrogen 37 mg/dL (9-16); Calcium 8.9 mg/dL (8.4-10.2); Carbon Dioxide 23 mmol/L (22-29); Chloride 105 mmol/L (96-108); Creatinine Clr Calc Pharmacy 22.4; Estimated Glomerular Filt Rate 28; Potassium 3.8 mmol/L (3.3-5.1); Sodium 137 mmol/L (135-145)
[2025-01-24 08:37] LABS: B Type Natriuretic Peptide 140 pg/mL (<100)
[2025-01-24 10:57] LABS: Glucose, Whole Blood 194 mg/dL (60-115)
[2025-01-24 11:13] VITALS: BP 127/59; PULSE 72; RESP 20; TEMP 36.5; O2SAT 94
--- NOTE | 2025-01-24 14:13 | P.PNIM_ITS ---
Subjective Subjective Date of Service: 01/24/25 Interval History: Very pleasant 84 year old female. The patient is close to her clinical baseline. She has no new complaints or issues to endorse today. She is eating and drinking well. Stooling and urinating well. Physical Exam 2 Exam: Exam: General: A&O x3, oriented to time place person and siutaion, comfortable, no pain Cardiac: S1, S2 auscultated with no S3/4, no MRG. Well perfused. Respiratory: Decreased bibasilar breath sounds with crackles at the bases, some wheezing auscultated mid zones bilaterally. The patient has no respiraotry distress, tachypnoea, cyanosis. GI/ : No abdominal pain on palpation, no masses or distentions. MSK: Normal ambulation without pain at bony prominences or musculature. NO pitting edema at lower extremities. Neurological: Normal neurological examination on overview, without obvious CN II-XII abnormalities. Vital Signs: Vital Signs: Last Vital Signs Temp 97.7 F 01/24/25 11:13 Pulse 72 01/24/25 11:13 Resp 20 01/24/25 11:13 BP 127/59 L 01/24/25 11:13 Pulse Ox 94 01/24/25 11:13 O2 Del Method Room Air 01/24/25 11:13 FiO2 30 01/21/25 12:00 BMI result Body Mass Index 29.6 Objective Data Active Medications Acetaminophen (Acetaminophen 325 Mg Tablet) 650 mg PO Q6H PRN PRN Reason: Pain, Mild (Pain Scale 1-3) Last Admin: 01/24/25 08:54 Dose: 650 mg Documented By: BERRY Apixaban (Apixaban 2.5 Mg Tablet) 2.5 mg PO BID [facility] Last Admin: 01/24/25 08:18 Dose: 2.5 mg Documented By: BERRY Atorvastatin Calcium (Atorvastatin Calcium 80 Mg Tablet) 80 mg PO DAILY [facility] Last Admin: 01/24/25 08:19 Dose: 80 mg Documented By: BERRY Ceftriaxone Sodium (Ceftriaxone Sodium 1 Gm Vial) 1 gm IVPUSH Q24H [facility] Last Admin: 01/24/25 10:59 Dose: 1 gm Documented By: BERRY Dextrose (Dextrose 50 % 25 Gm/50 Ml Syringe) 25 gm IVPUSH Q15M PRN; Protocol PRN Reason: per Hypoglycemia Standing Ord. Docusate Sodium (Docusate Sodium 100 Mg Capsule) 100 mg PO BID [facility] Last Admin: 01/24/25 08:19 Dose: 100 mg Documented By: BERRY Doxycycline Monohydrate (Doxycycline Monohydrate 100 Mg Capsule) 100 mg PO Q12H [facility] Last Admin: 01/24/25 08:19 Dose: 100 mg Documented By: BERRY Ezetimibe (Ezetimibe 10 Mg Tablet) 10 mg PO DAILY [facility] Last Admin: 01/24/25 08:18 Dose: 10 mg Documented By: BERRY Empagliflozin (Empagliflozin 10 Mg Tablet) 10 mg PO DAILY [facility] Last Admin: 01/24/25 08:20 Dose: 10 mg Documented By: BERRY Famotidine (Famotidine/Pf 20 Mg/2 Ml Vial) 20 mg IVPUSH BID [facility] Last Admin: 01/24/25 08:21 Dose: 20 mg Documented By: BERRY Furosemide (Furosemide 20 Mg/2 Ml Vial) 20 mg IVPUSH BID@0900,1800 [facility]; Protocol Last Admin: 01/24/25 08:21 Dose: 20 mg Documented By: BERRY Glucose (Glucose Gel 15 Gm Gel..Gram.) 15 gm PO Q15M PRN; Protocol PRN Reason: per Hypoglycemia Standing Ord. Insulin Human Lispro (Insulin Lispro 100 Unit/Ml 3 Ml Vial) 0 unit SUBCUT QIDACHS [facility]; Protocol Last Admin: 01/24/25 12:44 Dose: 2 unit Documented By: BERRY Metoprolol Tartrate (Metoprolol Tartrate 25 Mg Tablet) 25 mg PO BID [facility]; Protocol Last Admin: 01/24/25 08:18 Dose: 25 mg Documented By: BERRY Naloxone HCl (Naloxone Hcl 0.4 Mg/Ml Vial) 0.2 mg IVPUSH Q2M PRN PRN Reason: Excessive sedation or RR < 8 Sertraline HCl (Sertraline Hcl 25 Mg Tablet) 25 mg PO DAILY [facility] Last Admin: 01/24/25 08:18 Dose: 25 mg Documented By: BERRY Sodium Chloride (0.9 % Sodium Chloride Flush 3 Ml Syringe) 3 ml IVFLUSH QSHIFT [facility] Last Admin: 01/24/25 08:22 Dose: 3 ml Documented By: BERRY Labs 01/24/25 06:11 01/24/25 08:02 Labs: Laboratory Results - last 24 hr 01/23/25 01/23/25 01/24/25 16:25 20:40 06:11 MCV 90.4 MCH 28.8 MCHC 31.8 RDW 13.1 Plt Count 259 MPV 11.6 Immature Gran % (Auto) 0.3 Neut % (Auto) 66.4 Lymph % (Auto) 22.1 Power % (Auto) 8.4 Eos % (Auto) 2.5 Baso % (Auto) 0.3 Lymph # (Auto) 2.3 Power # (Auto) 0.9 Eos # (Auto) 0.3 Baso # (Auto) 0.0 Abs Immat Gran (auto) 0.03 Absolute Neuts (auto) 6.8 Absolute Nucleated RBC 0.000 Nucleated RBC % (auto) 0.0 Anion Gap Estim Creat Clear Calc Estimated GFR POC Glucose 227 H 181 H Random Glucose Calcium B-Natriuretic Peptide 01/24/25 01/24/25 01/24/25 06:54 08:02 10:50 MCV MCH MCHC RDW Plt Count MPV Immature Gran % (Auto) Neut % (Auto) Lymph % (Auto) Power % (Auto) Eos % (Auto) Baso % (Auto) Lymph # (Auto) Power # (Auto) Eos # (Auto) Baso # (Auto) Abs Immat Gran (auto) Absolute Neuts (auto) Absolute Nucleated RBC Nucleated RBC % (auto) Anion Gap 13 Estim Creat Clear Calc 22.4 Estimated GFR 28 POC Glucose 173 H 194 H Random Glucose 186 H Calcium 8.9 B-Natriuretic Peptide 140 H Assessment and Plan (1) Hypertension: Status: Acute (2) Congestive heart failure: Status: Acute (3) Pulmonary edema cardiac cause: Status: Acute (4) Acute on chronic systolic and diastolic heart failure, NYHA class 4: Status: Acute (5) CAD (coronary artery disease): Status: Acute (6) High cholesterol: Status: Acute (7) Chronic kidney disease: Status: Acute (8) Diabetes mellitus: Status: Acute Plan Very pleasant 84 year old Austrian speaking female, with a background history of ischemic cardiomyopathy with biventricular failure (EF 10-15%), CAD s/p DARRIN, HTN, type II DM, CKD, HLD, prior CVA, presents to hospital with acute respiratory distress, admitted to hospital with acute hypoxic respiratory failure requiring intubation and MICU transfer for same, in the setting of acute flash pulmonary edema in the setting of acute CHFrEF exacerbation. Acute hypoxic respiratory failure Intubation s/p Extubation (01/22/25) Flash pulmonary edema Possible multifocal PNA Acute on chronic ischemic CHFrEF 10-15% Possibility of multifocal PNA was identified on XR. Will empirically treat with antibiotics. If no signiticant improvement or clearance, would warrant CT chest at some stage (inpt/outpt) PLAN - I/O monitor - Fluid restrict 1.5-2L - Furosemide 20mg BID IV - Cardiac telemetry - K and Mg monitoring - Cardiology reccs greatly appreciated - Started doxycycline 100mg BID PO - Started Ceftriaxone 1g IV OD - Procalcitonin - BNP Ischemic cardiomyopathy CAD s/p DARRIN Prior CVA Atrial fibrillation on apixaban HTN HLD PLAN - Continue apixaban 2.5mg BID PO - Need to clarify with Cardiology medication regimen, as currently home meds on hold. - Continue Empagliflozin 10mg OD PO - Continue metoprolol 25mg BID PO - Continue Atorvastatin 80mg OD PO - Restart valsartan 40mg OD PO Type II DM PLAN - Holding mounjaro - resume Jardiance - DISCONTINUE OUTPATIENT GLIPIZIDE given history of CHF CKD (hypertensive/diabetic) Monitor BMP Monitor BNP Diurese patient QUALITY METRICS: - FULL CODE - DVT PROPHYLAXIS: apixaban 2.5mg BID PO (renal dose) Quality Stroke Does the patient have a stroke diagnosis?: No VTE Prior VTE?: No VTE Risk Level:: Medical - moderate - high VTE Device Contraindication: N/A - Device Ordered VTE Drug Contraindication: N/A - Med Ordered
[2025-01-24 15:09] VITALS: BP 120/76; PULSE 68; RESP 20; TEMP 36; O2SAT 99
[2025-01-24 16:19] LABS: Glucose, Whole Blood 154 mg/dL (60-115)
[2025-01-24 19:32] VITALS: BP 113/68; PULSE 70; RESP 16; TEMP 36.3; O2SAT 99
[2025-01-24 20:28] LABS: Glucose, Whole Blood 166 mg/dL (60-115)
[2025-01-24 23:08] VITALS: BP 132/63; PULSE 72; RESP 18; TEMP 36.4; O2SAT 96
[2025-01-25 03:14] VITALS: BP 130/58; PULSE 74; RESP 16; TEMP 36.3; O2SAT 99
--- NOTE | 2025-01-25 04:21 | PC.NURSE ---
Upon orientation assessment, pt was able to say her name and , but stated she is at apartment with family. pt also stated she does not remember being in a hospital due to respiratory failure. Pt's family was in the room, and said pt has been intermittently confused and incoherent since she had stroke.
[2025-01-25 06:00] VITALS: BMI 31.8
[2025-01-25 07:10] VITALS: BP 131/63; PULSE 86; RESP 19; TEMP 36.2; O2SAT 97
[2025-01-25 07:35] LABS: Glucose, Whole Blood 180 mg/dL (60-115)
[2025-01-25] MEDS: Furosemide 20 MG/2 ML VIAL IVPUSH (08:58)
[2025-01-25] MEDS: 0.9 % Sodium Chloride Flush 3 ML SYRINGE IVFLUSH (08:59)
--- NOTE | 2025-01-25 09:40 | PM.DS ---
DS: Providers Provider Date of Service: 01/25/25 Date of admission: 01/21/25 05:17 Date of discharge: 01/25/25 Primary care physician: Cecile Galindo DO Consults: 01/21/25 09:18 Consult to Cardiology Routine Consulting Provider: [facility] Reason for consultation: Recurrent cardiogenic pulmonary edema Has provider been notified: No DS: Diagnosis Discharge Diagnosis (1) Hypertension: Status: Acute (2) Congestive heart failure: Status: Acute (3) Pulmonary edema cardiac cause: Status: Acute (4) Acute on chronic systolic and diastolic heart failure, NYHA class 4: Status: Acute (5) CAD (coronary artery disease): Status: Acute (6) High cholesterol: Status: Acute (7) Chronic kidney disease: Status: Acute (8) Diabetes mellitus: Status: Acute DS: Summary Hospital Course Hospital Course: Chief Complaint: Pulmonary edema Ms. Westfall is an 84-year-old female with a past medical history of ischemic cardiomyopathy with EF 10 - 15%,? coronary? artery disease s/p stents,? hypertension, diabetes mellitus, asthma, chronic kidney disease, hyperlipidemia and multiple admissions over the last month, most recently 01/09/25 to 01/11/25? for flash pulmonary edema and acute ischemic stroke placed on eliquis.? The patient was brought from home by her daughter due to sudden shortness of breath and respiratory distress. On arrival to the emergency department, the patient was unresponsive, pale, diaphoretic with a pulse, O2 sat 55% on room air. She was intubated emergently. This is the patient?s 3rd intubation in the last 2 months for flash pulmonary edema.?? Laboratory data significant for WBC 14.9, serum bicarb 16, BUN 21, creatinine 1.50, glucose 358, lactic acid 7.6,? BNP 865. VBG 7.02 64 87 17. ED course:? The patient received Mag sulfate 2 g, 1 in nitro paste, furosemide 80 mg. Hospital course: A 84 year old Romansh speaking female, with a background history of ischemic cardiomyopathy with biventricular failure (EF 10-15%), CAD s/p DARRIN, HTN, type II DM, CKD, HLD, prior CVA, presents to hospital with acute respiratory distress, admitted to hospital with acute hypoxic respiratory failure requiring intubation and MICU transfer for same, in the setting of acute flash pulmonary edema in the setting of acute CHFrEF exacerbation. Acute hypoxic respiratory failure Intubation s/p Extubation (01/22/25) Flash pulmonary edema Possible multifocal PNA Acute on chronic ischemic CHFrEF 10-15% Possibility of multifocal PNA was identified on XR. Will empirically treat with antibiotics. -Treated with IV Lasix with good effect, Seen by cardiology -IV ABx for possible PNA, presently on Ceftriaxone and Doxy, and will transition to oral Ceftin and Doxy at discharge. Presently patient is doing well, has no shortness of breath, vital stable and will be discharge home with HHS Ischemic cardiomyopathy CAD s/p DARRIN Prior CVA Atrial fibrillation on apixaban HTN HLD PLAN - Continue apixaban 2.5mg BID PO - Continue Empagliflozin 10mg OD PO - Continue metoprolol 25mg BID PO - Continue Atorvastatin 80mg OD PO - valsartan 40mg OD PO Type II DM resume home meds CKD (hypertensive/diabetic) Monitor BMP Monitor BNP Diurese patient Time Attestation Discharge Coordination Time (in mins): 40 Quality: Safe Use of Opioids Does Pt have an Active Cancer Diagnosis on the Problem List?: No Quality: Stroke Does the patient have a stroke diagnosis?: No Physical Exam Vital Signs: Vital Signs: Last Vital Signs Temp 97.1 F 01/25/25 07:10 Pulse 86 01/25/25 07:10 Resp 19 01/25/25 07:10 BP 131/63 01/25/25 07:10 Pulse Ox 97 01/25/25 07:10 O2 Del Method Room Air 01/25/25 07:10 FiO2 30 01/21/25 12:00 BMI result Body Mass Index 31.8 DS: Data Data Completed and Pending Completed studies during hospitalization [Text1]: Procedures Insertion of Endotracheal Airway into Trachea, Via Natural or Artificial Opening (01/09/25) Insertion of Infusion Device into Lower Vein, Percutaneous Approach (12/23/24) Introduction of Vasopressor into Peripheral Vein, Percutaneous Approach (01/09/25) Respiratory Ventilation, Less than 24 Consecutive Hours (01/09/25) Labs on day of discharge: Laboratory Results - last 24 hr 01/24/25 01/24/25 01/24/25 10:50 16:13 20:14 POC Glucose 194 H 154 H 166 H 01/25/25 07:32 POC Glucose 180 H Preliminary micro results at discharge 01/21/25 04:43 Blood Culture - Preliminary Blood - Venous No growth after 48 hours. 01/21/25 04:21 Blood Culture - Preliminary Blood - Venous No growth after 48 hours. Discharge Plan Discharge Anticipated Discharge Date/Time: 01/25/25 09:37 Patient Disposition: Home, Self-Care Discharge Diagnosis: heart failure exacerbation Referrals: Cecile Galindo DO [Primary Care Provider, Internal Medicine] - 1 Week Discharge Medications: New furosemide [Lasix] 20 mg tablet 20 mg PO BID Qty: 90 0RF cefuroxime axetil 500 mg tablet 500 mg PO BID 4 Days Qty: 8 0RF doxycycline hyclate 100 mg tablet 100 mg PO BID 4 Days Qty: 8 0RF Continued nitroglycerin 0.4 mg tablet, sublingual 0.4 mg sublingual Q5M PRN (Reason: Chest Pain) Rx Instructions: do not exceed 3 doses per episode glipizide 5 mg tablet 5 mg PO BID sertraline [Zoloft] 25 mg tablet 25 mg PO DAILY fluticasone propionate [Flonase Allergy Relief] 50 mcg/actuation spray,suspension 1 spray intranasal DAILY PRN (Reason: Allergy Symptoms) Rx Instructions: administer into each nostril melatonin 5 mg tablet 5 mg PO BEDTIME PRN (Reason: Sleep) ezetimibe 10 mg tablet 10 mg PO DAILY Qty: 30 5RF calcium carbonate-vitamin D3 600 mg-5 mcg (200 unit) tablet 1 tab PO BID docusate sodium 100 mg capsule 100 mg PO BID Mounjaro 7.5 mg/0.5 mL pen injector 7.5 mg subcut FR ketotifen fumarate [Alaway] 0.025 % (0.035 %) Drops 1 drp OPHTHALMIC (EYE) BID PRN (Reason: allergies) Rx Instructions: administer at least 8 hours apart Jardiance 10 mg tablet 10 mg PO DAILY Eliquis 2.5 mg Tablet 2.5 mg PO BID Qty: 180 0RF valsartan 40 mg Tablet 40 mg PO BID 30 Days Qty: 60 0RF Protocol: Hold for SBP< HOLD for SBP < : 90 metoprolol tartrate 25 mg Tablet 25 mg PO BID Qty: 60 0RF Protocol: Hold for SBP/HR < HOLD for SBP < : 90 HOLD for HR < : 60 acetaminophen 325 mg capsule 650 mg PO Q8H PRN (Reason: Pain) tramadol 50 mg tablet 50 mg PO DAILY PRN (Reason: Pain, Severe) baclofen 10 mg tablet 10 mg PO BID PRN (Reason: muscle spasm) rosuvastatin 40 mg tablet 40 mg PO DAILY Discharge Orders: Discharge Order (Routine); Ordered 01/25/25 Ordered By: Alfonzo Raya Diet: Advance to usual diet Activity on Discharge: As tolerated Stand Alone Forms: Patient Portal Discharge page Print Language: Romansh Care Plan Goals: recovery from heart failure, and pneumonia Health Concerns: heart failure, pneumonia Plan of Treatment: Take all your medication as before in addition to lasix 20 mg twice to control your fluid avoid excess water, recomend No more than 1200 CC a day Take Doxycycline and Cefuroxime for pneumonia Assessment: s Patient Instructions: Cefuroxime (By mouth), Doxycycline (By mouth), Fluid Restriction (GEN) Discharge Date/Time: 01/25/25 12:52
--- NOTE | 2025-01-25 10:20 | P.F2F_ITS ---
Service Date Service Date: 01/25/25 Encounter Date of encounter: 01/25/25 Reasons for Services Signs and symptoms assessed: stroke, heart failure with respriatory failure Reason for long-term: CV/CP assess and/or care, medication management and teach disease management Homebound: Leaving the home is medically contraindicated at this time without the asist of a device and/or another person due th the listed conditions above and below. Reason homebound: shortness of breath with minimal effort, weakness related to hospital stay and unable to drive Homebound supporting statement: homebound due to weakness from heart failure needing intubation along with pne umonia and therefore needs the assitance of another person Certification: Based on the above findings, I certify that this patient is confined to the home and needs intermittent long-term care, physical therapy and/or speech therapy, or continues to need occupational therapy. The patient is under my care, and I have initiated the establishment of the plan of care. The patient will be followed by a physician who will periodically review the plan of care. Time Spent With Patient Time: Total time managing care of this patient today ____ minutes.
[2025-01-25 10:50] LABS: Anion Gap 18 (12-20); Blood Urea Nitrogen 39 mg/dL (9-16); Calcium 9.5 mg/dL (8.4-10.2); Carbon Dioxide 19 mmol/L (22-29); Chloride 104 mmol/L (96-108); Creatinine Clr Calc Pharmacy 21.7; Estimated Glomerular Filt Rate 26; Potassium 4.5 mmol/L (3.3-5.1); Sodium 136 mmol/L (135-145)
[2025-01-25 10:54] LABS: B Type Natriuretic Peptide 248 pg/mL (<100)
[2025-01-25 11:28] LABS: Glucose, Whole Blood 202 mg/dL (60-115)
--- NOTE | 2025-01-25 15:57 | MHC.CM.PN ---
IMM 01/25/25, PT MEDICALLY CLEARED FOR DC HOME W/[facility]UMP OF [facility] AND [employer] [facility], FAMILY HAS TRANSPORTED PT HOME.
== END 2025-01-25 12:52 | disposition home or self-care (01) | DRG 291 ==
LOC: HO.ED 05:35 → HO.EDOVER 05:44 → HO.ICU 05:45 → HO.IMC 01-22 06:47
PROVIDERS: Hospitalist; Internal Medicine Pulmonary Disease; Admitting Provider Nurse Practitioner Family; Emergency Provider Emergency Medicine; PCP Family Medicine; Visit Provider Internal Medicine
DX: I13.0 Hypertensive heart and chronic kidney disease with heart failure and stage 1 through stage 4 chronic kidney disease, or unspecified chronic kidney disease (principal); I50.23 Acute on chronic systolic (congestive) heart failure; J18.9 Pneumonia, unspecified organism; J96.01 Acute respiratory failure with hypoxia; I25.10 Atherosclerotic heart disease of native coronary artery without angina pectoris; I25.5 Ischemic cardiomyopathy; N18.30 Chronic kidney disease, stage 3 unspecified; E11.22 Type 2 diabetes mellitus with diabetic chronic kidney disease; E78.5 Hyperlipidemia, unspecified; I35.1 Nonrheumatic aortic (valve) insufficiency; Z95.5 Presence of coronary angioplasty implant and graft; Z20.822 Contact with and (suspected) exposure to COVID-19; Z79.4 Long term (current) use of insulin; Z79.01 Long term (current) use of anticoagulants; Z79.899 Other long term (current) drug therapy
CPT/HCPCS: 36415; 71045; 80048; 80053; 80307; 81001; 82040; 82248; 82803; 82947; 83605; 83735; 83880; 84100; 84145; 84484; 85025; 87040; 87637; 93005; 94002; 94799; 99285; J0696; J1308; J1938; J2704; J3010; J3475

== ENCOUNTER → 2025-01-21 04:10 | Outpatient (BNV) | payer OTHER, SELFPAY ==
[2022-11-29 12:51] VITALS: BP 118/58; BP 118/64
[2022-12-24 12:41] VITALS: BMI 29.1
[2023-04-08 14:16] VITALS: BP 110/60
== END ==
PROVIDERS: Admitting Provider Nurse Practitioner Family; Emergency Provider Emergency Medicine; Visit Provider Radiology Diagnostic Radiology
DX: J90 Pleural effusion, not elsewhere classified (principal)
CPT/HCPCS: 71045

== ENCOUNTER → 2025-01-21 05:17 | Outpatient (BNV) | payer OTHER, SELFPAY ==
[2022-11-29 12:51] VITALS: BP 118/58; BP 118/64
[2022-12-24 12:41] VITALS: BMI 29.1
[2023-04-08 14:16] VITALS: BP 110/60
== END ==
PROVIDERS: Admitting Provider Nurse Practitioner Family; Emergency Provider Emergency Medicine; PCP Family Medicine; Visit Provider Hospitalist
DX: I11.0 Hypertensive heart disease with heart failure (principal); I50.43 Acute on chronic combined systolic (congestive) and diastolic (congestive) heart failure; N18.30 Chronic kidney disease, stage 3 unspecified; I50.1 Left ventricular failure, unspecified; I25.10 Atherosclerotic heart disease of native coronary artery without angina pectoris; E78.00 Pure hypercholesterolemia, unspecified; E11.9 Type 2 diabetes mellitus without complications
CPT/HCPCS: 99239; G0180

== ENCOUNTER → 2025-01-21 05:17 | Outpatient (BNV) | payer OTHER, SELFPAY ==
[2022-11-29 12:51] VITALS: BP 118/58; BP 118/64
[2022-12-24 12:41] VITALS: BMI 29.1
[2023-04-08 14:16] VITALS: BP 110/60
== END ==
PROVIDERS: Admitting Provider Nurse Practitioner Family; Emergency Provider Emergency Medicine; Visit Provider Internal Medicine
DX: J81.0 Acute pulmonary edema (principal); I50.43 Acute on chronic combined systolic (congestive) and diastolic (congestive) heart failure; I25.5 Ischemic cardiomyopathy; I25.10 Atherosclerotic heart disease of native coronary artery without angina pectoris
CPT/HCPCS: 93010; 99223; 99233

== ENCOUNTER → 2025-01-21 05:17 | Outpatient (BNV) | payer OTHER, SELFPAY ==
[2022-11-29 12:51] VITALS: BP 118/58; BP 118/64
[2022-12-24 12:41] VITALS: BMI 29.1
[2023-04-08 14:16] VITALS: BP 110/60
== END ==
PROVIDERS: Admitting Provider Nurse Practitioner Family; Emergency Provider Emergency Medicine; Visit Provider Nurse Practitioner Family
DX: I50.9 Heart failure, unspecified (principal); I50.1 Left ventricular failure, unspecified; E11.22 Type 2 diabetes mellitus with diabetic chronic kidney disease; N18.30 Chronic kidney disease, stage 3 unspecified
CPT/HCPCS: 99223

== ENCOUNTER 2025-01-28 14:30 | Outpatient (AMB) | payer OTHER, SELFPAY ==
[2022-11-29 12:51] VITALS: BP 118/58; BP 118/64
[2022-12-24 12:41] VITALS: BMI 29.1
[2023-04-08 14:16] VITALS: BP 110/60
--- NOTE | 2025-01-28 14:32 | A.OFFVIS_ITS ---
Vital Signs 01/28/25 14:33 Height 5 ft 1 in Weight 155 lb 10.342 oz BMI 29.4 BP 114/52 L Blood Pressure Location Lt brachial Position Sitting Pulse 72 Pulse Source Pulse Oximeter Intake Visit Reasons: [facility] DC f/u per NS Marketing Services Specialist Required: Yes Marketing Services Specialist Language: Environmental Remediation Engineer Name: voice [id number] Optical Glass Wet Inspector: Optical Glass Wet Inspector Present Allergies procaine (From [place]OV[place]) Allergy (Severe, Verified 01/28/25 14:39) SWELLING LOCALIZED TO INJECTION SITE alirocumab (From Praluent Pen) Allergy (Mild, Verified 01/28/25 14:39) Itching Aspirin Allergy (Unknown, Uncoded 01/28/25 14:39) rash full strength Aspirin Allergy (Unknown, Uncoded 01/28/25 14:39) rash Medication List - Last Reconciled 01/28/25 by Mariam Raymundo NP-C acetaminophen 650 mg PO Q8H PRN apixaban (Eliquis) 2.5 mg PO BID baclofen 10 mg PO BID PRN calcium carbonate-vitamin D3 600 mg-5 mcg (200 unit) 1 tab PO BID cefuroxime axetil 500 mg PO BID 4 days docusate sodium 100 mg PO BID doxycycline hyclate 100 mg PO BID 4 days empagliflozin (Jardiance) 10 mg PO DAILY ezetimibe 10 mg PO DAILY fluticasone propionate 50 mcg/actuation (Flonase Allergy Relief) 1 spray intranasal DAILY PRN furosemide (Lasix) 20 mg PO BID glipizide 5 mg PO BID ketotifen fumarate 0.025%(0.035%) (Alaway) 1 drp ophthalmic (eye) BID PRN melatonin 5 mg PO BEDTIME PRN metoprolol tartrate 25 mg See Protocol PO BID nitroglycerin 0.4 mg sublingual Q5M PRN rosuvastatin 40 mg PO DAILY sertraline (Zoloft) 25 mg PO DAILY tirzepatide (Mounjaro) 7.5 mg subcut FR tramadol 50 mg PO DAILY PRN valsartan 40 mg See Protocol PO BID 30 days HPI HPI [facility] DC f/u per NS: Details: Veronique is an 84-year-old female with past medical history of hypertension, hyperlipidemia, diabetes, CAD, anterior STEMI 04/2022 with LAD stent who has had 3 recent admissions for acute onset respiratory failure/pulmonary edema requiring intubation. On 1 occasion her blood pressure was elevated at 218/105. On the other 2 episodes she was not significantly hypertensive. The cause of acute pulmonary edema was not entirely clear. Today she reports she is doing well at this time. She is currently asymptomatic. No chest discomfort, shortness of breath, PND, orthopnea or edema. No heart palpitations, lightheadedness, presyncope, syncope. She reports compliance with her medications and follows a low-salt diet. She does only light physical activities. Daughters are present. Certified district supervisor used. [facility] Medical History CAD (coronary artery disease) Diabetes mellitus Embolic cerebral infarction Chronic kidney disease Anxiety High cholesterol Hypertension Active asthma Surgical History Stented coronary artery Social History Household Members: Unknown / Unable to assess Housing: Unknown / Unable to assess Do you presently have visiting nurse or other home services: No Unable to assess alcohol history related to: Unable to respond Comment: While patient's family is in the room the bed alarm is off Patient Tobacco Use Status: Tobacco use Unknown e-Cigarette/Vaping Use: Never Used service: No Current occupational status: retired and disabled Current occupation: rt hand Review of Systems Const All systems reviewed & are unremarkable except as noted in HPI and below ENT Denies dizziness Card Denies chest pain, Denies chest pain at rest, Denies chest pain with activity, Denies rapid heart rate, Denies pedal edema, Denies edema, Denies leg edema, Denies lightheadedness, Denies palpitations, Denies dyspnea, Denies dyspnea on exertion and Denies orthopnea Resp Denies cough, Denies dyspnea and Denies dyspnea on exertion GI Denies hematochezia and Denies change in stool character Musc Details: doing light activity only Denies abnormal gait, Denies limited range of motion, Denies muscle cramps, Denies muscle weakness, Denies numbness, Denies radiating pain into limb, Denies stiffness and Denies tingling Neuro Denies abnormal gait, Denies dizziness, Denies numbness and Denies tingling Endo Denies palpitations Physical Exam Vital Signs: Last Vital Signs Pulse 72 01/28/25 14:33 BP 114/52 L 01/28/25 14:33 BMI result Body Mass Index 29.4 Const General: cooperative, healthy appearing, comfortable and no acute distress Orientation/consciousness: patient oriented x3 Neck Neck: Yes normal visual inspection and Yes no JVD Resp Effort & Inspection: normal respiratory effort Auscultation: clear to auscultation bilaterally, no crackles, no rales, no rhonchi and no wheezes Cardio Jugular venous distension: no JVD Rate: regular rate Rhythm: regular rhythm Heart sounds: S1 normal heart sound present, S2 normal heart sound present, no gallops, no murmurs and no rubs Neuro General: patient oriented x3 Extrem General: Yes normal to inspection, No no pedal edema and No calf tenderness Psych Appearance: grossly normal Mental Status: mental status grossly normal Speech and movement: Normal speech and movement present Assessment & Plan Assessment & Plan (1) Pulmonary edema cardiac cause: Code(s): I50.1 - Left ventricular failure, unspecified Category: Medical Plan: Three recent episodes of acute onset shortness of breath with hypoxia, sats as low as 55% each episode requiring intubation and ICU care. Last hospital discharge 01/25/2025. Last echocardiogram 12/24/2024 showing EF 15-20%, anterior and inferior wall motion abnormalities unchanged from prior, [id number] aortic regurgitation. Prior echo from 01/07/2024 had shown EF 15-20% as well. She does not appear fluid overloaded on exam today. During 1 admission her Entresto was changed to valsartan due to low blood pressure readings. At this time will restart Entresto and stop valsartan. Continue metoprolol, Jardiance, Lasix. Will check renal artery ultrasound to assess for renal artery stenosis. If this is negative will plan for cardiac catheterization. Emergency care if needed for recurrent symptoms. Strict med compliance and low-salt diet reviewed. Cardiology follow-up 3-4 weeks, sooner if needed. (2) Congestive heart failure: Code(s): I50.9 - Heart failure, unspecified Category: Medical Qualifiers: Heart failure type: other Qualified Code(s): I50.9 - Heart failure, unspecified Plan: As above (3) Cardiomyopathy: Code(s): I42.9 - Cardiomyopathy, unspecified Category: Medical Plan: Ischemic cardiomyopathy, EF 15-20%. She has been on guideline directed medical therapy. She has declined defibrillator. Med management as above. (4) CAD (coronary artery disease): Comment: Status post anterior STEMI, April 2022 with LAD stent Code(s): I25.10 - Atherosclerotic heart disease of [place] coronary artery without angina pectoris Category: Medical Plan: History of CAD, anterior STEMI 04/2022 with LAD stent. No anginal symptoms. Troponin levels normal during recent admissions. Echocardiogram unchanged. Continue metoprolol, rosuvastatin with ideal LDL goal less than 70. She is not on aspirin since she is on Eliquis. (5) Hypertension: Code(s): I10 - Essential (primary) hypertension Category: Medical Plan: Blood pressure goal less than 130/80. Well controlled at present. Changing her valsartan back to Entresto to help with recurrent heart failure. (6) Hospital discharge follow-up: Code(s): Z09 - Encounter for follow-up examination after completed treatment for conditions other than malignant neoplasm Category: Medical Plan: Hospital admissions 12/28/2024, 01/09/2025 and 01/21/2025 each with respiratory failure, acute pulmonary edema. Discharge summaries reviewed. Plan I discussed with the patient the importance of continuing her medications and adhering to a low-salt diet to manage her heart failure. We reviewed the option of a defibrillator to address her arrhythmia risk, and she continues to decline at this time. We will check an ultrasound of her kidney arteries to see if that is contributing to her pulmonary edema episodes. Reviewed the need to change her Valsartan back to entresto for better heart failure management. Orders: Orders US renal BI 01/28/25 I10 - Essential (primary) hypertension, I50.1 - Left ventricular failure, unspecified Medications: New sacubitril-valsartan 24-26 mg (Entresto) Stop Valsartan Start Entresto 1 tab PO BID 60 tabs 5RF 30 days Discontinued valsartan Discontinued Reason: Doctor's Order 40 mg See Protocol PO BID 30 days 60 tabs 0RF Patient Instructions: - Take all prescribed medications daily. - Follow a low-salt diet. - Avoid strenuous activities; engage in light activities as tolerated. - Await call for renal artery ultrasound - ED care if needed for recurrent symptoms. Patient was informed and verbally consented to the use of an ambient scribe for clinic note documentation during this visit. Visit time spent on chart review, interview, assessment, orders, documentation. Coding Level of Care Code Est Pt Level 4 (10131) Complex EM visit Add On G2211 Diagnoses Pulmonary edema cardiac cause I50.1 Other congestive heart failure I50.9 Heart failure type: other Cardiomyopathy I42.9 CAD (coronary artery disease) I25.10 Hypertension I10 Hospital discharge follow-up Z09 Time Spent (min) 36
[2025-01-28 14:33] VITALS: BP 114/52; PULSE 72; BMI 29.4
--- OUTSIDE RECORDS SUMMARY | 2025-01-28 15:11 | XMS_ITS | Clinical Summary ---
Author Organization [facility]. Address [address] [phone] Phone Care Team Providers Care Lens Molding Equipment Operator Name Role Phone Unavailable Primary Care Provider [...] MG tablet Take 5 mg by mouth Active Active Problems Problem Noted Date Diagnosed Date Ischemic stroke 01/05/2025 Post-discharge follow-up 01/05/2025 Anemia 05/07/2024 Type 1 diabetes mellitus wit h diabetic [...] Osteoarthritis 05/04/2015 Type 2 diabetes mellitus 05/04/2015 History of gastroesophageal reflux disease 05/04 Encounters Date Type Department Care Team Description 11/09/2024 Orders Only [facility] [address] [place] [address] Aristides Huizar MD Stage 3b chronic kidney [...] Care Team (Late st Contact Info) Description 05/17/2025 1:45 PM EST Office Visit [facility] [address] [place] [facility] [place] [address] Aristides Huizar MD [address] [facility] [address] [place] [address] Health Maintenance Due Date Last Done Comments Diabetes: Ophthalmology Exam 07/17/2020 Diabetes: Pedal Pulse Checked 07/17/2020 Diabetes: Sensory Foot Exam 07/17/2020 Diabetes: Visual Foot Exam 07/17/2020 Influenza Vaccine (#1) 2025 7, 05/04/2015, 05/12/2013, Additional history exists Diabetes: Hemoglobin A1C 02/26/2025 025, 09/23/2024, 01/09/2024, Additional history exists Pneumococcal Vaccine: 50+ Years Completed 08/15/2016, 05/04/2015, 04/17/2001 Pneumococcal Vaccine: Peds (0 to 5 Years) and At-Risk Patients (6 to 49 Years) Discontinued 08/15/2016, 05/04/2015, 04/17/2001 Hepatitis B Vaccine Aged Out 11/15/2016, 11/24/2015, 08/04/2015 No longer eligible based on patient's age to complete this topic Insurance MCR ([id number]) [place] [id number] MCR ([id number]) [place] [id number]
--- OUTSIDE RECORDS SUMMARY | 2025-01-28 15:11 | XMS_ITS | Encounter Summary ---
Author Organization [employer] Address [address] [place] [address] [address] [place] [address] Care Team Providers Care Drafter Geophysical Name Role Phone Cecile Galindo Primary Care Provider [phone] Dellogmissy Hamilton PharmD Unavailable Unavail able Puzoie Emilee PharmD Unavailable Encounter Details Date Type Department Care Team (Latest Contact Info) Description 10/24/2018 Abstract [facility] Dental, Provider, DDS Social History Tobacco Use Types Packs/Day Years Used Date Smoking Tobacco: Never Assessed Comments Unknown Sex and Gender Information Value Date Recorded Sex Assigned at Female 2022 10:15 AM EDT Legal Sex Female 10:15 AM EDT Gender Identity Female 2022 10:15 AM EDT Sexual Orientation Straight 2022 10 :15 AM EDT documented as of this encounter Plan of Treatment Upcoming Encounters Date Type Department Care Team (Late st Contact Info) Description 02/11/2025 10:00 AM EDT Office Visit [facility] [address] [place] [phone] Veronique Garza MD [address] [place] [phone] 02/23/2025 2:00 PM EDT Medication Management [facility] [address] [place] [phone] Puia, Emilee, PharmD [address] [place] [address] documented as of this encounter Visit Diagnoses Not on filedocumented in this encounter Care Teams Drafter Geophysical Relationship Specialty Start Date End Date Cecile Galindo DO [address] [place] [address] PCP - General Family Medicine 01/01/14 Hamilton Goyal, KarleeD [address] [place] [phone] Pharmacist Internal Medicine 05/25/22 03/25/23 Emilee Casillas PharmD [address] [place] [address] Pharmacist Internal Medicine 03/26/23 [facility] 08/23/17 documented as of this encounter
== END 2025-01-28 16:18 | disposition home or self-care (01) ==
LOC: HO.HCS 14:30
PROVIDERS: PCP Family Medicine; Visit Provider Nurse Practitioner Family
DX: I50.1 Left ventricular failure, unspecified (principal); I50.9 Heart failure, unspecified; I42.9 Cardiomyopathy, unspecified; I25.10 Atherosclerotic heart disease of native coronary artery without angina pectoris; I10 Essential (primary) hypertension; Z09 Encounter for follow-up examination after completed treatment for conditions other than malignant neoplasm
CPT/HCPCS: 99214; G2211

== ENCOUNTER → 2025-01-28 14:30 | Outpatient (BNVA) | payer OTHER, SELFPAY ==
[2022-11-29 12:51] VITALS: BP 118/58; BP 118/64
[2022-12-24 12:41] VITALS: BMI 29.1
[2023-04-08 14:16] VITALS: BP 110/60
== END ==
PROVIDERS: PCP Family Medicine; Visit Provider Nurse Practitioner Family
DX: I25.10 Atherosclerotic heart disease of native coronary artery without angina pectoris (principal); I10 Essential (primary) hypertension; I50.1 Left ventricular failure, unspecified; I50.9 Heart failure, unspecified; I42.9 Cardiomyopathy, unspecified
CPT/HCPCS: 99212

== ENCOUNTER 2025-03-02 10:23 | Outpatient (REF) | payer OTHER, SELFPAY ==
[2022-11-29 12:51] VITALS: BP 118/58; BP 118/64
[2022-12-24 12:41] VITALS: BMI 29.1
[2023-04-08 14:16] VITALS: BP 110/60
[2025-03-02 11:16] LABS: MANUAL DIFF FLAG NO
[2025-03-02 11:42] LABS: Hematocrit 35.3 % (37.0-47.0); Hemoglobin 11.2 g/dl (12.0-16.0); Imm Gran Abs Auto 0.04 X10*3/uL (0.00-0.03); Imm Gran Pct Auto 0.4 % (0.0-0.4); Lymphocytes Absolute Auto 2.2 X10*3/uL (1.2-4.9); Mean Corpuscular HGB Conc 31.7 g/dl (31.0-35.0); Mean Corpuscular Hemoglobin 28.4 pg (27.0-33.0); Mean Corpuscular Volume 89.6 fL (80.0-98.0); NRBC Abs Auto 0.000 X10*3/uL (0.0-0.012); NRBC Pct Auto 0.0 /100WBC (0.0-0.2); Platelet Count 273 X10*3/uL (160-400); Red Blood Count 3.94 X10*6/uL (4.20-5.50); White Blood Count 10.3 X10*3/uL (4.8-10.8)
--- OUTSIDE RECORDS SUMMARY | 2025-03-02 13:33 | XMS_ITS | Clinical Summary ---
Author Organization [employer] Address [address] [place] [address] Care Team Providers [employer] Goods Salesperson Name Role Phone Mateo Cecile Primary Care Provider [phone] Emilee Casillas PharmD Unavailable [phone] Allergies Active Allergy Reactions Criticality Noted Date Comments Alirocumab Itching Low 01/09/2025 Procaine High 01/09/2025 Other Reaction(s): SWELLING LOCALIZED TO INJECTION SITE Medications Blood Pressure kitIndications: Essential hypertension 1 each in the morning. 1 kit 05/22/20 22 Active nitroglycerin (Nitrostat) 0.4 MG SL tabletIndicatio ns:History of ST elevation myocardial infarction (STEMI) Place 1 tablet (0.4 mg) under the tongue every 5 (five) minutes if needed for chest pain. Repeat up to 3 doses. 90 tablet 12 05/30/20 22 Active fluticasone (Flonase) 50 MCG/ACT nasal sprayIndication s:Chronic allergic rhinitis TAKE 2 SPRAYS INTRANSALLY IN EACH NOSTRIL ONCE A DAY NEEDED 48 mL 1 04/02/20 24 Active acetaminophen (Tylenol 8 Hour) 650 MG ER tablet Take 1 tablet (650 mg) by mouth every 8 (eight) hours if needed for mild pain. Do not crush, chew, or split. 50 tablet 2 05/07/20 24 2024 Active rosuvastatin (Crestor) 40 MG tabletIndicatio ns:History of ST elevation myocardial infarction (STEMI) TAKE 1 TABLET BY MOUTH EVERY MORNING 90 tablet 3 06/15/20 24 Active sertraline (Zoloft) 25 MG tabletIndicatio ns:Depression, unspecified depression type TAKE 1 TABLET BY MOUTH EVERY DAY 90 tablet 3 06/15/20 24 Active Calcium Carb-Cholecalci ferol (Calcium + Vitamin D3) 600-5 MG-MCG tablet Take 1 tablet by mouth 2 times daily. 180 tablet 1 07/31/19 25 Active docusate sodium (Colace) 100 MG capsuleIndicati ons:Chronic constipation TAKE 1 CAPSULE BY MOUTH TWICE A DAY 180 capsule 1 11/05/19 25 Active Blood Glucose Monitoring Suppl (FreeStyle Lite) w/Device kit Use to test blood sugar twice daily as directed 10/14/19 25 Active ezetimibe (Zetia) 10 MG tablet Take 10 mg by mouth Once per day. 11/28/19 25 Active glucose blood (FREESTYLE LITE) test stripIndication s:Type 2 diabetes mellitus with stage 3 chronic kidney disease, without long-term current use of insulin, unspecified whether stage 3a or 3b CKD (CMS/HCC) Use to test blood sugar twice daily, as directed 100 strip 11 12/23/19 25 Active glipiZIDE (Glucotrol) 5 MG tabletIndicatio ns:Type 2 diabetes mellitus with stage 3 chronic kidney disease, without long-term current use of insulin, unspecified whether stage 3a or 3b CKD (CMS/HCC) Take 1 tablet (5 mg) by mouth with breakfast and with evening meal. 180 tablet 3 12/23/19 25 Active FreeStyle lancetsIndicati ons:Type 2 diabetes mellitus with stage 3 chronic kidney disease, without long-term current use of insulin, unspecified whether stage 3a or 3b CKD (CMS/HCC) 1 each by Other route 2 times daily. Use to test blood sugar twice daily, as directed 100 each 11 12/23/19 25 Active empagliflozin (Jardiance) 10 MGIndications:T ype 2 diabetes mellitus with stage 3 chronic kidney disease, without long-term current use of insulin, unspecified whether stage 3a or 3b CKD (CMS/HCC) Take 1 tablet (10 mg) by mouth in the morning. 30 tablet 5 12/23/19 25 Active Eliquis 2.5 MG tablet Take 1 tablet (2.5 mg) by mouth 2 times daily. 60 tablet 2 01/06/20 25 Active Entresto 24-26 MG tablet Take 1 tablet by mouth 2 times daily. 01/29/20 25 Active metoprolol tartrate (Lopressor) 25 MG tablet Take 1 tablet by mouth 2 times daily. 01/12/20 25 Active furosemide (Lasix) 20 MG tablet Take 1 tablet by mouth 2 times daily. 01/26/20 25 Active Tirzepatide (Mounjaro) 10 MG/0.5ML solution auto-injectorIn dications:Type 2 diabetes mellitus with stage 3 chronic kidney disease, without long-term current use of insulin, unspecified whether stage 3a or 3b CKD (CMS/HCC) Inject 10 mg under the skin 1 (one) time per week. 2 mL 02/24/20 25 Active carvedilol (Coreg) 3.125 MG tablet Take 1 tablet by mouth with breakfast and with evening meal. 09/21/19 23 2024 Discontinued(S top taking at discharge) Entresto 49-51 MG tablet Take 1 tablet by mouth 2 times daily. 09/21/19 23 2024 Discontinued(M ed list cleanup (will not trigger notification to Pharmacy)) aspirin (Aspirin Low Dose) 81 MG EC tablet TAKE 1 TABLET BY MOUTH EVERY DAY 90 tablet 3 09/11/19 24 2024 Discontinued(S top taking at discharge) Tirzepatide (Mounjaro) 7.5 MG/0.5ML solution auto-injectorIn dications:Type 2 diabetes mellitus with stage 3 chronic kidney disease, without long-term current use of insulin, unspecified whether stage 3a or 3b CKD (CMS/HCC) Inject 7.5 mg under the skin 1 (one) time per week. 2 mL 09/24/19 25 2024 Discontinued(D ose adjustment) Active Problems Problem Noted Date Diagnosed Date Ischemic stroke 01/05/2025 Hospital discharge follow-up 01/05/2025 Assessment & Plan (01/05/2025 11:45 PM EDT): Pt w ischemic stroke acute vs subacute w no residual neurologic findings , from CHF currently doing well but reports some generalized fatigue and noted mild LE edema ,pt unsure if new, no orthopnea normal lung exam -TTE 12/23/2024 EF 15-20%, Hypokinetic apical anterior ,apical inferior mid anterior and mid inferior . Inferoseptal wall the apical septum and mid anteroseptal segments are akinetic ,apex and basal anteroseptal segments are dyskinetic. There is mild to moderate AR -CTA chest 12/23/2024 no acute pulmonary embolus , findings suggestive of heart failure -CXR 12/23/2024 perihilar lung opacities .Consider edema -CT head w/o contrast 12/2024: 3.5 cm area of rendon-white differentiation loss left temporal lobe ,mild atrophy like changes . Acute to subacute left temporal lobe infarct -Carotid US 12/2024 reported as neg -last hb1AC 8.4 in 11/2024 Improved from 9.6 ,last LDL 126<--180 ,per pt daughter started recently on zetia -Pt is on crestror,ASA,eliquis,entresto BB,zetia-refilled today AC -I called her customer support advisor -Dr Vargas and left voice mail requesting a call back as well to call pt w new events pt needs to be seen sooner , will need to be consider for Holter test to r/o arrhythmia ,also advised pt to call customer support advisor to reschedule sooner apt -F w calf skinner has apt 01/25/2025 ,CDTM 02/23/2025 for DM2 -alarm signs symptoms discussed w pt -needs good control of her DM and BP , per pt and daughter home BP is < 130/80 But noted slight elevated today ---Request pt to see RN in 2 weeks and bring home BP readings will need goal <130/80 -Order today CBC ,chem,fasting lipids to do in 4 weeks ,will need goal LDL < 70 ,already f w CDTM for DM and has upcoming apt -advised raise legs w noted 1+ bl pitting edema, noted decrease weight ,denies symptoms from CHF at this time but encouraged to see her customer support advisor -to f w PCP in next 6 to 8 weeks Anemia 05/07/2024 Healthcare maintenance 10/07/2023 Assessment & Plan (10/07/2023 1:51 PM EDT): -she declines flu vaccine -she declines COVID vaccine -s/p Tdap NOV 2012, she declines repeat -s/p pneumovax APR 2015 -s/p prevnar AUG 2016 -she declines PCV20 -s/p zoster vaccine NOV 2015 -encouraged shingrix vaccine -Hep A immune -s/p Hep B vaccine -pap wnl 2005, 2006, 2007 and 2010 with no h/o abnormal pap smear, no need for further pap screening -mammo BIRADS 17 MAR 2023 -DEXA with osteopenia MAR 2021 -colonoscopy with poor prep, diverticulosis and hyperplastic polyp MAR 2019, IFOBT negative FEB 2021, she declines repeat -STI screen negative Jun 2015 Chronic left shoulder pain 05/21/2023 Assessment & Plan (10/07/2023 1:50 PM EDT): -L shoulder XR with mild to moderate OA FEB 2022 -encouraged standing doses of tylenol -cont low dose baclofen prn -cont lidocaine patches as needed -encouraged diclofenac gel prn -cont tramadol for severe pain -f/u with ortho prn Chronic pain of both knees 05/21/2023 Assessment & Plan (10/07/2023 1:51 PM EDT): -knee XR with [id number] degenerative arthritis NOV 2018 -cont tylenol and tramadol for pain control -f/u with ortho prn Chronic kidney disease, stage 4 (severe) 023 Assessment & Plan (10/07/2023 1:50 PM EDT): Cr/GFR improved MAY 2023 -cont entresto BID -optimal BP/BS control -avoid NSAIDs -f/u with renal as scheduled, appt NOV [address] elevation myocardial infarction (S TIERA) 05/22/2022 Ischemic cardiomyopathy 05/22/2022 Assessment & Plan (10/07/2023 1:50 PM EDT): She declines AICD placement -ECHO with EF 15% SEP 2022, repeat as per cards -cont coreg and entresto BID -cont spironolactone daily -cont aspirin and crestor daily -cont ticagrelor daily -restarting cardiac rehab -f/u with cardiology as scheduled, due DEC 2023 Chronic systolic heart failure 05/22/2022 Alopecia 05/04/2015 Essential hypertension 05/04/2015 Assessment & Plan (10/07/2023 1:48 PM EDT): BP controlled -cont entresto and coreg BID -cont home BP monitoring with VNA -Cr/GFR improved with mild urine microalbumin MAY 2023 -optho as above History of gastroesophageal reflux (GERD) 2014 Assessment & Plan (10/07/2023 1:50 PM EDT): Controlled -cont prilosec daily Mixed stress and urge urinary incontinence 05/04 Hyperlipidemia 05/04/2015 Assessment & Plan (10/07/2023 1:49 PM EDT): Significant bump in LDL MAY 2023 -encouraged crestor nightly Osteoarthritis 05/04/2015 Type 2 diabetes mellitus 05/04/2015 Assessment & Plan (10/07/2023 1:49 PM EDT): A1c continues to increase -continue trulicity weekly -continue jardiance daily -continue low dose glipizide BID with meals -she declines insulin initiation -will d/w CDTM pharmacist re: med changes -follow up with CDTM pharmacist as scheduled -cont regular BS monitoring -encouraged dietary changes and avoid late night snacking -s/p optho eval FEB 2023 at [facility] for annual exam -nml monofilament exam NOV 2016, repeat next visit* Resolved Problems Problem Noted Date Diagnosed Date Resolved Date Dizziness 11/13/2017 12/31/2022 Chronic kidney disease, stage III (moderate) 5 12/31/2022 Encounters Date Type Department Care Team Description 03/02/2025 Results Follow-Up [facility] [address] [place] [address] Veronique Garza MD CBC auto differential 03/01/2025 Refill [facility] [address] [facility] [place] [address] Cecile Galindo DO 02/23/2025 Travel 02/12/2025 Telephone [facility] [address] [facility] [place] [address] Cecile Galindo DO Appointment Request 02/04/2025 Telephone [facility] [place] [address] Emilee Casillas PharmDeion 01/27/2025 Patient Outreach [facility] [place] [address] Cecile Galindo DO Transition Of Care (Tcm) (HDF-scheduled) 01/27/2025 Telephone [facility] [place] [address] Emilee Casillas PharmD 01/09/2025 Orders Only [facility] External Provider, [facility] 01/05/2025 1:45 PM EDT Office Visit [facility] [place] [address] Veronique Garza MD Chronic anticoagulation (Primary Dx); Chronic systolic heart failure (CMS/HCC); Essential hypertension; Ischemic cardiomyopathy; Ischemic stroke (CMS/HCC); Hospital discharge follow-up 01/05/2025 Telephone [place] [address] Cecile Galindo DO Appointment Request 01/05/2025 Travel 01/04/2025 Telephone [facility] [place] [address] Veronique Garza MD chart prep 12/29/2024 Patient Outreach [facility] [address] Cecile Galindo DO Transition Of Care (Tcm) (F unscheduled ) 12/29/2024 Telephone [facility] [place] [address] Emilee Casillas, PharmD 12/22/2024 Telephone [facility] [address] [facility] [place] [address] Emilee Casillas, PharmD 12/22/2024 Travel from Last 3 Months Immunizations Immunization Administration Dates Next Due Hep B, adult 11/15/2016,11/24/2015,08/04/2015 Influenza injectable quadriv alent IIV4 with preservative 05/04/2015 Influenza injectable quadriv alent preservative free 08/15/2016 Influenza, IIV3, injectable 03/20/2011 Influenza, Split (incl. marquez fied surface antigen) 05/12/2013,07/15/2012 Influenza, Unspecified 03/20/2011 Pneumococcal Conjugate PCV 13 08/15/2016 Pneumococcal Polysaccharide PPSV23 05/04/2015, TD (adult), 2 Lf tetanus tox oid, preservative free, adsorbed 04/17/2001 Tdap 01/14/2024,11/18/2012 Zoster, live 11/24/2015 Family History Medical History Relation Name Comments Breast cancer Sister Diabetes Sister Relation Name Status Comments Sister Social History Tobacco Use Types Packs/Day Years Used Date Smoking Tobacco: Never Smokeless Tobacco: Never Tobacco Cessation:Counseling Given: Not Answered Alcohol Use Standard Drinks/Week Comments Never 0 (1 standard drink = 0.6 oz pur e alcohol) Depression Answer Date Recorded Patient Health Questionnaire-9 Score 0 11/27/2024 Patient Health Questionnaire-9 Score 0 11/27/2024 Last PHQ-9: Questionnaire Data Not on file 0 11/27/2024 Housing Stability Answer Date Recorded What is your housing situation today? I have esau concepcion 11/27/[address] you li ve. Do you have problems with any of the following? None of the above 11/27/2024 Food Insecurity Answer Date Recorded Within the past 12 months, y ou worried that your food would run out before you got money to buy more: Never True 11/27/2024 Within the past 12 months,th e food you bought just didn't last and you didn't have enough money to get more: Never True Transportation Answer Date Recorded In the past 12 months, has l ack of transportation kept you from medical appts, meetings, work or from getting things needed for daily living? No 01/05/2025 Utilities Answer Date Recorded In the past 12 months, has t he electric, gas, oil or water company threatened to shut off services in your home? No 11/27/2024 Depression Answer Date Recorded Patient Health Questionnaire-2 Score 0 11/27/2024 Internet Access Answer Date Recorded Internet Access Q1 I am not sure 01/05/2025 Internet Access Q2 Not on file 01/05/2025 Comments Unknown Sex and Gender Information Value Date Recorded Sex Assigned at Female 2022 10:15 AM EDT Legal Sex Female 10:15 AM EDT Gender Identity Female 2022 10:15 AM EDT Sexual Orientation Straight 2022 10 :15 AM EDT Last Filed Vital Signs Vital Sign Reading Time Taken Comments Blood Pressure 118/62 02/23/2025 2:48 PM EDT Pulse 74 01/05/2025 2:01 PM EDT Temperature 36.1 C (96.9 F) 01/05/2025 2:01 PM EDT Respiratory Rate 20 01/05/2025 2:01 PM EDT Oxygen Saturation 98% 01/05/2025 2:01 PM EDT Inhaled Oxygen Concentration - - Weight 73.5 kg (162 lb) 01/05/2025 2:01 PM EDT Height 154.9 cm (5' 1 ) 01/05/2025 2:01 PM EDT Body Mass Index 30.61 01/05/2025 2:01 PM EDT Plan of Treatment Upcoming Encounters Date Type Department Care Team (Late st Contact Info) Description 03/04/2025 2:00 PM EDT Office Visit [facility] [address] [place] [address] Veronique Good MD [address] [place] [address] 04/01/2025 1:00 PM EDT Office Visit [facility] [address] [place] [address] Nader, Ngoc, OD [address] [place] [address] 04/06/2025 2:30 PM EDT Medication Management [facility] [address] [place] [address] Emilee Casillas, PharmD [address] [place] [address] Health Maintenance Due Date Last Done Comments Diabetes: Foot Exam 1950 Zoster Vaccines (2 of 3) 01/19/2016 11/24/2015 RSV Patients and Patients Aged 60 years or older (1 - 1-dose 75+ series) 2017 COVID-19 Vaccine (2023- season) 2025 Influenza Vaccine (#1) 2025 7, 05/04/2015, 05/12/2013, Additional history exists Diabetes: Hemoglobin A1C 05/25/2025 025, 11/26/2024, 09/23/2024, Additional history exists Lipid Panel 11/26/2025 11/26/2024, 1210/2022, 10/04/2022, Additional history exists Alcohol/Substance Use Screening 11/27/2025 11/27/2024 Depression Screening 11/27/2025 11/27/2024, 11/28/19 SDOH Screening 01/05/2026 01/05/2025 Tobacco Screening 01/05/2026 01/05/2025 Eye Exam 03/09/2026 03/09/2024, 02/16, 03/09/2024, Additional history exists DTaP/Tdap/Td Vaccines (3 - Td or Tdap) 01/13/2034 01/14/2024, 11/18/2012, 04/17/2001 Pneumococcal Vaccine: 50+ Years Completed 08/15/2016, 05/04/2015, 04/17/2001 Hepatitis B Vaccines Completed 11/15/2016, 11/24/2015, 08/04/2015 HIB Vaccines Aged Out No longer eligi ble based on patient's age to complete this topic HPV Vaccines Aged Out No longer eligi ble based on patient's age to complete this topic Hepatitis A Vaccines Aged Out No long er eligible based on patient's age to complete this topic IPV Vaccines Aged Out No longer eligi ble based on patient's age to complete this topic Meningococcal B Vaccine Aged Out No l onger eligible based on patient's age to complete this topic Meningococcal Vaccine Aged Out No yashira jose eligible based on patient's age to complete this topic RSV under 20 months Aged Out No longe r eligible based on patient's age to complete this topic Rotavirus Vaccines Aged Out No longer eligible based on patient's age to complete this topic Goals Goal Patient Goal Type Associated Problems Recent Progress Patient-Stated? Author Patient will adhere to medication regimen General No Puia, Emilee, PharmD Hemoglobin A1c < 8 Result Component 8.3( 3:38 PM EDT) No Hamilton Goyal PharmD Record your blood sugar as directed Result Component No Emilee Casillas PharmD Procedures Procedure Name Priority Date/Time Associated Diagnosis Comments CBC WITH AUTO DIFFERENTIAL Routine 03/02/2025 10:33 AM EDT Chronic anticoagulation POCT GLYCATED HEMOGLOBIN, TOTAL Routine 02/23/2025 3:38 PM EDT Type 2 diabetes mellitus with stage 3 chronic kidney disease, without long-term current use of insulin, unspecified whether stage 3a or 3b CKD (CMS/HCC) CT CHEST WO CONTRAST Routine 01/09/2025 6:13 AM EDT XR CHEST 1 VIEW Routine 01/09/2025 5:[address] HEAD WO CONTRAST Routine 01/09/2025 5 :02 AM EDT XR CHEST 1 VIEW Routine 01/09/2025 4:45 AM EDT LIPID PANEL, STANDARD Routine 11/26/2024 10:46 AM EDT Type 2 diabetes mellitus with stage 3 chronic kidney disease, without long-term current use of insulin, unspecified whether stage 3a or 3b CKD (CMS/HCC) from Last 3 Months or Most Recently Relevant to Health Maintenance Results * (ABNORMAL) CBC auto differential (03/02/2025 10:33 AM EDT) White Blood Count 10.3 4.8 - 10.8 X10*3/uL [facility] Red Blood Count 3.94(L) 4.20 - 5.50 X10*6/uL [facility] Hemoglobin 11.2(L) 12.0 - 16.0 g/dl [facility] Hematocrit 35.3(L) 37.0 - 47.0 % [facility] Mean Corpuscular Volume 89.6 80.0 - 98.0 fL [facility] Mean Corpuscular Hemoglobin 28.4 27.0 - 33.0 pg [facility] Mean Corpuscular HGB Conc 31.7 31.0 - 35.0 g/dl [facility] Red Cell Distribution Width 13.1 11.0 - 16.0 % [facility] Platelet Count 273 160 - 400 X10*3/uL [facility] Mean Platelet Volume 11.2 9.4 - 12.3 fL [facility] Neutrophils Percent Auto 70.5 45 - 73 % [facility] Imm Gran Pct Auto 0.4 0.0 - 0.4 % [facility] Lymphocytes Percent Auto 21.4 20 - 40 % [facility] Monocytes Percent Auto 5.4 2 - 11 % [facility] Eosinophils Percent Auto 1.8 0 - 4 % [facility] Basophils Percent Auto 0.5 0 - 2 % [facility] NRBC Pct Auto 0.0 0.0 - 0.2 /100WBC [facility] Neutrophils Absolute Auto 7.3 2.0 - 8.3 x10*3/uL [facility] Imm Gran Abs Auto 0.04(H) 0.00 - 0.03 X10*3/uL [facility] Lymphocytes Absolute Auto 2.2 1.2 - 4.9 X10*3/uL [facility] Monocytes Absolute Auto 0.6 0.1 - 1.2 X10*3/uL [facility] Eosinophils Absolute Auto 0.2 0.0 - 0.4 X10*3/uL [facility] Basophils Absolute Auto 0.1 0.0 - 0.2 X10*3/uL [facility] NRBC Abs Auto 0.000 0.0 - 0.012 X10*3/uL [facility] Blood Venous blood specimen / Unknown 03/02/2025 10:33 AM EDT 03/02/2025 11:14 AM EDT us Veronique Porter MD LAB BLOOD ORDERAB LES Final Result [facility] [address] [place] [phone] * (ABNORMAL) POCT Hgb A1c (02/23/2025 3:38 PM EDT) Hemoglobin A1C 8.3(A) 4.0 - 5.7 % Blood 02/23/2025 3:38 PM EDT Cecile Galindo DO POINT OF CARE TEST ENTER/STEFFI T ORDERABLES Final Result * CT Chest w/o Contrast (01/09/2025 6:13 AM EDT) Anatomical Region Laterality Modality Body, Chest Computed Tomogra phy 01/09/2025 6:13 AM EDT Narrative 01/09/2025 6:15 AM EDT [address] [address] [address] Scan Report Signed with Addenda Patient: Veronique Westfall MR#: [id number] : 1940 Acct:[id number] Age/Sex: 84 / F ADM Date: 01/09/25 Loc: [facility] 252-[address]: Jimy Guzman MD Ordering Physician: Harry Phillip NP Date of Service: 01/09/25 Procedure(s): CT chest wo IV con Accession Number(s): [id number] cc: Harry Phillip DAIRY NUTRITION SPECIALIST; Cecile Galindo DO Report Number: [id number]: Total DLP = 386.00 mGy-cm ADDENDUM This document has been electronically signed by: Ajay Pop MD on 01/09/2025 06:13:02 ADDENDUM: This report was discussed with Dr. Phillip on Jan 09, 2025 06:18:00 EDT. This document has been electronically signed by: Carline Hill on 01/09/2025 06:19:11 Addendum Dictated By: Ajay Pop MD Addendum Signed By: 01/09/25 0 620 Addendum Cosigned By: DD/ TD/TT: 01/09/25 CLINICAL HISTORY: Hypoxia CT chest without contrast Comparison: CR/HI - XR CHEST 1V - 01/09/25 03:[address]/SR - CT ANGIO CHEST PE PROTOCOL - 12/24/24 00:38 EDT Findings: The endotracheal tube tip has been advanced and is currently within the right mainstem bronchus. This should be repositioned. The enteric tube is well-positioned. Multiple mildly enlarged lymph nodes within the mediastinum. Atherosclerotic disease of the coronary arteries. Trace pericardial effusion. No significant cardiomegaly. Diffuse multifocal airspace opacity with additional interstitial edema. Small bilateral effusions with overlying consolidation. No pneumothorax. Visualized upper abdomen is unremarkable. The osseous structures demonstrate no acute process. Impression: The endotracheal tube has been advanced and is currently within the right mainstem bronchus. This should be repositioned. Multifocal pneumonia with moderate interstitial edema. This document has been electronically signed by: Ajay Pop MD on 01/09/2025 06:13:02 Dictated By: Ajay Pop MD Signed By: <Electronically signed by Ajay Pop MD in OV> 01/09/25613 DD/ 2 TD/TT: 01/09/25612 C Programmer: Procedure Note Donotuseinterpreter, Image - 01/09/[address] [place] [address] [address] Scan Report Signed with Addenda Patient: Veronique Westfall [facility]#: [id number] : 1940cct:[id number] Age/Sex: 84 / FADM Date: 01/09/25 Loc: .ICU 252-[address]: Jimy Guzman MD Ordering Physician: Harry Phillip NP Date of Service: 01/09/25 Procedure(s): CT chest wo IV con Accession Number(s): [id number] cc: Harry Phillip NP; Cecile Galindo DO Report Number: [id number]: Total DLP = 386.00 mGy-cm ADDENDUM This document has been electronically signed by: Ajay Pop MD on 01/09/2025 06:13:02 ADDENDUM: This report was discussed with Dr. Phillip on Jan 09, 2025 06:18:00 EDT. This document has been electronically signed by: Carline Hill on 01/09/2025 06:19:11 Addendum Dictated By: Ajay Pop MD Addendum Signed By:01/09/25 0 620 Addendum Cosigned By: DD/ TD/TT: 01/09/25 CLINICAL HISTORY: Hypoxia CT chest without contrast Comparison: CR/HI - XR CHEST 1V - 01/09/25 03:[address]/SR - CT ANGIO CHEST PE PROTOCOL - 12/24/24 00:38 EDT Findings: The endotracheal tube tip has been advanced and is currently within the right mainstem bronchus. This should be repositioned. The enteric tube is well-positioned. Multiple mildly enlarged lymph nodes within the mediastinum. Atherosclerotic disease of the coronary arteries. Trace pericardial effusion. No significant cardiomegaly. Diffuse multifocal airspace opacity with additional interstitial edema. Small bilateral effusions with overlying consolidation. No pneumothorax. Visualized upper abdomen is unremarkable. The osseous structures demonstrate no acute process. Impression: The endotracheal tube has been advanced and is currently within the right mainstem bronchus. This should be repositioned. Multifocal pneumonia with moderate interstitial edema. This document has been electronically signed by: Ajay Pop MD on 01/09/2025 06:13:02 Dictated By: Ajay Pop MD Signed By: <Electronically signed by Ajay Pop MD in OV> 01/09/25613 DD/ 2 TD/TT: 01/09/25612 C Programmer: [facility] External Provider IMG CT PROCEDURES Edited Result - Final * XR Chest 1 View (01/09/2025 5:18 AM EDT) Only the most recent of2 resultswithin the time period is included. Anatomical Region Laterality Modality Chest Radiographic Janet ging 01/09/2025 5:18 AM EDT Narrative 01/09/2025 5:20 AM EDT [address] [address] XRay Report Signed Patient: Veronique Westfall MR#: [id number] : 1940 Acct:[id number] Age/Sex: 84 / F ADM Date: 01/09/25 Loc: HO.ICU 252-[address]: Jimy Guzman MD Ordering Physician: Adrián Kelley MD Date of Service: 01/09/25 Procedure(s): XR chest 1V Accession Number(s): [id number] cc: Adrián Kelley MD; Cecile Galindo DO CLINICAL HISTORY: ogt placement 1 view chest x-ray Comparison: CR - XR CHEST 1V - 01/09/25 03:14 EDT Findings: Well-positioned enteric and endotracheal tubes. Mild central vascular and interstitial prominence. No acute fracture. IMPRESSION: Well-positioned enteric and endotracheal tubes. Mild interstitial edema. This document has been electronically signed by: Ajay Pop MD on 01/09/2025 05:18:03 Dictated By: Ajay Pop MD Signed By: <Electronically signed by Ajay Pop MD in OV> 01/09/25518 DD/ 7 TD/TT: 01/09/25517 C Programmer: Procedure Note Donotuseinterpreter, Image - 01/09/[address] [address] XRay Report Signed Patient: Veronique Westfall AMR#: [id number] : 1940cct:[id number] Age/Sex: 84 / FADM Date: 01/09/25 Loc: .ICU 252-[address]: Jimy Guzman MD Ordering Physician: Adrián Kelley MD Date of Service: 01/09/25 Procedure(s): XR chest 1V Accession Number(s): [id number] cc: Adrián Kelley MD; Cecile Galindo DO CLINICAL HISTORY: ogt placement 1 view chest x-ray Comparison: CR - XR CHEST 1V - 01/09/25 03:14 EDT Findings: Well-positioned enteric and endotracheal tubes. Mild central vascular and interstitial prominence. No acute fracture. IMPRESSION: Well-positioned enteric and endotracheal tubes. Mild interstitial edema. This document has been electronically signed by: Ajay Pop MD on 01/09/2025 05:18:03 Dictated By: Ajay Pop MD Signed By: <Electronically signed by Ajay Pop MD in OV> 01/09/25518 DD/ 7 TD/TT: 01/09/25517 C Programmer: [facility] External Provider IMG XR PROCEDURES Final Result * CT Head w/o Contrast (01/09/2025 5:02 AM EDT) Anatomical Region Laterality Modality Head, Neck Computed Tomogra phy 01/09/2025 5:02 AM EDT Narrative 01/09/2025 5:04 AM EDT [place] [address] [address] Scan Report Signed Patient: Veronique Westfall MR#: [id number] : 1940 Acct:[id number] Age/Sex: 84 / F ADM Date: 01/09/25 Loc: .ICU 252-[address]: Harry Phillip DAIRY NUTRITION SPECIALIST Ordering Physician: Adrián Kelley MD Date of Service: 01/09/25 Procedure(s): CT head/brain wo IV con Accession Number(s): [id number] cc: Adrián Kelley MD; Cecile Galindo DO Report Number: [id number]: Total DLP = 599.00 mGy-cm CLINICAL HISTORY: non focal encephalopathy CT head without contrast Comparison: CT/SR - CT HEAD/BRAIN WO IV CON - 12/24/24 00:34 EDT Findings: 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 There is patchy low density in the periventricular and subcortical white matter. Mild volume loss is noted. No hydrocephalus. No hemorrhage, mass effect, mass lesion or midline shift. No abnormal extra-axial fluid. No calvarial fracture. Paranasal sinuses and mastoid air cells are clear. Impression: Small evolving left temporal infarct. No new infarct. Additional chronic changes. This document has been electronically signed by: Ajay Pop MD on 01/09/2025 05:02:48 Dictated By: Ajay Pop MD Signed By: <Electronically signed by Ajay Pop MD in OV> 01/09/25 0503 DD/ 0502 TD/TT: 01/09/25 0502 C Programmer: Procedure Note Donotuseinterpreter, Image - 01/09/[address] [place] [address] [address] Scan Report Signed Patient: Veronique Westfall AMR#: [id number] : 1940cct:[id number] Age/Sex: 84 / FADM Date: 01/09/25 Loc: .ICU 252-[address]: Harry Phillip DAIRY NUTRITION SPECIALIST Ordering Physician: Adrián Kelley MD Date of Service: 01/09/25 Procedure(s): CT head/brain wo IV con Accession Number(s): [id number] cc: Adrián Kelley MD; Cecile Galindo DO Report Number: [id number]: Total DLP = 599.00 mGy-cm CLINICAL HISTORY: non focal encephalopathy CT head without contrast Comparison: CT/SR - CT HEAD/BRAIN WO IV CON - 12/24/24 00:34 EDT Findings: 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 There is patchy low density in the periventricular and subcortical white matter. Mild volume loss is noted. No hydrocephalus. No hemorrhage, mass effect, mass lesion or midline shift. No abnormal extra-axial fluid. No calvarial fracture. Paranasal sinuses and mastoid air cells are clear. Impression: Small evolving left temporal infarct. No new infarct. Additional chronic changes. This document has been electronically signed by: Ajay Pop MD on 01/09/2025 05:02:48 Dictated By: Ajay Pop MD Signed By: <Electronically signed by Ajay Pop MD in OV> 01/09/25 0503 DD/ 0502 TD/TT: 01/09/25 050 C Programmer: [facility] External Provider IMG CT PROCEDURES Final Result * (ABNORMAL) Lipid Panel, Standard (11/26/2024 10:46 AM EDT) Triglycerides 108 <150 mg/dL [facility] Comment:Desirable Triglyceri de: less than 150 mg/dLBorderline High Triglyceride 150-199 mg/dLHigh Triglyceride: 200-499 mg/dLVery High Triglyceride: greater than or equal to 5OO mg/dL Cholesterol 182 <200 mg/dL [facility] Comment:Desirable Cholestero l: less than 200 mg/dLBorderline High Cholesterol: 200-239 mg/dLHigh Cholesterol: greater than 239 mg/dL LDL Cholesterol Calculated 126(H) <100 mg/dL [facility] Comment:Desirable LDL: less than 100 mg/dLNear Optimal/Above Optimal LDL: 110- 129 mg/dLBorderline High LDL: 130-159 mg/dLHigh LDL: 160-189 mg/dLVery High LDL: greater than or equal to 190 mg/dL HDL Cholesterol 35(L) >40 mg/dL [facility] Comment:Desirable HDL: great er than 40 mg/dL Note: This HDL assay may give artificially low results in patients with liver disease. Blood Venous blood specimen / Unknown 11/26/2024 10:46 AM EDT 11/26/2024 1:21 PM EDT Cecile Galindo DO LAB BLOOD ORDERABLES Final R esult [facility] [address] [place] [phone] from Last 3 Months or Most Recently Relevant to Health Maintenance Insurance [facility] ALF OPTIONS (HMO D-SNP) [place] [id number] Care Teams Yard Goods Salesperson Relationship Specialty Start Date End Date Cecile Galindo DO [address] [place] [address] PCP - General Family Medicine 01/01/14 Emilee Casillas PharmD [address] [place] [address] Pharmacist Internal Medicine 03/26/23 [facility] 08/23/17
--- OUTSIDE RECORDS SUMMARY | 2025-03-02 13:33 | XMS_ITS | Encounter Summary ---
Author Organization [employer] Address [address] [facility] 7t [place] [address] Care Team Providers Care Shuffle Board Operator Name Role Phone Cecile Galindo DO Primary Care Provider [phone] Emilee Casillas PharmD Unavailable [phone] Reason for Visit * Reason Comments Med Refill Encounter Details Date Type Department Care Team (Late st Contact Info) Description 05/12/2024 Refill [facility] MEDICINE [address] [place] [address] Cecile Galindo DO [address] [place], [place] [phone] Depression, unspecified depression type Social History Tobacco Use Types Packs/Day Years Used Date Smoking Tobacco: Never Smokeless Tobacco: Never Alcohol Use Standard Drinks/Week Comments Never 0 (1 standard drink = 0.6 oz pur e alcohol) Depression Answer Date Recorded Patient Health Questionnaire-9 Score 2 01/09/2024 Patient Health Questionnaire-9 Score 2 01/09/2024 Last PHQ-9: Questionnaire Data Not on file 0 01/09/2024 Housing Stability Answer Date Recorded What is your housing situation today? I have esaumitra concepcion 05/21/[address] you li ve. Do you have problems with any of the following? None of the above 05/21/2023 Food Insecurity Answer Date Recorded Within the past 12 months, y ou worried that your food would run out before you got money to buy more: Never True 05/21/2023 Within the past 12 months,th e food you bought just didn't last and you didn't have enough money to get more: Never True 10/2022 Transportation Answer Date Recorded In the past 12 months, has l ack of transportation kept you from medical appts, meetings, work or from getting things needed for daily living? No 05/21/2023 Utilities Answer Date Recorded In the past 12 months, has t he electric, gas, oil or water company threatened to shut off services in your home? No 05/21/2023 Depression Answer Date Recorded Patient Health Questionnaire-2 Score 0 01/09/2024 Internet Access Answer Date Recorded Internet Access Q1 No 02/14/2024 Internet Access Q2 I cannot afford it 02/14/2024 Comments Unknown Sex and Gender Information Value [...] Description 03/04/2025 2:00 PM EDT Office Visit [facility] MEDICINE [address] [place] [address] Veronique Good MD [address] [place] [address] 04/01/2025 1:00 PM EDT Office Visit [facility] OPTOMETRY [address] [place] [address] Nader, Ngoc, OD [address] [place] [address] 04/06/2025 2:30 PM EDT Medication Management [facility] MEDICINE [address] [place] [address] Emilee Casillas PharmD [address] [place] [address] documented as of this encounter Goals Goal Patient Goal Type Associated Problems Recent Progress Patient-Stated? Author Patient will adhere to medication regimen General No Emilee Casillas PharmD Hemoglobin A1c < 8 Result Component 8.3( 5 3:38 PM EDT) No Hamilton Goyal PharmDeion Record your blood sugar as directed Result Component No Emilee Casillas PharmD documented as of this encounter Visit Diagnoses Diagnosis Depression, unspecified depression type documented in this encounter Additional Health Concerns Assessment Noted Time PHQ-9 Depression Total Score: 2 01/09/20 24 11:26 AM EDT documented as of this encounter Care Teams Shuffle Board Operator Relationship Specialty Start Date End Date Cecile Galindo DO [address] [place] [address] PCP - General Family Medicine 01/01/14 Emilee Casillas PharmD [address] [place] [address] Pharmacist Internal Medicine 03/26/23 [facility] 08/23/17 documented as of this encounter
--- OUTSIDE RECORDS SUMMARY | 2025-03-02 13:33 | XMS_ITS | Encounter Summary ---
Author Organization [employer] Address [address] [facility] 7t [place] [address] Care Team Providers Care Financial Operations Analyst Name Role Phone MontanaCecile olson Primary Care Provider [phone] DelHamilton clements PharmD Unavailable Unavail able Emilee Casillas PharmD Unavailable Encounter Details Date Type Department Care Team (Latest Contact Info) Description 10/24/2018 Abstract [facility] CONVERSIONS Dental, Provider, DDS Social History Tobacco [...] Description 03/04/2025 2:00 PM EDT Office Visit [facility] MEDICINE [address] [place] [address] Veronique Good MD [address] [place] [address] 04/01/2025 1:00 PM EDT Office Visit [facility] OPTOMETRY [address] [place] [address] Ngoc Doe, OD [address] [place] [address] 04/06/2025 2:30 PM EDT Medication Management [facility] MEDICINE [address] [place] [address] Emilee Casillas PharmD [address] [place], [place] documented as of this encounter Visit Diagnoses Not on filedocumented in this encounter Care Teams Financial Operations Analyst Relationship Specialty Start Date End Date Cecile Galindo DO [address] [place] [address] PCP - General Family Medicine 01/01/14 Hamilton Goyal, KarleeD [address] [place] [address] Pharmacist Internal Medicine 05/25/22 03/25/23 Emilee Casillas PharmD [address] [place] [address] Pharmacist Internal Medicine 03/26/23 [facility] 08/23/17 documented as of this encounter
--- OUTSIDE RECORDS SUMMARY | 2025-03-02 13:33 | XMS_ITS | Encounter Summary ---
Author Organization [employer] Address [address] [facility] 7t [place] [address] Care Team Providers Care Dental Lab Technician Name Role Phone Cecile Galindo DO Primary Care Provider [phone] Emilee Casillas PharmD Unavailable [phone] Reason for Visit * Reason Comments Med Change Request Encounter Details Date Type Department Care Team (Late st Contact Info) Description 04/29/2024 Refill [facility] [address] [place] [address] Cecile Galindo DO [address] [place], [place] [phone] Chronic allergic rhinitis Social History Tobacco Use Types Packs/Day Years [...] housing situation today? I have esau concepcion 05/21/[address] you [...] Description 03/04/2025 2:00 PM EDT Office Visit [facility] [address] [place] [address] Veronique Good MD [address] [place] [address] 04/01/2025 1:00 PM EDT Office Visit [facility] OPTOMETRY [address] [place] [address] Ngoc Doe, OD [address] [place] [address] 04/06/2025 2:30 PM EDT Medication Management [facility] MEDICINE [address] [place] [address] Emilee Casillas PharmD [address] [place] [address] documented as of this encounter Goals Goal Patient Goal Type Associated Problems Recent Progress Patient-Stated? Author Patient will adhere to medication regimen General No Emilee Casillas PharmD Hemoglobin A1c < 8 Result Component 8.3( 5 3:38 PM EDT) No Hamilton Goyal PharmDeion Record your blood sugar as directed Result Component No Emilee Casillas PharmD documented as of this encounter Visit Diagnoses Diagnosis Chronic allergic rhinitis documented in this encounter Additional Health Concerns Assessment Noted Time PHQ-9 Depression Total Score: 2 01/09/20 24 11:26 AM EDT documented as of this encounter Care Teams Dental Lab Technician Relationship Specialty Start Date End Date Cecile Galindo DO [address] [place] [address] PCP - General Family Medicine 01/01/14 Emilee Casillas PharmD [address] [place] [address] Pharmacist Internal Medicine 03/26/23 [facility] 08/23/17 documented as of this encounter
--- OUTSIDE RECORDS SUMMARY | 2025-03-02 13:34 | XMS_ITS | Encounter Summary ---
Author Organization [employer] Address [address] [facility] 7t [place] [address] Care Team Providers Care Certified Residential Medication Aide Name Role Phone CiraCecile paz Primary Care Provider [phone] Emilee Casillas PharmD Unavailable [phone] Encounter Details Date Type Department Care Team (Latest Contact Info) Description 03/02/2025 Results Follow-Up [facility] MEDICINE [address] [place] [address] Veronique Garza MD [address] [place] [address] CBC auto differential Social History Tobacco Use Types Packs/Day Years [...] AM EDT documented as of this encounter Miscellaneous Notes * Result Encounter Note - Veronique Porter MD - 03/02/2025 1:25 PM EDT Please can you add on iron and ferritin thanks documented in this encounter Plan of Treatment Upcoming Encounters Date Type Department Care Team (Late st Contact Info) Description 03/04/2025 2:00 PM EDT Office Visit [facility] MEDICINE [address] [place] [address] Veronique Good MD [address] [place] [address] 04/01/2025 1:00 PM EDT Office Visit [facility] OPTOMETRY [address] [place] [address] Ngoc Doe, CY [address] [place] [address] 04/06/2025 2:30 PM EDT Medication Management [facility] MEDICINE [address] [place] [address] Puia, EmileeCesar cain [address] [place] [address] documented as of this encounter Goals Goal Patient Goal Type Associated Problems Recent Progress Patient-Stated? Author Patient will adhere to medication regimen General No Emilee Casillas PharmD Hemoglobin A1c < 8 Result Component 8.3( 5 3:38 PM EDT) No Hamilton Goyal PharmD Record your blood sugar as directed Result Component No Emilee Casillas PharmD documented as of this encounter Visit Diagnoses Not on filedocumented in this encounter Additional Health Concerns Assessment Noted Time PHQ-9 Depression Total Score: 0 11/28/19 25 11:18 AM EDT documented as of this encounter Care Teams Certified Residential Medication Aide Relationship Specialty Start Date End Date Cecile Galindo DO [address] [place] [address] PCP - General Family Medicine 01/01/14 Emilee Casillas PharmD [address] [place] [address] Pharmacist Internal Medicine 03/26/23 [facility] 08/23/17 documented as of this encounter
--- OUTSIDE RECORDS SUMMARY | 2025-03-02 13:34 | XMS_ITS | Encounter Summary ---
Author Organization [employer] Address [address] [place] [address] 7t [place] [address] Care Team Providers Care Hardware Manager Name Role Phone Cecile Galindo DO Primary Care Provider [phone] Dellogmissy Hamilton PharmD Unavailable Unavail able Puzoie Emilee PharmD Unavailable Reason for Visit * Reason Comments Med Refill Encounter Details Date Type Department Care Team (Late st Contact Info) Description 10/29/2022 Refill [facility] MEDICINE [address] [place], [place] [phone] Cecile Galindo DO [address] [place], [place] [phone] Depression, unspecified depression type Social History Tobacco Use Types Packs/Day Years Used Date Smoking Tobacco: Never Smokeless Tobacco: Never Alcohol Use Standard Drinks/Week Comments Never 0 (1 standard drink = 0.6 oz pur e alcohol) Depression Answer Date Recorded Patient Health Questionnaire-2 Score 0 05/22/2022 Comments Unknown Sex and Gender Information Value Date Recorded Sex Assigned at Female 2022 10:15 AM EDT Legal Sex Female 10:15 AM EDT Gender Identity Female 2022 10:15 AM EDT Sexual Orientation Straight 2022 10 :15 AM EDT COVID-19 Exposure Response Date Recorded In the last 10 days, have yo u been in contact with someone who was confirmed or suspected to have Coronavirus/COVID-19? No / Unsure 11/01/2022 10:52 AM EDT documented as of this encounter Plan of Treatment Upcoming Encounters Date Type Department Care Team (Late st Contact Info) Description 03/04/2025 2:00 PM EDT Office Visit [facility] MEDICINE [address] [place] [address] Veronique Good MD [address] [place] [address] 04/01/2025 1:00 PM EDT Office Visit [facility] OPTOMETRY [address] [place] [address] Nader, Ngoc, OD [address] [place] [address] 04/06/2025 2:30 PM EDT Medication Management [facility] MEDICINE [address] [place] [address] Emilee Casillas PharmD [address] [place] [address] documented as of this encounter Goals Goal Patient Goal Type Associated Problems Recent Progress Patient-Stated? Author Hemoglobin A1c < 8 Result Component 8.3(02/23/2025 3:38 PM EDT) No Hamilton Goyal, PharmD documented as of this encounter Visit Diagnoses Diagnosis Depression, unspecified depression type documented in this encounter Care Teams Hardware Manager Relationship Specialty Start Date End Date Cecile Galindo DO [address] [place] [address] PCP - General Family Medicine 01/01/14 Hamilton Goyal, PharmD [address] [place] [address] Pharmacist Internal Medicine 05/25/22 03/25/23 Emilee Casillas PharmD [address] [place] [address] Pharmacist Internal Medicine 03/26/23 [facility] 08/23/17 documented as of this encounter
--- OUTSIDE RECORDS SUMMARY | 2025-03-02 13:34 | XMS_ITS | Encounter Summary ---
Author Organization [employer] Address [address] [place] [address] [address]t [place] [address] Care Team Providers Care Biller Name Role Phone Cecile Galindo Primary Care Provider [phone] Dellogmissy Hamilton PharmD Unavailable Unavail able Puzoie Emilee PharmD Unavailable [phone] Reason for Visit * Reason Comments Med Refill Encounter Details Date Type Department Care Team ([facility] Contact Info) Description 08/09/2022 Refill [facility] MEDICINE [address] [place], [place] [phone] Radha Lieberman MD [address] [place], [place] [phone] Primary insomnia Social History Tobacco Use Types Packs/Day Years [...] Upcoming Encounters Date Type Department Care Team ([facility] Contact Info) Description 03/04/2025 2:00 PM EDT Office Visit [facility] MEDICINE [address] [place] [address] Veronique Good MD [address] [place] [address] 04/01/2025 1:00 PM EDT Office Visit [facility] OPTOMETRY [address] [place] [address] Ngoc Doe, OD [address] [place] [address] 04/06/2025 2:30 PM EDT Medication Management [facility] MEDICINE [address] [place] [address] Emilee Casillas PharmD [address] [place] [address] documented as of this encounter Goals Goal Patient Goal Type Associated Problems Recent Progress Patient-Stated? Author Hemoglobin A1c < 8 Result Component 8.3(02/23/2025 3:38 PM EDT) No Hamilton Goyal, Cesar documented as of this encounter Visit Diagnoses Diagnosis Primary insomnia Persistent disorder of initiating or maintaining sleep documented in this encounter Care Teams Biller Relationship Specialty Start Date End Date Cecile Galindo DO [address] [place] [address] PCP - General Family Medicine 01/01/14 Hamilton Goyal, PharmD [address] [place] [address] Pharmacist Internal Medicine 05/25/22 03/25/23 Emilee Casillas PharmD [address] [place] [address] Pharmacist Internal Medicine 03/26/23 [facility] 08/23/17 documented as of this encounter
--- OUTSIDE RECORDS SUMMARY | 2025-03-02 13:34 | XMS_ITS | Encounter Summary ---
Author Organization [employer] Address [address] [place] [address] 7t [place] [address] Care Team Providers Care Paste Plant Supervisor Name Role Phone Cecile Galindo DO Primary Care Provider +1- [phone] Dellogmissy Hamilton PharmD Unavailable Unavail able Puzoie Emilee PharmD Unavailable Reason for Visit * Reason Comments Med Refill Encounter Details Date Type Department Care Team (Late Contact Info) Description 09/03/2022 Refill [facility] 230 [place] [address] Cecile Galindo DO 230 [place], [place] [phone] Seasonal allergic rhinitis, unspecified trigger; Chronic left shoulder pain Social History Tobacco Use Types Packs/Day Years [...] Upcoming Encounters Date Type Department Care Team ([facility] Contact Info) Description 03/04/2025 2:00 PM EDT Office Visit [facility] MED[facility] 230 [place] [address] Veronique Good MD 230 [place] [address] 04/01/2025 1:00 PM EDT Office Visit [facility] OPTOMETRY [address] [place] [address] Nader, Ngoc, OD 230 [place] [address] 04/06/2025 2:30 PM EDT Medication Management [facility] 230 [place] [address] Emilee Casillas PharmD 230 [place] [address] documented as of this encounter Goals Goal Patient Goal Type Associated Problems Recent Progress Patient-Stated? Author Hemoglobin A1c < 8 Result Component 8.3(02/23/2025 3:38 PM EDT) No Hamilton Goyal, PharmD documented as of this encounter Visit Diagnoses Diagnosis Seasonal allergic rhinitis, unspecified trigger Chronic left shoulder pain Pain in joint, shoulder region documented in this encounter Care Teams Paste Plant Supervisor Relationship Specialty Start Date End Date Cecile Galindo DO [address] [place] [address] PCP - General Family Medicine 01/01/14 Hamilton Goyal, PharmD [address] [place] [address] Pharmacist Internal Medicine 05/25/22 03/25/23 Emilee Casillas PharmD [address] [place] [address] Pharmacist Internal Medicine 03/26/23 [facility] 08/23/17 documented as of this encounter
--- OUTSIDE RECORDS SUMMARY | 2025-03-02 13:34 | XMS_ITS | Encounter Summary ---
Author Organization [employer] Address [address] [place] [address] 7t [place] [address] Care Team Providers Care Senior Sql Developer Name Role Phone Mateo Cecile Primary Care Provider +1- [phone] Dellogmissy Hamilton PharmD Unavailable Unavail able Puzoie Emilee PharmD Unavailable Reason for Visit * Reason Onset Date Comments Med Refill [facility] order 09/03/2022 Int erim order 09/03/22 Encounter Details Date Type Department Care Team (Late st Contact Info) Description 09/03/2022 Refill [facility] 230 [place], [place] [phone] Radha Lieberman MD 230 [place], [place] [phone] Primary insomnia Social History Tobacco Use Types [...] as of this encounter Miscellaneous Notes * Telephone Encounter - Sugey Fitch RN - 09/12/2022 2:39 PM EDT 09/03/22 DC order Loratadine 10mg once daily. ADD Entresto 24mg-26mg 1 tablet by mouth two times a day Entresto not in med module. documented in this encounter Plan of Treatment Upcoming Encounters Date Type Department Care Team (Late st Contact Info) Description 03/04/2025 2:00 PM EDT Office Visit [facility] 230 [place] [address] Veronique Good MD 230 [place] [address] 04/01/2025 1:00 PM EDT Office Visit [facility] OPTOMETRY [address] [place] [address] Nader, Ngoc, OD 230 [place] [address] 04/06/2025 2:30 PM EDT Medication Management [facility] [address] [place] [address] Emilee Casillas PharmD 230 [place] [address] documented as of this encounter Goals Goal Patient Goal Type Associated Problems Recent Progress Patient-Stated? Author Hemoglobin A1c < 8 Result Component 8.3(02/23/2025 3:38 PM EDT) No Hamilton Goyal, Cesar documented as of this encounter Visit Diagnoses Diagnosis Primary insomnia Persistent disorder of initiating or maintaining sleep documented in this encounter Care Teams Senior Sql Developer Relationship Specialty Start Date End Date Cecile Galindo DO [address] [place] [address] PCP - General Family Medicine 01/01/14 Hamilton Goyal, PharmD [address] [place] [address] Pharmacist Internal Medicine 05/25/22 03/25/23 Emilee Casillas PharmD 230 [place] [address] Pharmacist Internal Medicine 03/26/23 [facility] [place] 08/23/17 documented as of this encounter
--- OUTSIDE RECORDS SUMMARY | 2025-03-02 13:34 | XMS_ITS | Encounter Summary ---
Author Organization [employer] Address [address] [place] [address] 7t [place] [address] Care Team Providers Care Freelance Operator Name Role Phone Cecile Galindo DO Primary Care Provider +1- [phone] Dellogmissy Hamilton PharmD Unavailable Unavail able Puzoie Emilee PharmD Unavailable Reason for Visit * Reason Comments Med Refill Encounter Details Date Type Department Care Team (Late Contact Info) Description 08/08/2022 Refill [facility] 230 [place] [address] Cecile Galindo DO 230 [place], [place] [phone] Seasonal allergic rhinitis, unspecified trigger Social History Tobacco Use Types Packs/Day Years [...] Encounters Date Type Department Care Team (Late Contact Info) Description 03/04/2025 2:00 PM EDT Office Visit [facility] MED[facility] 230 [place], [place] [phone] Veronique Good MD 230 [place] [address] 04/01/2025 1:00 PM EDT Office Visit [facility] OPTOMETRY [address] [place] [address] Nader, Ngoc, OD 230 [place] [address] 04/06/2025 2:30 PM EDT Medication Management [facility] 230 [place] [address] Emilee Casillas PharmDeion 230 [place] [address] documented as of this encounter Goals Goal Patient Goal Type Associated Problems Recent Progress Patient-Stated? Author Hemoglobin A1c < 8 Result Component 8.3(02/23/2025 3:38 PM EDT) No Hamilton Goyal, PharmD documented as of this encounter Visit Diagnoses Diagnosis Seasonal allergic rhinitis, unspecified trigger documented in this encounter Care Teams Freelance Operator Relationship Specialty Start Date End Date Cecile Galindo DO [address] [place] [address] PCP - General Family Medicine 01/01/14 Hamilton Goyal, PharmD [address] [place] [address] Pharmacist Internal Medicine 05/25/22 03/25/23 Emilee Casillas PharmD [address] [place] [address] Pharmacist Internal Medicine 03/26/23 [facility] 08/23/17 documented as of this encounter
--- OUTSIDE RECORDS SUMMARY | 2025-03-02 13:34 | XMS_ITS | Encounter Summary ---
Author Organization [employer] Address [address] [facility] 7t [place] [address] Care Team Providers Care Cat Wagon Operator Name Role Phone Cecile Galindo DO Primary Care Provider +1 [phone] Emilee Casillas PharmD Unavailable [phone] Reason for Visit * Reason Comments Med Refill Encounter Details Date Type Department Care Team (Late st Contact Info) Description 03/01/[address] [facility] 230 [place] [address] Cecile Galindo DO 230 [place], [place] [phone] Social History Tobacco Use Types Packs/Day Years [...] Description 03/04/2025 2:00 PM EDT Office Visit [facility] 230 [place] [address] Veronique Good MD 230 [place] [address] 04/01/2025 1:00 PM EDT Office Visit [facility] OPTOMETRY [address] [place] [address] Nader, Ngoc, OD 230 [place] [address] 04/06/2025 2:30 PM EDT Medication Management [facility] 230 [place] [address] Emilee Casillas PharmD 230 [place] [address] documented as of this encounter Goals Goal Patient Goal Type Associated Problems Recent Progress Patient-Stated? Author Patient will adhere to medication regimen General No Emilee Casillas PharmD Hemoglobin A1c < 8 Result Component 8.3(09/09/202 5 3:38 PM EDT) No Hamilton Goyal PharmD Record your blood sugar as directed Result Component No Emilee Casillas PharmD documented as of this encounter Visit Diagnoses Not on filedocumented in this encounter Additional Health Concerns Assessment Noted Time PHQ-9 Depression Total Score: 0 11/28/19 25 11:18 AM EDT documented as of this encounter Care Teams Cat Wagon Operator Relationship Specialty Start Date End Date Cecile Galindo DO 230 [place] [address] PCP - General Family Medicine 01/01/14 Emilee Casillas PharmD 230 [place] [address] Pharmacist Internal Medicine 03/26/23 [facility] 08/23/17 documented as of this encounter
--- OUTSIDE RECORDS SUMMARY | 2025-03-02 13:34 | XMS_ITS | Encounter Summary ---
Author Organization [employer] Address [address] [facility] 7t [place] [address] Care Team Providers Care Cellular Equipment Repairer Name Role Phone Cecile Galindo DO Primary Care Provider +[phone] Emilee Casillas PharmD Unavailable [phone] Reason for Visit * Reason Comments Med Refill Encounter Details Date Type Department Care Team (Late st Contact Info) Description 05/24/2023 Refill [facility] 230 [place] [address] Cecile Galindo DO 230 [place], [place] [phone] Primary insomnia Social History Tobacco Use Types Packs/Day Years Used Date Smoking Tobacco: Never Smokeless Tobacco: Never Alcohol Use Standard Drinks/Week Comments Never 0 (1 standard drink = 0.6 oz pur e alcohol) Housing Stability Answer Date Recorded What is [...] Description 03/04/2025 2:00 PM EDT Office Visit [facility] MEDICINE 230 [place] [address] Veronique Good MD 230 [place] [address] 04/01/2025 1:00 PM EDT Office Visit [facility] OPTOMETRY [address] [place] [address] Nader, Ngoc, OD 230 [place] [address] 04/06/2025 2:30 PM EDT Medication Management [facility] 230 [place] [address] Emilee Casillas, PharmD 230 [place] [address] documented as of this encounter Goals Goal Patient Goal Type Associated Problems Recent Progress Patient-Stated? Author Patient will adhere to medication regimen General No Emilee Casillas, PharmD Hemoglobin A1c < 8 Result Component 8.3( 3:38 PM EDT) No Hamilton Goyal PharmDeion Record your blood sugar as directed Result Component No Emilee Casillas, PharmD documented as of this encounter Visit Diagnoses Diagnosis Primary insomnia Persistent disorder of initiating or maintaining sleep documented in this encounter Care Teams Cellular Equipment Repairer Relationship Specialty Start Date End Date Cecile Galindo DO 230 [place] [address] PCP - General Family Medicine 01/01/14 Emilee Casillas, Cesar 230 [place] [address] Pharmacist Internal Medicine 03/26/23 [facility] 08/23/17 documented as of this encounter
--- OUTSIDE RECORDS SUMMARY | 2025-03-02 13:34 | XMS_ITS | Encounter Summary ---
Author Organization [employer] Address [address] [facility] 7t [place] [address] Care Team Providers Care Wire Wheeler Name Role Phone Cecile Galindo DO Primary Care Provider + [phone] Emilee Casillas PharmD Unavailable [phone] Reason for Visit * Reason Comments Med Refill Encounter Details Date Type Department Care Team (Late st Contact Info) Description 07/13/2023 Refill [facility] 230 [place] [address] Cecile Galindo DO 230 [place], [place] [phone] Social History Tobacco Use Types Packs/Day Years [...] 2:00 PM EDT Office Visit [facility] MED[facility] 230 [place] [address] Veronique Good MD 230 [place] [address] 04/01/2025 1:00 PM EDT Office Visit [facility] OPTOMETRY [address] [place] [address] Nader, Ngoc, OD 230 [place] [address] 04/06/2025 2:30 PM EDT Medication Management [facility] 230 [place] [address] Emilee Casillas, PharmD 230 [place] [address] documented as of this encounter Goals Goal Patient Goal Type Associated Problems Recent Progress Patient-Stated? Author Patient will adhere to medication regimen General No Emilee Casillas, PharmD Hemoglobin A1c < 8 Result Component 8.3( 3:38 PM EDT) No Hamilton Goyal, PharmD Record your blood sugar as directed Result Component No Emilee Casillas, PharmD documented as of this encounter Visit Diagnoses Not on filedocumented in this encounter Care Teams Wire Wheeler Relationship Specialty Start Date End Date Cecile Galindo DO 230 [place], [place] [phone] PCP - General Family Medicine 01/01/14 Emilee Casillas PharmD 230 [place], [place] [phone] Pharmacist Internal Medicine 03/26/23 [facility] 08/23/17 documented as of this encounter
--- OUTSIDE RECORDS SUMMARY | 2025-03-02 13:34 | XMS_ITS | Encounter Summary ---
Author Organization [employer] Address [address] [facility] 7t [place] [address] Care Team Providers Care Clinic Office Manager Name Role Phone Cecile Galindo DO Primary Care Provider + [phone] Emilee Casillas PharmD Unavailable [phone] Reason for Visit * Reason Comments Med Refill Encounter Details Date Type Department Care Team (Late st Contact Info) Description 10/14/2023 Refill [facility] 230 [place] [address] Cecile Galindo DO 230 [place], [place] [phone] Social History Tobacco Use Types Packs/Day Years [...] [facility] [address] [place] [address] Veronique Good MD 230 [place] [address] 04/01/2025 1:00 PM EDT Office Visit [facility] OPTOMETRY [address] [place] [address] Nader, Ngoc, OD 230 [place] [address] 04/06/2025 2:30 PM EDT Medication Management [facility] [address] [place] [address] Emilee Casillas, PharmD 230 [place] [address] documented as of this encounter Goals Goal Patient Goal Type Associated Problems Recent Progress Patient-Stated? Author Patient will adhere to medication regimen General No Emilee Casillas, PharmD Hemoglobin A1c < 8 Result Component 8.3( 3:38 PM EDT) No Hamilton Goyal, PharmD Record your blood sugar as directed Result Component No Puzoie Emilee, PharmD documented as of this encounter Visit Diagnoses Not on filedocumented in this encounter Care Teams Clinic Office Manager Relationship Specialty Start Date End Date Cecile Galindo DO 230 [place] [address] PCP - General Family Medicine 01/01/14 Emilee Casillas PharmD 230 [place] [address] Pharmacist Internal Medicine 03/26/23 [facility] 08/23/17 documented as of this encounter
--- OUTSIDE RECORDS SUMMARY | 2025-03-02 13:34 | XMS_ITS | Encounter Summary ---
Author Organization [employer] Address [address] [place] [address] 7t [place] [address] Care Team Providers Care Patient Accounts Coordinator Name Role Phone Cecile Galindo DO Primary Care Provider [phone]- [phone] DelHamilton clements PharmD Unavailable Unavail able Emilee Casillas PharmD Unavailable [phone] Reason for Visit * Reason Onset Date Comments requesting a call 06/20/2022 Encounter Details Date Type Department Care Team ([facility] st Contact Info) Description 06/20/2022 Telephone [facility] MEDICINE 230 [place], [place] [phone] Cecile Galindo DO 230 [place], [place] [phone] requesting a call Social History Tobacco Use Types Packs/Day Years [...] suspected to have Coronavirus/COVID-19? No / Unsure 06/22/2022 2:07 PM EST documented as of this encounter Miscellaneous Notes * Telephone Encounter - Barrylia Hicksos - 06/20/2022 4:00 PM EST Tc from christie visiting nurse ANANDA requesting a call back regarding pt and home visit Please contact christie at [phone] documented in this encounter Plan of Treatment Upcoming Encounters Date Type Department Care Team (Late st Contact Info) Description 03/04/2025 2:00 PM EDT Office Visit [facility] MED[facility]INE [address] [place] [address] Veronique Good MD 230 [place] [address] 04/01/2025 1:00 PM EDT Office Visit [facility] OPTOMETRY 267 [place] [address] Nader, Ngoc, OD 230 [place] [address] 04/06/2025 2:30 PM EDT Medication Management [facility] 230 [place] [address] Emilee Casillas PharmD 230 [place] [address] documented as of this encounter Goals Goal Patient Goal Type Associated Problems Recent Progress Patient-Stated? Author Hemoglobin A1c < 8 Result Component 8.3(02/23/2025 3:38 PM EDT) No Hamilton Goyal, PharmD documented as of this encounter Visit Diagnoses Not on filedocumented in this encounter Care Teams Patient Accounts Coordinator Relationship Specialty Start Date End Date Cecile Galindo DO [address] [place] [address] PCP - General Family Medicine 01/01/14 Hamilton Goyal, PharmD [address] [place] [address] Pharmacist Internal Medicine 05/25/22 03/25/23 Emilee Casillas, KarleeD [address] [place] [address] [place] [address] Pharmacist Internal Medicine 03/26/23 [facility] 08/23/17 documented as of this encounter
--- OUTSIDE RECORDS SUMMARY | 2025-03-02 13:34 | XMS_ITS | Encounter Summary ---
Author Organization [employer] Address [address] [facility] 7t [place] [address] Care Team Providers Care Residential Caregiver Name Role Phone Cecile Galindo DO Primary Care Provider +1- [phone] Emilee Casillas PharmD Unavailable Reason for Visit * Reason Comments Med Refill Encounter Details Date Type Department Care Team (Late st Contact Info) Description 02/03/[address] [facility] MED[facility]INE 230 [place] [address] Cecile Galindo DO 230 [place], [place] [phone] History of ST elevation myocardial infarction (STEMI) Social History Tobacco Use Types Packs/Day Years [...] Recorded Patient Health Questionnaire-2 Score 0 01/09/2024 Comments Unknown Sex and Gender Information Value [...] 03/04/2025 2:00 PM EDT Office Visit [facility] 230 [place] [address] Veronique Good MD 230 [place] [address] 04/01/2025 1:00 PM EDT Office Visit [facility] OPTOMETRY [address] [place] [address] Nader, Ngoc, OD 230 [place] [address] 04/06/2025 2:30 PM EDT Medication Management [facility] 230 [place] [address] Emilee Casillas PharmD 230 [place] [address] documented as of this encounter Goals Goal Patient Goal Type Associated Problems Recent Progress Patient-Stated? Author Patient will adhere to medication regimen General No Emilee Casillas, PharmDeion Hemoglobin A1c < 8 Result Component 8.3( 3:38 PM EDT) No Hamilton Goyal PharmD Record your blood sugar as directed Result Component No Emilee Casillas PharmD documented as of this encounter Visit Diagnoses Diagnosis History of ST elevation myocardial infarction (STEMI) documented in this encounter Additional Health Concerns Assessment Noted Time PHQ-9 Depression Total Score: 2 01/09/20 24 11:26 AM EDT documented as of this encounter Care Teams Residential Caregiver Relationship Specialty Start Date End Date Cecile Galindo DO 230 [place] [address] PCP - General Family Medicine 01/01/14 Emilee Casillas PharmD 230 [place] [address] Pharmacist Internal Medicine 03/26/23 [facility] 08/23/17 documented as of this encounter
--- OUTSIDE RECORDS SUMMARY | 2025-03-02 13:34 | XMS_ITS | Encounter Summary ---
Author Organization [employer] Address [address] [place] [address] 7t [place] [address] Care Team Providers Care Occup Ther Name Role Phone Cecile Galindo DO Primary Care Provider +1- [phone] Emilee Casillas PharmD Unavailable Reason for Visit * Reason Comments Med Change Request Encounter Details Date Type Department Care Team (Late Contact Info) Description 04/21/2023 Refill [facility] MEDICINE [address] [place] [address] Cecile Galindo DO 230 [place], [place] [phone] Primary insomnia Social History Tobacco Use Types [...] Description 03/04/2025 2:00 PM EDT Office Visit [facility] MEDICINE [address] [place] [address] Veronique Good MD 230 [place] [address] 04/01/2025 1:00 PM EDT Office Visit [facility] OPTOMETRY [address] [place] [address] Nader, Ngoc, OD 230 [place] [address] 04/06/2025 2:30 PM EDT Medication Management [facility]INE [address] [place] [address] PuiaEmilee, PharmD 230 [place] [address] documented as of this encounter Goals Goal Patient Goal Type Associated Problems Recent Progress Patient-Stated? Author Patient will adhere to medication regimen General No Puia Emilee, PharmD Hemoglobin A1c < 8 Result Component 8.3( 3:38 PM EDT) No Hamilton Goyal, PharmD Record your blood sugar as directed Result Component No Emilee Casillas, PharmD documented as of this encounter Visit Diagnoses Diagnosis Primary insomnia Persistent disorder of initiating or maintaining sleep documented in this encounter Care Teams Occup Ther Relationship Specialty Start Date End Date Cecile Galindo DO [address] [place] [address] PCP - General Family Medicine 01/01/14 PuiaNatachasa, PharmD [address] [place] [address] Pharmacist Internal Medicine 03/26/23 [facility] 08/23/17 documented as of this encounter
--- OUTSIDE RECORDS SUMMARY | 2025-03-02 13:34 | XMS_ITS | Encounter Summary ---
Author Organization [employer] Address [address] [place] [address] 7t [place] [address] Care Team Providers Care Rough Rounder Machine Name Role Phone Cecile Galindo DO Primary Care Provider +1- [phone] Emilee Casillas PharmD Unavailable [phone] Reason for Visit * Reason Comments Med Refill Encounter Details Date Type Department Care Team (Late Contact Info) Description 04/01/2023 Refill [facility] [address] [place] [address] Cecile Galindo DO 230 [place], [place] [phone] Social History Tobacco Use Types Packs/Day Years [...] Description 03/04/2025 2:00 PM EDT Office Visit [facility] MEDICINE [address] [place] [address] Veronique Good MD 230 [place] [address] 04/01/2025 1:00 PM EDT Office Visit [facility] OPTOMETRY [address] [place] [address] Nader, Ngoc, OD 230 [place] [address] 04/06/2025 2:30 PM EDT Medication Management [facility] [address] [place] [address] PuEmilee lino, PharmD 230 [place] [address] documented as of this encounter Goals Goal Patient Goal Type Associated Problems Recent Progress Patient-Stated? Author Patient will adhere to medication regimen General No PuialAyEmilee, PharmD Hemoglobin A1c < 8 Result Component 8.3( 3:38 PM EDT) No Hamilton Goyal, PharmD Record your blood sugar as directed Result Component No Emilee Casillas, PharmD documented as of this encounter Visit Diagnoses Not on filedocumented in this encounter Care Teams Rough Rounder Machine Relationship Specialty Start Date End Date Cecile Galindo DO [address] [place] [address] PCP - General Family Medicine 01/01/14 PuiaNatachasa, PharmD [address] [place] [address] Pharmacist Internal Medicine 03/26/23 [facility] 08/23/17 documented as of this encounter
--- OUTSIDE RECORDS SUMMARY | 2025-03-02 13:34 | XMS_ITS | Encounter Summary ---
Author Organization [employer] Address [address] [facility] 7t [place] [address] Care Team Providers Care Escrow Clerk Name Role Phone Cecile Galindo DO Primary Care Provider +1- [phone] Dellogmissy Hamilton PharmD Unavailable Unavail able Emilee Casillas PharmD Unavailable Encounter Details Date Type Department Care Team (Late Contact Info) Description 11/19/[address] [facility] MEDICINE [address] [place] [address] Cecile Galindo DO [address] [place], [place] [phone] Social History Tobacco Use Types Packs/Day Years [...] 2:00 PM EDT Office Visit [facility] MEDICINE [address] [place] [address] Veronique Good MD [address] [place] [address] 04/01/2025 1:00 PM EDT Office Visit [facility] OPTOMETRY [address] [place] [address] Nader, Ngoc, OD 230 [place] [address] 04/06/2025 2:30 PM EDT Medication Management [facility] MEDICINE [address] [place] [address] Emilee Casillas PharmD [address] [place] [address] documented as of this encounter Goals Goal Patient Goal Type Associated Problems Recent Progress Patient-Stated? Author Hemoglobin A1c < 8 Result Component 8.3(02/23/2025 3:38 PM EDT) No Hamilton Goyal, PharmD documented as of this encounter Visit Diagnoses Not on filedocumented in this encounter Care Teams Escrow Clerk Relationship Specialty Start Date End Date Cecile Galindo DO [address] [place] [phone] PCP - General Family Medicine 01/01/14 Hamilton Goyal, PharmD [address] [place] [address] Pharmacist Internal Medicine 05/25/22 03/25/23 Emilee Casillas PharmD [address] [place] [address] Pharmacist Internal Medicine 03/26/23 [facility] 08/23/17 documented as of this encounter
--- OUTSIDE RECORDS SUMMARY | 2025-03-02 13:34 | XMS_ITS | Clinical Summary ---
Author Organization [facility]. Address [address] [address] Phone Care Team Providers Care Crusher Screen Repairer Name Role Phone Unavailable Primary Care Provider [...] 05/04/2015 History of gastroesophageal reflux disease 05/04 Immunizations Immunization Administration Dates Next Due Hepatitis [...] Visit [facility] [address] [place] [address] Aristides Huizar MD [address] [facility] [address] [place] [phone] Health Maintenance Due Date Last Done Comments [...] to complete this topic Insurance MCR ([id number]) [place] [address] ([id number])
[2025-03-02 14:28] LABS: Alanine Aminotransferase 13 U/L (0-31); Albumin Level 3.9 g/dL (3.5-5.0); Alkaline Phosphatase 79 U/L (39-117); Anion Gap 12 (12-20); Aspartate Amino Transferase 19 U/L (5-31); Blood Urea Nitrogen 32 mg/dL (9-16); Calcium 9.3 mg/dL (8.4-10.2); Carbon Dioxide 25 mmol/L (22-29); Chloride 107 mmol/L (96-108); Cholesterol 204 mg/dL (<200); Estimated Glomerular Filt Rate 27; HDL Cholesterol 35 mg/dL (>40); Iron 78 mcg/dL (30-160); Percent Iron Saturation 30 % (15-50); Potassium 4.9 mmol/L (3.3-5.1); Sodium 139 mmol/L (135-145); Total Iron Binding Capacity 258 mcg/dL (228-428); Total Protein 7.4 g/dL (6.5-8.0); Triglycerides 149 mg/dL (<150); Unsaturated Iron Binding 180 ug/dL
[2025-03-02 14:34] LABS: Ferritin 97 ng/mL (10-250)
== END 2025-03-02 10:24 | disposition home or self-care (01) ==
LOC: HO.HHCL 10:23
PROVIDERS: Student in an Organized Health Care Education/Training Program; PCP Family Medicine; Referring Provider Internal Medicine Cardiovascular Disease; Visit Provider Internal Medicine
DX: I63.9 Cerebral infarction, unspecified (principal); Z79.01 Long term (current) use of anticoagulants; Z13.0 Encounter for screening for diseases of the blood and blood-forming organs and certain disorders involving the immune mechanism
CPT/HCPCS: 36415; 80053; 80061; 82728; 83540; 85025

== ENCOUNTER 2025-03-09 08:26 | Outpatient (REF) | payer OTHER, SELFPAY ==
[2022-11-29 12:51] VITALS: BP 118/58; BP 118/64
[2022-12-24 12:41] VITALS: BMI 29.1
[2023-04-08 14:16] VITALS: BP 110/60
--- OUTSIDE RECORDS SUMMARY | 2025-03-04 14:00 | XMS_ITS | Encounter Summary ---
Author Organization [employer] Address [address] [facility] 7t [place] [address] Care Team Providers Care Coffin Maker Name Role Phone CiraCecile paz Primary Care Provider +1 [phone] Emilee Casillas PharmD Unavailable Encounter Details Date Type Department Care Team (Late st Contact Info) Description 03/04/2025 2:00 PM EDT Office Visit [facility] MEDICINE [address] [place] [address] Veronique Good MD [address] [place] [address] Type 2 diabetes mellitus with stage 3 chronic kidney disease, without long-term current use of insulin, unspecified whether stage 3a or 3b CKD (CMS/HCC) (Primary Dx); Chronic systolic heart failure (CMS/HCC); Essential hypertension; Chronic kidney disease, stage 4 (severe) (CMS/HCC) Social History Tobacco Use Types Packs/Day Years [...] your housing situation today? I have esau jamey 11/27/[address] you li [...] AM EDT documented as of this encounter Last Filed Vital Signs Vital Sign Reading Time Taken Comments Blood Pressure 98/62 03/04/2025 2:12 PM EDT Pulse 97 03/04/2025 2:12 PM EDT Temperature 36.2 C (97.1 F) 03/04/2025 2:12 PM EDT Respiratory Rate 18 03/04/2025 2:12 PM EDT Oxygen Saturation 100% 03/04/2025 2:12 PM EDT Inhaled Oxygen Concentration - - Weight 70.4 kg (155 lb 3.2 oz) 03/04/2025 2:12 P M EDT Height 152.4 cm (5') 03/04/2025 2:12 PM EDT Body Mass Index 30.31 03/04/2025 2:12 PM EDT documented in this encounter Progress Notes * Veronique Salazar MD - 03/04/2025 2:00 PM EDT SUBJECTIVE: Veronique Gilman is a 84 y.o. year old female who presents for HDF . [facility] (01/09/25-01/11/25) Patient with underlying ischemic cardiomyopathy and recent admission for flash pulmonary edema admitted with another episode of flash pulmonary edema resulting in acute hypoxic respiratory failure requiring intubation and ventilator support. Treated with vasodilators and diuretics. Evaluated by cardiology with no plan for intervention. Noted to have new stoke suspected to be embolic. Continued onEliquis and aspirin discontinued to reduce bleeding risk. Discharged home. Medication changes that occurred during hospitalization include: Added Valsartan 40 mg twice a day Metoprolol tartrate 25 mg twice a day (hold if SBP < 90 or HR <60) Changed: none Discontinued: carvedilol, Entresto, aspirin [facility] (01/21/25-01/25/25) Patient brought in for evaluation of sudden SOB and respiratory distress, On arrival, patient was unresponsive, pale, diaphoretic with a pulse, O2 sat 55% on RA. Intubated emergently in the setting of flash pulmonary edema in the setting of acute CHFrEF exacerbation. Treated with IV furosemide withgood effect and IV abx for possible PNA. Transitioned to PO cefuroxime and doxycycline on discharge. Patient stable and was discharged home. Medication changes that occurred during hospitalization include: Added Furosemide 20 mg twice a day Cefuroxime axetil 500 mg twice a day x 4 days Doxycycline hyclate 100 mg twice a day x 4 days Changed: none Patient today reports she has been feeling much better she finished all her antibiotics and she is taking all her medications as prescribed she denies any shortness of breath or chest pain Social History Social History Narrative Not on file Problem List[1] Alopecia Essential hypertension History of gastroesophageal reflux (GERD) Mixed stress and urge urinary incontinence Hyperlipidemia Osteoarthritis Type 2 diabetes mellitus (CMS/HCC) History of ST elevation myocardial infarction (STEMI) Ischemic cardiomyopathy Chronic systolic heart failure (CMS/HCC) Chronic kidney disease, stage 4 (severe) (CMS/HCC) Chronic left shoulder pain Chronic pain of both knees Healthcare maintenance Anemia Ischemic stroke ([facility]/HCC) Hospital discharge follow-up Family History[2] Review of Systems Constitutional: Negative. HENT: Negative. Respiratory: Negative. Cardiovascular: Negative. OBJECTIVE: Vitals: 03/04/25 1412 BP: 98/62 BP Location: Left arm Patient Position: Sitting BP Cuff Size: Adult Pulse: 97 Resp: 18 Temp: 97.1 ??F (36.2 ??C) TempSrc: Oral SpO2: 100% Weight: 155 lb 3.2 oz (70.4 kg) Height: 5' (1.524 m) Physical Exam Cardiovascular: Rate and Rhythm: Normal rate and regular rhythm. Pulmonary: Effort: Pulmonary effort is normal. Breath sounds: Normal breath sounds. Musculoskeletal: Right lower leg: No edema. Left lower leg: No edema. Neurological: Mental Status: She is alert. Follow Up: No follow-ups on file. Medications Ordered Prior to Encounter[3] Problem List Items Addressed This Visit Type 2 diabetes mellitus ([facility]) - Primary Lab Results Component Value Date HGBA1C 8.3 (A) 02/23/2025 HGBA1C 8.4 (H) 11/26/2024 HGBA1C 9.6 (A) 09/23/2024 - Lab Results Component Value Date MICROALBUR 38.0 11/26/2024 CREATININE 1.80 (H) 03/02/2025 -Changes: None - Continue current medications Follow-up with PCP Chronic systolic heart failure ([facility]) Continue to take medications as prescribed Follow-up with cardiology she has an appointment in May 2025, I advised not to miss this appointment Essential hypertension Continue same medication as prescribed, I advised low-sodium diet Chronic kidney disease, stage 4 (severe) (CMS/[facility]) It was advised to avoid nephrotoxic medications like NSAIDs Patient has a an appointment with nephrology also on May 2025 advised not to miss appointment [1] Patient Active Problem List Diagnosis Alopecia Essential hypertension History of gastroesophageal reflux (GERD) Mixed stress and urge urinary incontinence Hyperlipidemia Osteoarthritis Type 2 diabetes mellitus ([facility]) History of ST elevation myocardial infarction (STEMI) Ischemic cardiomyopathy Chronic systolic heart failure ([facility]) Chronic kidney disease, stage 4 (severe) ([facility]) Chronic left shoulder pain Chronic pain of both knees Healthcare maintenance Anemia Ischemic stroke ([facility]) Hospital discharge follow-up [2] Family History Problem Relation Name Age of Onset Diabetes Sister Breast cancer Sister [3] Current Outpatient Medications on File Prior to Visit Medication Sig Dispense Refill acetaminophen (Tylenol 8 Hour) 650 MG ER tablet Take 1 tablet (650 mg) by mouth every 8 (eight) hours if needed for mild pain. Do not crush, chew, or split. 50 tablet 2 Blood Glucose Monitoring Suppl (FreeStyle Lite) w/Device kit Use to test blood sugar twice daily asdirected Blood Pressure kit 1 each in the morning. 1 kit 0 Calcium Carb-Cholecalciferol (Calcium + Vitamin D3) 600-5 MG-MCG tablet Take 1 tablet by mouth 2 times daily. 180 tablet 1 docusate sodium (Colace) 100 MG capsule TAKE 1 CAPSULE BY MOUTH TWICE A DAY 180 capsule 1 Eliquis 2.5 MG tablet Take 1 tablet (2.5 mg) by mouth 2 times daily. 60 tablet 2 empagliflozin (Jardiance) 10 MG Take 1 tablet (10 mg) by mouth in the morning. 30 tablet 5 Entresto 24-26 MG tablet Take 1 tablet by mouth 2 times daily. ezetimibe (Zetia) 10 MG tablet Take 10 mg by mouth Once per day. fluticasone (Flonase) 50 MCG/ACT nasal spray TAKE 2 SPRAYS INTRANSALLY IN EACH NOSTRIL ONCE A DAY NEEDED 48 mL 1 FreeStyle lancets 1 each by Other route 2 times daily. Use to test blood sugar twice daily, as directed 100 each 11 furosemide (Lasix) 20 MG tablet Take 1 tablet by mouth 2 times daily. glipiZIDE (Glucotrol) 5 MG tablet Take 1 tablet (5 mg) by mouth with breakfast and with evening meal. 180 tablet 3 glucose blood (FREESTYLE LITE) test strip Use to test blood sugar twice daily, as directed 100 strip 11 metoprolol tartrate (Lopressor) 25 MG tablet Take 1 tablet by mouth 2 times daily. nitroglycerin (Nitrostat) 0.[address] 1 tablet (0.4 mg) under the tongue every 5 (five) minutes if needed for chest pain. Repeat up to 3 doses. 90 tablet 12 rosuvastatin (Crestor) 40 MG tablet TAKE 1 TABLET BY MOUTH EVERY MORNING 90 tablet 3 sertraline (Zoloft) 25 MG tablet TAKE 1 TABLET BY MOUTH EVERY DAY 90 tablet 3 Tirzepatide (Mounjaro) 10 MG/0.5ML solution auto-injector Inject 10 mg under the skin 1 (one) time per week. 2 mL 11 [DISCONTINUED] Calcium Carb-Cholecalciferol (Calcium + Vitamin D3) 600-5 MG-MCG tablet Take 1 tablet by mouth 2 times daily. 180 tablet 1 No current facility-administered medications on file prior to visit. documented in this encounter Miscellaneous Notes * Assessment & Plan Note - Veronique Salazar MD - 03/05/2025 3:36 PM EDT Associated Problem(s): Chronic kidney disease, stage 4 (severe) ([facility]) It was advised to avoid nephrotoxic medications like NSAIDs Patient has a an appointment with nephrology also on May 2025 advised not to miss appointment * Assessment & Plan Note - Veronique Salazar MD - 03/05/2025 3:35 PM EDT Associated Problem(s): Type 2 diabetes mellitus ([facility]) Lab Results Component Value Date HGBA1C 8.3 (A) 02/23/2025 HGBA1C 8.4 (H) 11/26/2024 HGBA1C 9.6 (A) 09/23/2024 - Lab Results Component Value Date MICROALBUR 38.0 11/26/2024 CREATININE 1.80 (H) 03/02/2025 -Changes: None - Continue current medications Follow-up with PCP * Assessment & Plan Note - Veronique Salazar MD - 03/05/2025 3:35 PM EDT Associated Problem(s): Essential hypertension Continue same medication as prescribed, I advised low-sodium diet * Assessment & Plan Note - Veronique Salazar MD - 03/05/2025 3:34 PM EDT Associated Problem(s): Chronic systolic heart failure ([facility]) Continue to take medications as prescribed Follow-up with cardiology she has an appointment in May 2025, I advised not to miss this appointment documented in this encounter Plan of Treatment Upcoming Encounters Date Type Department Care Team (Late st Contact Info) Description 04/01/2025 1:00 PM EDT Office Visit [facility] OPTOMETRY [address] [place] [address] Nader, Ngoc, OD [address] [place] [address] 04/06/2025 2:30 PM EDT Medication Management [facility] MEDICINE [address] [place] [address] Emilee Casillas PharmD [address] [place] [address] documented as of this encounter Goals Goal Patient Goal Type Associated Problems Recent Progress Patient-Stated? Author Patient will adhere to medication regimen General No Emilee Casillas PharmD Hemoglobin A1c < 8 Result Component 8.3( 3:38 PM EDT) No Hamilton Goyal PharmD Record your blood sugar as directed Result Component No Emilee Casillas PharmD documented as of this encounter Visit Diagnoses Diagnosis Type 2 diabetes mellitus with stage 3 chronic kidney disease, without long-term current use of insulin, unspecified whether stage 3a or 3b CKD ([facility])- Primary Chronic systolic heart failure ([facility]) Chronic systolic heart failure Essential hypertension Unspecified essential hypertension Chronic kidney disease, stage 4 (severe) ([facility]) documented in this encounter Additional Health Concerns Assessment Noted Time PHQ-9 Depression Total Score: 0 11/28/19 25 11:18 AM EDT documented as of this encounter Care Teams Coffin Maker Relationship Specialty Start Date End Date Cecile Galindo DO [address] [place] [address] PCP - General Family Medicine 01/01/14 Natacha Casillassa, PharmD [address] [place] [address] Pharmacist Internal Medicine 03/26/23 [facility] 08/23/17 documented as of this encounter
--- NOTE | ~2025-03-09 | US_ITS ---
CLINICAL HISTORY: I50.1 - Left ventricular failure, unspecified Renal duplex ultrasound Comparison: None provided Technique: Real time duplex ultrasound imaging was performed by the spare hand carding. Multiple authorization representative static images were saved for review. Findings: Aorta: Normal waveform, 86 cm/s. Right kidney: Small, 7.5 cm in length, normal in echogenicity, mild diffuse cortical thinning. No apparent calculus, mass or hydronephrosis. Main renal artery peak systolic velocities: Proximal: 142 cm/s Mid: 129 cm/s Distal: 129 cm/s Segmental resistive index: 0.73-0.8 RAR: 1.65 Renal vein: Patent. Left kidney: Small, 8.1 cm in length, mild cortical thinning, normal in echogenicity, no calculus, mass or hydronephrosis. Main renal artery peak systolic velocities: Proximal: 124 cm/s Mid: 97 cm/s Distal: 106 cm/s Segmental resistive index: 0.70-0.83 RAR: 1.44. Renal vein: Patent. Impression: 1. Bilateral renal artery velocities are within normal range, no significant stenosis. 2. Mild renal atrophy with slightly increased resistive indices bilaterally. This document has been electronically signed by: Palma Darnell MD on 03/10/2025 12:30:16
--- OUTSIDE RECORDS SUMMARY | 2025-03-09 09:24 | XMS_ITS | Encounter Summary ---
Author Organization [employer] Address [address] [place] [address] 7t [place] [address] Care Team Providers Care Layer Out Name Role Phone Cecile Galindo DO Primary Care Provider [phone]- [phone] Dellogmissy Hamilton PharmD Unavailable Unavail able Puzoie Emilee PharmD Unavailable [phone] Reason for Visit * Reason Comments Med Refill Encounter Details Date Type Department Care Team (Late st Contact Info) Description 10/29/2022 Refill [facility] MEDICINE [address] [place], [place] [phone] Cecile Galindo DO [address] [place], [place] [phone] Depression, unspecified depression type Social History Tobacco [...] Description 04/01/2025 1:00 PM EDT Office Visit [facility] OPTOMETRY [address] [place] [address] Ngoc Doe, OD [address] [place] [address] 04/06/2025 2:30 PM EDT Medication Management [facility] MEDICINE [address] [place] [address] Emilee Casillas PharmD [address] [place] [address] documented as of this encounter Goals Goal Patient Goal Type Associated Problems Recent Progress Patient-Stated? Author Hemoglobin A1c < 8 Result Component 8.3(02/23/2025 3:38 PM EDT) No Hamilton Goyal PharmD documented as of this encounter Visit Diagnoses Diagnosis Depression, unspecified depression type documented in this encounter Care Teams Layer Out Relationship Specialty Start Date End Date Cecile Galindo DO [address] [place] [address] PCP - General Family Medicine 01/01/14 Hamilton Goyal, KarleeD [address] [place] [address] Pharmacist Internal Medicine 05/25/22 03/25/23 Emilee Casillas PharmD [address] [place] [address] Pharmacist Internal Medicine 03/26/23 [facility] 08/23/17 documented as of this encounter
--- OUTSIDE RECORDS SUMMARY | 2025-03-09 09:24 | XMS_ITS | Encounter Summary ---
Author Organization [employer] Address [address] [facility] 7t [place] [address] Care Team Providers Care Internet Marketing Strategist Name Role Phone Cecile Galindo DO Primary Care Provider [phone] Dellogmissy Hamilton PharmD Unavailable Unavail able Puzoie Emilee PharmD Unavailable Reason for Visit * Reason Comments Med Refill Encounter Details Date Type Department Care Team (Late Contact Info) Description 09/03/2022 Refill [facility] [address] [place] [address] Cecile Galindo DO [address] [place], [place] [phone] Seasonal allergic rhinitis, unspecified trigger; Chronic left [...] Upcoming Encounters Date Type Department Care Team ([facility] Contact Info) Description 04/01/2025 1:00 PM EDT Office Visit [facility] OPTOMETRY [address] [place] [address] Ngoc Doe, OD [address] [place] [address] 04/06/2025 2:30 PM EDT Medication Management [facility] MEDICINE [address] [place] [address] Emilee Casillas PharmD [address] [place] [address] documented as of this encounter Goals Goal Patient Goal Type Associated Problems Recent Progress Patient-Stated? Author Hemoglobin A1c < 8 Result Component 8.3(02/23/2025 3:38 PM EDT) No Hamilton Goyal, Cesar documented as of this encounter Visit Diagnoses Diagnosis Seasonal allergic rhinitis, unspecified trigger Chronic left shoulder pain Pain in joint, shoulder region documented in this encounter Care Teams Internet Marketing Strategist Relationship Specialty Start Date End Date Cecile Galindo DO [address] [place] [address] PCP - General Family Medicine 01/01/14 Hamilton Goyal, PharmD [address] [place] [address] Pharmacist Internal Medicine 05/25/22 03/25/23 Emilee Casillas PharmD [address] [place] [address] Pharmacist Internal Medicine 03/26/23 [facility] 08/23/17 documented as of this encounter
--- OUTSIDE RECORDS SUMMARY | 2025-03-09 09:24 | XMS_ITS | Encounter Summary ---
Author Organization [employer] Address [address] [place] [address] 7t [place] [address] Care Team Providers Care Knitting Supervisor Name Role Phone Mateo Cecile Primary Care Provider [phone] Dellogmissy Hamilton PharmD Unavailable Unavail able Puzoie Emilee PharmD Unavailable [phone] Reason for Visit * Reason Comments Med Refill Encounter Details Date Type Department Care Team (Late Contact Info) Description 08/09/2022 Refill [facility] MEDICINE [address] [place] [address] Radha Lieberman MD [address] [place] [address] Primary insomnia Social History Tobacco Use Types [...] Upcoming Encounters Date Type Department Care Team ([facility] Contact Info) Description 04/01/2025 1:00 PM EDT Office Visit [facility] OPTOMETRY [address] [place] [address] Ngoc Doe, OD [address] [place] [address] 04/06/2025 2:30 PM EDT Medication Management [facility] MEDICINE [address] [place] [address] Emilee Casillas PharmD [address] [place] [address] documented as of this encounter Goals Goal Patient Goal Type Associated Problems Recent Progress Patient-Stated? Author Hemoglobin A1c < 8 Result Component 8.3(02/23/2025 3:38 PM EDT) No Hamilton Goyal, Cesar documented as of this encounter Visit Diagnoses Diagnosis Primary insomnia Persistent disorder of initiating or maintaining sleep documented in this encounter Care Teams Knitting Supervisor Relationship Specialty Start Date End Date Cecile Galindo DO [address] [place] [address] [phone] PCP - General Family Medicine 01/01/14 Hamilton Goyal, PharmD [address] [place] [address] Pharmacist Internal Medicine 05/25/22 03/25/23 Emilee Casillas PharmD [address] [place] [address] Pharmacist Internal Medicine 03/26/23 [facility] 08/23/17 documented as of this encounter
--- OUTSIDE RECORDS SUMMARY | 2025-03-09 09:24 | XMS_ITS | Encounter Summary ---
Author Organization [employer] Address [address] [facility] 7t [place] [address] Care Team Providers Care Script Coordinator Name Role Phone Cecile Galindo DO Primary Care Provider [phone] Emilee Casillas PharmD Unavailable [phone] Reason for Visit * Reason Comments Med Change Request Encounter Details Date Type Department Care Team (Late st Contact Info) Description 04/29/2024 Refill [facility] MEDICINE [address] [place] [address] Cecile Galindo DO [address] [place], [place] [phone] Chronic allergic rhinitis Social History Tobacco Use [...] Description 04/01/2025 1:00 PM EDT Office Visit [facility] OPTOMETRY [address] [place] [address] Nader, Ngoc, OD [address] [place] [address] 04/06/2025 2:30 PM EDT Medication Management [facility] MEDICINE [address] [place] [address] AnastaciaiaEmilee, PharmD [address] [place] [address] documented as of this encounter Goals Goal [...] documented as of this encounter Care Teams Script Coordinator Relationship Specialty Start Date End Date Cecile Galindo DO [address] [place] [address] PCP - General Family Medicine 01/01/14 Emilee Casillas PharmD [address] [place] [address] Pharmacist Internal Medicine 03/26/23 [facility] 08/23/17 documented as of this encounter
--- OUTSIDE RECORDS SUMMARY | 2025-03-09 09:24 | XMS_ITS | Encounter Summary ---
Author Organization [employer] Address [address] [facility] [address]t [place] [address] Care Team Providers Care Court Bailiff Or Sheriff Name Role Phone MontanaCecile olson Primary Care Provider [phone] Dellogmissy Hamilton PharmD Unavailable Unavail able Puia Emilee PharmD Unavailable [phone] Encounter Details Date Type Department Care Team (Latest Contact Info) Description 10/24/[address] [facility] CONVERSIONS Dental, Provider, DDS Social History Tobacco [...] Description 04/01/2025 1:00 PM EDT Office Visit [facility] OPTOMETRY [address] [place] [address] Ander, Ngoc, OD [address] [place] [address] 04/06/2025 2:30 PM EDT Medication Management [facility] MEDICINE [address] [place] [address] Puia, Emilee, PharmD [address] [place] [address] documented as of this encounter Visit Diagnoses Not on filedocumented in this encounter Care Teams Court Bailiff Or Sheriff Relationship Specialty Start Date End Date Cecile Galindo DO [address] [place] [address] PCP - General Family Medicine 01/01/14 Hamilton Goyal, KarleeD [address] [place] [address] Pharmacist Internal Medicine 05/25/22 03/25/23 Emilee Casillas PharmD [address] [place] [address] Pharmacist Internal Medicine 03/26/23 [facility] 08/23/17 documented as of this encounter
--- OUTSIDE RECORDS SUMMARY | 2025-03-09 09:24 | XMS_ITS | Encounter Summary ---
Author Organization [employer] Address 75 [facility] 7t [place] [address] Care Team Providers Care Chief Contract Officer Name Role Phone Mateo Cecile Primary Care Provider + [phone] Emilee Casillas PharmD Unavailable [phone] Encounter Details Date Type Department Care Team (Latest Contact Info) Description 03/04/2025 Travel Social History Tobacco Use Types Packs/Day Years [...] Description 04/01/2025 1:00 PM EDT Office Visit [facility] [address] [place] [address] Nader, Ngoc, OD 230 [place] [address] 04/06/2025 2:30 PM EDT Medication Management [facility] 230 [place] [address] Puia, Emilee, PharmD [address] [place] [address] documented as of this encounter Goals Goal Patient Goal Type Associated Problems Recent Progress Patient-Stated? Author Patient will adhere to medication regimen General No Puia, Emilee, PharmD Hemoglobin A1c < 8 Result Component 8.3( 3:38 PM EDT) No Dellogono Hamilton, PharmD Record your blood sugar as directed Result Component No Puia, Emilee, PharmD documented as of this encounter Visit Diagnoses Not on filedocumented in this encounter Additional Health Concerns Assessment Noted Time PHQ-9 Depression Total Score: 0 11/28/19 25 11:18 AM EDT documented as of this encounter Care Teams Chief Contract Officer Relationship Specialty Start Date End Date Cecile Galindo DO [address] [place] [address] PCP - General Family Medicine 01/01/14 Emilee Casillas, Cesar [address] [place] [address] Pharmacist Internal Medicine 03/26/23 [facility] 08/23/17 documented as of this encounter
--- OUTSIDE RECORDS SUMMARY | 2025-03-09 09:24 | XMS_ITS | Encounter Summary ---
Author Organization [employer] Address 75 [facility] 7t [place] [address] Care Team Providers Care Border Machine Operator Name Role Phone Cecile Galindo DO Primary Care Provider [phone] Emilee Casillas PharmD Unavailable [phone] Reason for Visit * Reason Onset Date Comments Chart Prep 03/04/2025 Encounter Details Date Type Department Care Team ([facility] st Contact Info) Description 03/04/2025 Telephone [facility] [address] [place] [address] Cecile Galindo DO 230 [place], [place] [phone] Chart Prep Social History Tobacco Use Types Packs/Day Years [...] encounter Miscellaneous Notes * Telephone Encounter - Rubi Jewell [place] - 03/04/2025 8:25 AM EDT Chart Prep Labs: done Images: done Referrals: not applicable Vaccines due: Covid, Flu, RSV, and Zoster Screenings: foot exam Overdue care gaps: PHQ-9, GUICHO-7, and Oral health screening documented in this encounter Plan of Treatment Upcoming Encounters Date Type Department Care Team (Late st Contact Info) Description 04/01/2025 1:00 PM EDT Office Visit [facility] [address] [place] [address] Nader, Ngoc, OD 230 [place] [address] 04/06/2025 2:30 PM EDT Medication Management [facility] [address] [place] [address] Emilee Casillas, PharmD 230 [place] [address] documented as of this encounter Goals Goal [...] documented as of this encounter Care Teams Border Machine Operator Relationship Specialty Start Date End Date Cecile Galindo DO 230 [place] [address] PCP - General Family Medicine 01/01/14 Emilee Caslilas PharmD 230 [place] [address] Pharmacist Internal Medicine 03/26/23 [facility] [place] 08/23/17 documented as of this encounter
--- OUTSIDE RECORDS SUMMARY | 2025-03-09 09:24 | XMS_ITS | Encounter Summary ---
Author Organization [employer] Address [address] [place] [address] 7t [place] [address] Care Team Providers Care Credit Collection Specialist Name Role Phone Cecile Galindo DO Primary Care Provider [phone] Emilee Casillas PharmD Unavailable Reason for Visit * Reason Comments Med Change Request Encounter Details Date Type Department Care Team (Late Contact Info) Description 04/21/2023 Refill [facility] [address] [place] [address] Cecile Galindo DO 230 [place] [address] Primary insomnia Social History Tobacco Use Types [...] Department Care Team (Late Contact Info) Description 04/01/2025 1:00 PM EDT Office Visit [facility] [address] [place] [address] Ngoc Doe, OD 230 [place] [address] 04/06/2025 2:30 PM EDT Medication Management [facility] 230 [place] [address] Emilee Casillas PharmD 230 [place] [address] documented as of this encounter Goals Goal Patient Goal Type Associated Problems Recent Progress Patient-Stated? Author Patient will adhere to medication regimen General No Emilee Casillas PharmDeion Hemoglobin A1c < 8 Result Component 8.3( 3:38 PM EDT) No Hamilton Goyal PharmD Record your blood sugar as directed Result Component No Emilee Casillas PharmD documented as of this encounter Visit Diagnoses Diagnosis Primary insomnia Persistent disorder of initiating or maintaining sleep documented in this encounter Care Teams Credit Collection Specialist Relationship Specialty Start Date End Date Cecile Galindo DO [address] [place] [address] [phone] PCP - General Family Medicine 01/01/14 Emilee Casillas PharmD [address] [place] [address] [phone] Pharmacist Internal Medicine 03/26/23 [facility] 08/23/17 documented as of this encounter
--- OUTSIDE RECORDS SUMMARY | 2025-03-09 09:24 | XMS_ITS | Encounter Summary ---
Author Organization [employer] Address 75 [facility] 7t [place] [address] Care Team Providers Care Traveling Construction Superintendent Name Role Phone Cecile Galindo DO Primary Care Provider + [phone] Emilee Casillas PharmD Unavailable [phone] Reason for Visit * Reason Comments Med Refill Encounter Details Date Type Department Care Team (Late st Contact Info) Description 10/14/2023 Refill [facility] 230 [place] [address] Cecile Galindo DO 230 [place], [place] [phone] Social History Tobacco Use Types Packs/Day Years [...] Description 04/01/2025 1:00 PM EDT Office Visit [facility] [address] [place] [address] Nader, Ngoc, OD 230 [place] [address] 04/06/2025 2:30 PM EDT Medication Management [facility] [address] [place] [address] Puia, Emilee, PharmD 230 [place] [address] documented as of this encounter Goals Goal Patient Goal Type Associated Problems Recent Progress Patient-Stated? Author Patient will adhere to medication regimen General No Puia, Emilee, PharmD Hemoglobin A1c < 8 Result Component 8.3( 3:38 PM EDT) No DellogonoQamaris, PharmD Record your blood sugar as directed Result Component No Puia, Emilee, PharmD documented as of this encounter Visit Diagnoses Not on filedocumented in this encounter Care Teams Traveling Construction Superintendent Relationship Specialty Start Date End Date Cecile Galindo DO [address] [place] [address] PCP - General Family Medicine 01/01/14 Puia, Emilee, PharmD [address] [place] [address] Pharmacist Internal Medicine 03/26/23 [facility] 08/23/17 documented as of this encounter
--- OUTSIDE RECORDS SUMMARY | 2025-03-09 09:24 | XMS_ITS | Encounter Summary ---
Author Organization [employer] Address 75 [facility] 7t [place] [address] Care Team Providers Care Division Operations Manager Name Role Phone Cecile Galindo DO Primary Care Provider [phone] Emilee Casillas PharmD Unavailable [phone] Reason for Visit * Reason Comments Med Refill Encounter Details Date Type Department Care Team (Late st Contact Info) Description 05/24/2023 Refill [facility] 230 [place] [address] Cecile Galindo DO 230 [place], [place] [phone] Primary insomnia Social History Tobacco Use Types [...] Description 04/01/2025 1:00 PM EDT Office Visit [facility] [address] [place] [address] Nader, Ngoc, OD 230 [place] [address] 04/06/2025 2:30 PM EDT Medication Management [facility] [address] [place] [address] Puia, Emilee, PharmD 230 [place] [address] documented as of this encounter Goals Goal Patient Goal Type Associated Problems Recent Progress Patient-Stated? Author Patient will adhere to medication regimen General No Puia, Emilee, PharmD Hemoglobin A1c < 8 Result Component 8.3( 3:38 PM EDT) No DellogHamilton louis, PharmD Record your blood sugar as directed Result Component No Puia, Emilee, PharmD documented as of this encounter Visit Diagnoses Diagnosis Primary insomnia Persistent disorder of initiating or maintaining sleep documented in this encounter Care Teams Division Operations Manager Relationship Specialty Start Date End Date Cecile Galindo DO [address] [place] [address] PCP - General Family Medicine 01/01/14 Puia, Emilee, PharmD [address] [place] [address] Pharmacist Internal Medicine 03/26/23 [facility] 08/23/17 documented as of this encounter
--- OUTSIDE RECORDS SUMMARY | 2025-03-09 09:24 | XMS_ITS | Encounter Summary ---
Author Organization [employer] Address [address] [place] [address] 7t [place] [address] Care Team Providers Care Inspector Metal Fabricating Name Role Phone Cecile Galindo DO Primary Care Provider [phone] DelHamilton clements PharmD Unavailable Unavail able Emilee Casillas PharmD Unavailable Reason for Visit * Reason Onset Date Comments requesting a call 06/20/2022 Encounter Details Date Type Department Care Team ([facility] st Contact Info) Description 06/20/2022 Telephone [facility] 230 [place], [place] [phone] Cecile Galindo DO 230 [place], [place] [phone] requesting a call Social History Tobacco Use [...] and home visit Please contact christie at [phone] documented in this encounter Plan of Treatment Upcoming Encounters Date Type Department Care Team (Late st Contact Info) Description 04/01/2025 1:00 PM EDT Office Visit [facility] [address] [place] [address] Nader, Ngoc, OD 230 [place] [address] 04/06/2025 2:30 PM EDT Medication Management [facility] 230 [place] [address] Emilee Casillas PharmD 230 [place] [address] documented as of this encounter Goals Goal Patient Goal Type Associated Problems Recent Progress Patient-Stated? Author Hemoglobin A1c < 8 Result Component 8.3(02/23/2025 3:38 PM EDT) No Hamilton Goyal, PharmD documented as of this encounter Visit Diagnoses Not on filedocumented in this encounter Care Teams Inspector Metal Fabricating Relationship Specialty Start Date End Date Cecile Galindo DO 230 [place] [address] PCP - General Family Medicine 01/01/14 Hamilton Goyal, PharmD [address] [place] [address] Pharmacist Internal Medicine 05/25/22 03/25/23 Emilee Casillas, PharmD 230 [place] [address] Pharmacist Internal Medicine 03/26/23 [facility] 08/23/17 documented as of this encounter
--- OUTSIDE RECORDS SUMMARY | 2025-03-09 09:24 | XMS_ITS | Encounter Summary ---
Author Organization [employer] Address 75 [facility] 7t [place] [address] Care Team Providers Care Wax Bleacher Name Role Phone Cecile Galindo DO Primary Care Provider [phone] Dellogmissy Hamilton PharmD Unavailable Unavail able Emilee Casillas PharmD Unavailable [phone] Encounter Details Date Type Department Care Team (Late Contact Info) Description 11/19/2022 Abstract [facility] 230 [place] [address] Cecile Galindo DO 230 [place], [place] [phone] Social History Tobacco Use Types Packs/Day Years [...] Description 04/01/2025 1:00 PM EDT Office Visit [facility] [address] [place] [address] Nader, Ngoc, OD 230 [place] [address] 04/06/2025 2:30 PM EDT Medication Management [facility] 230 [place] [address] Emilee Casillas PharmDeion 230 [place] [address] documented as of this encounter Goals Goal Patient Goal Type Associated Problems Recent Progress Patient-Stated? Author Hemoglobin A1c < 8 Result Component 8.3(02/23/2025 3:38 PM EDT) No Hamilton Goyal PharmD documented as of this encounter Visit Diagnoses Not on filedocumented in this encounter Care Teams Wax Bleacher Relationship Specialty Start Date End Date Cecile Galindo DO [address] [place] [address] PCP - General Family Medicine 01/01/14 Hamilton Goyal, PharmD [address] [place] [address] Pharmacist Internal Medicine 05/25/22 03/25/23 Emilee Casillas PharmD [address] [place] [address] Pharmacist Internal Medicine 03/26/23 [facility] 08/23/17 documented as of this encounter
--- OUTSIDE RECORDS SUMMARY | 2025-03-09 09:24 | XMS_ITS | Encounter Summary ---
Author Organization [employer] Address 75 [facility] 7t [place] [address] Care Team Providers Care Cap Cutter Name Role Phone Cecile Galindo DO Primary Care Provider [phone] Emilee Casillas PharmD Unavailable Reason for Visit * Reason Comments Med Refill Encounter Details Date Type Department Care Team (Late st Contact Info) Description 02/03/2024 Refill [facility] 230 [place] [address] Cecile Galindo DO 230 [place], [place] [phone] History of ST elevation myocardial infarction (STEMI) [...] Description 04/01/2025 1:00 PM EDT Office Visit [facility] [address] [place] [address] Nader, Ngoc, OD 230 [place] [address] 04/06/2025 2:30 PM EDT Medication Management [facility] 230 [place] [address] PuiaEmilee, PharmD [address] [place] [address] documented as of this encounter Goals Goal Patient Goal Type Associated Problems Recent Progress Patient-Stated? Author Patient will adhere to medication regimen General No PuiaEmilee, PharmD Hemoglobin A1c < 8 Result Component [...] documented as of this encounter Care Teams Cap Cutter Relationship Specialty Start Date End Date Cecile Galindo DO 230 [place], [place] [phone] PCP - General Family Medicine 01/01/14 Emilee Casillas PharmD 230 [place] [address] Pharmacist Internal Medicine 03/26/23 [facility] 08/23/17 documented as of this encounter
--- OUTSIDE RECORDS SUMMARY | 2025-03-09 09:24 | XMS_ITS | Encounter Summary ---
Author Organization [employer] Address 75 [facility] 7t [place] [address] Care Team Providers Care Kettle Operator Name Role Phone Cecile Galindo DO Primary Care Provider [phone] Emilee Casillas PharmD Unavailable Reason for Visit * Reason Comments Med Refill Encounter Details Date Type Department Care Team (Late st Contact Info) Description 05/12/2024 Refill [facility] 230 [place] [address] Cecile Galindo DO 230 [place], [place] [phone] Depression, unspecified depression type Social History Tobacco [...] Description 04/01/2025 1:00 PM EDT Office Visit [facility] [address] [place] [address] Nader, Ngoc, OD 230 [place] [address] 04/06/2025 2:30 PM EDT Medication Management [facility] [address] [place] [address] AnastaciaiaEmilee, PharmD 230 [place] [address] documented as of this encounter Goals Goal [...] documented as of this encounter Care Teams Kettle Operator Relationship Specialty Start Date End Date Cecile Galindo DO 230 [place] [address] PCP - General Family Medicine 01/01/14 Emilee Casillas PharmD 230 [place] [address] Pharmacist Internal Medicine 03/26/23 [facility] 08/23/17 documented as of this encounter
--- OUTSIDE RECORDS SUMMARY | 2025-03-09 09:24 | XMS_ITS | Encounter Summary ---
Author Organization [employer] Address 75 [facility] 7t [place] [address] Care Team Providers Care Granite Sandblaster Apprentice Name Role Phone Cecile Galindo DO Primary Care Provider + [phone] Emilee Casillas PharmD Unavailable [phone] Reason for Visit * Reason Onset Date Comments Letter Request 03/08/2025 I called [facility] ng the patient's request for a letter for housing. Perla, the patient's daughter and emergency contact, stated that the patient is requesting an apartment on the first floor, or one with access to an elevator. She stated that she currently lives on a 5th floor, and has difficulty negotiating stairs, due to serious health conditions. Encounter Details Date Type Department Care Team ([facility] st Contact Info) Description 03/08/2025 Telephone [facility] 230 [place], [place] [phone] Cecile Galindo DO 230 [place], [place] [phone] Letter Request (I called regarding the patient's request for a letter for housing. Perla, the patient's daughter and emergency contact, stated that the patient is requesting an apartment on the first floor, or one with access to an elevator. She stated that she currently lives on a 5th floor, and has difficulty negotiating stairs, due to serious health conditions.) Social History Tobacco Use Types Packs/Day Years [...] encounter Miscellaneous Notes * Telephone Encounter - Shanell Hatfield [place] - 03/08/2025 3:03 PM EDT I called regarding the patient's request for a letter for housing. Perla, the patient's daughter and emergency contact, stated that the patient is requesting an apartment on the first floor, or one with access to an elevator. She stated that she currently lives on a 5th floor, and has difficulty negotiating stairs, due to serious health conditions. documented in this encounter Plan of Treatment Upcoming Encounters Date Type Department Care Team (Late st Contact Info) Description 04/01/2025 1:00 PM EDT Office Visit [facility] [address] [place] [address] Nader, Ngoc, OD 230 [place] [address] 04/06/2025 2:30 PM EDT Medication Management [facility] 230 [place] [address] PuiaEmilee, PharmD 230 [place] [address] documented as of this encounter Goals Goal Patient Goal Type Associated Problems Recent Progress Patient-Stated? Author Patient will adhere to medication regimen General No PuiaNatachasa, PharmD Hemoglobin A1c < 8 Result Component 8.3( 3:38 PM EDT) No Hamilton Goyal, PharmD Record your blood sugar as directed Result Component No Puia Emilee, PharmD documented as of this encounter Visit Diagnoses Not on filedocumented in this encounter Additional Health Concerns Assessment Noted Time PHQ-9 Depression Total Score: 0 11/28/19 25 11:18 AM EDT documented as of this encounter Care Teams Granite Sandblaster Apprentice Relationship Specialty Start Date End Date Cecile Galindo DO [address] [place] [address] PCP - General Family Medicine 01/01/14 Puia, Emilee, PharmD 230 [place] [address] Pharmacist Internal Medicine 03/26/23 [facility] 08/23/17 documented as of this encounter
--- OUTSIDE RECORDS SUMMARY | 2025-03-09 09:24 | XMS_ITS | Encounter Summary ---
Author Organization [employer] Address 75 [facility] 7t [place] [address] Care Team Providers Care Senior Oracle Developer Name Role Phone Cecile Galindo DO Primary Care Provider + [phone] Emilee Casillas PharmD Unavailable [phone] Reason for Visit * Reason Comments Med Refill Encounter Details Date Type Department Care Team (Late st Contact Info) Description 07/13/2023 Refill [facility] [address] [place] [address] Cecile Galindo DO 230 [place], [place] [phone] Social History Tobacco Use Types Packs/Day Years [...] 1:00 PM EDT Office Visit [facility] [address] [place] [address] Nader, Ngoc, OD 230 [place] [address] 04/06/2025 2:30 PM EDT Medication Management [facility] [address] [place] [address] Puia, Emilee, PharmD 230 [place] [address] documented as of this encounter Goals Goal Patient Goal Type Associated Problems Recent Progress Patient-Stated? Author Patient will adhere to medication regimen General No Puia, Emilee, PharmD Hemoglobin A1c < 8 Result Component 8.3( 3:38 PM EDT) No DellogonoHamilton, PharmD Record your blood sugar as directed Result Component No Puia, Emilee, PharmD documented as of this encounter Visit Diagnoses Not on filedocumented in this encounter Care Teams Senior Oracle Developer Relationship Specialty Start Date End Date Cecile Galindo DO [address] [place] [address] PCP - General Family Medicine 01/01/14 Puia, Emilee, PharmD [address] [place] [address] Pharmacist Internal Medicine 03/26/23 [facility] 08/23/17 documented as of this encounter
--- OUTSIDE RECORDS SUMMARY | 2025-03-09 09:24 | XMS_ITS | Clinical Summary ---
Author Organization [facility]. Address [address] [address] Phone Care Team Providers Care Wire Stripping Machine Operator Name Role Phone Unavailable Primary Care [...] Visit [facility] [address] [place] [address] Aristides Huizar MD [address] [facility] [address] [place] [phone] Health Maintenance Due Date Last Done Comments Diabetes: Ophthalmology Exam 07/17/2020 Diabetes: Pedal Pulse Checked 07/17/2020 Diabetes: Sensory Foot Exam 07/17/2020 Diabetes: Visual Foot Exam 07/17/2020 Influenza Vaccine (#1) 2025 7, 05/04/2015, 05/12/2013, Additional history exists Diabetes: Hemoglobin A1C 05/25/2025 025, 11/26/2024, 09/23/2024, Additional history exists Pneumococcal Vaccine: 50+ Years Completed 08/15/2016, 05/04/2015, 04/17/2001 Pneumococcal Vaccine: Peds (0 to 5 Years) and At-Risk Patients (6 to 49 Years) Discontinued 08/15/2016, 05/04/2015, 04/17/2001 Hepatitis B Vaccine Aged Out 11/15/2016, 11/24/2015, 08/04/2015 No longer eligible based on patient's age to complete this topic Insurance MCR ([id number]) [place] [address] ([id number])
--- OUTSIDE RECORDS SUMMARY | 2025-03-09 09:24 | XMS_ITS | Encounter Summary ---
Author Organization [employer] Address [address] [place] [address] 7t [place] [address] Care Team Providers Care Historical Archeologist Name Role Phone Cecile Galindo DO Primary Care Provider Emilee Casillas PharmD Unavailable Reason for Visit * Reason Comments Med Refill Encounter Details Date Type Department Care Team (Late Contact Info) Description 04/01/2023 Refill [facility] [address] [place] [address] Cecile Galindo DO 230 [place] [address] Social History Tobacco Use Types Packs/Day Years [...] Description 04/01/2025 1:00 PM EDT Office Visit [facility] [address] [place] [address] Ngoc Doe, OD 230 [place] [address] 04/06/2025 2:30 PM EDT Medication Management [facility] [address] [place] [address] Emilee Casillas PharmD [address] [place] [address] documented as of this encounter Goals Goal [...] on filedocumented in this encounter Care Teams Historical Archeologist Relationship Specialty Start Date End Date Cecile Galindo DO 230 [place], [place] [phone] PCP - General Family Medicine 01/01/14 Emilee Casillas PharmD [address] [place] [phone] Pharmacist Internal Medicine 03/26/23 [facility] 08/23/17 documented as of this encounter
--- OUTSIDE RECORDS SUMMARY | 2025-03-09 09:24 | XMS_ITS | Clinical Summary ---
Author Organization [employer] Address [address] [facility] 7[address] [place] [address] Care Team Providers Care Running Rigger Name Role Phone Mateo Cecile Primary Care Provider [phone] Emilee Casillas PharmD Unavailable [phone] Allergies Active Allergy Reactions Criticality Noted [...] DAY 90 tablet 3 06/15/20 24 Active docusate sodium (Colace) 100 MG capsuleIndicati [...] (one) time per week. 2 mL 11 02/24/20 25 Active Calcium Carb-Cholecalci ferol (Calcium + Vitamin D3) 600-5 MG-MCG tablet Take 1 tablet by mouth 2 times daily. 180 tablet 1 03/03/20 25 Active carvedilol (Coreg) 3.125 MG tablet [...] 24 2024 Discontinued(S top taking at discharge) Calcium Carb-Cholecalci ferol (Calcium + Vitamin D3) 600-5 MG-MCG tablet Take 1 tablet by mouth 2 times daily. 180 tablet 1 07/31/192024 Discontinued Tirzepatide (Mounjaro) 7.5 MG/0.5ML solution auto-injectorIn dications:Type 2 diabetes mellitus with stage 3 chronic kidney disease, without long-term current use of insulin, unspecified whether stage 3a or 3b CKD (CMS/HCC) Inject 7.5 mg under the skin 1 (one) time per week. 2 mL 09/24/192024 Discontinued(D ose adjustment) Active Problems Problem Noted [...] crestror,ASA,eliquis,entresto BB,zetia-refilled today AC -I called her nutrition faculty member -Dr Vargas and left voice mail requesting a call back as well to call pt w new events pt needs to be seen sooner , will need to be consider for Holter test to r/o arrhythmia ,also advised pt to call nutrition faculty member to reschedule sooner apt -F w settlement technician has apt 01/25/2025 ,[facility] 02/23/2025 for DM2 [...] this time but encouraged to see her nutrition faculty member -to f w PCP in next 6 [...] (10/07/2023 1:51 PM EDT): -knee XR with [id number] degenerative arthritis NOV 2018 -cont tylenol and tramadol for pain control -f/u with ortho prn Chronic kidney disease, stage 4 (severe) 023 Assessment & Plan (03/05/2025 3:36 PM EDT): It was advised to avoid nephrotoxic medications like NSAIDs Patient has a an appointment with nephrology also on May 2025 advised not to miss appointment Assessment & Plan (10/07/2023 1:50 PM EDT): [...] DEC 2023 Chronic systolic heart failure 05/22/2022 Assessment & Plan (03/05/2025 3:34 PM EDT): Continue to take medications as prescribed Follow-up with cardiology she has an appointment in May 2025, I advised not to miss this appointment Alopecia 05/04/2015 Essential hypertension 05/04/2015 Assessment & Plan (03/05/2025 3:35 PM EDT): Continue same medication as prescribed, I advised low-sodium diet Assessment & Plan (10/07/2023 1:48 PM EDT): [...] 2 diabetes mellitus 05/04/2015 Assessment & Plan (03/05/2025 3:35 PM EDT): Lab Results Component Value Date HGBA1C 8.3 (A) 02/23/2025 HGBA1C 8.4 (H) 11/26/2024 HGBA1C 9.6 (A) 09/23/2024 - Lab Results Component Value Date MICROALBUR 38.0 11/26/2024 CREATININE 1.80 (H) 03/02/2025 -Changes: None - Continue current medications Follow-up with PCP Assessment & Plan (10/07/2023 1:49 PM EDT): A1c continues to increase -continue trulicity weekly -continue jardiance daily -continue low dose glipizide BID with meals -she declines insulin initiation -will d/w CDTM pharmacist re: med changes -follow up with [facility] pharmacist as scheduled -cont regular BS monitoring -encouraged dietary changes and avoid late night snacking -s/p optho eval FEB 2023 at [facility] for annual exam -nml monofilament exam NOV 2016, repeat next visit* Resolved Problems Problem Noted Date Diagnosed Date Resolved Date Dizziness 11/13/2017 12/31/2022 Chronic kidney disease, stage III (moderate) 5 12/31/2022 Encounters Date Type Department Care Team Description 03/08/2025 Telephone [facility] MEDICINE [address] [place] [address] Cecile Galindo DO Letter Request (I called regarding the patient's request for a letter for housing. Perla, the patient's daughter and emergency contact, stated that the patient is requesting an apartment on the first floor, or one with access to an elevator. She stated that she currently lives on a 5th floor, and has difficulty negotiating stairs, due to serious health conditions.) 03/04/2025 2:00 PM EDT Office Visit [facility]INE [address] [place] [phone] Veronique Good MD Type 2 diabetes mellitus with stage 3 chronic kidney disease, without long-term current use of insulin, unspecified whether stage 3a or 3b CKD (CMS/HCC) (Primary Dx); Chronic systolic heart failure (CMS/HCC); Essential hypertension; Chronic kidney disease, stage 4 (severe) (CMS/HCC) 03/04/2025 Travel 03/04/2025 Telephone [facility] MEDICINE [address] [place] [address] Cecile Galindo DO Chart Prep 03/02/2025 Results Follow-Up [facility] [address] [place] [address] Veronique Garaz MD CBC auto differential, Iron And Total Iron Binding Capacity, Ferritin 03/01/2025 Refill [facility] [place] [address] Cecile Galindo, 02/23/2025 Travel 02/12/2025 Telephone [facility] [place] [address] Cecile Galindo DO Appointment Request 02/04/2025 Telephone [facility] [place] [address] Emilee Casillas PharmD 01/27/2025 Patient Outreach [facility] [place] [address] Cecile Galindo DO Transition Of Care (Tcm) (HDF-scheduled) 01/27/2025 Telephone [facility] [place] [address] Emilee Casillas PharmD 01/09/2025 Orders Only [facility] External Provider, [facility] 01/05/2025 1:45 PM EDT Office Visit [facility] [place] [address] Veronique Garza MD Chronic anticoagulation (Primary Dx); Chronic systolic heart failure (CMS/HCC); Essential hypertension; Ischemic cardiomyopathy; Ischemic stroke (CMS/HCC); Hospital discharge follow-up 01/05/2025 Telephone [facility] [place] [address] Cecile Galindo DO Appointment Request 01/05/2025 Travel 01/04/2025 Telephone [facility] [place] [address] Veronique Garza MD chart prep 12/29/2024 Patient Outreach [facility] [place] [address] Cecile Galindo DO Transition Of Care (Tcm) (HDF unscheduled ) 12/29/2024 Telephone [facility] [place] [address] Emilee Casillas PharmD 12/22/2024 Telephone [facility] MED[facility]INE [address] [place] [address] Emilee Casillas, PharmD 12/22/2024 Travel from Last [...] Mass Index 30.31 03/04/2025 2:12 PM EDT Plan of Treatment Upcoming Encounters Date Type Department Care Team (Late st Contact Info) Description 04/01/2025 1:00 PM EDT Office Visit [facility] OPTOMETRY [address] [place] [address] Nader, Ngoc, OD [address] [place] [address] 04/06/2025 2:30 PM EDT Medication Management [facility] [address] [place] [address] Emilee Casillas, PharmD [address] [place] [address] Health Maintenance Due Date Last Done Comments Diabetes: Foot Exam 1950 Zoster Vaccines (2 of 3) 01/19/2016 11/24/2015 RSV Patients and Patients Aged 60 years or older (1 - 1-dose 75+ series) 2017 COVID-19 Vaccine ( - 2023- season) 2025 Influenza Vaccine (#1) 2025 7, 05/04/2015, 05/12/2013, Additional history exists Diabetes: Hemoglobin A1C 05/25/2025 025, 11/26/2024, 09/23/2024, Additional history exists Alcohol/Substance Use Screening 11/27/2025 11/27/2024 Depression Screening 11/27/2025 11/27/2024, 11/28/19 25 SDOH Screening 01/05/2026 01/05/2025 Lipid Panel 03/02/2026 03/02/2025, 11/15, 05/21/2023, Additional history exists Tobacco Screening 03/04/2026 03/04/2025 Eye Exam 03/09/2026 03/09/2024, 02/16, 03/09/2024, Additional [...] Procedure Name Priority Date/Time Associated Diagnosis Comments FERRITIN Routine 03/02/2025 10:33 AM EDT Chronic anticoagulation IRON AND TOTAL IRON BINDING CAPACITY Routine 03/02/2025 10:33 AM EDT Chronic anticoagulation LIPID PANEL, STANDARD Routine 03/02/2025 10:33 AM EDT Ischemic stroke (CMS/HCC) COMPREHENSIVE METABOLIC PANEL Routine 03/02/2025 10:33 AM EDT Chronic anticoagulation CBC WITH AUTO DIFFERENTIAL Routine 03/02/2025 10:33 [...] 1 VIEW Routine 01/09/2025 4:45 AM EDT from Last 3 Months Results * (ABNORMAL) CBC auto differential (03/02/2025 10:33 AM EDT) White Blood Count 10.3 4.8 - 10.8 X10*3/uL [facility] Red Blood Count 3.94(L) 4.20 - 5.50 X10*6/uL [facility] Hemoglobin 11.2(L) 12.0 - 16.0 g/dl [facility] Hematocrit 35.3(L) 37.0 - 47.0 % [facility] Mean Corpuscular Volume 89.6 80.0 - 98.0 fL [facility] Mean Corpuscular Hemoglobin 28.4 27.0 - 33.0 pg [facility] Mean Corpuscular HGB Conc 31.7 31.0 - 35.0 g/dl [facility] Red Cell Distribution Width 13.1 11.0 - 16.0 % [facility] Platelet Count 273 160 - 400 X10*3/uL [facility] Mean Platelet Volume 11.2 9.4 - 12.3 fL [facility] Neutrophils Percent Auto 70.5 45 - 73 % [facility] Imm Gran Pct Auto 0.4 0.0 - 0.4 % [facility] Lymphocytes Percent Auto 21.4 20 - 40 % [facility] Monocytes Percent Auto 5.4 2 - 11 % [facility] Eosinophils Percent Auto 1.8 0 - 4 % [facility] Basophils Percent Auto 0.5 0 - 2 % [facility] NRBC Pct Auto 0.0 0.0 - 0.2 /100WBC [facility] Neutrophils Absolute Auto 7.3 2.0 - 8.3 x10*3/uL [facility] Imm Gran Abs Auto 0.04(H) 0.00 - 0.03 X10*3/uL [facility] Lymphocytes Absolute Auto 2.2 1.2 - 4.9 X10*3/uL [facility] Monocytes Absolute Auto 0.6 0.1 - 1.2 X10*3/uL [facility] Eosinophils Absolute Auto 0.2 0.0 - 0.4 X10*3/uL [facility] Basophils Absolute Auto 0.1 0.0 - 0.2 X10*3/uL [facility] NRBC Abs Auto 0.000 0.0 - 0.012 X10*3/uL [facility] Blood Venous blood specimen / Unknown 03/02/2025 10:33 AM EDT 03/02/2025 11:14 AM EDT us Veronique Porter MD LAB BLOOD ORDERAB LES Final Result Performing Organization Address [facility]/ZIP Co de Phone Number [facility] [address] [place] [phone] * Iron And Total Iron Binding Capacity (03/02/2025 10:33 AM EDT) Iron 78 30 - 160 mcg/dL [facility] Total Iron Binding Capacity 258 228 - 428 mcg/dL [facility] Percent Iron Saturation 30 15 - 50 % [facility] Unsaturated Iron Binding 180 ug/dL [facility] Blood Venous blood specimen / Unknown 03/02/2025 10:33 AM EDT 03/02/2025 1:20 PM EDT Veronique Porter MD LAB BLOOD ORDERAB LES Final Result Performing Organization Address [facility]/ZIP Co de Phone Number [facility] [address] [place] [phone] * Ferritin (03/02/2025 10:33 AM EDT) Ferritin 97 10 - 250 ng/mL [facility] Blood Venous blood specimen / Unknown 03/02/2025 10:33 AM EDT 03/02/2025 1:20 PM EDT Veronique Porter MD LAB BLOOD ORDERAB LES Final Result Performing Organization Address City/[facility]/ZIP Co de Phone Number [facility] [address] [place] [phone] * (ABNORMAL) Lipid Panel, Standard (03/02/2025 10:33 AM EDT) Triglycerides 149 <150 mg/dL [facility] Comment:Desirable Triglyceri de: less than 150 mg/dLBorderline High Triglyceride 150-199 mg/dLHigh Triglyceride: 200-499 mg/dLVery High Triglyceride: greater than or equal to 5OO mg/dL Cholesterol 204(H) <200 mg/dL [facility] Comment:Desirable Cholestero l: less than 200 mg/dLBorderline High Cholesterol: 200-239 mg/dLHigh Cholesterol: greater than 239 mg/dL LDL Cholesterol Calculated 140(H) <100 mg/dL [facility] Comment:Desirable LDL: less than 100 mg/dLNear Optimal/Above Optimal LDL: 110- 129 mg/dLBorderline High LDL: 130-159 mg/dLHigh LDL: 160-189 mg/dLVery High LDL: greater than or equal to 190 mg/dL HDL Cholesterol 35(L) >40 mg/dL [facility] Comment:Desirable HDL: great er than 40 mg/dL Note: This HDL assay may give artificially low results in patients with liver disease. Blood Venous blood specimen / Unknown 03/02/2025 10:33 AM EDT 03/02/2025 1:20 PM EDT Veronique Porter MD LAB BLOOD ORDERAB LES Final Result [facility] [address] [place], [place] [phone] * (ABNORMAL) Comprehensive Metabolic Panel (03/02/2025 10:33 AM EDT) Sodium 139 135 - 145 mmol/L [facility] Potassium 4.9 3.3 - 5.1 mmol/L [facility] Chloride 107 96 - 108 mmol/L [facility] Carbon Dioxide 25 22 - 29 mmol/L [facility] Anion Gap 12 12 - 20 [facility] Urea Nitrogen (BUN) 32(H) 9 - 16 mg/dL [facility] Creatinine, Serum 1.80(H) 0.5 - 1.4 mg/dL [facility] Estimated Glomerular Filt Rate 27 [facility] Comment:Chronic Kidney Disea se: Estimated GFR < 60 mL/min/1.53p7Nkzhfd Kidney Disease: Estimated GFR < 15 mL/min/1.73m2 Glucose 235(H) 60 - 115 mg/dL [facility] Calcium 9.3 8.4 - 10.2 mg/dL [facility] Bilirubin, Total 0.5 0.0 - 1.0 mg/dL [facility] Aspartate Amino Transferase 19 5 - 31 U/L [facility] Alanine Aminotransferase 13 0 - 31 U/L [facility] Total Protein 7.4 6.5 - 8.0 g/dL [facility] Albumin Level 3.9 3.5 - 5.0 g/dL [facility] Alkaline Phosphatase 79 39 - 117 U/L [facility] Blood Venous blood specimen / Unknown 03/02/2025 10:33 AM EDT 03/02/2025 1:20 PM EDT us Veronique Porter MD LAB BLOOD ORDERAB LES Final Result [facility] [address] [place] [phone] * (ABNORMAL) POCT Hgb A1c (02/23/2025 3:38 PM EDT) Hemoglobin A1C 8.3(A) 4.0 - 5.7 % Blood 02/23/2025 3:38 PM EDT us Cecile Galindo DO POINT OF CARE TEST ENTER/STEFFI T ORDERABLES Final Result * CT Chest w/o Contrast (01/09/2025 6:13 AM EDT) Anatomical Region Laterality Modality Body, Chest Computed Tomogra phy 01/09/2025 6:13 AM EDT Narrative 01/09/2025 6:15 AM EDT [address] [address] [address] Scan Report Signed with Addenda Patient: Veronique Westfall MR#: [id number] : 1940 Acct:[id number] Age/Sex: 84 / F ADM Date: 01/09/25 Loc: .ICU 252-[address]: Jimy Guzman MD Ordering Physician: Harry Phillip NP Date of Service: 01/09/25 Procedure(s): CT chest wo IV con Accession Number(s): [id number] cc: Harry Phillip HIGH SCHOOL PHYSICAL EDUCATION TEACHER; Cecile Galindo DO Report Number: [id number]: Total DLP = 386.00 mGy-cm ADDENDUM This [...] HISTORY: Hypoxia CT chest without contrast Comparison: CR/KS - XR CHEST 1V - 01/09/25 03:37 [...] in OV> 01/09/25613 DD/ 2 TD/TT: 01/09/25612 Clinical Science Liaison: Procedure Note Donotuseinterpreter, Image - 01/09/[address] [address] [address] Scan Report Signed with Addenda Patient: Veronique Westfall AMR#: [id number] : 1940cct:[id number] Age/Sex: 84 / FADM Date: 01/09/25 Loc: .ICU 252-[address]: Jimy Guzman MD Ordering Physician: Harry Phillip NP Date of Service: 01/09/25 Procedure(s): CT chest wo IV con Accession Number(s): [id number] cc: Harry Phillip HIGH SCHOOL PHYSICAL EDUCATION TEACHER; Cecile Galindo DO Report Number: [id number]: Total DLP = 386.00 mGy-cm ADDENDUM This [...] HISTORY: Hypoxia CT chest without contrast Comparison: CR/KS - XR CHEST 1V - 01/09/25 03:37 [...] in OV> 01/09/25613 DD/ 2 TD/TT: 01/09/25612 Clinical Science Liaison: [facility] External Provider IMG CT PROCEDURES Edited Result - Final * XR Chest 1 View (01/09/2025 5:18 AM EDT) Only the most recent of2 resultswithin the time period is included. Anatomical Region Laterality Modality Chest Radiographic Janet ging 01/09/2025 5:18 AM EDT Narrative 01/09/2025 5:20 AM EDT [address] [address] XRay Report Signed Patient: Veronique Westfall MR#: [id number] : 1940 Acct:[id number] Age/Sex: 84 / F ADM Date: 01/09/25 Loc: .ICU 252-[address]: Jimy Guzman MD Ordering Physician: Adrián Kelley MD Date of Service: 01/09/25 Procedure(s): XR chest 1V Accession Number(s): [id number] cc: Adrián Kelley MD; Cecile Galindo DO [...] in OV> 01/09/25518 DD/ 7 TD/TT: 01/09/25517 Clinical Science Liaison: Procedure Note Donotuseinterpreter, Image - 01/09/[address] [address] XRay Report Signed Patient: Veronique Westfall AMR#: [id number] : 2Acct:[id number] Age/Sex: 84 / FADM Date: 01/09/25 Loc: .ICU 252-[address]: Jimy Guzman MD Ordering Physician: Adrián Kelley MD Date of Service: 01/09/25 Procedure(s): XR chest 1V Accession Number(s): [id number] cc: Adrián Kelley MD; Cecile Galindo DO [...] in OV> 01/09/25518 DD/ 7 TD/TT: 01/09/25517 Clinical Science Liaison: [facility] External Provider IMG XR PROCEDURES Final Result * CT Head w/o Contrast (01/09/2025 5:02 AM EDT) Anatomical Region Laterality Modality Head, Neck Computed Tomogra phy 01/09/2025 5:02 AM EDT Narrative 01/09/2025 5:04 AM EDT [address] [address] [address] Scan Report Signed Patient: Veronique Westfall MR#: [id number] : 1940 Acct:[id number] Age/Sex: 84 / F ADM Date: 01/09/25 Loc: HO.ICU 252-[address]: Harry Phillip HIGH SCHO[employer] PHYSICAL EDUCATION TEACHER Ordering Physician: Adrián Kelley MD Date of Service: 01/09/25 Procedure(s): CT head/brain wo IV con Accession Number(s): [id number] cc: Adrián Kelley MD; Cecile Galindo DO Report Number: [id number]: Total DLP = 599.00 mGy-cm CLINICAL HISTORY: [...] 01/09/25 0503 DD/ 0502 TD/TT: 01/09/25 0502 Clinical Science Liaison: Procedure Note Donotuseinterpreter, Image - 01/09/[address] [address] [address] Scan Report Signed Patient: Veronique Westfall AMR#: [id number] : 1940cct:[id number] Age/Sex: 84 / FADM Date: 01/09/25 Loc: HO.ICU 252-[address]: Harry Phillip HIGH SCHOOL PHYSICAL EDUCATION TEACHER Ordering Physician: Adrián Kelley MD Date of Service: 01/09/25 Procedure(s): CT head/brain wo IV con Accession Number(s): [id number] cc: Adrián Kelley MD; Cecile Galindo DO Report Number: [id number]: Total DLP = 599.00 mGy-cm CLINICAL HISTORY: [...] 01/09/25 0503 DD/ 0502 TD/TT: 01/09/25 0502 Clinical Science Liaison: [facility] External Provider IMG CT PROCEDURES Final Result from Last 3 Months Insurance [id number] (HMO D-SNP) Care Teams Running Rigger Relationship Specialty Start Date End Date Cecile Galindo DO [address] [place] [address] PCP - General Family Medicine 01/01/14 Emilee Casillas PharmD [address] [place] [address] Pharmacist Internal Medicine 03/26/23 [facility] 08/23/17
--- OUTSIDE RECORDS SUMMARY | 2025-03-09 09:24 | XMS_ITS | Encounter Summary ---
Author Organization [employer] Address [address] [place] [address] [address] [place] [address] Care Team Providers Care Rotary Driller Name Role Phone Mateo Cecile Primary Care Provider [phone] Dellogmissy Hamilton PharmD Unavailable Unavail able Puzoie Emilee PharmD Unavailable Reason for Visit * Reason Onset Date Comments Med Refill [facility] order 09/03/2022 Int erim order 09/03/22 Encounter Details Date Type Department Care Team (Late st Contact Info) Description 09/03/2022 Refill [facility] [address] [place] [address] Radha Lieberman MD [address] [place], [place] [phone] Primary insomnia Social History Tobacco Use Types [...] 1:00 PM EDT Office Visit [facility] [address] [place] [address] Nader, Ngoc, OD [address] [place] [address] 04/06/2025 2:30 PM EDT Medication Management [facility] [address] [place] [address] Emilee Casillas PharmD [address] [place] [address] documented as of this encounter Goals Goal Patient Goal Type Associated Problems Recent Progress Patient-Stated? Author Hemoglobin A1c < 8 Result Component 8.3(02/23/2025 3:38 PM EDT) No Hamilton Goyal, PharmD documented as of this encounter Visit Diagnoses Diagnosis Primary insomnia Persistent disorder of initiating or maintaining sleep documented in this encounter Care Teams Rotary Driller Relationship Specialty Start Date End Date Cecile Galindo DO [address] [place] [phone] PCP - General Family Medicine 01/01/14 Hamilton Goyal, PharmD [address] [place] [address] Pharmacist Internal Medicine 05/25/22 03/25/23 Emilee Casillas PharmD [address] [place] [phone] Pharmacist Internal Medicine 03/26/23 [facility] 08/23/17 documented as of this encounter
--- OUTSIDE RECORDS SUMMARY | 2025-03-09 09:24 | XMS_ITS | Encounter Summary ---
Author Organization [employer] Address [address] [facility] [address] [place] [address] Care Team Providers Care Flame Cutting Machine Operator Helper Name Role Phone Cecile Galnido DO Primary Care Provider [phone] Dellogmissy Hamilton PharmD Unavailable Unavail able Puzoie Emilee PharmD Unavailable [phone] Reason for Visit * Reason Comments Med Refill Encounter Details Date Type Department Care Team (Late Contact Info) Description 08/08/2022 Refill [facility] [address] [place] [address] Cecile Galindo DO [address] [place] [address] Seasonal allergic rhinitis, unspecified trigger Social History [...] Description 04/01/2025 1:00 PM EDT Office Visit [facility] [address] [place] [address] Ngoc Doe, OD [address] [place] [address] 04/06/2025 2:30 PM EDT Medication Management [facility] [address] [place] [address] Emilee Casillas PharmD [address] [place] [address] documented as of this encounter Goals Goal Patient Goal Type Associated Problems Recent Progress Patient-Stated? Author Hemoglobin A1c < 8 Result Component 8.3(02/23/2025 3:38 PM EDT) No Hamilton Goyal, Cesar documented as of this encounter Visit Diagnoses Diagnosis Seasonal allergic rhinitis, unspecified trigger documented in this encounter Care Teams Flame Cutting Machine Operator Helper Relationship Specialty Start Date End Date Cecile Galindo DO [address] [place] [phone] PCP - General Family Medicine 01/01/14 Hamilton Goyal, PharmD [address] [place] [phone] Pharmacist Internal Medicine 05/25/22 03/25/23 Emilee Casillas PharmD [address] [place] [address] Pharmacist Internal Medicine 03/26/23 [facility] 08/23/17 documented as of this encounter
== END 2025-03-09 08:27 | disposition home or self-care (01) ==
LOC: HO.US 08:26
PROVIDERS: PCP Family Medicine; Visit Provider Internal Medicine Cardiovascular Disease
DX: I13.0 Hypertensive heart and chronic kidney disease with heart failure and stage 1 through stage 4 chronic kidney disease, or unspecified chronic kidney disease (principal); N18.30 Chronic kidney disease, stage 3 unspecified; I50.1 Left ventricular failure, unspecified
CPT/HCPCS: 76775; 93975

== ENCOUNTER → 2025-03-09 08:29 | Outpatient (BNV) | payer OTHER, SELFPAY ==
[2022-11-29 12:51] VITALS: BP 118/58; BP 118/64
[2022-12-24 12:41] VITALS: BMI 29.1
[2023-04-08 14:16] VITALS: BP 110/60
== END ==
PROVIDERS: PCP Family Medicine; Visit Provider Radiology Diagnostic Radiology
DX: I10 Essential (primary) hypertension (principal)
CPT/HCPCS: 93975

== ENCOUNTER 2025-06-03 13:34 | Outpatient (AMB) | payer OTHER, SELFPAY ==
[2022-11-29 12:51] VITALS: BP 118/58; BP 118/64
[2022-12-24 12:41] VITALS: BMI 29.1
[2023-04-08 14:16] VITALS: BP 110/60
[2025-06-03 13:44] VITALS: BP 120/74; PULSE 93; BMI 28.3
--- NOTE | 2025-06-03 13:44 | A.OFFVIS_ITS ---
Vital Signs 06/03/25 13:44 Height 5 ft 1 in Weight 149 lb 14.629 oz BMI 28.3 BP 120/74 Blood Pressure Location Lt brachial Position Sitting Pulse 93 Intake Visit Reasons: 6m follow up Intake Note: 6 month follow-up feeling good Nail Maker Required: Yes Nail Maker Services: Nail Maker Present Nail Maker Name: Tin carter Medical Receptionist Medical Assistant: Medical Receptionist Medical Assistant Present Accompanied by: Daughter Allergies procaine (From NOVOCAIN) Allergy (Severe, Verified 01/28/25 14:39) SWELLING LOCALIZED TO INJECTION SITE alirocumab (From Praluent Pen) Allergy (Mild, Verified 01/28/25 14:39) Itching Aspirin Allergy (Unknown, Uncoded 01/28/25 14:39) rash full strength Aspirin Allergy (Unknown, Uncoded 01/28/25 14:39) rash Medication List - Last Reconciled 06/03/25 by Blade Vargas MD acetaminophen 650 mg PO Q8H PRN apixaban (Eliquis) 2.5 mg PO BID baclofen 10 mg PO BID PRN calcium carbonate-vitamin D3 600 mg-5 mcg (200 unit) 1 tab PO BID docusate sodium 100 mg PO BID empagliflozin (Jardiance) 10 mg PO DAILY evolocumab (Repatha SureClick) 140 mg subcut Q2W fluticasone propionate 50 mcg/actuation (Flonase Allergy Relief) 1 spray intranasal DAILY PRN furosemide (Lasix) 20 mg PO DAILY 90 days glipizide 5 mg PO BID ketotifen fumarate 0.025%(0.035%) (Alaway) 1 drp ophthalmic (eye) BID PRN melatonin 5 mg PO BEDTIME PRN metoprolol tartrate 25 mg See Protocol PO BID nitroglycerin 0.4 mg sublingual Q5M PRN sacubitril-valsartan 49-51 mg 1 tab PO BID sertraline (Zoloft) 25 mg PO DAILY tirzepatide (Mounjaro) 12.5 mg subcut FR tramadol 50 mg PO DAILY PRN HPI Comments Details: Veronique comes for follow-up. Patient in his last him on says that no hospitalization. As per the daughter the blood pressures remained stable. She is overall doing well. History was obtained with help of food sanitarian. He does not monitor weight on a daily basis. However she says she is active and doing everything she wants to do right now. Denies any chest pain. She says whenever she measures her weight her weight is stable. She denies any palpitations, lightheadedness, syncope. [facility] Medical History CAD (coronary artery disease) Diabetes mellitus Embolic cerebral infarction Chronic kidney disease Anxiety High cholesterol Hypertension Active asthma Surgical History Stented coronary artery Social History Household Members: Unknown / Unable to assess Housing: Unknown / Unable to assess Do you presently have visiting nurse or other home services: No Comment: While patient's family is in the room the bed alarm is off Patient Tobacco Use Status: Tobacco use Unknown e-Cigarette/Vaping Use: Never Used service: No Current occupational status: retired and disabled Current occupation: rt hand Review of Systems Const Denies chills, Denies fatigue, Denies fever(s), Denies frequent falls, Denies weakness, Denies weight gain and Denies weight loss ENT Denies dizziness Card Denies chest pain, Denies leg edema, Denies lightheadedness, Denies palpitations, Denies dyspnea, Denies dyspnea on exertion, Denies orthopnea and Denies other (loss of consciousness) Resp Denies cough, Denies dyspnea and Denies dyspnea on exertion GI Denies hematochezia and Denies change in stool character Musc Denies abnormal gait, Denies muscle weakness, Denies numbness, Denies radiating pain into limb and Denies tingling Neuro Denies abnormal gait, Denies dizziness, Denies frequent falls, Denies numbness, Denies tingling and Denies weakness Endo Denies fatigue and Denies palpitations Physical Exam Vital Signs: Last Vital Signs Pulse 93 06/03/25 13:44 BP 120/74 06/03/25 13:44 BMI result Body Mass Index 28.3 Const General: cooperative, healthy appearing, comfortable and no acute distress Orientation/consciousness: patient oriented x3 Neck Neck: Yes normal visual inspection and Yes no JVD Resp Effort & Inspection: normal respiratory effort Auscultation: clear to auscultation bilaterally, no crackles, no rales, no rhonchi and no wheezes Cardio Jugular venous distension: no JVD Rate: regular rate Rhythm: regular rhythm Heart sounds: S1 normal heart sound present, S2 normal heart sound present, no gallops, no murmurs and no rubs Neuro General: patient oriented x3 Extrem General: Yes normal to inspection, No no pedal edema and No calf tenderness Psych Appearance: grossly normal Mental Status: mental status grossly normal Speech and movement: Normal speech and movement present Assessment & Plan Assessment & Plan (1) Chronic HFrEF (heart failure with reduced ejection fraction): Code(s): I50.22 - Chronic systolic (congestive) heart failure Category: Medical Plan: Heart failure with reduced ejection fraction this elderly woman with multiple recent hospitalization with pulmonary edema with no obvious etiology. That has no evidence of ischemia and that has no evidence of renal artery stenosis. Question noncompliance with medication although she claims that she has been taking all her medications. She has not been monitoring her weight on a daily basis. I explained with the help of food sanitarian the importance of daily weight monitoring to guide diuretic therapy prior to decompensation. She is currently appearing euvolemic and well compensated. Will check pro BNP and basic metabolic profile today. She has multiple comorbidities including advanced LV systolic dysfunction, renal insufficiency and advanced age makes her likelihood to have recurrent heart failure. Continue current neurohormonal modulation with metoprolol, Entresto, Jardiance as well as continue current diuretic dose. Additional diuretics as need be. Discussed goals of therapy and she understands. She has refused ICD therapy in the past. (2) CAD (coronary artery disease): Comment: Status post anterior STEMI, April 2022 with LAD stent Code(s): I25.10 - Atherosclerotic heart disease of [place] coronary artery without angina pectoris Category: Medical Plan: CAD with prior anterior STEMI. No recurrent ischemia. Currently on oral anticoagulation therapy and therefore would avoid antiplatelet therapy. Continue aggressive risk factor modification with currently on Repatha therapy. Target goal LDL less than 70 mg/dL. Target goal hemoglobin A1c less than 7%. Blood pressure is currently well optimized. Will follow up in the clinic in 3 months time, sooner PRN. Thank you for allowing me to partake in her care Orders: Orders Basic Metabolic Panel Today I50.22 - Chronic systolic (congestive) heart failure NT Pro B Type Natriuretic Pept Today I50.22 - Chronic systolic (congestive) heart failure Coding Level of Care Code Est Pt Level 4 (84896) Diagnoses Chronic HFrEF (heart failure with reduced ejection fraction) I50.22 CAD (coronary artery disease) I25.10
--- OUTSIDE RECORDS SUMMARY | 2025-06-03 17:42 | XMS_ITS | Encounter Summary ---
Author Organization [employer] Address [address] [facility] [address] [place] [address] Care Team Providers Care Art Class Model Name Role Phone Cecile Galindo DO Primary Care Provider [phone] Emilee Casillas PharmD Unavailable [phone] Reason for Visit * Reason Comments Med Refill Encounter Details Date Type Department Care Team (Late st Contact Info) Description 02/03/2024 Refill [facility] [address] [place] [address] Cecile Galindo DO [address] [place], [place] [phone] History of ST elevation myocardial infarction (STEMI) [...] Care Team (Late st Contact Info) Description 08/18/2025 2:30 PM EST Medication Management [facility] [address] [place] [address] Emilee Casillas, PharmD [address] [place] [address] documented as of this encounter Goals Goal Patient Goal Type Associated Problems Recent Progress Patient-Stated? Author Patient will adhere to medication regimen General No Emilee Casillas, PharmD Hemoglobin A1c < 8 Result Component 7.4( 5 3:00 PM EST) No Hamilton Goyal PharmD Record your blood sugar as directed Result Component No Emilee Casillas, PharmD documented as of this encounter Visit Diagnoses Diagnosis History of ST elevation myocardial infarction (STEMI) documented in this encounter Additional Health Concerns Assessment Noted Time PHQ-9 Depression Total Score: 2 01/09/20 24 11:26 AM EDT documented as of this encounter Care Teams Art Class Model Relationship Specialty Start Date End Date Cecile Galindo DO [address] [place] [address] PCP - General Family Medicine 01/01/14 PuiaAlyEmilee, PharmD [address] [place] [id number] Pharmacist Internal Medicine 03/26/23 [facility] 08/23/17 documented as of this encounter
--- OUTSIDE RECORDS SUMMARY | 2025-06-03 17:42 | XMS_ITS | Encounter Summary ---
Author Organization [employer] Address [address] [facility] [address] [place] [address] Care Team Providers Care Painter Mirror Name Role Phone Cecile Galindo DO Primary Care Provider [phone] Emilee Casillas PharmD Unavailable [phone] Reason for Visit * Reason Comments Med Refill Encounter Details Date Type Department Care Team (Late st Contact Info) Description 05/24/2023 Refill [facility] [address] [place] [address] Cecile Galindo DO [address] [place], [place] [phone] Primary insomnia Social History Tobacco Use Types [...] Description 08/18/2025 2:30 PM EST Medication Management [facility] [address] [place], [place] [phone] Emilee Casillas, PharmD [address] [place] [address] documented as of this encounter Goals Goal [...] sleep documented in this encounter Care Teams Painter Mirror Relationship Specialty Start Date End Date Cecile Galindo DO [address] [place] [address] [phone] PCP - General Family Medicine 01/01/14 PuiaNatachasa, PharmD [address] [place] [address] [phone] Pharmacist Internal Medicine 03/26/23 [facility] 08/23/17 documented as of this encounter
--- OUTSIDE RECORDS SUMMARY | 2025-06-03 17:42 | XMS_ITS | Encounter Summary ---
Author Organization [employer] Address [address] [facility] [address] [place] [address] Care Team Providers Care Customer Experience Strategist Name Role Phone Cecile Galindo DO Primary Care Provider [phone] Emilee Casillas PharmD Unavailable [phone] Reason for Visit * Reason Comments Med Refill Encounter Details Date Type Department Care Team (Late st Contact Info) Description 07/13/2023 Refill [facility] [address] [place] [address] Cecile Galindo DO [address] [place], [place] [phone] Social History Tobacco Use Types Packs/Day Years [...] Description 08/18/2025 2:30 PM EST Medication Management [facility] [address] [place] [address] Emilee Casillas, PharmD [address] [place] [address] documented as of this encounter Goals Goal [...] on filedocumented in this encounter Care Teams Customer Experience Strategist Relationship Specialty Start Date End Date Cecile Galindo DO [address] [place] [id number] PCP - General Family Medicine 01/01/14 PuiaAlyEmilee, PharmD [address] [place] [address] [phone] Pharmacist Internal Medicine 03/26/23 [facility] 08/23/17 documented as of this encounter
--- OUTSIDE RECORDS SUMMARY | 2025-06-03 17:42 | XMS_ITS | Encounter Summary ---
Author Organization [employer] Address [address] [place] [address] 7[address] [place] [address] Care Team Providers Care Fishing Accessories Maker Name Role Phone Cecile Galindo DO Primary Care Provider [phone] Dellogmissy Hamilton PharmD Unavailable Unavail able Puia Emilee PharmD Unavailable Encounter Details Date Type Department Care Team (Latest Contact Info) Description 10/24/2018 Abstract [facility] CONVERSIONS Dental, Provider, DDS Social History Tobacco [...] Description 08/18/2025 2:30 PM EST Medication Management [facility] [address] [place] [address] Puia, Emilee, PharmD [address] [place] [address] documented as of this encounter Visit Diagnoses Not on filedocumented in this encounter Care Teams Fishing Accessories Maker Relationship Specialty Start Date End Date Cecile Galindo DO [address] [place] [address] PCP - General Family Medicine 01/01/14 Hamilton Goyal, PharmD [address] [place] [address] Pharmacist Internal Medicine 05/25/22 03/25/23 Emilee Casillas, KarleeD [address] [place] [address] Pharmacist Internal Medicine 03/26/23 [facility] 08/23/17 documented as of this encounter
--- OUTSIDE RECORDS SUMMARY | 2025-06-03 17:42 | XMS_ITS | Clinical Summary ---
Author Organization [employer] Address [address] [facility] [address] [place] [address] Care Team Providers Care Roads Superintendent Name Role Phone Cecile Galindo DO Primary Care Provider [phone] Emilee Casillas PharmD Unavailable [phone] Allergies Active Allergy Reactions Criticality Noted [...] doses. 90 tablet 12 05/30/20 22 Active Blood Glucose Monitoring Suppl (FreeStyle Lite) w/Device kit Use to test blood sugar twice daily as directed 10/14/19 25 Active glucose blood (FREESTYLE LITE) test stripIndication s:Type 2 diabetes mellitus with stage 3 chronic kidney disease, without long-term current use of insulin, unspecified whether stage 3a or 3b CKD (HCC) Use to test blood sugar twice daily, as directed 100 strip 11 12/23/19 25 Active glipiZIDE (Glucotrol) 5 MG tabletIndicatio ns:Type 2 diabetes mellitus with stage 3 chronic kidney disease, without long-term current use of insulin, unspecified whether stage 3a or 3b CKD (HCC) Take 1 tablet (5 mg) by mouth with breakfast and with evening meal. 180 tablet 3 12/23/19 25 Active FreeStyle lancetsIndicati ons:Type 2 diabetes mellitus with stage 3 chronic kidney disease, without long-term current use of insulin, unspecified whether stage 3a or 3b CKD (HCC) 1 each by Other route 2 times daily. Use to test blood sugar twice daily, as directed 100 each 11 12/23/19 25 Active Eliquis 2.5 MG tablet Take 1 tablet (2.5 mg) by mouth 2 times daily. 60 tablet 2 01/06/20 25 Active metoprolol tartrate (Lopressor) 25 MG tablet Take 1 tablet by mouth 2 times daily. 01/12/20 25 Active furosemide (Lasix) 20 MG tablet Take 1 tablet by mouth 2 times daily. 01/26/20 25 Active Calcium Carb-Cholecalci ferol (Calcium + Vitamin D3) 600-5 MG-MCG tablet Take 1 tablet by mouth 2 times daily. 180 tablet 1 03/03/20 25 Active sacubitril-vals roddy (Entresto) 49-51 MG tablet Take 1 tablet by mouth 2 times daily. 03/25/20 25 Active Tirzepatide (Mounjaro) 12.5 MG/0.5ML solution auto-injectorIn dications:Type 2 diabetes mellitus with stage 3 chronic kidney disease, without long-term current use of insulin, unspecified whether stage 3a or 3b CKD (HCC) Inject 12.5 mg under the skin 1 (one) time per week. 2 mL 11 04/06/20 25 Active evolocumab (Repatha SureClick) 140 MG/ML injectionIndica tions:Type 2 diabetes mellitus with stage 3 chronic kidney disease, without long-term current use of insulin, unspecified whether stage 3a or 3b CKD (HCC),Other hyperlipidemia, History of ST elevation myocardial infarction (STEMI) Inject 1 mL (140 mg) under the skin every 14 (fourteen) days. 2 mL 5 04/06/20 25 Active sertraline (Zoloft) 25 MG tabletIndicatio ns:Depression, unspecified depression type TAKE 1 TABLET BY MOUTH EVERY DAY 90 tablet 3 05/03/20 25 Active docusate sodium (Colace) 100 MG capsuleIndicati ons:Chronic constipation TAKE 1 CAPSULE BY MOUTH TWICE A DAY 180 capsule 1 05/03/20 25 Active Emollient (Eucerin Advanced Repair) cream Apply 1 Application topically 2 times daily. 454 g 3 05/11/20 25 Active empagliflozin (Jardiance) 10 MGIndications:T ype 2 diabetes mellitus with stage 3 chronic kidney disease, without long-term current use of insulin, unspecified whether stage 3a or 3b CKD (HCC) Take 1 tablet (10 mg) by mouth in the morning. 30 tablet 5 05/20/20 25 Active fluticasone (Flonase) 50 MCG/ACT nasal sprayIndication s:Chronic allergic rhinitis TAKE 2 SPRAYS INTRANSALLY IN EACH NOSTRIL ONCE A DAY NEEDED 48 mL 1 04/02/20 24 2024 Discontinued(M ed list cleanup (will not trigger notification to Pharmacy)) acetaminophen (Tylenol 8 Hour) 650 MG ER tablet Take 1 tablet (650 mg) by mouth every 8 (eight) hours if needed for mild pain. Do not crush, chew, or split. 50 tablet 2 05/07/20 24 2024 empagliflozin (Jardiance) 10 MGIndications:T ype 2 diabetes mellitus with stage 3 chronic kidney disease, without long-term current use of insulin, unspecified whether stage 3a or 3b CKD (HCC) Take 1 tablet (10 mg) by mouth in the morning. 30 tablet 5 12/23/19 25 2024 Discontinued(R eorder (will not trigger notification to Pharmacy)) triamcinolone (Kenalog) 0.1 % ointment Apply topically if needed in the morning and at bedtime for rash for up to 14 days. 30 g 1 05/11/20 25 2024 Active Problems Problem Noted Date Diagnosed Date Ischemic stroke ([facility]/HCC) 01/05/2025 Hospital discharge follow-up 01/05/2025 Assessment & [...] crestror,ASA,eliquis,entresto BB,zetia-refilled today AC -I called her modern greek studies professor -Dr Vargas and left voice mail requesting a call back as well to call pt w new events pt needs to be seen sooner , will need to be consider for Holter test to r/o arrhythmia ,also advised pt to call modern greek studies professor to reschedule sooner apt -F w running specialist has apt 01/25/2025 ,CDTM 02/23/2025 for DM2 [...] this time but encouraged to see her modern greek studies professor -to f w PCP in next 6 [...] (10/07/2023 1:51 PM EDT): -knee XR with unwt-fj-xjzeblah degenerative arthritis NOV 2018 -cont tylenol and tramadol for pain control -f/u with ortho prn Chronic kidney disease, stage 4 (severe) (CMS/HC C) 11/08/2022 Assessment & Plan (03/05/2025 3:36 PM EDT): [...] snacking -s/p optho eval FEB 2023 at [facility] for annual exam -nml monofilament exam NOV 2016, repeat next visit* Resolved Problems Problem Noted Date Diagnosed Date Resolved Date Dizziness 11/13/2017 12/31/2022 Chronic kidney disease, stag e III (moderate) (CMS/HCC) 05/04/2015 12/31/2022 Encounters Date Type Department Care Team Description 05/21/2025 Orders Only [facility] MEDICINE [address] [place] [address] Cecile Galindo DO Type 2 diabetes mellitus with stage 3 chronic kidney disease, without long-term current use of insulin, unspecified whether stage 3a or 3b CKD ([facility]) (Primary Dx) 05/20/2025 Travel 05/11/2025 12:00 PM EST Office Visit [facility]INE [address] [place] [address] Cecile Galindo DO Dermatitis (Primary Dx) 05/11/2025 Travel 05/07/2025 Telephone [facility] MEDICINE [address] [place] [address] Cecile Galindo DO Nurse Triage 05/01/2025 Refill [facility] [address] [place] [address] Cecile Galindo DO Depression, unspecified depression type; Chronic constipation 04/07/2025 Telephone [facility] MEDICINE [address] [place] [address] Emilee Casillas, PharmD Prior Authorization (Repatha) 04/07/2025 Telephone [facility] MEDICINE [address] [place] [address] Emilee Casillas, PharmD 04/06/2025 Travel 04/01/2025 1:00 PM EDT Office Visit [facility] OPTOMETRY [address] [place], [place] [phone] Nader, Ngoc, OD Diabetes type 2, 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) (Primary Dx); Lamellar macular hole, right; Macular scar, left; Suspicious optic nerve cupping of both eyes; H/O laser iridotomy; Presbyopia 04/01/2025 Travel 03/09/2025 Orders Only [facility] External Provider, [facility] 03/08/2025 Telephone [facility] MEDICINE [address] [place] [address] Cecile Galindo DO Letter Request (I called [...] conditions.) 03/04/2025 2:00 PM EDT Office Visit [facility] MEDICINE [address] [place], [place] [phone] Veronique Good MD Type 2 diabetes mellitus with stage 3 chronic kidney disease, without long-term current use of insulin, unspecified whether stage 3a or 3b CKD (CMS/HCC) (Primary Dx); Chronic systolic heart failure (CMS/HCC); Essential hypertension; Chronic kidney disease, stage 4 (severe) (CMS/HCC) 03/04/2025 Travel 03/04/2025 Telephone [facility] MED[facility]INE [address] [place], [place] [phone] Cecile Galindo DO Chart Prep from Last 3 Months Immunizations Immunization Administration Dates Next Due Hep B, adult 11/15/2016,11/24/2015,08/04/2015 Influenza injectable quadriv alent IIV4 with preservative 05/04/2015 Influenza injectable quadriv alent preservative free 08/15/2016 Influenza, High Dose Seasona l, Preservative Free 04/06/2025 Influenza, IIV3, injectable 03/20/2011 Influenza, Split (incl. [...] Access Q2 Not on file 01/05/2025 Comments No Sex and Gender Information Value Date Recorded Sex Assigned at Female 2022 10:15 AM EDT Legal Sex Female 10:15 AM EDT Gender Identity Female 2022 10:15 AM EDT Sexual Orientation Straight 2022 10 :15 AM EDT Last Filed Vital Signs Vital Sign Reading Time Taken Comments Blood Pressure 100/60 05/11/2025 2:12 PM EST Pulse 88 05/11/2025 2:12 PM EST Temperature 36.9 C (98.4 F) 05/11/2025 2:12 PM EST Respiratory Rate 20 05/11/2025 2:12 PM EST Oxygen Saturation 98% 05/11/2025 2:12 PM EST Inhaled Oxygen Concentration - - Weight 68.9 kg (152 lb) 05/11/2025 2:12 PM EST Height 152.4 cm (5') 05/11/2025 2:12 PM EST Body Mass Index 29.69 05/11/2025 2:12 PM EST Plan of Treatment Upcoming Encounters Date Type Department Care Team (Late st Contact Info) Description 08/18/2025 2:30 PM EST Medication Management [facility] MEDICINE [address] [place], [place] [phone] Emilee Casillas, PharmD [address] [place], [place] [phone] Health Maintenance Due Date Last Done Comments Diabetes: Foot Exam 1950 Zoster Vaccines (2 of 3) 01/19/2016 11/24/2015 RSV Patients and Patients Aged 60 years or older (1 - 1-dose 75+ series) 2017 COVID-19 Vaccine ( - season) 2025 Diabetes: Hemoglobin A1C 08/18/2025 025, 02/23/2025, 11/26/2024, Additional history exists Alcohol/Substance Use Screening 11/27/2025 11/27/2024 Depression Screening 11/27/2025 11/27/2024, 11/28/19 25 SDOH Screening 01/05/2026 01/05/2025 Lipid Panel 03/02/2026 03/02/2025, 11/15, 05/21/2023, Additional history exists Tobacco Screening 05/11/2026 05/11/2025 Eye Exam 04/01/2027 04/01/2025, 03/17, 04/01/2025, Additional history exists DTaP/Tdap/Td Vaccines (3 - Td or Tdap) 01/13/2034 01/14/2024, 11/18/2012, 04/17/2001 Pneumococcal Vaccine: 50+ Years Completed 08/15/2016, 05/04/2015, 04/17/2001 Hepatitis B Vaccines Completed 11/15/2016, 11/24/2015, 08/04/2015 Influenza Vaccine Completed 04/06/2025, , 05/04/2015, Additional history exists HIB Vaccines Aged Out No longer eligi [...] PharmDeion Hemoglobin A1c < 8 Result Component 7.4( 5 3:00 PM EST) No Hamilton Gyoal PharmD Record your blood sugar as directed Result Component No Emilee Casillas PharmD Help patients manage their type 2 diabetes Care Plan Help patients manage their type 2 diabetes No Maulik Tierney Weekly blood pressure task Care Plan Weekly blood pressure task No Maulik Tierney Help patients manage their type 2 diabetes Care Plan Help patients manage their type 2 diabetes No Maulik Tierney Patient has chronic kidney disease Care Plan Patient has chronic kidney disease No Maulik Tierney Weekly blood pressure task Care Plan Weekly blood pressure task No Maulik Tierney Patient has chronic kidney disease Care Plan Patient has chronic kidney disease No Maulik Tierney Weekly blood pressure task Care Plan Weekly blood pressure task No Cecile Galindo DO Weekly blood pressure task Care Plan Weekly blood pressure task No Cecile Galindo DO Patient has chronic kidney disease Care Plan Patient has chronic kidney disease No Cecile Galindo DO Patient has chronic kidney disease Care Plan Patient has chronic kidney disease No Cecile Galindo DO Weekly blood pressure task Care Plan Weekly blood pressure task No PuEmilee lino, PharmD Weekly blood pressure task Care Plan Weekly blood pressure task No Puia Emilee, PharmD Patient has chronic kidney disease Care Plan Patient has chronic kidney disease No Puzoie Emilee, PharmD Patient has chronic kidney disease Care Plan Patient has chronic kidney disease No PuEmilee lino PharmD Weekly blood pressure task Care Plan Weekly blood pressure task No Cecile Galindo DO Weekly blood pressure task Care Plan Weekly blood pressure task No Cecile Galindo DO Patient has chronic kidney disease Care Plan Patient has chronic kidney disease No Cecile Galindo DO Patient has chronic kidney disease Care Plan Patient has chronic kidney disease No Cecile Galindo DO Procedures Procedure Name Priority Date/Time Associated Diagnosis Comments POCT GLYCATED HEMOGLOBIN, TOTAL Routine 05/20/2025 3:00 PM EST Type 2 diabetes mellitus with stage 3 chronic kidney disease, without long-term current use of insulin, unspecified whether stage 3a or 3b CKD ([facility]) OCT, RETINA - OU - BOTH EYES Routine 04/01/2025 1:00 PM EDT Lamellar macular hole, right US RENAL COMPLETE Routine 03/10/2025 12: 30 PM EDT US RENAL DOPPLER Routine 03/10/2025 12:3 0 PM EDT LIPID PANEL, STANDARD Routine 03/02/2025 10:33 AM EDT Ischemic stroke ([facility]) from Last 3 Months or Most Recently Relevant to Health Maintenance Results * (ABNORMAL) POCT Hgb A1c (05/20/2025 3:00 PM EST) Hemoglobin A1C 7.4(A) 4.0 - 5.7 % Blood 05/20/2025 3:00 PM EST us Cecile Galindo DO POINT OF CARE TEST ENTER/SETFFI T ORDERABLES Final Result * OCT, Retina - OU - Both Eyes (04/01/2025 1:00 PM EDT) Narrative Ngoc Doe, OD - 2025 1:12 PM EDT Images from the original result were not included. OCT [facility] Optical Coherence Tomography Interpretation Report Measurements: OD OS Macula Thickness 182 microns 118 microns Test findings: OD: Lamellar hole, no cystoid macular edema, mild retinal pigment epithelium atrophy just inferotemporal to fovea, no subretinal fluid OS: cotton wool spot superonasal to fovea, Thinned foveal depth with scarring just temporal to fovea causing atrophy, no cystoid macular edema, no subretinal fluid Impression and Plan: Stable findings compared to 02/2024 scans. Will monitor at her next exam. us Ngoc Doe OD OPHTH TOMOGRAPHY Final Result * US RENAL DOPPLER (03/10/2025 12:30 PM EDT) Anatomical Region Laterality Modality Abdomen Ultrasound 03/10/2025 12:3 0 PM EDT Narrative 03/10/2025 12:31 PM EDT [place] [address] Ultrasound Report Signed Patient: Veronique Westfall MR#: [id number] : 1940 Acct:[id number] Age/Sex: 84 / F ADM Date: 03/09/25 Loc: . Attending Dr: Blade Vargas MD Ordering Physician: Blade Vargas MD Date of Service: 03/09/25 Procedure(s): US renal doppler Accession Number(s): [id number] cc: Cecile Galindo DO; Blade Vargas MD Reason for Exam: I50.1 - Left ventricular failure, unspecified CLINICAL HISTORY: I50.1 - Left ventricular failure, unspecified Renal duplex ultrasound Comparison: None provided Technique: Real time duplex ultrasound imaging was performed by the tile layer supervisor. Multiple payroll representative static images were saved for review. Findings: Aorta: Normal waveform, 86 cm/s. Right kidney: Small, 7.5 cm in length, normal in echogenicity, mild diffuse cortical thinning. No apparent calculus, mass or hydronephrosis. Main renal artery peak systolic velocities: Proximal: 142 cm/s Mid: 129 cm/s Distal: 129 cm/s Segmental resistive index: 0.73-0.8 RAR: 1.65 Renal vein: Patent. Left kidney: Small, 8.1 cm in length, mild cortical thinning, normal in echogenicity, no calculus, mass or hydronephrosis. Main renal artery peak systolic velocities: Proximal: 124 cm/s Mid: 97 cm/s Distal: 106 cm/s Segmental resistive index: 0.70-0.83 RAR: 1.44. Renal vein: Patent. Impression: 1. Bilateral renal artery velocities are within normal range, no significant stenosis. 2. Mild renal atrophy with slightly increased resistive indices bilaterally. This document has been electronically signed by: Palma Darnell MD on 03/10/2025 12:30:16 Dictated By: Palma Darnell MD Signed By: <Electronically signed by Palma Darnell MD in OV> 03/10/25 1230 DD/ 1230 TD/TT: 03/10/25 1230 Laydown Machine Operator: Procedure Note Donotuseinterpreter, Image - 03/10/2025 [place] [address] Ultrasound Report Signed Patient: Veronique Westfall [facility]#: [id number] : 1940cct:[id number] Age/Sex: 84 / FADM Date: 03/09/25 Loc: .US Attending Dr: Blade Vargas MD Ordering Physician: Blade Vargas MD Date of Service: 03/09/25 Procedure(s): US renal doppler Accession Number(s): [id number] cc: Cecile Galindo DO; Blade Vargas MD Reason for Exam: I50.1 - Left ventricular failure, unspecified CLINICAL HISTORY: I50.1 - Left ventricular failure, unspecified Renal duplex ultrasound Comparison: None provided Technique: Real time duplex ultrasound imaging was performed by the tile layer supervisor. Multiple payroll representative static images were saved for review. Findings: Aorta: Normal waveform, 86 cm/s. Right kidney: Small, 7.5 cm in length, normal in echogenicity, mild diffuse cortical thinning. No apparent calculus, mass or hydronephrosis. Main renal artery peak systolic velocities: Proximal: 142 cm/s Mid: 129 cm/s Distal: 129 cm/s Segmental resistive index: 0.73-0.8 RAR: 1.65 Renal vein: Patent. Left kidney: Small, 8.1 cm in length, mild cortical thinning, normal in echogenicity, no calculus, mass or hydronephrosis. Main renal artery peak systolic velocities: Proximal: 124 cm/s Mid: 97 cm/s Distal: 106 cm/s Segmental resistive index: 0.70-0.83 RAR: 1.44. Renal vein: Patent. Impression: 1. Bilateral renal artery velocities are within normal range, no significant stenosis. 2. Mild renal atrophy with slightly increased resistive indices bilaterally. This document has been electronically signed by: Palma Darnell MD on 03/10/2025 12:30:16 Dictated By: Palma Darnell MD Signed By: <Electronically signed by Palma Darnell MD in OV> 03/10/25 1230 DD/ 1230 TD/TT: 03/10/25 1230 Laydown Machine Operator: us [facility] External Provider IMG US PROCEDURES Final Result * US Renal Complete (03/10/2025 12:30 PM EDT) Anatomical Region Laterality Modality Kidney Ultrasound 03/10/2025 12:3 0 PM EDT Narrative 04/07/2025 1:59 PM EDT [place] [address] Ultrasound Report Signed Patient: Veronique Westfall MR#: [id number] : 1940 Acct:[id number] Age/Sex: 84 / F ADM Date: 03/09/25 Loc: HO.US Attending Dr: Blade Vargas MD Ordering Physician: Blade Vargas MD Date of Service: 03/09/25 Procedure(s): US renal BI Accession Number(s): [id number] cc: Cecile Galindo DO; Blade Vargas MD Reason for Exam: htn CLINICAL HISTORY: I50.1 - Left ventricular failure, unspecified Renal duplex ultrasound Comparison: None provided Technique: Real time duplex ultrasound imaging was performed by the tile layer supervisor. Multiple payroll representative static images were saved for review. Findings: Aorta: Normal waveform, 86 cm/s. Right kidney: Small, 7.5 cm in length, normal in echogenicity, mild diffuse cortical thinning. No apparent calculus, mass or hydronephrosis. Main renal artery peak systolic velocities: Proximal: 142 cm/s Mid: 129 cm/s Distal: 129 cm/s Segmental resistive index: 0.73-0.8 RAR: 1.65 Renal vein: Patent. Left kidney: Small, 8.1 cm in length, mild cortical thinning, normal in echogenicity, no calculus, mass or hydronephrosis. Main renal artery peak systolic velocities: Proximal: 124 cm/s Mid: 97 cm/s Distal: 106 cm/s Segmental resistive index: 0.70-0.83 RAR: 1.44. Renal vein: Patent. Impression: 1. Bilateral renal artery velocities are within normal range, no significant stenosis. 2. Mild renal atrophy with slightly increased resistive indices bilaterally. This document has been electronically signed by: Palma Darnell MD on 03/10/2025 12:30:16 Dictated By: Palma Darnell MD Signed By: <Electronically signed by Palma Darnell MD in OV> 04/07/25 1359 DD/ 1230 TD/TT: 03/10/25 1230 Laydown Machine Operator: Procedure Note Donotuseinterpreter, Image - 04/07/2025 [place] [address] Ultrasound Report Signed Patient: Veronique Westfall [facility]#: [id number] : 2Acct:[id number] Age/Sex: 84 / FADM Date: 03/09/25 Loc: HO.US Attending Dr: Blade Vargas MD Ordering Physician: Blade Vargas MD Date of Service: 03/09/25 Procedure(s): US renal BI Accession Number(s): [id number] cc: Cecile Galindo DO; Blade Vargas MD Reason for Exam: htn CLINICAL HISTORY: I50.1 - Left ventricular failure, unspecified Renal duplex ultrasound Comparison: None provided Technique: Real time duplex ultrasound imaging was performed by the tile layer supervisor. Multiple payroll representative static images were saved for review. Findings: Aorta: Normal waveform, 86 cm/s. Right kidney: Small, 7.5 cm in length, normal in echogenicity, mild diffuse cortical thinning. No apparent calculus, mass or hydronephrosis. Main renal artery peak systolic velocities: Proximal: 142 cm/s Mid: 129 cm/s Distal: 129 cm/s Segmental resistive index: 0.73-0.8 RAR: 1.65 Renal vein: Patent. Left kidney: Small, 8.1 cm in length, mild cortical thinning, normal in echogenicity, no calculus, mass or hydronephrosis. Main renal artery peak systolic velocities: Proximal: 124 cm/s Mid: 97 cm/s Distal: 106 cm/s Segmental resistive index: 0.70-0.83 RAR: 1.44. Renal vein: Patent. Impression: 1. Bilateral renal artery velocities are within normal range, no significant stenosis. 2. Mild renal atrophy with slightly increased resistive indices bilaterally. This document has been electronically signed by: Palma Darnell MD on 03/10/2025 12:30:16 Dictated By: Palma Darnell MD Signed By: <Electronically signed by Palma Darnell MD in OV> 04/07/25 1359 DD/ 1230 TD/TT: 03/10/25 1230 Laydown Machine Operator: us [facility] External Provider IMG US PROCEDURES Final Result * (ABNORMAL) Lipid Panel, Standard (03/02/2025 10:33 AM EDT) Triglycerides 149 <150 mg/dL [facility] Comment:Desirable Triglyceri de: less than 150 mg/dLBorderline High Triglyceride 150-199 mg/dLHigh Triglyceride: 200-499 mg/dLVery High Triglyceride: greater than or equal to 5OO mg/dL Cholesterol 204(H) <200 mg/dL [facility] Comment:Desirable Cholestero l: less than 200 mg/dLBorderline High Cholesterol: 200-239 mg/dLHigh Cholesterol: greater than 239 mg/dL LDL Cholesterol Calculated 140(H) <100 mg/dL [facility] Comment:Desirable LDL: less than 100 mg/dLNear Optimal/Above Optimal LDL: 110- 129 mg/dLBorderline High LDL: 130-159 mg/dLHigh LDL: 160-189 mg/dLVery High LDL: greater than or equal to 190 mg/dL HDL Cholesterol 35(L) >40 mg/dL [facility] Comment:Desirable HDL: great er than 40 mg/dL Note: This HDL assay may give artificially low results in patients with liver disease. Blood Venous blood specimen / Unknown 03/02/2025 10:33 AM EDT 03/02/2025 1:20 PM EDT us Veronique Porter MD LAB BLOOD ORDERAB LES Final Result [facility] [address] [place] [phone] from Last 3 Months or Most Recently Relevant to Health Maintenance Additional Health Concerns Active Problems Noted Date Diagnosed Date Help patients manage their type 2 diabetes 05/07 Weekly blood pressure task 05/07/2025 Help patients manage their type 2 diabetes 05/07 Patient has chronic kidney disease 05/07/2025 Weekly blood pressure task 05/07/2025 Patient has chronic kidney disease 05/07/2025 Weekly blood pressure task 05/11/2025 Weekly blood pressure task 05/11/2025 Patient has chronic kidney disease 05/11/2025 Patient has chronic kidney disease 05/11/2025 Weekly blood pressure task 05/18/2025 Weekly blood pressure task 05/18/2025 Patient has chronic kidney disease 05/18/2025 Patient has chronic kidney disease 05/18/2025 Weekly blood pressure task 05/21/2025 Weekly blood pressure task 05/21/2025 Patient has chronic kidney disease 05/21/2025 Patient has chronic kidney disease 05/21/2025 Insurance [facility] [employer] (O D-SNP) [place] [id number] Care Teams Roads Superintendent Relationship Specialty Start Date End Date Cecile Galinod DO [address] [place] [address] PCP - General Family Medicine 01/01/14 Emilee Casillas PharmD [address] [place] [address] Pharmacist Internal Medicine 03/26/23 [facility] 08/23/17
--- OUTSIDE RECORDS SUMMARY | 2025-06-03 17:42 | XMS_ITS | Encounter Summary ---
Author Organization [employer] Address 75 [facility] 7t [place] [address] Care Team Providers Care Contact Finger Assembler Name Role Phone Cecile Galindo DO Primary Care Provider + [phone] Emilee Casillas PharmD Unavailable [phone] Reason for Visit * Reason Comments Med Refill Encounter Details Date Type Department Care Team (Late st Contact Info) Description 10/14/2023 Refill [facility] 230 [place] [address] Cecile Galindo DO 230 [place], [place] [phone] Social History Tobacco Use Types Packs/Day Years [...] Description 08/18/2025 2:30 PM EST Medication Management [facility] [address] [place] [address] Emilee Casillas, PharmD 230 [place] [address] documented as of this encounter Goals Goal [...] on filedocumented in this encounter Care Teams Contact Finger Assembler Relationship Specialty Start Date End Date Cecile Galindo DO [address] [place] [address] PCP - General Family Medicine 01/01/14 PuiaAlyEmilee, PharmD [address] [place] [address] [phone] Pharmacist Internal Medicine 03/26/23 [facility] 08/23/17 documented as of this encounter
--- OUTSIDE RECORDS SUMMARY | 2025-06-03 17:42 | XMS_ITS | Encounter Summary ---
Author Organization [employer] Address 75 [facility] 7t [place] [address] Care Team Providers Care Computer Science Instructor Name Role Phone Cecile Galindo DO Primary Care Provider +[phone] Emilee Casillas PharmD Unavailable [phone] Reason for Visit * Reason Comments Med Refill Encounter Details Date Type Department Care Team (Late st Contact Info) Description 05/12/2024 Refill [facility] MED[facility] 230 [place] [address] Cecile Galindo DO [address] [employer], [place] [phone] Depression, unspecified depression type Social History Tobacco [...] Description 08/18/2025 2:30 PM EST Medication Management [facility] [address] [place] [address] Puia, Emilee, PharmD [address] [place] [address] documented as of this encounter Goals Goal Patient Goal Type Associated Problems Recent Progress Patient-Stated? Author Patient will adhere to medication regimen General No Puia, Emilee, PharmD Hemoglobin A1c < 8 Result Component 7.4( 5 3:00 PM EST) No DellogHamilton louis, PharmD Record your blood sugar as directed Result Component No Puia, Emilee, PharmD documented as of this encounter Visit Diagnoses Diagnosis Depression, unspecified depression type documented in this encounter Additional Health Concerns Assessment Noted Time PHQ-9 Depression Total Score: 2 01/09/20 24 11:26 AM EDT documented as of this encounter Care Teams Computer Science Instructor Relationship Specialty Start Date End Date Cecile Galindo DO [address] [place] [address] PCP - General Family Medicine 01/01/14 Emilee Casillas, Cesar [address] [place] [address] Pharmacist Internal Medicine 03/26/23 [facility] 08/23/17 documented as of this encounter
--- OUTSIDE RECORDS SUMMARY | 2025-06-03 17:42 | XMS_ITS | Encounter Summary ---
Author Organization [employer] Address 75 [facility] 7t [place] [address] Care Team Providers Care Rubber Tubing Backer Name Role Phone Cecile Galindo DO Primary Care Provider [phone] Emilee Casillas PharmD Unavailable [phone] Reason for Visit * Reason Comments Med Change Request Encounter Details Date Type Department Care Team (Late st Contact Info) Description 04/29/2024 Refill [facility] MED[facility]INE 230 [place] [address] Cecile Galindo DO 230 [place], [place] [phone] Chronic allergic rhinitis Social History Tobacco Use [...] Description 08/18/2025 2:30 PM EST Medication Management [facility] MEDICINE [address] [place] [address] Puia, Emilee, PharmD 230 [place] [address] documented as of this encounter Goals Goal Patient Goal Type Associated Problems Recent Progress Patient-Stated? Author Patient will adhere to medication regimen General No Puia, Emilee, PharmD Hemoglobin A1c < 8 Result Component 7.4( 3:00 PM EST) No Dellogono Hamilton, PharmD Record your blood sugar as directed Result Component No Puia, Emilee, PharmD documented as of this encounter Visit Diagnoses Diagnosis Chronic allergic rhinitis documented in this encounter Additional Health Concerns Assessment Noted Time PHQ-9 Depression Total Score: 2 01/09/20 24 11:26 AM EDT documented as of this encounter Care Teams Rubber Tubing Backer Relationship Specialty Start Date End Date Cecile Galindo DO 230 [place] [address] PCP - General Family Medicine 01/01/14 Emilee Casillas, KarleeD [address] [place] [address] Pharmacist Internal Medicine 03/26/23 [facility] 08/23/17 documented as of this encounter
--- OUTSIDE RECORDS SUMMARY | 2025-06-03 17:43 | XMS_ITS | Encounter Summary ---
Author Organization [employer] Address [address] [place] [address] 7t [place] [address] Care Team Providers Care Residential Air Sealing Technician Name Role Phone Cecile Galindo DO Primary Care Provider [phone] Dellogmissy Hamilton PharmD Unavailable Unavail able Puzoie Emilee PharmD Unavailable Reason for Visit * Reason Comments Med Refill Encounter Details Date Type Department Care Team (Late st Contact Info) Description 10/29/2022 Refill [facility] MEDICINE 230 [place], [place] [phone] Cecile Galindo DO 230 [place], [place] [phone] Depression, unspecified depression type Social History Tobacco [...] Description 08/18/2025 2:30 PM EST Medication Management [facility] [address] [place] [address] Emilee Casillas PharmD [address] [place] [address] documented as of this encounter Goals Goal Patient Goal Type Associated Problems Recent Progress Patient-Stated? Author Hemoglobin A1c < 8 Result Component 7.4(05/20/2025 3:00 PM EST) No Hamilton Goyal PharmD documented as of this encounter Visit Diagnoses Diagnosis Depression, unspecified depression type documented in this encounter Care Teams Residential Air Sealing Technician Relationship Specialty Start Date End Date Cecile Galindo DO [address] [place] [address] PCP - General Family Medicine 01/01/14 Hamilton Goyal, PharmD [address] [place] [address] Pharmacist Internal Medicine 05/25/22 03/25/23 Emilee Casillas PharmD [address] [place] [address] Pharmacist Internal Medicine 03/26/23 [facility] 08/23/17 documented as of this encounter
--- OUTSIDE RECORDS SUMMARY | 2025-06-03 17:43 | XMS_ITS | Encounter Summary ---
Author Organization [employer] Address [address] [place] [address] 7t [place] [address] Care Team Providers Care Blue Leather Sorter Name Role Phone Cecile Galindo DO Primary Care Provider [phone]- [phone] DelHamilton clements PharmD Unavailable Unavail able Emilee Casillas PharmD Unavailable Reason for Visit * Reason Onset Date Comments requesting a call 06/20/2022 Encounter Details Date Type Department Care Team ([facility] st Contact Info) Description 06/20/2022 Telephone [facility] MEDICINE 230 [place], [place] [phone] Cecile Galindo DO 230 [place], [place] [phone] requesting a call Social History Tobacco Use [...] and home visit Please contact christie at [phone] documented in this encounter Plan of Treatment Upcoming Encounters Date Type Department Care Team (Late st Contact Info) Description 08/18/2025 2:30 PM EST Medication Management [facility] MEDICINE 230 [place] [address] Emilee Casillas PharmD 230 [place] [address] documented as of this encounter Goals Goal Patient Goal Type Associated Problems Recent Progress Patient-Stated? Author Hemoglobin A1c < 8 Result Component 7.4(05/20/2025 3:00 PM EST) No Hamilton Goyal, PharmDeion documented as of this encounter Visit Diagnoses Not on filedocumented in this encounter Care Teams Blue Leather Sorter Relationship Specialty Start Date End Date Cecile Galindo DO 230 [place] [address] PCP - General Family Medicine 01/01/14 Hamilton Goyal, PharmD [address] [place] [address] Pharmacist Internal Medicine 05/25/22 03/25/23 Emiele Casillas PharmD [address] [place] [address] Pharmacist Internal Medicine 03/26/23 [facility] 08/23/17 documented as of this encounter
--- OUTSIDE RECORDS SUMMARY | 2025-06-03 17:43 | XMS_ITS | Encounter Summary ---
Author Organization [employer] Address [address] [place] [address] 7t [place] [address] Care Team Providers Care Detonator Maker Name Role Phone Cecile Galindo DO Primary Care Provider [phone]- [phone] DellogHamilton louis PharmD Unavailable Unavail able Emilee Casillas PharmD Unavailable Reason for Visit * Reason Comments Med Refill Encounter Details Date Type Department Care Team (Late st Contact Info) Description 08/08/2022 Refill [facility] [address] [place] [address] Cecile Galindo DO 230 [place], [place] [phone] Seasonal allergic rhinitis, unspecified trigger Social History [...] Description 08/18/2025 2:30 PM EST Medication Management [facility] [address] [place] [address] Emilee Casillas PharmD [address] [place] [address] documented as of this encounter Goals Goal Patient Goal Type Associated Problems Recent Progress Patient-Stated? Author Hemoglobin A1c < 8 Result Component 7.4(05/20/2025 3:00 PM EST) No Hamilton Goyal, Cesar documented as of this encounter Visit Diagnoses Diagnosis Seasonal allergic rhinitis, unspecified trigger documented in this encounter Care Teams Detonator Maker Relationship Specialty Start Date End Date Cecile Galindo DO [address] [place] [address] PCP - General Family Medicine 01/01/14 Hamilton Goyal, PharmD [address] [place] [address] Pharmacist Internal Medicine 05/25/22 03/25/23 Emilee Casillas PharmD [address] [place] [address] Pharmacist Internal Medicine 03/26/23 [facility] 08/23/17 documented as of this encounter
--- OUTSIDE RECORDS SUMMARY | 2025-06-03 17:43 | XMS_ITS | Encounter Summary ---
Author Organization [employer] Address [address] [place] [address] 7t [place] [address] Care Team Providers Care Senior Asset Manager Name Role Phone Cecile Galindo DO Primary Care Provider [phone]- [phone] Dellogmissy Hamilton PharmD Unavailable Unavail able Emilee Casillas PharmD Unavailable Reason for Visit * Reason Comments Med Refill Encounter Details Date Type Department Care Team (Late Contact Info) Description 09/03/2022 Refill [facility] 230 [place] [address] Cecile Galindo DO [address] [place], [place] [phone] Seasonal allergic rhinitis, unspecified trigger; Chronic left [...] Department Care Team (Late Contact Info) Description 08/18/2025 2:30 PM EST Medication Management [facility] 230 [place] [address] Emilee Casillas PharmD 230 [place] [address] documented as of this encounter Goals Goal Patient Goal Type Associated Problems Recent Progress Patient-Stated? Author Hemoglobin A1c < 8 Result Component 7.4(05/20/2025 3:00 PM EST) No Hamilton Goyal, Cesar documented as of this encounter Visit Diagnoses Diagnosis Seasonal allergic rhinitis, unspecified trigger Chronic left shoulder pain Pain in joint, shoulder region documented in this encounter Care Teams Senior Asset Manager Relationship Specialty Start Date End Date Cecile Galindo DO [address] [place] [address] PCP - General Family Medicine 01/01/14 Hamilton Goyal, Cesar [address] [place] [address] Pharmacist Internal Medicine 05/25/22 03/25/23 Emilee Casillas PharmD 230 [place] [address] Pharmacist Internal Medicine 03/26/23 [facility] 08/23/17 documented as of this encounter
--- OUTSIDE RECORDS SUMMARY | 2025-06-03 17:43 | XMS_ITS | Encounter Summary ---
Author Organization [employer] Address [address] [place] [address] 7t [place] [address] Care Team Providers Care Field Hand Name Role Phone Mateo Cecile Primary Care Provider [phone]- [phone] Dellogmissy Hamilton PharmD Unavailable Unavail able Puzoie Emilee PharmD Unavailable [phone] Reason for Visit * Reason Onset Date Comments Med Refill [facility] order 09/03/2022 Int erim order 09/03/22 Encounter Details Date Type Department Care Team (Late st Contact Info) Description 09/03/2022 Refill [facility] MEDICINE 230 [place], [place] [phone] Radha Lieberman MD 230 [place], [place] [phone] Primary insomnia Social History Tobacco Use Types [...] 08/18/2025 2:30 PM EST Medication Management [facility]INE 230 [place] [address] Emilee Casillas PharmD [address] [place] [address] documented as of this encounter Goals Goal Patient Goal Type Associated Problems Recent Progress Patient-Stated? Author Hemoglobin A1c < 8 Result Component 7.4(05/20/2025 3:00 PM EST) No Hamilton Goyal PharmD documented as of this encounter Visit Diagnoses Diagnosis Primary insomnia Persistent disorder of initiating or maintaining sleep documented in this encounter Care Teams Field Hand Relationship Specialty Start Date End Date Cecile Galindo DO [address] [place] [address] PCP - General Family Medicine 01/01/14 Hamilton Goyal, PharmD [address] [place] [address] Pharmacist Internal Medicine 05/25/22 03/25/23 Emilee Casillas PharmD [address] [place] [address] Pharmacist Internal Medicine 03/26/23 [facility] 08/23/17 documented as of this encounter
--- OUTSIDE RECORDS SUMMARY | 2025-06-03 17:43 | XMS_ITS | Encounter Summary ---
Author Organization [employer] Address [address] [employer] [employer] [facility] [employer] 7t [place] [address] Care Team Providers Care Chief Counsel Name Role Phone Cecile Galindo DO Primary Care Provider +1- [phone] Dellogmissy Hamilton PharmD Unavailable Unavail able Emilee Casillas PharmD Unavailable [phone] Encounter Details Date Type Department Care Team (Late Contact Info) Description 11/19/2022 Abstract [facility] MEDICINE 230 [place] [address] Cecile Galindo DO 230 [place], [place] [phone] Social History Tobacco Use Types Packs/Day Years [...] Medication Management [facility] MEDICINE 230 [place] [address] Emilee Casillas PharmD 230 [place] [address] documented as of this encounter Goals Goal Patient Goal Type Associated Problems Recent Progress Patient-Stated? Author Hemoglobin A1c < 8 Result Component 7.4(05/20/2025 3:00 PM EST) No Hamilton Goyal, PharmDeion documented as of this encounter Visit Diagnoses Not on filedocumented in this encounter Care Teams Chief Counsel Relationship Specialty Start Date End Date Cecile Galindo DO [address] [place] [address] PCP - General Family Medicine 01/01/14 Hamilton Goyal, PharmD [address] [place] [address] Pharmacist Internal Medicine 05/25/22 03/25/23 Emilee Casillas PharmD [address] [place] [address] Pharmacist Internal Medicine 03/26/23 [facility] 08/23/17 documented as of this encounter
--- OUTSIDE RECORDS SUMMARY | 2025-06-03 17:43 | XMS_ITS | Encounter Summary ---
Author Organization [employer] Address [address] [place] [address] 7[place] [address] Care Team Providers Care Associate Marketing Manager Name Role Phone Cecile Galindo DO Primary Care Provider +1- [phone] PuiaEmilee PharmD Unavailable [phone] Reason for Visit * Reason Comments Med Refill Encounter Details Date Type Department Care Team (Late Contact Info) Description 04/01/2023 Refill [facility] 230 [place] [address] Cecile Galindo DO [address] [place], [place] [phone] Social History Tobacco Use Types Packs/Day Years [...] Description 08/18/2025 2:30 PM EST Medication Management [facility] MEDICINE [address] [place] [address] Puia, Emilee, PharmD [address] [place] [address] documented as of this encounter Goals Goal [...] on filedocumented in this encounter Care Teams Associate Marketing Manager Relationship Specialty Start Date End Date Cecile Galindo DO 230 [place] [address] PCP - General Family Medicine 01/01/14 Emilee Casillas PharmD 230 [place] [address] Pharmacist Internal Medicine 03/26/23 [facility] 08/23/17 documented as of this encounter
--- OUTSIDE RECORDS SUMMARY | 2025-06-03 17:43 | XMS_ITS | Encounter Summary ---
Author Organization [employer] Address [address] [place] [address] 7t [place] [address] Care Team Providers Care Instructor Of Spanish Name Role Phone MontanaCecile olson Primary Care Provider +1- [phone] DelHamilton clements PharmD Unavailable Unavail able Puia Emilee PharmD Unavailable Reason for Visit * Reason Comments Med Refill Encounter Details Date Type Department Care Team (Late Contact Info) Description 08/09/2022 Refill [facility] MEDICINE 230 [place], [place] [phone] Radha Lieberman MD 230 [place], [place] [phone] Primary insomnia Social History Tobacco Use Types [...] Description 08/18/2025 2:30 PM EST Medication Management [facility] 230 [place] [address] Puia, Emilee, PharmD [address] [place] [address] documented as of this encounter Goals Goal Patient Goal Type Associated Problems Recent Progress Patient-Stated? Author Hemoglobin A1c < 8 Result Component 7.4(05/20/2025 3:00 PM EST) No Hamilton Goyal, Cesar documented as of this encounter Visit Diagnoses Diagnosis Primary insomnia Persistent disorder of initiating or maintaining sleep documented in this encounter Care Teams Instructor Of Spanish Relationship Specialty Start Date End Date Cecile Galindo DO [address] [place] [address] PCP - General Family Medicine 01/01/14 Hamilton Goyal, Cesar [address] [place] [address] Pharmacist Internal Medicine 05/25/22 03/25/23 Emilee Casillas PharmD [address] [place] [address] Pharmacist Internal Medicine 03/26/23 [facility] 08/23/17 documented as of this encounter
--- OUTSIDE RECORDS SUMMARY | 2025-06-03 17:43 | XMS_ITS | Encounter Summary ---
Author Organization [employer] Address [address] [place] [address] 7t [place] [address] Care Team Providers Care Literature Teacher Name Role Phone Cecile Galindo DO Primary Care Provider +1- [phone] PuiaNatachasa PharmD Unavailable [phone] Reason for Visit * Reason Comments Med Change Request Encounter Details Date Type Department Care Team (Late Contact Info) Description 04/21/2023 Refill [facility] MEDICINE [address] [place] [address] Cecile Galindo DO 230 [place], [place] [phone] Primary insomnia Social History Tobacco Use Types [...] Description 08/18/2025 2:30 PM EST Medication Management [facility] MEDICINE [address] [place], [place] [phone] Puia, Emilee, PharmD 230 [place] [address] documented as of this encounter Goals Goal [...] sleep documented in this encounter Care Teams Literature Teacher Relationship Specialty Start Date End Date Cecile Galindo DO 230 [place] [address] PCP - General Family Medicine 01/01/14 Emilee Casillas PharmD 230 [place] [address] Pharmacist Internal Medicine 03/26/23 [facility] 08/23/17 documented as of this encounter
== END 2025-06-03 14:15 | disposition home or self-care (01) ==
LOC: HO.HCS 13:34
PROVIDERS: PCP Family Medicine; Visit Provider Internal Medicine Cardiovascular Disease
DX: I50.22 Chronic systolic (congestive) heart failure (principal); I25.10 Atherosclerotic heart disease of native coronary artery without angina pectoris
CPT/HCPCS: 99214

== ENCOUNTER → 2025-06-03 13:34 | Outpatient (BNVA) | payer OTHER, SELFPAY ==
[2022-11-29 12:51] VITALS: BP 118/58; BP 118/64
[2022-12-24 12:41] VITALS: BMI 29.1
[2023-04-08 14:16] VITALS: BP 110/60
== END ==
PROVIDERS: PCP Family Medicine; Visit Provider Internal Medicine Cardiovascular Disease
DX: I11.0 Hypertensive heart disease with heart failure (principal); I50.22 Chronic systolic (congestive) heart failure; I25.10 Atherosclerotic heart disease of native coronary artery without angina pectoris
CPT/HCPCS: 99212